=== PATIENT | female | born 2000 | race Caucasian/White ===

== ENCOUNTER 2020-01-18 14:24 | Emergency (ER) | payer OTHER, SELFPAY ==
[2020-01-18 14:51] VITALS: BP 132/89; PULSE 92; RESP 19; TEMP 36.6; O2SAT 99; BMI 19.5
--- NOTE | 2020-01-18 15:22 | HMH.EDUTC ---
[facility] [place]: Nausea vomiting and diarrhea Disposition: Home, Self-Care Condition on Discharge: Good Instructions: Diarrhea, Nausea and Vomiting-Adult Additional Instructions: ? Drink extra fluids with and between meals. If you have difficulty drinking, try very small amounts of water or suck on ice chips. ? Avoid fruit juices, as these do not replace minerals and can actually increase diarrhea. ? Children and adults can use sports drinks to replenish electrolytes. Younger children and infants should use products formulated for children, like oral rehydration solutions. ? Eat food in small amounts and let your stomach recover. ? Get lots of rest. You may feel tired or weak. ? No greasy or fried foods for the next 24-48 hours BRAT diet Bananas Rice Apples and [place] ? Make sure to drink plenty of liquids ? Return if needed ? Straight to ER if any life threatening symptoms ? Zofran as prescribed ? You was given an outpatient order for diarrhea panel, please collect specimen and bring back to outpatient lab then call back to the [facility] or follow up with family doctor for results ? Follow up with family doctor in the next 48-72 hours if no improvement or any worsening of symptoms Prescriptions: Ondansetron [Zofran 4mg ODT] 4 mg PO Q8HP PRN #9 tab.rapdis PRN Reason: Nausea Transmission Status: Pending to [id number] Referrals: Iona Frank APRN [Primary Care Provider] - As needed Forms: Work/School Release Time of Disposition: 15:38 Medical Decision Making - Wiley Inquiry Pt receiving controlled substance: No Wiley was queried for this patient: No Vital Signs: 01/18/20 14:51 Temperature 97.9 F Temperature Source Oral Pulse Rate [Radial] 92 H Respiratory Rate 19 Blood Pressure [Right Arm] 132/89 Blood Pressure Mean [Right Arm] 103 Blood Pressure Source [Right Arm] Automatic Cuff Blood Pressure Position [Right Arm] Sitting 02 Sat by Pulse Oximetry 99 Oxygen Delivery Method Room Air - Lab Data Lab results reviewed: Yes: I reviewed the patient's lab results. Orders (Tests/Meds): ED MEDICATIONS Discontinued Medications Generic Name Dose Route Start Last Admin Trade Name Freq PRN Reason Stop Dose Admin Ondansetron HCl 4 mg 01/18/20 15:36 01/18/20 15:37 Zofran 4mg Odt SL 01/18/20 15:37 4 mg ONCE ONE Administration [facility] [place] - General Stated complaint: Vomiting abd pain Time Seen by Provider: 01/18/20 15:23 Mode of Arrival: Ambulatory Source of Information: Patient Limitations: No Limitations Description of Symptoms (Recalled from Triage Doc. by RN): nausea, vomiting, diarrhea since 1 am. HEENT Symptoms (Recalled from RN notes): No Resp Symptoms (Recalled from RN notes): No Skin Symptoms (Recalled from RN notes): No MS Symptoms (Recalled from RN notes): No Functional Status (Recalled from RN notes): wnl - History of Present Illness Provider Complaint: Patient states that she woke up around 1am last night with nausea vomiting and diarrhea States that she has pretty much been up since States thats he was suppose to work today and had to call in due to vomiting and diarrhea so she came in to see if she could get something for nausea and get a doctors note - Related Data Previous Rx's Medication Instructions Recorded Ondansetron [Zofran 4mg ODT] 4 mg PO Q8HP PRN #9 tab.rapdis 01/18/20 Allergies Allergy/AdvReac Type Severity Reaction Status Date / Time No Known Allergies Allergy Unverified 05/16/17 15:03 - Worker's Comp Is this a Worker's Comp case?: No [facility] History - Hepatitis A Screen Drug use history?: No High risk sexual behaviors?: No History of sexually transmitted infection?: No Currently employed?: No Childcare worker?: No Do you have indoor plumbing?: Yes Do you have electricity?: Yes Attestation statement:: This patient has been screened for Hepatitis A risk factors. I have reviewed the patient's past m
[2020-01-18 15:41] VITALS: BP 132/89; PULSE 92; RESP 19; TEMP 36.6; O2SAT 99
[2020-01-18 19:05] LABS: UTC Pregnancy Test, Urine Negative (Negative)
== END 2020-01-18 15:47 | disposition home or self-care (01) ==
PROVIDERS: Emergency Provider Nurse Practitioner; PCP Nurse Practitioner Family
DX: R11.2 Nausea with vomiting, unspecified (principal); R19.7 Diarrhea, unspecified
CPT/HCPCS: 81025; 99201

== ENCOUNTER 2020-04-07 11:12 | Emergency (ER) | payer OTHER, SELFPAY ==
[2020-04-07 12:34] VITALS: BP 127/77; PULSE 74; RESP 19; TEMP 36.6; O2SAT 100; BMI 20.9
--- NOTE | 2020-04-07 12:39 | HMH.EDUTC ---
[facility] [place] Impression: Nausea vomiting and diarrhea Disposition: Home, Self-Care Condition on Discharge: Good Instructions: Nausea and Vomiting-Adult, DI for Nausea -- Adult, Dicyclomine, Ondansetron, Diarrhea Additional Instructions: Drink extra fluids with and between meals. If you have difficulty drinking, try very small amounts of water or suck on ice chips. ? Avoid fruit juices, as these do not replace minerals and can actually increase diarrhea. ? Children and adults can use sports drinks to replenish electrolytes. Younger children and infants should use products formulated for children, like oral rehydration solutions. ? Eat food in small amounts and let your stomach recover. ? Get lots of rest. You may feel tired or weak. ? No greasy or fried foods for the next 24-48 hours BRAT diet Bananas Rice Apples and [place] ? Make sure to drink plenty of liquids ? Return if needed ? Straight to ER if any life threatening symptoms ? Zofran as prescribed ? You was given an outpatient order for diarrhea panel, please collect specimen and bring back to outpatient lab then call back to the [facility] or follow up with family doctor for results ? Follow up with family doctor in the next 48-72 hours if no improvement or any worsening of symptoms Prescriptions: Dicyclomine HCl [Bentyl 10mg capsule] 10 mg PO TID PRN #15 cap PRN Reason: Cramping Transmission Status: [facility] to [facility] Ondansetron [Zofran 4mg ODT] 4 mg PO TIDP PRN #9 tab PRN Reason: Vomiting Transmission Status: Pending to [facility] Referrals: Iona Frank APRN [Primary Care Provider] - As needed Forms: Work/School Release Medical Decision Making - Wiley Inquiry Pt receiving controlled substance: No Wiley was queried for this patient: No Vital Signs: 04/07/20 12:34 Temperature 97.8 F Temperature Source Oral Pulse Rate [Left] 74 Respiratory Rate 19 Blood Pressure [Right Arm] 127/77 Blood Pressure Mean [Right Arm] 93 Blood Pressure Source [Right Arm] Automatic Cuff Blood Pressure Position [Right Arm] Sitting 02 Sat by Pulse Oximetry 100 Oxygen Delivery Method Room Air [facility] [place] - General Stated complaint: vomiting Time Seen by Provider: 04/07/20 12:39 Mode of Arrival: Ambulatory Source of Information: Patient Limitations: No Limitations Description of Symptoms (Recalled from Triage Doc. by RN): emesis since this morning HEENT Symptoms (Recalled from RN notes): No Resp Symptoms (Recalled from RN notes): No Skin Symptoms (Recalled from RN notes): No MS Symptoms (Recalled from RN notes): No Functional Status (Recalled from RN notes): stable - History of Present Illness Provider Complaint: Patient states that she was recently around a coworker who had a stomach virus States that she woke up this morning and was having some nausea and upset stomach States that she vomited a couple times and had a couple episodes of diarrhea States that she wasnt able to go to work so she come in to see if she could get something for the nausea. Denies chance of states that she is on her period now - Related Data Previous Rx's Medication Instructions Recorded Ondansetron [Zofran 4mg ODT] 4 mg PO Q8HP PRN #9 tab.rapdis 01/18/20 levonorgestrel-ethinyl estradiol 1 tab PO DAILY #28 tab 03/13/20 0.1 mg-20 mcg tablet Dicyclomine HCl [Bentyl 10mg 10 mg PO TID PRN #15 cap 04/07/20 capsule] Ondansetron [Zofran 4mg ODT] 4 mg PO TIDP PRN #9 tab 04/07/20 Allergies Allergy/AdvReac Type Severity Reaction Status Date / Time No Known Allergies Allergy Verified 04/07/20 12:33 - Worker's Comp Is this a Worker's Comp case?: No Is this an H Worker's Comp?: No Is this a Rebecca Worker's Comp?: No [facility] History - Hepatitis A Screen Drug use history?: No High risk sexual behaviors?: No History of sexually transmitted infection?: No Currently employed?: No Childcare worker?: No Do you have in
[2020-04-07 12:57] VITALS: BP 127/77; PULSE 74; RESP 19; TEMP 36.6; O2SAT 100
== END 2020-04-07 12:57 | disposition home or self-care (01) ==
PROVIDERS: Emergency Provider Nurse Practitioner; PCP Nurse Practitioner Family
DX: R11.2 Nausea with vomiting, unspecified (principal)
CPT/HCPCS: 99201

== ENCOUNTER → 2020-04-28 14:42 | Outpatient (CLI) | payer OTHER, SELFPAY | PROVIDERS: Visit Provider Nurse Practitioner Obstetrics & Gynecology | DX: N39.0 Urinary tract infection, site not specified (principal) | CPT/HCPCS: 87086; 87088; 87186 ==

== ENCOUNTER → 2020-04-28 18:54 | Outpatient (CLI) | payer OTHER, SELFPAY | PROVIDERS: Visit Provider Nurse Practitioner Obstetrics & Gynecology | DX: Z01.419 Encounter for gynecological examination (general) (routine) without abnormal findings (principal) ==

== ENCOUNTER 2020-06-29 11:53 | Emergency (ER) | payer OTHER, SELFPAY ==
[2020-06-29 12:10] VITALS: BP 114/70; PULSE 87; RESP 19; TEMP 36.9; O2SAT 99; BMI 19.5
--- NOTE | 2020-06-29 12:56 | HMH.EDUTC ---
[facility] [place] Clinical Impression: Encounter for screening laboratory testing for COVID-19 virus Nausea & vomiting Qualifiers: Vomiting type: unspecified Vomiting Intractability: unspecified Qualified Code(s): R11.2 - Nausea with vomiting, unspecified Disposition: Home, Self-Care Condition on Discharge: Good Instructions: DI for COVID-19 (Suspected or Confirmed ), Coronavirus Disease 2019, Preventing the Spread of Coronavirus Discharge Instructions, DI for Nausea -- Adult Additional Instructions: *Monitor Temp, Over the counter Motrin or Tylenol as directed/as needed Tylenol every 4 hours and Motrin every 6 hours (as long as your family doctor has told you that you can take it) for fever or pain. and straight to ER if unable to lower temp less than 101.0 after medication given ? Avoid fruit juices, as these do not replace minerals and can actually increase diarrhea. ? Children and adults can use sports drinks to replenish electrolytes. Younger children and infants should use products formulated for children, like oral rehydration solutions. ? Eat food in small amounts and let your stomach recover. ? Get lots of rest. You may feel tired or weak. ? No greasy or fried foods for the next 24-48 hours BRAT diet Bananas Rice Apples and [place] ? Make sure to drink plenty of liquids ? Return if needed ? Straight to ER if any life threatening symptoms ? Zofran as prescribed ? Follow up with family doctor in the next 48-72 hours if no improvement or any worsening of symptoms Follow up IMMEDIATELY for new or worsening symptoms or no Noticeable improvement over the next 48-72 hours. 911 for difficulty breathing or swallowing You were tested for today for COVID19 your test result should be back in the next 24-48 hours, you may call to the [facility] to see if your test results are back in the next 48 hours [phone] [facility] hours are 9am-9pm You was given a handout with instructions for Self Quarantine and Self isolation for while you wait on test results and what to do if they are positive If you are positive the Health Dept will be contacting you also Prescriptions: Ondansetron [Zofran 4mg ODT] 4 mg PO TIDP PRN #6 tab PRN Reason: Nausea Transmission Status: [facility] Referrals: Iona Frank APRN [Primary Care Provider] - As needed Time of Disposition: 12:59 Medical Decision Making - Wiley Inquiry Pt receiving controlled substance: No Wiley was queried for this patient: No Vital Signs: 06/29/20 12:10 Temperature 98.4 F Temperature Source Oral Pulse Rate [Right Brachial] 87 Respiratory Rate 19 Blood Pressure [Right Arm] 114/70 Blood Pressure Mean [Right Arm] 84 Blood Pressure Source [Right Arm] Automatic Cuff Blood Pressure Position [Right Arm] Sitting 02 Sat by Pulse Oximetry 99 Oxygen Delivery Method Room Air Orders (Tests/Meds): ORDERS Category Date Time Status Covid-19 Nasal PCR ([facility]) Routine Lab 06/29/20 12:20 Received Medical Decision Narrative: Denies abdominal pain, denies chance of [facility] [place] - General Stated complaint: Covid Test Time Seen by Provider: 06/29/20 12:56 Mode of Arrival: Ambulatory Source of Information: Patient Limitations: No Limitations Description of Symptoms (Recalled from Triage Doc. by RN): PATIENT C/O NAUSEA, VOMITING, AND ABDOMINAL CRAMPING SINCE APPROX 0300 THIS MORNING HEENT Symptoms (Recalled from RN notes): No Resp Symptoms (Recalled from RN notes): No Skin Symptoms (Recalled from RN notes): No MS Symptoms (Recalled from RN notes): No Functional Status (Recalled from RN notes): WNL - History of Present Illness Provider Complaint: Patient states that several people at her work has tested positive for COVID States that she has been having body aches, chills, N/V States that her stomach has been upset all day State that last vomited this morning and she wanted to get tested for COVID - Related Data Previous Rx's Medicatio
[2020-06-29 12:57] VITALS: BP 114/70; PULSE 87; RESP 19; TEMP 36.9; O2SAT 99
--- NOTE | 2020-06-30 12:44 | PC.NURSE ---
PT NOTIFIED POSITIVE COVID TEST RESULTS
== END 2020-06-29 13:05 | disposition home or self-care (01) ==
PROVIDERS: Emergency Provider Nurse Practitioner; PCP Nurse Practitioner Family
DX: U07.1 COVID-19 (principal)
CPT/HCPCS: 99202; G0463; U0003

== ENCOUNTER 2020-07-06 12:53 | Emergency (ER) | payer OTHER, SELFPAY ==
[2020-07-06 13:33] VITALS: BP 123/73; PULSE 82; RESP 16; TEMP 36.1; O2SAT 99; BMI 19.5
--- NOTE | 2020-07-06 13:59 | HMH.EDUTC ---
[facility] [place] Clinical Impression: Cellulitis and abscess of upper extremity, COVID-19 Disposition: Home, Self-Care Condition on Discharge: Good Instructions: Cellulitis, Preventing the Spread of Coronavirus Discharge Instructions Additional Instructions: Keep the affected area clean and dry. Follow up with your regular doctor. Take the antibiotics as directed and apply the topical antibiotics as directed. Apply warm wet compresses to the affected area three or four times per day. GO TO THE ER FOR ANY WORSENING SYMPTOMS Prescriptions: Sulfamethoxazole/Trimethoprim [Bactrim DS tablet] 1 each PO BID 10 Days #20 tab Transmission Status: Received by [facility] Mupirocin [Bactroban 2% Ointment 22gm tube] 1 applicatio TP TID 7 Days #1 tube Transmission Status: Received by [facility] cephALEXin [cephALEXin 500mg capsule] 500 mg PO Q6H 10 Days #40 cap Transmission Status: Received by [facility] Referrals: Iona Frank APRN [Primary Care Provider] - Time of Disposition: 14:09 Medical Decision Making - Medical Records Medical records reviewed: No: I reviewed the patient's medical records. - Wiley Inquiry Pt receiving controlled substance: No Vital Signs: 07/06/20 13:33 07/06/20 14:18 Temperature 96.9 F L 97.1 F L Temperature Source Tympanic Tympanic Pulse Rate 79 Pulse Rate [Left] 82 Respiratory Rate 16 16 Blood Pressure 119/69 Blood Pressure [Right Arm] 123/73 Blood Pressure Mean [Right Arm] 89 Blood Pressure Source [Right Arm] Automatic Cuff Blood Pressure Position [Right Arm] Sitting 02 Sat by Pulse Oximetry 99 Oxygen Delivery Method Room Air Orders (Tests/Meds): ORDERS Category Date Time Status Wound Culture and Gram Stain Routine Micro 07/06/20 14:10 Received [facility] [place] HPI - General Stated complaint: bump Rt arm, red, hot, swollen, COVID POSITIVE Time Seen by Provider: 07/06/20 14:05 Mode of Arrival: Ambulatory Source of Information: Patient Limitations: No Limitations Description of Symptoms (Recalled from Triage Doc. by RN): pt is covid positive as a week ago. pt wants to be seen for an abcess on her right lower arm. it is open with a yellow inside. pt has redness around in about the diameter of a baseball. however the lump its self is only about the size of a dime. HEENT Symptoms (Recalled from RN notes): No Resp Symptoms (Recalled from RN notes): No Skin Symptoms (Recalled from RN notes): Yes (abcess on right lower arm.) MS Symptoms (Recalled from RN notes): No Functional Status (Recalled from RN notes): na - History of Present Illness Provider Complaint: She states that for the past 3 days she has had a red area on her right forearm that has been swelling and painful to touch. There is a open area in the center of the redness that has some yellowish drainage. She is currently covid-19 positive, but she states that her covid symptoms are getting better. She works in a prison. - Related Data Previous Rx's Medication Instructions Recorded levonorgestrel-ethinyl estradiol 1 tab PO DAILY #28 tab 03/13/20 0.1 mg-20 mcg tablet nitrofurantoin 100 mg PO BID 5 Days #10 cap 04/28/20 monohydrate/macrocrystals 100 mg capsule Ondansetron [Zofran 4mg ODT] 4 mg PO TIDP PRN #6 tab 06/29/20 Mupirocin [Bactroban 2% Ointment 1 applicatio TP TID 7 Days #1 tube 07/06/20 22gm tube] Sulfamethoxazole/Trimethoprim 1 each PO BID 10 Days #20 tab 07/06/20 [Bactrim DS tablet] cephALEXin [cephALEXin 500mg 500 mg PO Q6H 10 Days #40 cap 07/06/20 capsule] Allergies Allergy/AdvReac Type Severity Reaction Status Date / Time No Known Allergies Allergy Verified 07/06/20 13:43 - Worker's Comp Is this a Worker's Comp case?: No [facility] History - Hepatitis A Screen Drug use history?: No High risk sexual behaviors?: No History of sexually transmitted infection?: No Currently employed?: No Childcare worker?: No
[2020-07-06 14:18] VITALS: BP 119/69; PULSE 79; RESP 16; TEMP 36.2
== END 2020-07-06 14:20 | disposition home or self-care (01) ==
PROVIDERS: Emergency Provider Nurse Practitioner Family; PCP Nurse Practitioner Family
DX: L03.113 Cellulitis of right upper limb (principal); U07.1 COVID-19
CPT/HCPCS: 87070; 87077; 87186; 87205; 99202; G0463

== ENCOUNTER → 2020-12-10 14:24 | Outpatient (CLI) | payer OTHER, SELFPAY ==
--- NOTE | 2020-12-10 14:24 | US_ITS ---
PROCEDURE: US OB <= 14 WEEKS FETUS CLINICAL INDICATION: for dates Ob ultrasound for dates COMPARISON: No exams were available for comparison FINDINGS: An intrauterine gestational sac is present with a pole with a crown-rump length of 1.66cm correlating to gestational age of 8weeks 1day. heart tones are present with an FHR of 165bpm. Yolk sac is noted. Unremarkable adnexa IMPRESSION: Live IUP at 8 weeks 1 day Estimated due date by Ultrasound is 07/21/2021 Dictated by: Amilcar Almaguer MD 12/10/2020 15:56 Amilcar Almaguer MD in [place] 12/10/2020 15:56
== END ==
PROVIDERS: PCP Nurse Practitioner Family; Visit Provider Nurse Practitioner Obstetrics & Gynecology
DX: Z34.91 Encounter for supervision of normal pregnancy, unspecified, first trimester (principal)
CPT/HCPCS: 76801

== ENCOUNTER → 2020-12-10 15:06 | Outpatient (CLI) | payer OTHER, SELFPAY ==
[2020-12-10 15:48] LABS: Basophils % 0.3 % (0.1-2.0); Eosinophils % 0.1 % (0.1-12.0); Hematocrit 42.5 % (37.0-47.0); Hemoglobin 14.4 g/dL (12.2-16.2); Lymphocytes # 1.4 K/mm3 (0.7-4.5); Lymphocytes % 11.3 % (10-50); Mean Corpuscular HGB Conc 33.8 g/dL (31.8-35.4); Mean Corpuscular Volume 88.7 fl (81-99); Mean Platelet Volume 7.1 fl (7.4-10.4); Monocytes # 0.5 K/mm3 (0.1-1.0); Monocytes % 3.9 % (1.7-9.3); Neutrophils # 10.5 K/mm3 (1.8-7.8); Neutrophils % 84.4 % (37.0-80.0); Platelet Count 288 K/mm3 (142-424); Red Blood Count 4.79 M/mm3 (4.20-5.40); White Blood Count 12.4 K/mm3 (4.8-10.8)
[2020-12-12 11:25] LABS: HIV Screen 4th Generation wRfx Non Reactive (Non Reactive); HSV 1 IgG, Type Spec <0.91 index (0.00-0.90); HSV 2 IgG, Type Spec <0.91 index (0.00-0.90); Hepatitis B Surface Antigen Negative (Negative); Hepatitis C Antibody <0.1 s/co ratio (0.0-0.9); Rubella Antibodies, IgG 1.21 index (Immune >0.99)
[2020-12-12 12:45] LABS: Rapid Plasma Reagin Ab Titer Non Reactive (NonRea<1:1)
== END ==
PROVIDERS: Visit Provider Nurse Practitioner Obstetrics & Gynecology
DX: Z34.91 Encounter for supervision of normal pregnancy, unspecified, first trimester (principal); Z3A.08 8 weeks gestation of pregnancy
CPT/HCPCS: 36415; 85025; 86592; 86695; 86703; 86762; 86790; 86850; 87340; 87380; G0432

== ENCOUNTER 2020-12-19 11:46 | Emergency (ER) | payer OTHER, SELFPAY ==
[2020-12-19 13:19] VITALS: BP 122/79; PULSE 97; RESP 18; TEMP 37.1; O2SAT 97; BMI 17.5
--- NOTE | 2020-12-19 13:24 | HMH.EDUTC ---
[facility] [place] Clinical Impression: Qualifiers: Weeks of gestation: 10 weeks Qualified Code(s): Z3A.10 - 10 weeks gestation of Nausea & vomiting Qualifiers: Vomiting type: unspecified Vomiting Intractability: intractable Qualified Code(s): R11.2 - Nausea with vomiting, unspecified Disposition: Home, Self-Care Condition on Discharge: Good Instructions: Diet, Nausea of (Alternative Therapy) Additional Instructions: call monday to get appointment with dr woodward take half phenergan increase fluids bland diet return if symptoms worsen or do not impove Referrals: Provider,Referral, MD [Primary Care Provider] - Forms: Work/School Release Time of Disposition: 13:35 Medical Decision Making - Wiley Inquiry Pt receiving controlled substance: No Vital Signs: 12/19/20 13:19 Temperature 98.8 F Temperature Source Oral Pulse Rate [Apical] 97 H Respiratory Rate 18 Blood Pressure [Right Arm] 122/79 Blood Pressure Mean [Right Arm] 93 Blood Pressure Source [Right Arm] Automatic Cuff Blood Pressure Position [Right Arm] Supine 02 Sat by Pulse Oximetry 97 Oxygen Delivery Method Room Air - Physician Consults Physician Consulted: gagan Time: 13:32 Reason -: Pt condition Comment/Response: discussed pt symptoms- take half of phenergan, increase fluids and stay off work until seen by dr woodward [facility] [place] HPI - General Chief complaint: Urgent [facility] Stated complaint: nausea, dizzy Time Seen by Provider: 12/19/20 13:24 Mode of Arrival: Ambulatory Source of Information: Patient Limitations: No Limitations Description of Symptoms (Recalled from Triage Doc. by RN): nausea, vomitting, dizziness HEENT Symptoms (Recalled from RN notes): No Resp Symptoms (Recalled from RN notes): No Skin Symptoms (Recalled from RN notes): No MS Symptoms (Recalled from RN notes): No Functional Status (Recalled from RN notes): na - History of Present Illness Provider Complaint: 20yr old female presents for nausea and dizziness for over 3 weeks. pt is 10 weeks . pt states symptoms worse when she bends over. pt states her obgyn gave her phenergan but it makes her to sleepy. pt states she is able to eat and drink just smells make her sick at her stomach - Related Data Previous Rx's Medication Instructions Recorded prenat.vits,ruth,iuu-ujir-osrjq 1 tab PO DAILY #30 tab 12/03/20 promethazine 25 mg tablet 25 mg PO Q6H PRN #30 tab 12/16/20 Allergies Allergy/AdvReac Type Severity Reaction Status Date / Time No Known Allergies Allergy Verified 12/03/20 10:10 - Worker's Comp Is this a Worker's Comp case?: No [facility] History - Hepatitis A Screen Drug use history?: No High risk sexual behaviors?: No History of sexually transmitted infection?: No Currently employed?: No Childcare worker?: No Do you have indoor plumbing?: Yes Do you have electricity?: Yes Attestation statement:: This patient has been screened for Hepatitis A risk factors. I have reviewed the patient's past medical history: Yes Medical History: Reports:: Anxiety, Depression Denies:: Cancer, Diabetes Mellitus Type 1, Diabetes Mellitus Type 2, Internal Pacemaker, MRSA Other Surgeries: Yes: Cholecystectomy. No: Pacemaker Amputation: No Fractures: No - Social History Smoking Status: Never smoker Alcohol Intake: never Alcohol Intake Frequency:: other Substance Use Type: marijuana Occupational Status: employed Housing: house - Psychiatric History Pschychiatric History:: Reports:: Anxiety, Depression Family Hx:: No significant family history ROS Obtained: Yes Systems reviewed as appropriate & no additional complaints - Constitutional Constitutional: Reports system reviewed and no additional complaints, except as docu, Denies fatigue - Eyes Eyes: Reports system reviewed and no additional complaints, except as docu, Denies blurry vision - ENT Ears, Nose, Mouth, and Throat: Reports system reviewed and n
[2020-12-19 13:40] VITALS: BP 122/79; PULSE 97; RESP 18; TEMP 37.1
== END 2020-12-19 13:41 | disposition home or self-care (01) ==
PROVIDERS: Emergency Provider Nurse Practitioner Family
DX: R42 Dizziness and giddiness (principal); Z3A.10 10 weeks gestation of pregnancy; F41.8 Other specified anxiety disorders
CPT/HCPCS: 99202; G0463

== ENCOUNTER → 2020-12-21 15:19 | Outpatient (CLI) | payer OTHER, SELFPAY | PROVIDERS: Visit Provider Nurse Practitioner Obstetrics & Gynecology | DX: Z34.90 Encounter for supervision of normal pregnancy, unspecified, unspecified trimester (principal) | CPT/HCPCS: 36415 ==

== ENCOUNTER → 2021-03-02 13:03 | Outpatient (CLI) | payer OTHER, SELFPAY ==
--- NOTE | 2021-03-02 13:03 | US_ITS ---
PROCEDURE: US OB /MATERNAL DETAIL CLINICAL INDICATION: US OB Complete-20wk + Anatomy Scan COMPARISON: US US OB <= 14 WEEKS FETUS from 12/10/2020 FINDINGS: Single viable intrauterine gestation. Breech position. Placenta: Anteriorplacenta grade 1. There is average amount fluid. The cervix appears satisfactory. Closed and measuring 4 cm in length. Complete survey performed and was unremarkable on the submitted images as in PACS. No discrete anomalies identified on survey imaging by technologist. Active fetus. Three-vessel cord with satisfactory umbilical cord insertion. 4- chamber heart noted. Survey of brain & ventricles Unremarkable. Face and neck survey unremarkable. Diaphragm and chest views unremarkable. Abdomen: Both kidneys noted and unremarkable. Stomach noted and satisfactory. Spine: Survey of the spine satisfactory with no anomalies identified nor imaged. Both arms and legs noted. Amniotic Fluid: Adequate. Maternal adnexa: No significant findings. Measurements: Average ultrasound age 19weeks 4days. Gestational Age 19weeks 4days Estimated due date by ultrasound age 0207/23/2021. Estimated weight 291g BPD = 19weeks 6days OFD = 19weeks 6days HC = 19weeks 1day AC = 19weeks 4days FL = 19weeks 3days Growth Percentile= 22% Heart Rate = 149bpm Cerebellum = 19weeks 6days Humerus = 19weeks 5days HC/AC is 1.15 CI is 0.79 FL/BPD is 0.66 FL/AC is 0.21 IMPRESSION: Live IUP in breech presentation with an average ultrasound age 19 weeks 4 days. No obvious anomalies. Please see above for detail Dictated by: Amilcar Almaguer MD 03/02/2021 18:25 Amilcar Almaguer MD in [place] 03/02/2021 18:25
== END ==
PROVIDERS: Visit Provider Nurse Practitioner Obstetrics & Gynecology
DX: Z36.0 Encounter for antenatal screening for chromosomal anomalies (principal)
CPT/HCPCS: 76811

== ENCOUNTER → 2021-04-23 08:01 | Outpatient (CLI) | payer OTHER, SELFPAY ==
[2021-04-23 08:33] LABS: Glucose,Fasting 93 mg/dl (74-100)
[2021-04-23 09:52] LABS: Glucose 1 Hour 104 mg/dL (74-100)
== END ==
PROVIDERS: Visit Provider Nurse Practitioner Obstetrics & Gynecology
DX: Z34.90 Encounter for supervision of normal pregnancy, unspecified, unspecified trimester (principal); Z3A.25 25 weeks gestation of pregnancy
CPT/HCPCS: 36415; 82951

== ENCOUNTER → 2021-06-15 16:28 | Outpatient (CLI) | payer OTHER, SELFPAY | PROVIDERS: Visit Provider Nurse Practitioner Obstetrics & Gynecology | DX: Z34.90 Encounter for supervision of normal pregnancy, unspecified, unspecified trimester (principal) | CPT/HCPCS: 86403 ==

== ENCOUNTER → 2021-06-21 10:25 | Outpatient (CLI) | payer OTHER, SELFPAY ==
--- NOTE | 2021-06-21 10:25 | US_ITS ---
FINAL REPORT CLINICAL HISTORY: sga-- BPP AND GROWTH FINDINGS: There is a single live intrauterine gestation. Presentation is cephalic. The cervix is closed and measures 3.46 cm. Placenta is anterior. Cardiac activity is confirmed at 153 bpm. Fetus is active. Three-vessel cord with satisfactory umbilical cord insertion. Four-chamber heart is noted. brain and ventricles are unremarkable. Chest and diaphragm are unremarkable. ABDOMEN: Both kidneys are unremarkable. Stomach is unremarkable. SPINE: No anomalies identified. Both arms and legs noted. MAYELA: 7.78 MEASUREMENTS: ULTRASOUND AGE: 35 weeks 2 days. GESTATION AGE: 36 weeks 2 days. ESTIMATED WEIGHT: 5 lbs. 6 oz. GROWTH PERCENTILE: BPD: 36 weeks 3 days. OFD: 36 weeks 0 days. HC: 35 weeks 5 days. AC: 34 weeks 0 days. FL: 34 weeks 4 days. CEREBELLUM: 36 weeks 3 days. HC/AC: 1.06 CI: 81% FL/BPD: 75% FL/AC: 22% BREATHIN/2 MOVEMENT: 2/2 TONE: 2/2 FLUID VOLUME: 2/2 BPP SCORE: 8/8 IMPRESSION: Single living IUP with an ultrasound age of 35 weeks 2 days. BPP SCORE: 8/8 Reviewed, Interpreted and Dictated by Norman Sparks MD Transcribed by Tamiko Gutierrez Authenticated by Norman Sparks MD on 06/21/2021 03:38:46 PM [facility]
== END ==
PROVIDERS: Visit Provider Nurse Practitioner Obstetrics & Gynecology
DX: O36.5990 Maternal care for other known or suspected poor fetal growth, unspecified trimester, not applicable or unspecified (principal)
CPT/HCPCS: 76805; 76819

== ENCOUNTER 2021-07-11 17:07 | Inpatient (IN) | payer OTHER, SELFPAY ==
[2021-07-11 17:14] VITALS: BMI 23.6
[2021-07-11 17:45] LABS: Coronavirus 19, PCR Not Detected (NotDetected); Influenza A, PCR Not Detected (NotDetected); Influenza B, PCR Not Detected (NotDetected)
[2021-07-11 17:58] VITALS: BP 140/81; PULSE 100; RESP 16; TEMP 36.8; O2SAT 98; BMI 23.6
[2021-07-11 18:08] LABS: Basophils # 0.4 K/mm3 (0-0.2); Basophils % 3.2 % (0.1-2.0); Eosinophils % 0.2 % (0.1-12.0); Hematocrit 39.6 % (37.0-47.0); Hemoglobin 13.2 g/dL (12.2-16.2); Lymphocytes # 1.2 K/mm3 (0.7-4.5); Lymphocytes % 11.3 % (10-50); Mean Corpuscular HGB Conc 33.4 g/dL (31.8-35.4); Mean Corpuscular Hemoglobin 31.8 pg (27.0-31.2); Mean Corpuscular Volume 95.3 fl (81-99); Mean Platelet Volume 7.3 fl (7.4-10.4); Monocytes # 0.9 K/mm3 (0.1-1.0); Neutrophils # 8.5 K/mm3 (1.8-7.8); Neutrophils % 77.3 % (37.0-80.0); Platelet Count 303 K/mm3 (142-424); Red Blood Count 4.16 M/mm3 (4.20-5.40); Red Cell Distribution Width 13.5 % (11.5-17.5); White Blood Count 10.9 K/mm3 (4.8-10.8)
[2021-07-11 20:25] VITALS: BP 120/70; PULSE 92; RESP 16; TEMP 36.4; O2SAT 100
[2021-07-11 21:58] LABS: Microscopic, Urine URINE MICROSCOPIC (MICROSCOPIC)
[2021-07-11 22:00] LABS: Appearance,Urine CLEAR (Clear); Bilirubin,Urine Negative (Negative); Blood, Urine 1+ (Negative); Color,Urine YELLOW (Yellow); Glucose,Urine (UA) Negative (Negative); Ketones,Urine Negative (Negative); Leukocyte Esterase,Urine TRACE (Negative); Nitrate,Urine Negative (Negative); Protein,Urine Negative (Negative); Specific Gravity, Urine <= 1.005 (1.005-1.030); Urobilinogen,Urine 0.2 EU/dl (0.2)
[2021-07-11 22:05] LABS: Bacteria,Urine Trace /lpf; Squamous Epithelial Cell,Urine Occasional #/hpf (0-5); WBC,Urine Occasional #/hpf (0-3)
[2021-07-11 22:11] LABS: Barbiturates Screen,Urine Negative ng/ml (<200)
[2021-07-11 22:12] LABS: Amphetamine/Metha Screen,Urine Negative ng/ml (<1000); Benzodiazepines Screen,Urine Negative ng/ml (<200)
[2021-07-11 22:13] LABS: Cannabinoid Screen,Urine Negative ng/ml (<50); Cocaine Screen,Urine Negative ng/ml (<300)
[2021-07-11 22:14] LABS: Methadone Screen,Urine Negative ng/ml (<300)
[2021-07-11 22:15] LABS: Opiate Screen,Urine Negative ng/ml (<300); Phencyclidine Screen,Urine Negative ng/ml (<25)
--- NOTE | 2021-07-12 09:41 | HMH.OBAPHP ---
OB - H&P: HPI Antepartum - History of Present Illness Chief complaint: Term , oligohydramnios History of present illness: She is a 21-year-old 1 para 0 at 39+ weeks gestational age. She has been followed over the last couple of weeks with low amniotic fluid. Most recently it was right around 8. As result of this she is admitted for delivery at term. - History of Present Criteria for establishing EDC:: LMP confirmed by 1st trimester US care: good care Ultrasounds: normal 1st trimester US, normal mid trimester US Obstetrical complications: other Medical complications: none - Labs Blood type: AB (+) positive Rubella: immune RPR/VDRL: nonreactive GBS status: negative HBsAG: negative HMH History I have reviewed the patient's past medical history: Yes Medical History: Reports:: Anxiety, Depression Denies:: Cancer, Diabetes Mellitus Type 1, Diabetes Mellitus Type 2, Internal Pacemaker, MRSA *Have you ever received a pneumonia vaccine?: No *Have you received a flu vaccine this season?: No Other Surgeries: Yes: Cholecystectomy. No: , Pacemaker Amputation: No Fractures: No - *Social History Smoking Status: Never smoker Alcohol Intake: never Alcohol Intake Frequency:: other Substance Use Type: marijuana *Occupational Status:: employed Housing: house *Travel in the last 8 weeks: None - Psychiatric History Pschychiatric History:: Reports:: Anxiety, Depression Family Hx:: No significant family history Para: 0 Review of Systems - Review of Systems Review of systems:: pertinent systems reviewed and negative unless documented below Meds Home Medications Medication Instructions Recorded Confirmed Type Vit No.130/Iron/Folic 1 tab PO DAILY 07/11/21 07/11/21 History [ Vitamin] Ferrous Sulfate [Ferosul] 325 mg PO DAILY 07/12/21 07/12/21 History Allergies Allergy/AdvReac Type Severity Reaction Status Date / Time No Known Allergies Allergy Verified 07/08/21 10:56 OB - H&P: Exam - Physical Exam Vital signs: Temp Pulse Resp BP Pulse Ox 97.6 F 92 H 16 120/70 100 07/11/21 20:25 07/11/21 20:25 07/11/21 20:25 07/11/21 20:25 07/11/21 20:25 - Constitutional no acute distress - Routine HEENT Exam Head: Present: normocephalic Eye: Present: EOMI, PERRL ENT: Present: mucous membranes moist - Routine Neck Exam Present: supple, full ROM - Routine Respiratory Exam Absent: accessory muscle use (good air entry bilaterally), respiratory distress, wheezes, crackles - Routine Cardiovascular Exam Present: RRR. Absent: murmur - Routine Abdominal Exam Present: soft, normoactive bowel sounds. Absent: tenderness, distended, guarding - Routine Rectal Exam Patient deferred: visual exam, digital exam - Routine Exam Patient deferred: external exam, groin exam, perineal exam - Routine Extremities Exam Present: full ROM. Absent: cyanosis, edema - Routine Skin Exam Present: intact. Absent: cyanosis - Routine Neurological Exam Present: alert, oriented X3 - Routine Psychiatric Exam Present: normal affect OB - Results - Labs Labs: Short CBC 07/11/21 Range/Units 17:36 WBC 10.9 H (4.8-10.8) K/mm3 Hgb 13.2 (12.2-16.2) g/dL Hct 39.6 (37.0-47.0) % Plt Count 303 (142-424) K/mm3 Urine 07/11/21 Range/Units 21:51 Urine Color Yellow (Yellow) Urine Appearance Clear (Clear) Urine pH 7.0 (5.0-8.5) Ur Specific [place] <= 1.005 (1.005-1.030) Urine Protein Negative (Negative) Urine Glucose (UA) Negative (Negative) OB - A/P Antepartum (1) COVID-19 Status: Acute (2) Oligohydramnios in clark in third trimester Status: Acute - Additional Plan Planning to breastfeed?: Yes Plan: induction Additional Information:: She had oligohydramnios and received Cervidil last night. She is receiving oxytocin now. Her cervix is 2 cm 75%. I r
--- NOTE | 2021-07-12 09:43 | HMH.LABNOT ---
Labor Note - Subjective: Date: 07/12/21 Time: 09:43 regular contraction - Objective: NST:: Reactive Cervical Dilation:: 2 Effacement:: 75% Station: -2 Membranes: artificially ruptured - Fetus: Monitoring?: Yes monitoring type:: External - Assessment: Labor progressing?: Yes Cephalopelvic disproportion?: No Patient Problems: All Active Problems Nausea & vomiting (Acute) Oligohydramnios in clark in third trimester (Acute) (Acute) COVID-19 (Acute) - Plan: Anesthesia for epidural?: Yes Continue to labor down?: Yes Plan for ?: No Continue to monitor?: Yes Start pushing?: No Comment:: I ruptured membranes and there was clear fluid.
--- NOTE | 2021-07-12 11:33 | HMH.LABNOT ---
Labor Note - Subjective: Date: 07/12/21 Time: 11:33 regular contraction - Objective: NST:: Reactive Contractions:: every 2-3 minutes Cervical Dilation:: 2 Effacement:: 75% Station: -2 Membranes: artificially ruptured - Fetus: Monitoring?: Yes monitoring type:: External - Assessment: Labor progressing?: No Cephalopelvic disproportion?: No Patient Problems: All Active Problems Nausea & vomiting (Acute) Oligohydramnios in clark in third trimester (Acute) (Acute) COVID-19 (Acute) - Plan: Anesthesia for epidural?: No Continue to labor down?: Yes Plan for ?: No Continue to monitor?: Yes Start pushing?: No Additional information:: She really has not progressed as of yet. She is having regular contractions. The baby's head is down low. We will see how she does over the next few hours.
--- NOTE | 2021-07-12 13:58 | HMH.LABNOT ---
Labor Note - Subjective: Date: 07/12/21 Time: 13:58 regular contraction - Objective: NST:: Reactive Contractions:: every 2-3 minutes Cervical Dilation:: 3 Effacement:: 80% Station: -1 Membranes: artificially ruptured - Fetus: Monitoring?: Yes monitoring type:: External - Assessment: Labor progressing?: Yes Cephalopelvic disproportion?: No Patient Problems: All Active Problems Nausea & vomiting (Acute) Oligohydramnios in clark in third trimester (Acute) (Acute) COVID-19 (Acute) - Plan: Anesthesia for epidural?: No Continue to labor down?: Yes Plan for ?: No Continue to monitor?: Yes Start pushing?: No Comment:: She is doing well. She has progressed from 2 to 3 cm. The baby's head is well down. We will continue for now. She is having good regular contractions.
--- NOTE | 2021-07-12 15:38 | HMH.LABNOT ---
Labor Note - Subjective: Date: 07/12/21 Time: 15:38 regular contraction - Objective: NST:: Reactive Contractions:: every 2-3 minutes Cervical Dilation:: 4 Effacement:: 90% Station: -1 Membranes: artificially ruptured - Fetus: Monitoring?: Yes monitoring type:: Internal and External Comment:: I inserted an IUPC - Assessment: Labor progressing?: Yes Cephalopelvic disproportion?: No Patient Problems: All Active Problems Nausea & vomiting (Acute) Oligohydramnios in clark in third trimester (Acute) (Acute) COVID-19 (Acute) - Plan: Anesthesia for epidural?: Yes Continue to labor down?: Yes Plan for ?: No Continue to monitor?: Yes Start pushing?: No Comment:: She is doing well. I inserted IPC. She is having regular contractions. She has requested an epidural. We will expect a vaginal delivery.
--- NOTE | 2021-07-12 16:53 | HMH.LABNOT ---
Labor Note - Subjective: Date: 07/12/21 Time: 16:53 regular contraction - Objective: NST:: Reactive Contractions:: every 2-3 minutes Cervical Dilation:: 4-5 Effacement:: 90% Station: 0 Membranes: artificially ruptured - Fetus: Monitoring?: Yes monitoring type:: Internal and External - Assessment: Labor progressing?: Yes Cephalopelvic disproportion?: No Patient Problems: All Active Problems Nausea & vomiting (Acute) Oligohydramnios in clark in third trimester (Acute) (Acute) COVID-19 (Acute) - Plan: Anesthesia for epidural?: Yes Continue to labor down?: Yes Plan for ?: No Continue to monitor?: Yes Start pushing?: No
[2021-07-12 20:21] VITALS: BP 133/61; PULSE 93; RESP 18; TEMP 37.1
--- NOTE | 2021-07-12 21:19 | HMH.DN ---
- Delivery Note Delivery Date:: 07/12/21 Delivery Time:: 21:06 Anesthesia Type: Epidural Was labor medically induced?: Yes Induction method: per misoprostol protocol Gestational age (weeks): 39 delivered prior to 39 weeks?: No Justification for early elective delivery:: Oligohydraminos Gender: Female at 1 minute: 8 at 5 minutes: 9 Delivery Procedure:: She is a 21-year-old 1 para 0 at 39 weeks gestational age. She has been followed with recently oligohydramnios. As result of that she was brought in for induction of labor at term. She had Cervidil placed last night and then was started on IV oxytocin this morning. She had her membranes ruptured and under labor epidural progressed to full dilation. She delivered spontaneously a liveborn female child at 9:06 PM in the evening of July 12, 2021. I had applied a vacuum because she was progressing very slowly with pushing and we had 3 pop off so we stopped. We then had her continue to push and she eventually delivered spontaneously a liveborn female child. On delivery of head the anterior shoulder then delivered easily followed by the rest of his body atraumatically. The oropharynx and nasopharynx were bulb suction. The baby was vigorous and crying so we allowed the cord to continue to pulsate for approximately 1 minute. The cord was then doubly clamped and cut and the infant was placed on the mother's abdomen for further care. The nurses assigned Apgars of 8 at 1 minute and 9 at 5 minutes. We then obtained cord blood. She received IV oxytocin and gentle traction on the cord and countertraction on the fundus I was able to easily deliver the placenta intact. It had a normal three-vessel cord. There were no perineal or vaginal lacerations. She has AB+ blood, she is rubella immune and was group B streptococcus negative. She plans to breast-feed. Her it desktop support specialist is Dr. Taylor. Estimated blood loss was approximately 150 cc. Placental Delivery Description: Spontaneous
[2021-07-13 04:25] VITALS: BP 108/56; PULSE 72; RESP 16; TEMP 36.7
[2021-07-13 06:49] LABS: Hematocrit 37.7 % (37.0-47.0); Hemoglobin 12.6 g/dL (12.2-16.2)
--- NOTE | 2021-07-13 09:59 | HMH.ACPN2 ---
Internal Medicine - PN: Subj *Date: 07/13/21 *Time: 09:59 Interval history: She is doing very well this morning. She is eating and drinking and ambulating. She is breast-feeding. Her lochia is normal. Exam Vital signs and Labs for Last 24 Hours: Temp Pulse Resp BP Pulse Ox 98.0 F 72 16 108/56 L 100 07/13/21 04:25 07/13/21 04:25 07/13/21 04:25 07/13/21 04:25 07/11/21 20:25 Laboratory Results - last 24 hr 07/13/21 06:33: Hgb 12.6, Hct 37.7 I & O for Last 24 hours: Intake & Output 07/10/21 07/11/21 07/12/21 07/13/21 11:59 11:59 11:59 11:59 Weight 138 lb - Constitutional no acute distress - *Routine HEENT Exam Head: Present: normocephalic Eye: Present: EOMI, PERRL ENT: Present: mucous membranes moist Assessment and Plan (1) COVID-19 Status: Acute Category: Medical Code(s): U07.1 - COVID-19 (2) Oligohydramnios in clark in third trimester Status: Acute Category: Medical Code(s): O41.03X0 - Oligohydramnios, third trimester, not applicable or unspecified (3) Normal delivery at term Status: Acute Category: Medical Code(s): O80 - Encounter for full-term uncomplicated delivery - Assessment and plan all Dx Assessment and Plan for all problems:: She is doing very well this morning. She is eating and drinking and ambulating. She is breast-feeding. We will plan to send her home tomorrow
--- NOTE | 2021-07-13 11:30 | SW/DCPLANNER ---
Addendum entered by Cris Kirkland 07/13/21 13:22: Per Central Intake: this case did NOT meet criteria: I have informed patients nurse. Original Note: I received a referral for this patient regarding: pt has been positive for marijuana several time during . Patient tested positive for THC on the following dates: 12/03/20, 12/21/20, 01/04/21, 02/02/21, 03/09/21, 04/09/21, 04/30/21 and 05/20/21. Patient urine drug screen was negative on 07/12/21. Patient stated that she was using marijuana due to appetite and stated that she stopped using . Infant was born on 07/12/21 (Nikkie Mg). Infants father (Maxwell Mg 02/12/97) was present at time of my visit. Patient stated that herself, and Maxwell will reside at [address] [place] [address]. Patients contact number is [phone]. Patient stated this is her first child and fathers first child. Patient is established with [facility] and is currently interested in HANDS program (I have reached out to Radha MATOS to follow up with referral). Patient confirmed that she has the following items at home: crib, carseat, clothing, diapers and will be . Patients nurse (Trish) stated that patient is appropriate with . The plan is for this patient to discharge home tomorrow 07/14/21 pending no setbacks. I have reported this case to Central Intake due to multiple positive THC drug screens: ID#[id number].
[2021-07-13 20:48] VITALS: BP 117/64; PULSE 89; RESP 18; TEMP 37.2; O2SAT 96
[2021-07-14 03:29] VITALS: BP 134/60; PULSE 76; RESP 18; TEMP 36.9; O2SAT 97
--- NOTE | 2021-07-14 09:22 | HMH.OBDCSM ---
General - General Admission date:: 07/11/21 Discharge date: 07/14/21 HPI - History of Present Illness History of present illness: She is a 21-year-old 1 para 0 at 39 weeks gestational age. She had mild oligohydramnios and was admitted for induction of labor at term. Hospital Course Hospital Course: She was started on IV oxytocin and had her membranes ruptured. She progressed to full dilation under labor epidural and delivered spontaneously a liveborn female child at 9:06 PM in the evening of July 12, 2021. The baby weighed 6 pounds 11 ounces and had Apgars of 9 at 1 minute and 9 at 5 minutes. She has done well and has remained afebrile throughout her hospitalization. She is eating and drinking and ambulating. She is breast-feeding. She has AB+ blood, she is rubella immune and was group B streptococcus negative. Her automobile tire builder is Dr. Taylor. She is discharged home to follow-up with me in approximately 2 weeks time. She will continue with her vitamins and iron. She was given the usual instructions with respect to limiting her activity, driving and sexual activity. Her condition on discharge is stable and improved. Rhogam Administration: Not Indicated Objective Vital signs: Temp Pulse Resp BP Pulse Ox 98.4 F 76 18 134/60 97 07/14/21 03:29 07/14/21 03:29 07/14/21 03:29 07/14/21 03:29 07/14/21 03:29 no acute distress - *Routine HEENT Exam Head: Present: normocephalic Eye: Present: EOMI, PERRL ENT: Present: mucous membranes moist DS: Diagnosis - Discharge Diagnosis (1) COVID-19 Status: Acute (2) Oligohydramnios in clark in third trimester Status: Acute (3) Normal delivery at term Status: Acute Discharge Plan - Patient Discharge Instructions ACTIVITY: No heavy lifting DIET: continue same diet - Follow up Plan Disposition: Home, Self-Care Condition at discharge:: Stable Home Medications: Home Medications Medication Instructions Recorded Confirmed Type Vit No.130/Iron/Folic 1 tab PO DAILY 07/11/21 07/11/21 History [ Vitamin] Ferrous Sulfate [Ferosul] 325 mg PO DAILY 07/12/21 07/12/21 History Prescriptions/Medication Reconciliation: Continued Vit No.130/Iron/Folic [ Vitamin] 1 tab PO DAILY Ferrous Sulfate [Ferosul] 325 mg PO DAILY - Problem Reconciliation Problems Reviewed?: Yes
== END 2021-07-14 11:45 | disposition home or self-care (01) | DRG 805 ==
PROVIDERS: Admitting Provider Nurse Practitioner Obstetrics & Gynecology; Visit Provider Nurse Practitioner Obstetrics & Gynecology
DX: O41.03X0 Oligohydramnios, third trimester, not applicable or unspecified (principal); U07.1 COVID-19; Z37.0 Single live birth; O98.513 Other viral diseases complicating pregnancy, third trimester; Z3A.39 39 weeks gestation of pregnancy
CPT/HCPCS: 59409; 59025; 80305; 81001; 85014; 85018; 85025; 86850; 94761; C1758; C9803; G0283; J2405; U0003; U0005

== ENCOUNTER → 2022-01-18 10:18 | Outpatient (CLI) | payer OTHER, SELFPAY ==
--- NOTE | 2022-01-18 10:18 | US_ITS ---
FINAL REPORT CLINICAL HISTORY: rule out ovarian cyst FINDINGS: Transvaginal sonographic images of the pelvis were obtained. The uterus is retroverted and measures 6.4 x 4.0 x 5.2 cm. The endometrium measures 1 cm, which is within normal limits. No uterine mass is identified. The right ovary measures 3.6 cm in length and left ovary measures 4.1 cm in length. Normal blood flow seen to the ovaries. Small cysts or follicles are present in both ovaries. Follicles measure up to 1.8 cm on the right. There is a small amount of free fluid. IMPRESSION: Retroverted uterus. Cysts or follicles in both ovaries measuring up to 1.8 cm on the right. Reviewed, Interpreted and Dictated by Norman Sparks MD Transcribed by Laina Gale Authenticated and [facility]
== END ==
PROVIDERS: PCP Nurse Practitioner Obstetrics & Gynecology; Visit Provider Nurse Practitioner Obstetrics & Gynecology
DX: N83.209 Unspecified ovarian cyst, unspecified side (principal)
CPT/HCPCS: 76830

== ENCOUNTER → 2023-01-23 15:03 | Outpatient (CLI) | payer OTHER, SELFPAY ==
--- NOTE | 2023-01-23 15:03 | US_ITS ---
PROCEDURE: US TRANSVAGINAL CLINICAL INDICATION: right lower quad pain COMPARISON: US US TRANSVAGINAL from 01/18/2022 FINDINGS: Transvaginal sonographic images of the pelvis were obtained. UTERUS: 7.4 cm x 4.8 cmx 3.5 cm with a combined endometrial thickness of 2.2mm. The uterus is anteverted. LEFT OVARY: 2.7 cmx1.8 cmx1.3cm with a volume of 3.3ml.There are several small follicles. RIGHT OVARY: 3.1 cmx 2.4 cmx 1.8 cm with a volume of 6.8ml. There are several small follicles. Both ovaries are seen and appear normal. Doppler flow to both ovaries are seen. There is no fluid in the cul-de-sac. IMPRESSION: 1. Anteverted uterus with a thin endometrium. 2. The previously described retroversion of the uterus has resolved. 3. Both ovaries are seen and appear normal. They each have several follicles. 4. No fluid in the cul-de-sac. Dictated by: Jg Gonzalez MD 01/23/2023 16:35 Jg Gonzalez MD in OV 01/23/2023 16:35
== END ==
PROVIDERS: PCP Nurse Practitioner Obstetrics & Gynecology; Visit Provider Nurse Practitioner Obstetrics & Gynecology
DX: R10.31 Right lower quadrant pain (principal)
CPT/HCPCS: 76830

== ENCOUNTER 2024-06-05 15:48 | Outpatient (CLI) | payer OTHER, SELFPAY ==
[2024-06-05 16:42] LABS: Basophils % 0.3 % (0.1-2.0); Eosinophils % 0.1 % (0.1-12.0); Hemoglobin 13.6 g/dL (12.2-16.2); Lymphocytes # 1.2 K/mm3 (0.7-4.5); Lymphocytes % 11.1 % (10-50); Mean Corpuscular Volume 88.3 fl (81-99); Mean Platelet Volume 8.7 fl (7.4-10.4); Monocytes # 0.7 K/mm3 (0.1-1.0); Monocytes % 6.1 % (1.7-9.3); Neutrophils # 8.8 K/mm3 (1.8-7.8); Platelet Count 299 K/mm3 (142-424); Red Blood Count 4.53 M/mm3 (4.20-5.40); White Blood Count 10.7 K/mm3 (4.8-10.8)
[2024-06-05 17:35] LABS: HIV Combo NEGATIVE (Negative)
[2024-06-05 18:14] LABS: Hepatitis C Ab Qual. W/ RFX NEGATIVE (Negative)
[2024-06-06 05:08] LABS: Hepatitis B Surface Antigen Negative (Negative)
[2024-06-06 06:14] LABS: Rubella Antibodies, IgG 1.36 index (Immune >0.99)
[2024-06-06 14:22] LABS: RPR W/RFX Titers Nonreactive (Nonreactive)
== END 2024-06-05 23:59 | disposition home or self-care (01) ==
LOC: LAB 15:49
PROVIDERS: Visit Provider Nurse Practitioner Obstetrics & Gynecology
DX: Z34.90 Encounter for supervision of normal pregnancy, unspecified, unspecified trimester (principal)
CPT/HCPCS: 36415; 85025; 86592; 86762; 86803; 86850; 87086; 87340; 87389

== ENCOUNTER 2024-06-10 14:22 | Outpatient (CLI) | payer OTHER, SELFPAY ==
--- NOTE | 2024-06-10 14:23 | US_ITS ---
PROCEDURE: US OB <= 14 WEEKS FETUS CLINICAL INDICATION: Dates and viability COMPARISON: No exams were available for comparison FINDINGS: Transvaginal sonographic images of the pelvis were obtained. Her last menstrual period is unknown. The uterus is retroverted. An intrauterine gestational sac is present with a pole with a crown-rump length of 2.05cm This correlates to a gestational age of 8weeks 5days. AUGUSTINE will be 01/15/2025 heart tones are present within the embryo with an FHR of 185bpm. Yolk sac is noted. The yolk sac measures 5.3mm. The right ovary is seen and appears normal. The left ovary is seen and appears normal. There is a follicle in the left ovary measuring 1.6 cm x 1.3 cm x 1.7 cm. Likely a corpus luteum. There is no fluid in the cul-de-sac. IMPRESSION: 1. Viable embryo within the uterine cavity. heart rate activity is seen. 2. The embryo measures 8 weeks 5 days and AUGUSTINE will be 01/15/2025. 3. Both ovaries are seen and appear normal. A corpus luteum is in the left ovary. 4. No fluid in the cul-de-sac. Dictated by: Jg Gonzalez MD 06/10/2024 16:49 Jg Gonzalez MD in OV 06/10/2024 16:49
== END 2024-06-10 23:59 | disposition home or self-care (01) ==
LOC: RAD 14:23
PROVIDERS: PCP Nurse Practitioner Obstetrics & Gynecology; Visit Provider Nurse Practitioner Obstetrics & Gynecology
DX: Z34.91 Encounter for supervision of normal pregnancy, unspecified, first trimester (principal)
CPT/HCPCS: 76801

== ENCOUNTER 2024-08-28 13:00 | Outpatient (CLI) | payer OTHER, SELFPAY ==
--- NOTE | 2024-08-28 13:03 | US_ITS ---
PROCEDURE: US OB /MATERNAL DETAIL CLINICAL INDICATION: 20 week Anatomy Scan-Complete COMPARISON: US US OB <= 14 WEEKS FETUS from 06/10/2024 FINDINGS: Transabdominal sonographic images of the pelvis were obtained. From her established due date she is 20 weeks 0 days. Single viable intrauterine gestation. Breech position. Placenta: Posteriorplacenta grade 1. There is an average amount of fluid. The cervix appears satisfactory. Closed and measuring 4.8 cm in length. Complete survey performed and was unremarkable on the submitted images as in PACS. No discrete anomalies identified on survey imaging by technologist. Active fetus. Three-vessel cord with satisfactory umbilical cord insertion. 4- chamber heart noted. Situs, aortic arch, the rest of the cardiac views were incomplete due to position. Survey of brain & ventricles Unremarkable. Cerebellum, thalamus, choroid plexus, cisterna magna appear normal. Face and neck survey unremarkable. Profile, nasion, lips and nose appeared normal. Diaphragm and chest views unremarkable. Abdomen: Both kidneys noted and unremarkable. Stomach and bladder noted and satisfactory. Spine: Survey of the spine satisfactory with no anomalies identified nor imaged. Cervical, thoracic, lower spine appear normal. Both arms and legs noted. Amniotic Fluid: Adequate. MVP 3.74 cm Measurements: Average ultrasound age 20weeks 1day. Estimated due date by ultrasound age 0801/14/2025. Estimated weight 332g BPD = 20weeks 1day HC = 20weeks 1day AC = 20weeks 5days FL = 19weeks 3days Growth Percentile= 51 Heart Rate = 147bpm Cerebellum = 19weeks 3days Humerus = 20weeks 1day HC/AC is 1.13 FL/BPD is 0.65 FL/AC is 0.2 IMPRESSION: 1. Viable fetus in the breech presentation with a posterior placenta grade 1. 2. The fluid is within normal limits with an MVP 3.74 cm. 3. Cardiac scan was incomplete due to position. Suggest repeat scan in 2 weeks. 4. The rest of the anatomical scan appears normal. 5. biometry is consistent with the dates. Dictated by: Jg Gonzalez MD 08/28/2024 18:03 Jg Gonzalez MD in OV 08/28/2024 18:03
== END 2024-08-28 23:59 | disposition home or self-care (01) ==
LOC: RAD 13:01
PROVIDERS: PCP Nurse Practitioner Obstetrics & Gynecology; Visit Provider Nurse Practitioner Obstetrics & Gynecology
DX: Z36.3 Encounter for antenatal screening for malformations (principal); O41.02X0 Oligohydramnios, second trimester, not applicable or unspecified; Z3A.20 20 weeks gestation of pregnancy
CPT/HCPCS: 76811

== ENCOUNTER 2024-09-11 14:07 | Outpatient (CLI) | payer OTHER, SELFPAY ==
--- NOTE | 2024-09-11 14:15 | US_ITS ---
PROCEDURE: US OB FOLLOW UP CLINICAL INDICATION: Limited views of Heart -f/u on baby's heart COMPARISON: US US OB <= 14 WEEKS FETUS from 06/10/2024 US US OB /MATERNAL DETAIL from 08/28/2024 FINDINGS: Transabdominal sonographic images of the pelvis were obtained. The following parameters are obtained: From her established due date she is 22weeks Viable fetus in the breech presentation with a posterior placenta grade 1. The cervix measures 3.42 cm heart rate: 150bpm bpm. Amniotic fluid: MVP 4.54 cm No obvious anomalies evident. profile seen, stomach, bladder, kidneys, three-vessel cord, four chamber heart appear normal. cardiac views: Four-chamber heart, aortic arch, LVOT, RVOT, three-vessel view appear normal. Scan is still difficult. IMPRESSION: 1. Viable fetus in the breech presentation with a posterior placenta grade 1. 2. The fluid is within normal limits with an MVP 4.54 cm. 3. Cardiac views are seen and appear normal but the views were still difficult to see well. Would suggest a repeat scan again in 2 weeks for completeness. 4. The rest of the limited anatomical scan appears normal. Dictated by: Jg Gonzalez MD 09/11/2024 15:08 Jg Gonzalez MD in OV 09/11/2024 15:08
== END 2024-09-11 23:59 | disposition home or self-care (01) ==
LOC: RAD 14:08
PROVIDERS: PCP Nurse Practitioner Obstetrics & Gynecology; Visit Provider Nurse Practitioner Obstetrics & Gynecology
DX: Z36.2 Encounter for other antenatal screening follow-up (principal); Z3A.22 22 weeks gestation of pregnancy
CPT/HCPCS: 76816

== ENCOUNTER 2024-09-25 12:46 | Outpatient (CLI) | payer OTHER, SELFPAY ==
--- NOTE | 2024-09-25 13:00 | US_ITS ---
PROCEDURE: US OB FOLLOW UP CLINICAL INDICATION: Repeat for cardiac views COMPARISON: US US OB <= 14 WEEKS FETUS from 06/10/2024 US US OB /MATERNAL DETAIL from 08/28/2024 US US OB FOLLOW UP from 09/11/2024 FINDINGS: Transabdominal sonographic images of the pelvis were obtained. The following parameters are obtained: From her established due date she is 24weeks 0 days Viable fetus in the cephalic presentation with a posterior placenta grade 1. The cervix measures 3.87 cm heart rate: 150bpm bpm. Amniotic fluid: MVP 3.3 cm No obvious anomalies evident. profile seen, stomach, bladder, kidneys, three-vessel cord, four chamber heart appear normal. Cardiac views continue to be incomplete and we did not get RVOT or three-vessel views well. The LVOT looks slightly enlarged. Suggest a maternal medicine consult. IMPRESSION: 1. Viable fetus in the cephalic presentation with a posterior placenta grade 1. 2. The fluid is within normal limits with an MVP 3.3 cm. 3. Four-chamber heart and LVOT appear normal although the LVOT looks slightly enlarged. Three-vessel views and RVOT were not well visualized. Pulmonary artery was not well visualized. 4. Suggest a maternal medicine consult. 5. The rest of the limited anatomical scan appears normal. Dictated by: Jg Gonzalez MD 09/25/2024 14:03 Jg Gonzalez MD in OV 09/25/2024 14:03
== END 2024-09-25 23:59 | disposition home or self-care (01) ==
LOC: RAD 12:47
PROVIDERS: PCP Nurse Practitioner Obstetrics & Gynecology; Visit Provider Nurse Practitioner Obstetrics & Gynecology
DX: O41.02X0 Oligohydramnios, second trimester, not applicable or unspecified (principal); Z3A.24 24 weeks gestation of pregnancy
CPT/HCPCS: 76816

== ENCOUNTER 2024-10-16 12:32 | Outpatient (CLI) | payer OTHER, SELFPAY ==
[2024-10-16 14:57] LABS: Basophils % 0.4 % (0.1-2.0); Eosinophils % 0.2 % (0.1-12.0); Hematocrit 36.9 % (37.0-47.0); Hemoglobin 12.4 g/dL (12.2-16.2); Immature Granulocytes # 0.05 10^3uL; Immature Granulocytes % 0.5 %; Lymphocytes # 1.4 K/mm3 (0.7-4.5); Lymphocytes % 14.4 % (10-50); Mean Corpuscular HGB Conc 33.6 g/dL (31.8-35.4); Mean Corpuscular Volume 92.3 fl (81-99); Mean Platelet Volume 8.6 fl (7.4-10.4); Monocytes # 0.9 K/mm3 (0.1-1.0); Monocytes % 9.8 % (1.7-9.3); Neutrophils # 7.1 K/mm3 (1.8-7.8); Neutrophils % 74.7 % (37.0-80.0); Nucleated Red Blood Cells # 0 10^3/uL; Nucleated Red Blood Cells % 0 %; Platelet Count 287 K/mm3 (142-424); Red Cell Distribution Width 12.9 % (11.5-17.5); Red Cell Distribution Width-SD 43.7 fL; White Blood Count 9.5 K/mm3 (4.8-10.8)
[2024-10-16 15:32] LABS: Glucose 1 Hour 72 mg/dL (74-100)
[2024-10-17 10:04] LABS: RPR W/RFX Titers Nonreactive (Nonreactive)
== END 2024-10-16 23:59 | disposition home or self-care (01) ==
LOC: LAB 12:32
PROVIDERS: Visit Provider Nurse Practitioner Obstetrics & Gynecology
DX: Z34.92 Encounter for supervision of normal pregnancy, unspecified, second trimester (principal); Z3A.25 25 weeks gestation of pregnancy
CPT/HCPCS: 36415; 82947; 85025; 86592

== ENCOUNTER 2024-12-11 14:06 | Outpatient (CLI) | payer OTHER, SELFPAY ==
--- OUTSIDE RECORDS SUMMARY | 2024-10-28 10:21 | XMS_ITS | Encounter Summary ---
Author Organization Healthcare Address [address] [place] [address] Care Team Providers Care Equipment Driver Name Role Phone Pcp, No Primary Care Provider Jg Richmond MD Unavailable [phone] Reason for Referral * Imaging (Routine) - Closed Specialty Diagnoses / Procedures Referred By Contac t Referred To Contact Cardiology Diagnoses Abnormal obstetric ultrasound scan Procedures Echo, Complete Lars Coffey MD [address] [place] [address] Phone: tel: fax: Referral ID Status Reason Start Date Expiration Date V isits Requested Visits Authorized [id number] Closed Perform Procedure 10/14/2024 04/15/2026 1 1 Reason for Visit * Imaging (Routine) - Closed Specialty Diagnoses / Procedures Referred By Niharika t Referred To Contact Cardiology Diagnoses Abnormal obstetric ultrasound scan Procedures [place] [address] [place] [address] Phone: tel: fax: Referral ID Status Reason Start Date Expiration Date V isits Requested Visits Authorized [id number] Closed Perform Procedure 10/14/2024 04/15/2026 1 1 Encounter Details Date Type Department Care Team (Latest Contact Info) Description 10/28/2024 10:21 AM EDT - 10/28/2024 11:59 PM EDT Hospital Encounter [facility] Pediatric Cardiac Diagnostic Testing [address] [facility] Second Floor, [place] [address] Abnormal obstetric ultrasound scan Discharge Disposition: Home or Self Care Social History Tobacco Use Types Packs/Day Years Used Date Smoking Tobacco: Never Passive Smoke Exposure: Past Smokeless Tobacco: Never Alcohol Use Standard Drinks/Week Comments Not Currently 0 (1 standard drink = 0.6 oz pur e alcohol) Comments Unknown Sex and Gender Information Value Date Recorded Sex Assigned at Not on file Legal Sex Female 7:17 PM EDT Gender Identity Not on file Sexual Orientation Not on file Travel History Travel Start Travel End [place] 11/09/2024 11/17/2024 documented as of this encounter Medications at Time of Discharge Vit-Fe Fumarate-FA (GNP ) 28-0.8 MG tablet Take 1 tablet by mouth daily. 06/05/2024 documented as of this encounter Plan of Treatment Upcoming Encounters Date Type Department Care Team ([facility] Contact Info) Description 12/23/2024 10:00 AM EDT Appointment Medical Office Building Obstetrics and Gynecology [address] [facility], [address] [place] [address] 12/23/2024 10:30 AM EDT Routine Medical Office Building Obstetrics and Gynecology [address] [facility], [address] [place] [address] Vikas Haile MD [address] [facility] [address] [place] [address] documented as of this encounter Procedures Procedure Name Priority Date/Time Associated Diagnosis Comments ECHO, COMPLETE Routine 10/28/2024 11:15 AM EDT Abnormal obstetric ultrasound scan documented in this encounter Results * Echo, Complete (10/28/2024 11:15 AM EDT) Anatomical Region Laterality Modality Echocardiography 10/28/2024 10:3 4 AM EDT us Lars Coffey MD CV ECHO PROCEDURES Final R esult documented in this encounter Visit Diagnoses Diagnosis Abnormal obstetric ultrasound scan documented in this encounter Additional Health Concerns Assessment Noted Time A Body Mass Index follow-up plan has been documented for the patient 10/29/2024 4:48 PM EDT documented as of this encounter Care Teams Equipment Driver Relationship Specialty Start Date End Date Pcp, [place] [address] PCP - General Family Medicine 10/28/24 Jg Gonzalez MD [address] [place] [address] Referring Physician Obstetrics and Gynecology 10/28/24 documented as of this encounter
--- OUTSIDE RECORDS SUMMARY | 2024-10-28 10:30 | XMS_ITS | Encounter Summary ---
Author Organization Healthcare Address [address] [place] [address] Care Team Providers Care Daily Sales Audit Clerk Name Role Phone Pcp, No Primary Care Provider Jg Richmond MD Unavailable [phone] Reason for Referral * Imaging (Routine) - Closed Specialty Diagnoses / Procedures Referred By Contac t Referred To Contact Cardiology Diagnoses Maternal care for other (suspected) abnormality and damage, not applicable or unspecified Procedures Echo Limited Paul Collazo MD [address] [address] Phone: tel: fax: Referral ID Status Reason Start Date Expiration Date V isits Requested Visits Authorized [id number] Closed Perform Procedure 11/06/2024 05/08/2026 1 1 Encounter Details Date Type Department Care Team (Late st Contact Info) Description 10/28/2024 10:30 AM EDT [facility] Pediatric Cardiology [address] [place] [address] Paul Collazo MD [address] [facility] [address] [place] [address] Maternal care for other (suspected) abnormality and damage, not applicable or unspecified (Primary Dx) Social History Tobacco Use Types Packs/Day Years Used Date Smoking Tobacco: Never Passive Smoke Exposure: Past Smokeless Tobacco: Never Tobacco Cessation:Counseling Given: Yes Alcohol Use Standard Drinks/Week Comments Not Currently 0 (1 standard drink = 0.6 oz pur e alcohol) Comments Unknown Sex and Gender Information Value Date Recorded Sex Assigned at Not on file Legal Sex Female 7:17 PM EDT Gender Identity Not on file Sexual Orientation Not on file Travel History Travel Start Travel End [place] 11/09/2024 11/17/2024 documented as of this encounter Miscellaneous Notes * Addendum Note - Merry Ortiz RN - 10/28/2024 10:30 AM EDTAddended by: MERRY ORTIZ on: 11/06/2024 03:25 PM Modules accepted: Orders * Progress Notes - Paul Collazo MD - 10/28/2024 10:30 AM EDT Images from the original note were not included. Referring Obstetrical Specialist: Lars Coffey MD Indication for Echocardiogram: known/suspected genetic syndrome and known/suspected CHD HPI Ms. Papa Wood is a 24 y.o. 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 Abnormal cardiac views on OB ultrasound with referral to [facility] where TOF suspected on their ultrasound. Per the patient and records reviewed: No other complications noted this No family history of congenital heart disease or cardiomyopathy. Genetic testing has been performed by NIPT, the results of which are: low risk. She reports no teratogen exposures. Her primary OB is Jg Koch. Delivery is planned at [facility]. No other concerns raised today. ROS 14 point review of systems was negative other than reported above in HPI plus trouble sleeping and anxiety. Patient Active Problem List Diagnosis Maternal care for other (suspected) abnormality and damage, not applicable or unspecified Active Ambulatory Problems Diagnosis Date Noted No Active Ambulatory Problems Resolved Ambulatory Problems Diagnosis Date Noted No Resolved Ambulatory Problems Past Medical History: Diagnosis Date Chalazion right eye, unspecified eyelid Past Surgical History: Procedure Laterality Date EYE SURGERY N/A Excision Of Chalazion from [employer] GALLBLADDER SURGERY N/A Gallbladder Surgery from [employer] Family History Problem Relation Name Age of Onset Diabetes Maternal Grandfather Diabetes Son Diabetes Other Other cancer Other Congenital heart disease Neg Hx Social History: Marital status: unknown Alcohol: No Tobacco: No Recreational drugs: No Meds: PNV, Fe No Known Allergies Physical Exam Patient was in no acute distress and alert and oriented X 3 Echocardiogram: Assessment 24 y.o. yr old female currently with fetus at approximately 29 WGA. 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 There is mild tricuspid regurgitation. Arch situs appears to be normal (left arch). No evidence of distress. Discussion A complete echocardiogram was performed today and results reviewed with the patient includingillustration of normal and abnormal heart anatomy and basic physiology with the aid of diagrams. The basic features of TOF were reviewed. 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 It is possible there could be worsening of the pulmonary outflowstenosis over time, but it is not expected to be severe. I do not expect significant clinical illness in utero or in the period. Postnatally, depending on any progression of pulmonary stenosi s, this baby may be more at risk of developing symptoms of pulmonary overcirculation, rather than cyanosis. Delivery is planned at ; this baby should be able to go to the NICU after for evaluation. I would expect surgical repair will be needed for this form of CHD, typically in the first 6-9 months of life. Typical limitations of echocardiography in detecting minor cardiac defects (small muscular VSDs, secundum ASDs, partial anomalous pulmonary venous return, mild semilunar valve abnormalities andmild coarctation of the aorta) were also discussed today. The patient's questions were answered and they expressed understanding and agreement with the plan. Plan 1. Follow-up echocardiogram recommended in ~5-6 weeks to re-evaluate TR and RVOT/PS. 2. There is no need to alter delivery plans based on today's study. 3. We recommend NICU admission with evaluation with echocardiogram, ECG and cardiology consultation 4. Please contact me if I can be of further assistance. Additional Services Offered Meeting with clinic professor of social work and Consultation with congenital CT surgery team The total time of encounter was 40 minutes, including record review, imaging review, prognosis, patient and/or family education, counseling/coordination of care and review of findings and management plan with Papa Wood. Paul Collazo MD documented in this encounter Plan of Treatment Upcoming Encounters Date Type Department Care Team (Late st Contact Info) Description 12/23/2024 10:00 AM EDT Appointment Medical Office Building Obstetrics and Gynecology [address], [address] [place] [address] 12/23/2024 10:30 AM EDT Routine Medical Office Building Obstetrics and Gynecology [address], [address] [place] [address] CochranVikas Valero MD [address] [place] [address] documented as of this encounter Results * Echo Limited (12/04/2024 3:07 PM EDT) Anatomical Region Laterality Modality Echocardiography 12/04/2024 2:30 PM EDT us Paul Collazo MD CV ECHO PROCEDURES Final Resul t documented in this encounter Visit Diagnoses Diagnosis Maternal care for other (suspected) abnormality and damage, not applicable or unspecified- Primary documented in this encounter Additional Health Concerns Assessment Noted Time A Body Mass Index follow-up plan has been documented for the patient 10/29/2024 4:48 PM EDT documented as of this encounter Care Teams Daily Sales Audit Clerk Relationship Specialty Start Date End Date Pcp, Sher[address] [place] [address] PCP - General Family Medicine 10/28/24 Jg Gonzalez MD [address] [facility] [address] [place] [address] Referring Physician Obstetrics and Gynecology 10/28/24 documented as of this encounter
--- OUTSIDE RECORDS SUMMARY | 2024-11-25 10:00 | XMS_ITS | Encounter Summary ---
Author Organization Healthcare Address [address] [place] [address] Care Team Providers Care Spent Grain Dryer Name Role Phone Pcp, No Primary Care Provider Jg Richmond MD Unavailable [phone] Reason for Visit * Imaging (Routine) - Closed Specialty Diagnoses / Procedures Referred By Contac t Referred To Contact Obstetrics and Gynecology Diagnoses Maternal care for other (suspected) abnormality and damage, not applicable or unspecified Procedures OB US Detail Anatomy OB US 14+ Weeks Anatomy Scan Mariah Sahu MD [address] [facility] [address] [place] [address] Phone: tel: fax: Referral ID Status Reason Start Date Expiration Date Visits Re quested Visits Authorized [id number] Closed 11/12/2024 05/14/2026 1 1 Encounter Details Date Type Department Care Team (Latest Contact Info) Description 11/25/2024 10:00 AM EDT - 11/25/2024 11:59 PM EDT Hospital Encounter Medical Office Building Obstetrics and Gynecology [facility] [address] [facility], [address] [place] [address] Maternal care for other (suspected) [...] week 11/25/2024 How often do you attend [facility] or restoration services? Never 11/25/2024 Do you belong to any clubs o r organizations such as spiritism groups, unions, fraternal or athletic groups, or [...] care, and heating? Not very hard 11/25/2024 [facility] - Occupational Stress Questionnaire Answer [...] any time in the past 12 m [facility], were you homeless or living in a senior care (including now)? No 11/25/2024 [place] Depression Scale Answer Date Recorded [place] Depression Scale Total 8 11/25/2024 The thought [...] file Travel History Travel Start Travel End [place] 11/09/2024 11/17/2024 documented as of this encounter [...] Upcoming Encounters Date Type Department Care Team ([facility] st Contact Info) Description 12/23/2024 10:00 AM EDT Appointment Medical Office Building Obstetrics and Gynecology [address] [facility], [address] [place] [address] 12/23/2024 10:30 AM EDT Routine Medical Office Building Obstetrics and Gynecology [address] [facility], [address] [place] [address] Vikas Haile MD [address] [facility] [address] [place] [address] documented as of this encounter [...] Please navigate to the Imaging tab in [employer] for review. This message has been generated by the interface. Narrative Procedure Note Jeni Botello, DO - 11/25/2024 IMPRESSION: The OB Ultrasound you requested has been resulted. Please navigate to theImaging tab in [employer] for review. This message has been generated [...] documented as of this encounter Care Teams Spent Grain Dryer Relationship Specialty Start Date End Date Pcp, [place] [address] PCP - General Family Medicine 10/28/24 Jg Gonzalez MD [address] [place], [place] [id number] Referring Physician Obstetrics and Gynecology 10/28/24 documented as of this encounter
--- OUTSIDE RECORDS SUMMARY | 2024-11-25 10:45 | XMS_ITS | Encounter Summary ---
Author Organization Healthcare Address [address] [place] [address] Care Team Providers Care Assignment Desk Assistant Name Role Phone Pcp, No Primary Care Provider Unavailabl e Jg Gonzalez MD Unavailable [phone] Encounter Details Date Type Department Care Team ([facility] Contact Info) Description 11/25/2024 10:45 AM EDT Initial Medical Office Building Obstetrics and Gynecology [address] [facility], [address] [place] [address] Vikas Haile MD [address] [facility] [address] [place] [address] GA: 32w5d Social History Tobacco [...] How often do you attend chur or synagogue services? Never 11/25/2024 Do you belong to [...] and heating? Not very hard 11/25/2024 [facility] - Occupational Stress Questionnaire Answer [...] any time in the past 12 m [facility], were you homeless or living in a intermediate (including now)? No 11/25/2024 [place] Depression Scale Answer Date Recorded [place] Depression Scale Total 8 11/25/2024 The thought [...] file Travel History Travel Start Travel End [place] 11/09/2024 11/17/2024 documented as of this encounter Last Filed [...] difficult at all 11/25/2024 11:39 AM Kristina Murillo documented as of this encounter Miscellaneous Notes * Progress Notes - Leora Bob, CAPTAIN ROOM SERVICE - 11/25/2024 10:45 AM EDT Initial Note Subjective 24y/o @ 32w5d here for initial care. Pt primarily seen by Dr Gonzalez in [place]. c/b tetrology of fallot. Reports + FM. Denies vaginal bleeding, leakage of fluids and contractions. OB History Para Term AB Living 2 1 1 1 SAB IAB Ectopic Multiple Live Births 1 # Outcome Date [place] Lbr Ran/2nd Weight Sex Type Anes PTL Lv 2 Current 1 Term 07/12/21 39w0d 3033 g F Vag-Spont EPI N NALLELY [place] Depression Scale Total: 8 Past Medical History [...] today Will have twice weekly NST's in [place] Repeat echo 12/04. Plan to tour [facility] Anxiety/Depression Stable, no meds Previously took Lexapro Discussed plan of care with Dr Haile [place] in 4 weeks documented in this encounter Plan of Treatment Upcoming Encounters Date Type Department Care Team (Late st Contact Info) Description 12/23/2024 10:00 AM EDT Appointment Medical Office Building Obstetrics and Gynecology [address] [facility], [address] [place] [address] 12/23/2024 10:30 AM EDT Routine Medical Office Building Obstetrics and Gynecology [address], [address] [place] [address] Vikas Haile MD [address] [place] [address] Scheduled Orders Name Type Priority [...] Ketones, Urine Negative Negative mg/dL POCT Specific [place], Urine 1.010 POCT Blood, Urine Negative Negative POCT pH, Urine 7.0 5.0 to 8.0 POCT Protein, Urine Negative Negative mg/dL POCT Urobilinogen, Urine 0.2 0.2, 1 E.U./dL POCT Nitrite, Urine Negative Negative POCT Leukocyte Esterase, Urine Small(A) Negative Test Strip Lot Number [id number] Test Strip Lot Expiration 07/2025 Urine Urine [...] documented as of this encounter Care Teams Assignment Desk Assistant Relationship Specialty Start Date End Date Pcp, No [address] [place] [address] PCP - General Family Medicine 10/28/24 Jg Gonzalez MD [address] [place], [place] [phone] Referring Physician Obstetrics and Gynecology 10/28/24 documented as of this encounter
--- OUTSIDE RECORDS SUMMARY | 2024-12-04 13:45 | XMS_ITS | Encounter Summary ---
Author Organization Healthcare Address [address] [place] [address] Care Team Providers Care Greenhouse Or Nursery Transplanter Name Role Phone Pcp, No Primary Care Provider Jg Richmond MD Unavailable [phone] Encounter Details Date Type Department Care Team (Late st Contact Info) Description 12/04/2024 1:45 PM EDT Office Visit [facility] Cardiology [address], [address] [place] [address] Dalila Acosta D, RESIDENTIAL THERAPIST [address] [place] [address] Social History Tobacco Use Types [...] How often do you attend chur or buddhism services? Never 11/25/2024 Do you belong to any clubs o r organizations such as worship groups, unions, fraternal or athletic groups, or [...] care, and heating? Not very hard 11/25/2024 [facility] of Occupat ional Health - Occupational [...] were you homeless or living in a [facility] (including now)? No 11/25/2024 [place] Depression Scale Answer Date Recorded [place] Depression Scale Total 8 11/25/2024 The thought [...] file Travel History Travel Start Travel End [place] 11/09/2024 11/17/2024 documented as of this encounter Miscellaneous Notes * Clinician Note - Dalila Acosta, RESIDENTIAL THERAPIST - 12/04/2024 1:45 PM EDT Cardiology Psychosocial Assessment Date of Encounter:12/04/24 Location: [facility] exam room Present with patient at visit: FOB History: Papa Oviedo Israel Estimated Date of Delivery: 01/15/25 Assessment: Expecting a: Boy Baby's Name: Jayce Cardiac Concern: TOF Visit with pt and FOB in [facility] exam room after pt's follow up with beverage distiller. Pt planning to deliver at and [facility] Had hospital tour today. Provided information about [facility] and supports offered through the organization. Assessed for new questions/concerns since time of last contact and reinforced availability of RESIDENTIAL THERAPIST to provide support/intervention by phone between appts based on pt and family needs. Plan: -Assist with care coordination and applicable resources -Continue to monitor pt and family adjustment to diagnosis and impact on psychosocial functioning and possible barriers posed by pre-existing psychosocial stressors. Follow up with pt during hospital stay after delivery to provide additional services. ALLYSON Dickey, RESIDENTIAL THERAPIST Licensed Clinical Asbestos Cloth Inspector Pediatric Cardiology documented in this encounter Plan of Treatment Upcoming Encounters Date Type Department Care Team (Late st Contact Info) Description 12/23/2024 10:00 AM EDT Appointment Medical Office Building Obstetrics and Gynecology [address] [facility], [address] [place] [address] 12/23/2024 10:30 AM EDT Routine Medical Office Building Obstetrics and Gynecology [address] [facility] [facility], [address] [place] [address] Vikas Haile MD [address] [place] [address] documented as of this encounter Visit Diagnoses Not on filedocumented in this encounter Additional Health Concerns Assessment Noted Time PHQ-9 Depression Total Score: 5 11/25/ 25 11:39 AM EDT A Body Mass Index follow-up plan has been documented for the patient 12/04/2024 3:27 PM EDT documented as of this encounter Care Teams Greenhouse Or Nursery Transplanter Relationship Specialty Start Date End Date Pcp, Sherron [address] [place] [address] PCP - General Family Medicine 10/28/24 Jg Gonzalez MD [address] [facility] [address] [place] [address] Referring Physician Obstetrics and Gynecology 10/28/24 documented as of this encounter
--- OUTSIDE RECORDS SUMMARY | 2024-12-04 14:26 | XMS_ITS | Encounter Summary ---
Author Organization Healthcare Address [address] [place] [address] Care Team Providers Care Metal Caster Name Role Phone Pcp, No Primary Care Provider Jg Richmond MD Unavailable [phone] Reason for Referral * Imaging (Routine) - Closed Specialty Diagnoses / Procedures Referred By Niharika t Referred To Contact Cardiology Diagnoses Maternal care for other (suspected) abnormality and damage, not applicable or unspecified Procedures [employer] Paul Collazo MD [address] [address] Phone: tel: fax: Referral ID Status Reason Start Date Expiration Date V isits Requested Visits Authorized [id number] Closed Perform Procedure 11/06/2024 05/08/2026 1 1 Reason for Visit * Imaging (Routine) - Closed Specialty Diagnoses / Procedures Referred By Contac t Referred To Contact Cardiology Diagnoses Maternal care for other (suspected) abnormality and damage, not applicable or unspecified Procedures [employer] Paul Collazo MD [address] [address] Phone: tel: fax: Referral ID Status Reason Start Date Expiration Date V isits Requested Visits Authorized [id number] Closed Perform Procedure 11/06/2024 05/08/2026 1 1 Encounter Details Date Type Department Care Team (Latest Contact Info) Description 12/04/2024 2:26 PM EDT - 12/04/2024 11:59 PM EDT Hospital Encounter PAV [facility] Pediatric Cardiac Diagnostic Testing [address] Floor, [place] [address] Maternal care for other (suspected) abnormality and [...] often do you attend chur ch or taoist services? Never 11/25/2024 Do you belong to any clubs o r organizations such as shinto groups, unions, fraternal or athletic groups, or [...] care, and heating? Not very hard 11/25/2024 [facility] - Occupational Stress [...] time in the past [address] [facility], were you homeless or living in a group home (including now)? No 11/25/2024 [place] Depression Scale Answer Date Recorded [place] Depression Scale Total 8 11/25/2024 The thought [...] file Travel History Travel Start Travel End [place] 11/09/2024 11/17/2024 documented as of this encounter [...] Office Building Obstetrics and Gynecology [address] [facility], [address] [place] [id number] 12/23/2024 10:30 AM EDT Routine Medical Office Building Obstetrics and Gynecology [address] [facility], [address] [place] [phone] Vikas Haile MD [address] [facility] [address] [place] [phone] documented as of this encounter Procedures Procedure [...] documented as of this encounter Care Teams Metal Caster Relationship Specialty Start Date End Date Pcp, No [address] [place] [address] PCP - General Family Medicine 10/28/24 Jg Gonzalez MD [address] [place], [place] [id number] Referring Physician Obstetrics and Gynecology 10/28/24 documented as of this encounter
--- OUTSIDE RECORDS SUMMARY | 2024-12-04 15:15 | XMS_ITS | Encounter Summary ---
Author Organization Healthcare Address [address] [place] [address] Care Team Providers Care Beer Still Runner Compounder Name Role Phone Pcp, No Primary Care Provider Jg Richmond MD Unavailable [phone] Encounter Details Date Type Department Care Team (Late st Contact Info) Description 12/04/2024 3:15 PM EDT Office Visit [facility]iology [address] [place] [address] Paul Collazo MD [address] [place] [address] Maternal care for other (suspected) [...] How often do you attend chur or orthodox services? Never 11/25/2024 Do you belong to any clubs o r organizations such as amish groups, unions, fraternal or athletic groups, or [...] care, and heating? Not very hard 11/25/2024 [facility] - Occupational Stress Questionnaire Answer [...] were you homeless or living in a snf (including now)? No 11/25/2024 [place] Depression Scale Answer Date Recorded [place] Depression Scale Total 8 11/25/2024 The thought [...] Echocardiogram: Follow-up for TOF HPI Ms. Papa Preet Israel is a 24 y.o. yr old female [...] Jg Koch. Delivery is planned at [facility]. No other concerns raised today. 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 [...] Meeting with clinic professor of social work The total time of encounter was 45 [...] Obstetrics and Gynecology [address] [facility], [address] [place] [address] 12/23/2024 10:30 AM EDT Routine Medical Office Building Obstetrics and Gynecology [address] [facility], [address] [place] [address] Vikas Haile MD [address] [facility] [address] [place] [address] documented as of this encounter [...] documented as of this encounter Care Teams Beer Still Runner Compounder Relationship Specialty Start Date End Date Pcp, Sherron [facility] [place] [address] PCP - General Family Medicine 10/28/24 Jg Goznalez MD [address] [facility] [address] [place] [address] Referring Physician Obstetrics and Gynecology 10/28/24 documented as of this encounter
--- OUTSIDE RECORDS SUMMARY | 2024-12-11 14:10 | XMS_ITS | Encounter Summary ---
Author Organization Healthcare Address [address] [place] [address] Care Team Providers Care Rand Butting Machine Operator Name Role Phone Pcp, No Primary Care Provider Jg Richmond MD Unavailable [phone] Encounter Details Date Type Department Care Team (Late st Contact Info) Description 11/26/[address] [facility] Pediatric Cardiac Diagnostic Testing [address] [place] [address] Hubert Villegas MD [address] [place] [address] Social History Tobacco Use Types Packs/Day Years [...] How often do you attend chur or latter day services? Never 11/25/2024 Do you belong to any clubs o r organizations such as samaritan groups, unions, fraternal or athletic groups, or [...] care, and heating? Not very hard 11/25/2024 [facility] - Occupational [...] were you homeless or living in a long-term (including now)? No 11/25/2024 [place] Depression Scale Answer Date Recorded [place] Depression Scale Total 8 11/25/2024 The thought [...] file Travel History Travel Start Travel End [place] 11/09/2024 11/17/2024 documented as of this encounter Miscellaneous Notes * Telephone Encounter - Grecia Mckeon - 11/26/2024 1:50 PM EDT Patient called back and confirmed appointment on 12/04 with an arrival time of 2:45 pm. documented in this encounter Plan of Treatment Upcoming Encounters Date Type Department Care Team (Late st Contact Info) Description 12/23/2024 10:00 AM EDT Appointment Medical Office Building Obstetrics and Gynecology [address] [facility], [address] [place] [address] 12/23/2024 10:30 AM EDT Routine Medical Office Building Obstetrics and Gynecology [address] [facility], [address] [place] [address] Vikas Haile MD [address] [facility] [address] [place] [address] documented as of this encounter Visit Diagnoses Not on filedocumented in this encounter Additional Health Concerns Assessment Noted Time PHQ-9 Depression Total Score: 5 11/26/19 11:39 AM EDT A Body Mass Index follow-up plan has been documented for the patient 10/29/2024 4:48 PM EDT documented as of this encounter Care Teams Rand Butting Machine Operator Relationship Specialty Start Date End Date Pcp, Sherron [address] [place] [address] PCP - General Family Medicine 10/28/24 Jg Gonzalez MD [address] [facility] [address] [place] [address] Referring Physician Obstetrics and Gynecology 10/28/24 documented as of this encounter
--- OUTSIDE RECORDS SUMMARY | 2024-12-11 14:10 | XMS_ITS | Encounter Summary ---
Author Organization Healthcare Address [address] [place] [address] Care Team Providers Care Carton Filling Machine Operator Name Role Phone Pcp, No Primary Care Provider Jg Richmond MD Unavailable [phone] Encounter Details Date Type Department Care Team (Late st Contact Info) Description 11/26/2024 Telephone PAV [facility] Pediatric Cardiac Diagnostic Testing [address], [place] [address] Hubert Villegas MD [address] [place] [address] Social History Tobacco Use Types Packs/Day Years [...] How often do you attend chur or church services? Never 11/25/2024 Do you belong to any clubs o r organizations such as mormon groups, unions, fraternal or athletic groups, or [...] very hard 11/25/2024 [facility] - Occupational [...] were you homeless or living in a jail (including now)? No 11/25/2024 [place] Depression Scale Answer Date Recorded [place] Depression Scale Total 8 11/25/2024 The thought [...] file Travel History Travel Start Travel End [place] 11/09/2024 11/17/2024 documented as of this encounter Miscellaneous Notes * Telephone Encounter - Grecia Mckeon - 11/26/2024 1:36 PM EDT Left voicemail for appointment on 12/04 with an arrival time of 2:45 pm. documented in this encounter Plan of Treatment Upcoming Encounters Date Type Department Care Team (Late st Contact Info) Description 12/23/2024 10:00 AM EDT Appointment Medical Office Building Obstetrics and Gynecology [address] [facility], [address] [place] [address] 12/23/2024 10:30 AM EDT Routine Medical Office Building Obstetrics and Gynecology [address] [facility], [address] [place] [address] Vikas Haile MD [address] [facility] [address] [place] [address] documented as of this encounter Visit Diagnoses Not on filedocumented in this encounter Additional Health Concerns Assessment Noted Time PHQ-9 Depression Total Score: 5 11/26/19 11:39 AM EDT A Body Mass Index follow-up plan has been documented for the patient 10/29/2024 4:48 PM EDT documented as of this encounter Care Teams Carton Filling Machine Operator Relationship Specialty Start Date End Date Pcp, Sherron [address] [place] [address] PCP - General Family Medicine 10/28/24 Jg Gonzalez MD [address] [facility] [address] [place] [address] Referring Physician Obstetrics and Gynecology 10/28/24 documented as of this encounter
--- OUTSIDE RECORDS SUMMARY | 2024-12-11 14:10 | XMS_ITS | Referral Summary ---
Author Organization [employer] ([place], [place], [place], [place]) Address [address] [place] [address] Care Team Providers Care Stereoptician Name Role Phone Unavailable Primary Care Provider Unavailabl e Social History Tobacco Use Types Packs/Day Years Used Date Smoking Tobacco: Never Assessed Comments Unknown Sex and Gender Information Value Date Recorded Sex Assigned at Female 11/23/2021 8:52 PM CDT Legal Sex Female 8:52 PM CDT Gender Identity Female 11/23/2021 8:52 PM CDT Sexual Orientation Not on file Plan of Treatment Not on file
--- OUTSIDE RECORDS SUMMARY | 2024-12-11 14:10 | XMS_ITS | Encounter Summary ---
Author Organization Healthcare Address [address] [place] [address] Care Team Providers Care Bridge Manager Name Role Phone Pcp, No Primary Care Provider Jg Richmond MD Unavailable [phone] Encounter Details Date Type Department Care Team (Latest Contact Info) Description 12/04/2024 Travel Social History Tobacco Use Types Packs/Day Years [...] often do you attend chur ch or rastafari services? Never 11/25/2024 Do you belong to any clubs o r organizations such as lutheran groups, unions, fraternal or athletic groups, or [...] care, and heating? Not very hard 11/25/2024 [facility] - Occupational [...] any time in the past 12 m [facility], were you homeless or living in a m[facility] (including now)? No 11/25/2024 Carman Depression Scale Answer Date Recorded Carman Depression Scale Total 8 11/25/2024 The thought [...] file Travel History Travel Start Travel End [place] 11/09/2024 11/17/2024 documented as of this encounter Plan of Treatment Upcoming Encounters Date Type Department Care Team ([facility] Contact Info) Description 12/23/2024 10:00 AM EDT Appointment Medical Office Building Obstetrics and Gynecology [address], [address] [place] [address] 12/23/2024 10:30 AM EDT Routine Medical Office Building Obstetrics and Gynecology [address], [address] [place] [address] Vikas Haile MD [address] [place] [address] documented as of this encounter Visit Diagnoses Not on filedocumented in this encounter Additional Health Concerns Assessment Noted Time PHQ-9 Depression Total Score: 5 11/26/19 25 11:39 AM EDT A Body Mass Index follow-up plan has been documented for the patient 12/04/2024 3:27 PM EDT documented as of this encounter Care Teams Bridge Manager Relationship Specialty Start Date End Date Pcp, Sherron [address] [place] [address] PCP - General Family Medicine 10/28/24 Jg Gonzalez MD [address] [place] [address] Referring Physician Obstetrics and Gynecology 10/28/24 documented as of this encounter
--- OUTSIDE RECORDS SUMMARY | 2024-12-11 14:10 | XMS_ITS | Encounter Summary ---
Author Organization [employer] ([place], [place], [place], [place]) Address [address] [place] [address] Care Team Providers Care Configuration Management Analyst Name Role Phone Unavailable Primary Care Provider Unavailabl e Encounter Details Date Type Department Care Team (Late st Contact Info) Description 10/19/2020 Transcribed Document [facility] [place] Family Medicine [address] [place] [address] ProviderLo MD [address] [place] [address] Social History Tobacco Use Types Packs/Day Years Used Date Smoking Tobacco: Never Assessed Comments Unknown Sex and Gender Information Value Date Recorded Sex Assigned at Female 11/23/2021 8:52 PM CDT Legal Sex Female 8:52 PM CDT Gender Identity Female 11/23/2021 8:52 PM CDT Sexual Orientation Not on file documented as of this encounter Miscellaneous Notes * Cerner Conversion Note - Historical ProviderMD - 10/19/2020 5:28 PM CDT ED Discharge Entered On: 10/19/2020 17:28 EDT Performed On: 10/19/2020 17:28 EDT by Jay Luu Concept Artist Process Patient Disposition : Discharge Personal Belongings With Patient : Yes Patient Education Completed : Yes Teaching Evaluation : Verbalizes understanding IV Discontinued : Yes Nursing Documentation Completed : Yes Jay Luu Rn - 10/19/2020 17:28 EDT ED Discharge Discharge To : Home with ambulatory/outpatient follow-up Mode Of Departure : Private vehicle Accompanied By : Mother Discharge Instructions Reviewed With, Opportunity For Questions Given : Patient Prescriptions Given to Patient : No Jay Luu Rn - 10/19/2020 17:28 EDT documented in this encounter Plan of Treatment Not on file documented as of this encounter Visit Diagnoses Not on filedocumented in this encounter
--- OUTSIDE RECORDS SUMMARY | 2024-12-11 14:10 | XMS_ITS | Clinical Summary ---
Author Organization [employer] ([place], [place], [place], [place]) Address [address] [place] [address] Care Team Providers Care Electrician'S Assistant Name Role Phone Unavailable Primary Care Provider [...]
--- OUTSIDE RECORDS SUMMARY | 2024-12-11 14:10 | XMS_ITS | Clinical Summary ---
Author Organization Healthcare Address [address] [place] [address] Care Team Providers Care It Security Administrator Name Role Phone Pcp, No Primary Care Provider Jg Richmond MD Unavailable [phone] Allergies No known active allergies Medications FeroSul 325 (65 Fe) MG tablet Take 1 tablet by mouth daily. Active Vit-Fe Fumarate-FA (GNP ) 28-0.8 MG tablet Take 1 tablet by mouth daily. 06/05/2024 Active Active Problems Problem Noted Date Diagnosed Date Maternal care for other (antonio pected) abnormality and damage, not applicable or unspecified 10/29/2024 Estimated Date of Delivery Comme nts Yes 01/15/2025 Date entered michelle or to episode creation Encounters Date Type Department Care Team Description 12/04/2024 3:15 PM EDT Office Visit [facility] [address] [place] [address] Paul Collazo MD Maternal care for other (suspected) abnormality and damage, not applicable or unspecified (Primary Dx) 12/04/2024 2:26 PM EDT - 12/04/2024 11:59 PM EDT Hospital Encounter [facility] Pediatric Cardiac Diagnostic [facility] [address] [facility] [place] [address] Maternal care for other (suspected) abnormality and damage, not applicable or unspecified Discharge Disposition: Home or Self Care 12/04/2024 1:45 PM EDT Office Visit [facility] [address] [place] [address] Dalila Acosta, HISTORY PROFESSOR 12/04/2024 Travel 11/26/2024 Telephone [facility] Pediatric Cardiac Diagnostic Testing [address] [facility] [address], [place] [address] Hubert Villegas MD 11/26/2024 Telephone [facility] Pediatric Cardiac Diagnostic Testing [address] [facility] [address], [place] [address] Hubert Villegas MD 11/25/2024 10:45 AM EDT Initial Medical Office Building Obstetrics and Gynecology [address] [facility], [address] [place] [address] Vikas Haile MD GA: [id number] 11/25/2024 10:00 AM EDT - 11/25/2024 11:59 PM EDT Hospital Encounter Medical Office Building Obstetrics and Gynecology [address], [address] [place] [address] Maternal care for other (suspected) abnormality and damage, not applicable or unspecified Discharge Disposition: Home or Self Care 11/25/2024 Telephone Medical Office Building Obstetrics and Gynecology [address], [address] [place] [address] Charlette Ugalde RN M Care coordination 11/25/2024 Orders Only Medical Office Building Obstetrics and Gynecology [address], [address] [place] [address] Vikas Haile MD Supervision of high risk , antepartum (Primary Dx); 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, single or unspecified fetus 11/25/2024 Travel 11/12/2024 Orders Only Medical Office Building Obstetrics and Gynecology [address], [address] [place] [address] Mariah Sahu MD Maternal care for other (suspected) abnormality and damage, not applicable or unspecified (Primary Dx) 11/07/2024 Telephone [facility] Pediatric Cardiac Diagnostic Testing [address] [facility], [place] [address] Paul Collazo MD 11/06/2024 Telephone [facility] [address] [phone] Dalila Acosta Cathy, HISTORY PROFESSOR 10/28/2024 10:30 AM EDT Office Visit [facility] [address] [facility]nd [place] [address] Paul Collazo MD Maternal care for other (suspected) abnormality and damage, not applicable or unspecified (Primary Dx) 10/28/2024 10:21 AM EDT - 10/28/2024 11:59 PM EDT Hospital Encounter [facility] Pediatric Cardiac Diagnostic Testing [address] [facility], [place] [address] Abnormal obstetric ultrasound scan Discharge Disposition: Home or Self Care 10/28/2024 Travel 10/22/2024 Telephone [facility] Pediatric Cardiac Diagnostic Testing [address] [facility], [place] [address] Hubert Villegas MD 10/14/2024 Telephone [facility] Pediatric Cardiac Diagnostic Testing [address] [facility], [place] [address] Hubert Villegas MD from Last 3 Months Family History Medical History Relation Name Comments Diabetes Maternal Grandfather Congenital heart disease Neg Hx Relation Name Status Comments Maternal Grandfather Social History Tobacco Use Types Packs/Day Years [...] How often do you attend chur or spiritism services? Never 11/25/2024 Do you belong to any clubs o r organizations such as scientologist groups, unions, fraternal or athletic groups, or [...] care, and heating? Not very hard 11/25/2024 [facility] - Occupational Stress [...] any time in the past [address] [facility], were you homeless or living in a fci (including now)? No 11/25/2024 Gotham Depression Scale Answer Date Recorded Gotham Depression Scale Total 8 11/25/2024 The thought of harming myself has occurred to me . Never 11/25/2024 Utilities Answer Date Recorded In the past 12 months has e electric, gas, oil, or water company [...] file Travel History Travel Start Travel End [place] 11/09/2024 11/17/2024 Last Filed Vital Signs Vital Sign Reading [...] Mass Index 24.6 11/25/2024 11:26 AM EDT Plan of Treatment Upcoming Encounters Date Type Department Care Team ([facility] st Contact Info) Description 12/23/2024 10:00 AM EDT Appointment Medical Office Building Obstetrics and Gynecology [address] [facility], [address] [place] [address] 12/23/2024 10:30 AM EDT Routine Medical Office Building Obstetrics and Gynecology [address] [facility], [address] [place] [address] Vikas Haile MD [address] [place] [address] Health Maintenance Due Date Last Done Comments [facility]-Hepatitis C Screening 1998 [facility]-Infant/Child/Adol SDOH Screenings 1998 [facility]-Hepatitis A Vaccines (2 of 2 - 2-dose series) 08/26/2015 02/25/2015 HPV Vaccines (3 - 3-dose series) 08/28/2015 06/05/2015, 02/25/2015 [facility]-Pap Smear 2019 [id number] Vaccine (3 - season) 2024 07/24/2020, 06/13/2020 [facility]-DTaP,Tdap,and Td Vaccines (8 - Td or Tdap) 12/24/2024 12/24/2014, 03/10/2010, 04/29/2002, Additional history exists [facility]-Influenza Vaccine (#1) 2025 [facility]- SDOH Screenings 05/27/2025 [facility]-Adult SDOH Screenings 05/27/2025 11/25/2024 [facility]-Depression Screening 11/25/2025 025, 11/25/2024, 11/25/2024 [facility]-Zoster Vaccines (1 of 2) 2048 12/24/2014, 04/26/1999 [facility]-Hepatitis B Vaccines Completed 999, 1998, 1998 [facility]-HIB Vaccines Completed 08/05/1999, , 1998, Additional history exists [facility]-IPV Vaccines Completed 05/06/2002, , 1998, Additional history exists [facility]-Varicella Vaccines Completed 12/24/2014, 1998 [facility]-HIV Screening Completed 10/19/2020 [facility]-Pneumococcal Vaccine: Pediatrics (0 to 5 Years) and At-Risk Patients (6 to 49 Years) Aged Out No longer eligible based on patient's age to complete this topic [facility]-RSV Vaccine: 60+ Years or (No Doses Required) Completed [facility]-Rotavirus Vaccines Aged Out No lo nger eligible based on patient's age to complete this topic Procedures Procedure Name Priority Date/Time Associated Diagnosis Comments ECHO, FOLLOW-UP Routine 12/04/2024 3:07 PM EDT Maternal care for other (suspected) abnormality and damage, not applicable or unspecified POCT URINALYSIS DIPSTICK Routine 11/25/2024 10:50 AM EDT Supervision of high risk , antepartum OB US DETAIL ANATOMY Routine 11/25/2024 10:38 AM EDT Maternal care for other (suspected) abnormality and damage, not applicable or unspecified ECHO, COMPLETE Routine 10/28/2024 11:15 AM EDT Abnormal obstetric ultrasound scan HIV 1/2 ANTIBODY/ANTIGEN SCREEN WITH REFLEX TO HIV I/II DIFFERENTIATION Routine 10/19/2020 10:01 AM EDT from Last 3 Months or Most Recently Relevant to Health Maintenance Results * Echo Limited (12/04/2024 3:07 PM EDT) Anatomical Region Laterality Modality Echocardiography 12/04/2024 2:30 PM EDT Paul Collazo MD CV ECHO PROCEDURES Final Resul t * (ABNORMAL) POCT Urinalysis Dipstick (11/25/2024 10:50 AM EDT) POCT Urine Color Light Yellow POCT Urine Clarity Clear POCT Glucose Urine Negative Negative mg/dL POCT Bilirubin, Urine Negative Negative POCT Ketones, Urine Negative Negative mg/dL POCT Specific [place], Urine 1.010 POCT Blood, Urine Negative Negative POCT pH, Urine 7.0 5.0 to 8.0 POCT Protein, Urine Negative Negative mg/dL POCT Urobilinogen, Urine 0.2 0.2, 1 E.U./dL POCT Nitrite, Urine Negative Negative POCT Leukocyte Esterase, Urine Small(A) Negative Test Strip Lot Number [id number] Test Strip Lot Expiration 07/2025 Urine Urine specimen obtained by clean catch procedure / Unknown 11/25/2024 10:50 AM EDT Result [facility] Vikas Haile MD POINT OF CARE TEST ENTER/EDIT ORDERABLES Final Result * OB US Detail Anatomy (11/25/2024 10:38 AM EDT) Anatomical Region Laterality Modality Body Ultrasound 11/25/2024 9:52 AM EDT Impressions 11/25/2024 12:31 PM EDT The OB Ultrasound you requested has been resulted. Please navigate to the Imaging tab in [employer] for review. This message has been generated by the interface. Narrative Procedure Note Jeni Botello, DO - 11/25/2024 IMPRESSION: The OB Ultrasound you requested has been resulted. Please navigate to theImaging tab in [employer] for review. This message has been generated by theinterface. Mariah Sahu MD IMG OB US PROCEDURES Fin al Result * Echo, Complete (10/28/2024 11:15 AM EDT) Anatomical Region Laterality Modality Echocardiography 10/28/2024 10:3 4 AM EDT Lars Coffey MD CV ECHO PROCEDURES Final R esult * HIV 1 & 2 Antibody/Antigen Screen (10/19/2020 10:01 AM EDT) HIV 1 Result NONREACTIVE Screening for HIV 1 and 2 antibodies is NONREACTIVE. No confirmatory testing is required. SUNQUEST 10/19/2020 10:0 1 AM EDT 10/19/2020 10:20 AM EDT Jayson Brandt LAB BLOOD ORDERABLES Final Resul t SUNQUEST from Last 3 Months or Most Recently Relevant to Health Maintenance Insurance [facility] MEDICAID Care Teams It Security Administrator Relationship Specialty Start Date End Date Pcp, [place] [address] PCP - General Family Medicine 10/28/24 Jg Gonzalez MD [address] [facility] [address] [place] [address] Referring Physician Obstetrics and Gynecology 10/28/24
--- OUTSIDE RECORDS SUMMARY | 2024-12-11 14:10 | XMS_ITS | Encounter Summary ---
Author Organization [employer] ([place], [place], [place], [place]) Address [address] [place] [address] Care Team Providers Care Spike Driver Name Role Phone Unavailable Primary Care Provider Unavailabl e Encounter Details Date Type Department Care Team (Late st Contact Info) Description 10/19/2020 Transcribed Document [facility] Family Medicine [address] [place] [address] ProviderLo MD [address] [place] [address] Social History Tobacco Use Types [...] Conversion Note - Historical ProviderMD - 10/19/2020 5:24 PM CDT [address] [address] Visit Date/Time: 10/19/2020 17:24:01 [place] The above patient was seen in the hospital today and needs to be excused from work/school until Return to Work/School Date: 10/20/2020 documented in this encounter Plan of Treatment Not on file documented as of this encounter Visit Diagnoses Not on filedocumented in this encounter
--- OUTSIDE RECORDS SUMMARY | 2024-12-11 14:10 | XMS_ITS | Encounter Summary ---
Author Organization Healthcare Address [address] [place] [address] Care Team Providers Care Community Product Specialist Name Role Phone Pcp, No Primary Care Provider Unavailara e Jg Gonzalez MD Unavailable [phone] Reason for Visit * Reason Onset Date Comments [facility] Care coordination 11/25/2024 Encounter Details Date Type Department Care Team ([facility] st Contact Info) Description 11/25/2024 Telephone Medical Office Building Obstetrics and Gynecology [address] [facility], [address] [place] [address] Charlette Ugalde, RN AMB-GS [facility] ULTRAS[facility] CLINIC 1st FLR [facility] Care coordination Social History Tobacco Use Types Packs/Day Years [...] any clubs o r organizations such as mu-ism groups, unions, fraternal or athletic groups, or [...] care, and heating? Not very hard 11/25/2024 [facility] - [facility]ational Stress Questionnaire Answer Date Recorded [...] were you homeless or living in a long term (including now)? No 11/25/2024 [place] Depression Scale Answer Date Recorded [place] Depression Scale Total 8 11/25/2024 The thought [...] Travel History Travel Start Travel End [place] 11/09/2024 11/17/2024 documented as of this encounter [...] encounter Miscellaneous Notes * Telephone Encounter - Charlette Ugalde RN - 11/25/2024 1:15 PM EDT I contacted Radha, nurse at Dr. Gonzalez's office to discuss care coordination for Papa. We reviewed that Papa was seen today to establish care with Dr. Haile. Dr. Haile recommended weekly visits and twice weekly NSTs, Papa would like to do these appointments with her local OB if possible. Radha is agreeable with this plan, she will relay this message to Dr. Gonzalez. We reviewed that Papa has a echo appointment on 12/03/24 and growth ultrasound/ visit in our officeon 12/23/24. Discussed that delivery will be discussed and scheduled at Papa' appointment on 12/23/24, planning for IOL at 39 weeks at this time. Radha verbalized understanding and is agreeable with t his plan. documented in this encounter Plan of Treatment Upcoming Encounters Date Type Department Care Team (Late st Contact Info) Description 12/23/2024 10:00 AM EDT Appointment Medical Office Building Obstetrics and Gynecology [address] [facility], [address] [place] [address] 12/23/2024 10:30 AM EDT Routine Medical Office Building Obstetrics and Gynecology [address] [facility], [address] [place] [address] Vikas Haile MD [address] [place] [address] documented as of this encounter Visit Diagnoses Not on filedocumented in this encounter Additional Health Concerns Assessment Noted Time PHQ-9 Depression Total Score: 5 11/26/19 11:39 AM EDT A Body Mass Index follow-up plan has been documented for the patient 10/29/2024 4:48 PM EDT documented as of this encounter Care Teams Community Product Specialist Relationship Specialty Start Date End Date Pcp, Sherron [address] [place] [address] PCP - General Family Medicine 10/28/24 Jg Gonzalez MD [address] [place], [place] [id number] Referring Physician Obstetrics and Gynecology 10/28/24 documented as of this encounter
--- OUTSIDE RECORDS SUMMARY | 2024-12-11 14:10 | XMS_ITS | Encounter Summary ---
Author Organization [employer] ([place], [place], [place], [place]) Address [address] [place] [address] Care Team Providers Care Nail Machine Operator Name Role Phone Unavailable Primary Care Provider Unavailabl e Encounter Details Date Type Department Care Team (Late st Contact Info) Description 10/19/2020 Transcribed Document [facility] Family Medicine [address] [place] [address] ProviderLo MD [address] [place] [address] Social History Tobacco Use Types Packs/Day Years Used Date Smoking Tobacco: Never Assessed Comments Unknown Sex and Gender Information Value Date Recorded Sex Assigned at Female 11/23/2021 8:52 PM CDT Legal Sex Female 8:52 PM CDT Gender Identity Female 11/23/2021 8:52 PM CDT Sexual Orientation Not on file documented as of this encounter Miscellaneous Notes * Patrizia Conversion Note - Historical ProviderMD - 10/19/2020 3:54 PM CDT Pain Assessment Entered On: 10/19/2020 16:35 EDT Performed On: 10/19/2020 16:35 EDT by Jeni Charles RN Intervention Information: HYDROmorphone Performed by Jay Luu Rn on 10/19/2020 15:57:00 EDT HYDROmorphone,0.5mg IV Push,Peripheral Line 1 Pain Assessment Pain Assessment : Follow-up assessment Pain Scale Used : 0-10 Scale Location : Flank, left Jeni Charles RN - 10/19/2020 16:35 EDT Pain Scale Intensity : 1 Jeni Charles RN - 10/19/2020 16:35 EDT Image 4 - Images currently included in the form version of this document have not been included in the text rendition version of the form. documented in this encounter Plan of Treatment Not on file documented as of this encounter Visit Diagnoses Not on filedocumented in this encounter
--- OUTSIDE RECORDS SUMMARY | 2024-12-11 14:10 | XMS_ITS | Encounter Summary ---
Author Organization [email or web address] ([place], [place], [place], [place]) Address [address] [place] [address] [address] Team Prov[address] Care Road Contractor Name Role Phone Unavailable Primary Care Provider Unavailabl e Encounter Details Date Type Department Care Team (Late st Contact Info) Description 10/19/2020 Transcribed Document [facility] [place] Replaced by [facility] [place] [address] ProviderLo MD [address] [place] [address] Social History Tobacco Use Types [...] Conversion Note - Historical ProviderMD - 10/19/2020 12:22 PM CDT ED Triage Entered On: 10/19/2020 12:38 EDT Performed On: 10/19/2020 12:35 EDT by ALEJANDRA ALONSO RN ED Triage Across the Room Chief Complaint : Pt c/o left sided abd pain that started 4 days ago, +nausea, denies v/d, seen at today. Triage Date/Time : 10/19/2020 12:35 EDT ALEJANDRA ALONSO RN - 10/19/2020 12:35 EDT DCP GENERIC CODE Tracking Acuity : 3 - Urgent Tracking Group : [facility] ED East ALEJANDRA ALONSO RN - 10/19/2020 12:35 EDT Mode of Arrival : Ambulatory Transported to ED by : Private vehicle To Room Via : Ambulate Accompanied By : Mother ED Vital Signs : Document Height & Weight : Document ED Allergies : Document ED Reason for Visit : Document ALEJANDRA ALONSO RN - 10/19/2020 12:35 EDT Infectious Disease History Has the patient ever been tested for COVID-19? : Yes, Patient stated results Negative Date of COVID-19 test known? : No Does patient have symptoms of COVID-19? : No COVID19 Screening : No Experiencing Infectious Disease Symptoms : No symptoms Physical contact outside [place] in the last 30 days : No Infectious Disease History : None Tuberculosis Symptoms : None ALEJANDRA ALONSO RN - 10/19/2020 12:35 EDT Vital Signs ED Temperature Source : Temporal artery scanning Temperature Mode : Fahrenheit Temperature, Fahrenheit : 98.5 Deg F Clinical Temperature, C : 36.9 Deg C Oxygen Therapy Mode : Room air Peripheral Pulse Rate : 85 bpm Respiratory Rate : 18 Breaths/Min Systolic Blood Pressure : 118 mmHg Diastolic Blood Pressure : 68 mmHg Oxygen Saturation : 99 % ALEJANDRA ALONSO RN - 10/19/2020 12:35 EDT Allergy (As Of: 10/19/2020 12:38:21 EDT) Allergies (Active) No Known Medication Allergies Estimated Onset Date: Unspecified ; Created By: ALEJANDRA ALONSO RN; Reaction Status: Active ; Category: Drug ; Substance: No Known Medication Allergies ; Type: Allergy ; Updated By: ALEJANDRA ALONSO RN; Reviewed Date: 10/19/2020 12:36 EDT Diagnosis Control ED (As Of: 10/19/2020 12:38:21 EDT) Problems(Active) No Chronic Problems (Cerner :NKP ) Name of Problem: No Chronic Problems ; Recorder: ALEJANDRA ALONSO RN; Code: NKP ; Last Updated: 10/19/2020 12:37 EDT ; Life Cycle Date: 10/19/2020 ; Life Cycle Status: Active ; Vocabulary: Patrizia Diagnoses(Active) Abdominal pain Date: 10/19/2020 ; Diagnosis Type: Reason For Visit ; Confirmation: Complaint of ; Clinical Dx: Abdominal pain ; Classification: Medical ; Clinical Service: Emergency medicine ; Code: PNED ; Probability: 0 ; Diagnosis Code: [id number] ED Height and Weight Height Source : Stated Height Entry Format : [place] Height, Feet : 5 ft(Converted to: 152 cm, 60 Inch) Height, Inches : 3 Inch(Converted to: 0 ft 3 Inch, 7.62 cm) Clinical Height : 160.02 cm Weight Source, ED : Critical estimated dosing weight Weight Entry Format : [place] Weight, Pounds : 110 lb Clinical Dosing Weight : 50 kg Body Surface Area (BSA) : 1.5 m2 Body Mass Index : 19.5 kg/m2 [place] Body Weight (IBW) : 52.02 kg ALEJANDRA ALONSO RN - 10/19/2020 12:35 EDT Electronically signed by [facility] Conversion Die Storage Clerk Cerner at 09/16/2022 7:59 PM CDT documented in this encounter Plan of Treatment Not on file documented as of this encounter Visit Diagnoses Not on filedocumented in this encounter
--- OUTSIDE RECORDS SUMMARY | 2024-12-11 14:10 | XMS_ITS | Encounter Summary ---
Author Organization [employer] ([place], [place], [place], [place]) Address [address] [place] [address] Care Team Providers Care Sales Account Coordinator Name Role Phone Unavailable Primary Care Provider Unavailabl e Encounter Details Date Type Department Care Team (Late st Contact Info) Description 10/19/[address] [facility] Radiology [address] [place] [address] Boby Mccracken MD [address] [place] [address] Dept. [place] [address] Social History Tobacco Use Types Packs/Day Years Used Date Smoking Tobacco: Never Assessed Comments Unknown Sex and Gender Information Value Date Recorded Sex Assigned at Female 11/23/2021 8:52 PM CDT Legal Sex Female 8:52 PM CDT Gender Identity Female 11/23/2021 8:52 PM CDT Sexual Orientation Not on file documented as of this encounter Miscellaneous Notes * Cerner Conversion Note - Boby Mccracken MD - 10/19/2020 3:42 PM EDT Patient: PAPA RICO Age: 20 years Sex: Female : 2000 Associated Diagnoses: Left upper quadrant pain Author: BOBY MCCRACKEN MD-EMR Basic Information Additional information: Chief Complaint from Nursing Triage Note : Chief Complaint 10/19/2020 12:35 EDT Chief Complaint Pt c/o left sided abd pain that started 4 days ago, +nausea, denies v/d, seen at today. . History of Present Illness The patient presents with abdominal pain and Abdominal pain, noted as severe, 3 days, left-sided. Was seen at [facility] and had labs but no formal imaging, diagnosed with a nodule, and given the self-limited treatment advice, she complains of lack of appetite increased pain and concerns of other issues with acute abdominal pain here, pain started left upper quadrant, not pelvis not left lower quadrant. Review of Systems Additional review of systems information: All other systems reviewed and otherwise negative. Health Status Allergies: Allergic Reactions (Selected) No Known Medication Allergies. Past Medical/ Family/ Social History Surgical history: No active procedure history items have been selected or recorded.. Family history: No family history items have been selected or recorded.. Social history: Social & Psychosocial Habits No Data Available . Problem list: Active Problems (1) No Chronic Problems . Physical Examination Vital Signs Vital Signs/Vital Measures 10/19/2020 12:35 EDT Systolic Blood Pressure 118 mmHg Diastolic Blood Pressure 68 mmHg Temperature Source Temporal artery scanning Temperature Mode Fahrenheit Temperature, Fahrenheit 98.5 Deg F Clinical Temperature, C 36.9 Deg C Peripheral Pulse Rate 85 bpm Respiratory Rate 18 Breaths/Min Oxygen Saturation 99 % Oxygen Therapy Mode Room air . Oxygen Saturation 10/19/2020 12:35 EDT Oxygen Saturation 99 % . General: Alert. Skin: Dry. Head: Atraumatic. Neck: Trachea midline. Eye: Normal conjunctiva. Ears, nose, mouth and throat: Oral mucosa moist. Cardiovascular: Normal peripheral perfusion. Gastrointestinal: Soft, Nontender, Non distended. Genitourinary: No tenderness. Back: Nontender. Musculoskeletal: Normal ROM. Neurological: No focal neurological deficit observed. Lymphatics: No lymphadenopathy. Psychiatric: Cooperative. Medical Decision Making Documents reviewed: Emergency department nurses' notes, emergency department records. test: UCG-negative. Impression and Plan Diagnosis Left upper quadrant pain - Discharge, Emergency medicine, Medical documented in this encounter Plan of Treatment Not on file documented as of this encounter Visit Diagnoses Not on filedocumented in this encounter
--- OUTSIDE RECORDS SUMMARY | 2024-12-11 14:10 | XMS_ITS | Encounter Summary ---
Author Organization Healthcare Address [address] [place] [address] Care Team Providers Care Cmm Programmer Name Role Phone Christopher Garcia MD Primary Care Provider [phone] Encounter Details Date Type Department Care Team (Late Contact Info) Description 10/14/2024 Telephone [facility] Pediatric Cardiac Diagnostic Testing [address] [place] [address] Huebrt Villegas MD [address] [place] [address] Social History Tobacco Use Types Packs/Day Years Used Date Smoking Tobacco: Never Alcohol Use Standard Drinks/Week Comments Yes 0 (1 standard drink = 0.6 oz pur e alcohol) Comments Unknown Sex and Gender Information Value Date Recorded Sex Assigned at Not on file Legal Sex Female 7:17 PM EDT Gender Identity Not on file Sexual Orientation Not on file Travel History Travel Start Travel End [place] 11/09/2024 11/17/2024 documented as of this encounter Miscellaneous Notes * Telephone Encounter - Grecia Mckeon - 10/14/2024 1:06 PM EDT Patient answered and agreed to schedule appointment on 10/28 with an arrival time of 10:00 am. Advised will mail letter and make reminder call the week prior. documented in this encounter Plan of Treatment Upcoming Encounters Date Type Department Care Team (Late Contact Info) Description 12/23/2024 10:00 AM EDT Appointment Medical Office Building Obstetrics and Gynecology [address], [address] [place] [address] 12/23/2024 10:30 AM EDT Routine Medical Office Building Obstetrics and Gynecology [address], [address] [place] [address] Vikas Haile MD [address] [place] [address] documented as of this encounter Visit Diagnoses Not on filedocumented in this encounter Care Teams Cmm Programmer Relationship Specialty Start Date End Date Christopher Garcia MD [address] [place] [address] PCP - General 10/09/20 10/27/24 documented as of this encounter
--- OUTSIDE RECORDS SUMMARY | 2024-12-11 14:10 | XMS_ITS | Encounter Summary ---
Author Organization [employer] ([place], [place], [place], [place]) Address [address] [place] [address] Care Team Providers Care Channel Rougher Name Role Phone Unavailable Primary Care Provider Unavailabl e Encounter Details Date Type Department Care Team (Late st Contact Info) Description 10/19/2020 Transcribed Document [facility] [place] Family Medicine [address] [place] [address] ProviderLo MD [address] [place] [address] Social History Tobacco Use Types Packs/Day Years Used Date Smoking Tobacco: Never Assessed Comments Unknown Sex and Gender Information Value Date Recorded Sex Assigned at Female 11/23/2021 8:52 PM CDT Legal Sex Female 8:52 PM CDT Gender Identity Female 11/23/2021 8:52 PM CDT Sexual Orientation Not on file documented as of this encounter Miscellaneous Notes * Cerner Conversion Note - Lo ProviderMD - 10/19/2020 5:12 PM CDT [place] [id number] PAPA RICO HEIDI :2000 Visit Time:10/19/2020 Your Visit Summary Your Care Team Primary Provider: LOWELL MCDANIEL Secondary Provider: Your Diagnosis Abdominal pain Abdominal pain in female Left upper quadrant pain Medical Information You may obtain a copy of your Emergency Department visit from Medical Records by calling the hospital phone number listed above and asking to be directed to the Medical Records Department. If you had special tests, such as EKG???s or X-rays, the interpretation of your tests given to you by the Emergency Department Physician is a preliminary report. Some fractures and illnesses fail to show up on preliminary tests. These will be reviewed again and we will call you if there are any new suggestions. If your symptoms continue notify your physician. After you leave, you should follow the instructions provided. What to do next Follow-Up Appointments Follow Up with Follow-up with your GENERATOR WORKER as discussed When Within 2 to 3 days Follow Up with Follow up with primary care provider When Within 2 to 3 days Comments Call for follow up appointment. Please follow-up with your primary care provider in 2 to 3 days. Return to ED if you experience new or worsening symptoms. If you do not have a primary care provider the patient resource appointment scheduler can assist you with establishing care and scheduling follow-up. The Patient Resource Acting Manager can be contacted at . Follow Up with NO PRIM DR SHERMAN When Within 2 to 3 days Allergies No Known Medication Allergies Immunizations This Visit No Immunizations Found Medications The home medications listed are only as accurate as the information you provided. Please continue taking all of your medications prescribed by your Primary Care Provider unless specifically told to change or discontinue the medication. Please direct any questions regarding your home medications to your Primary Care Provider. Take your medications faithfully. Do NOT skip medication. Do NOT stop taking medications without the direction of a physician. Carry a list of your medications with you at all times, and take this medication list with you to your first follow up visit. Report any side effects. Avoid herbal remedies unless discussed with your physician. As part of your treatment plan, your physician may have prescribed a limited course of a controlled substance. This medication may be given to help people with moderate or severe pain or for other medical conditions, but there are risks involved with treatment. Common side effects may include nausea, constipation, drowsiness, sweating, itching, dry mouth, and rash. More serious side effects may include cognitive and motor impairment, like problems with thinking, concentrating, alertness, and movement (e.g. slowed reflexes), and driving and operating heavy machinery can be dangerous. It is important for you to talk to your physician if you have these side effects or questions. These controlled substances can produce physical dependence and be habit-forming if taken for an extended period of time, which means that the body has gotten used to them and may experience withdrawal symptoms if they are abruptly stopped. Withdrawal symptoms can include runny nose, sweating, goose bumps, diarrhea, abdominal cramping, rapid heartbeat, difficulty sleeping, and nervousness. Please dispose of unused and medications per pharmacy guidance. Test Results Laboratory or Other Results This Visit (last charted value for your 10/19/2020 visit) Hematology 10/19/2020 12:40 PM WBC: 8.8 K/uL -- Normal range between ( 3.9 and 10.0 ) RBC: 4.64 Million/uL -- Normal range between ( 3.93 and 5.22 ) Hct: 42.5 % -- Normal range between ( 34.1 and 44.9 ) Hgb: 13.6 Gram/dL -- Normal range between ( 11.2 and 15.7 ) Platelet Count: 270 K/uL -- Normal range between ( 163 and 369 ) MCH: 29.3 pg -- Normal range between ( 25.6 and 32.2 ) MCHC: 32.0 Gram/dL -- Normal range between ( 32.3 and 36.5 ) MCV: 91.6 fL -- Normal range between ( 79.0 and 94.8 ) Slide Review: No Eos %: 0.0 % -- Normal range between ( 1.0 and 7.0 ) [place] #: 0.42 K/uL -- Normal range between ( 0.24 and 0.82 ) Eos #: 0.00 K/uL -- Normal range between ( 0.04 and 0.54 ) [place] %: 4.8 % -- Normal range between ( 4.7 and 12.5 ) Baso %: 0.5 % -- Normal range between ( 0.0 and 1.0 ) Baso #: 0.04 K/uL -- Normal range between ( 0.01 and 0.08 ) RDW: 12.3 % -- Normal range between ( 11.6 and 14.4 ) Neut %: 83.5 % -- Normal range between ( 34.0 and 71.0 ) Neut #: 7.35 K/uL -- Normal range between ( 1.56 and 6.13 ) Lymph %: 11.0 % -- Normal range between ( 19.3 and 53.0 ) Lymph #: 0.97 K/uL -- Normal range between ( 1.18 and 3.74 ) MPV: 8.6 fL -- Normal range between ( 9.4 and 12.4 ) IG#: 0 x10(3)/uL IG%: 0 % -- Normal range between ( 0 and 1 ) Urinalysis 10/19/2020 12:40 PM Ur RBC: None Seen Urine Nitrite: Negative Urine Leukocyte Esterase: Negative Urine Appearance: Cloudy Urine Glucose Dipstick: Negative Urine Blood Dipstick: Negative Urine Urobilinogen Dipstick: 0.2 EU/dL -- Normal range between ( 0.2 and 1.0 ) Urine Protein Dipstick: Negative Ur Bacteria: 1+ Ur Squamous Epithelial Cells: 2-5 /HPF Urine Color: Yellow Ur WBC: 0-2 /HPF Urine Ketones Dipstick: 15 Ur Mucous: 1+ Urine pH Dipstick: 6.5 -- Normal range between ( 6.0 and 8.0 ) Urine Bilirubin Dipstick: Negative Urine Specific [place]: 1.011 -- Normal range between ( 1.005 and 1.030 ) Urine Type.: U CleanCatch Urine Culture if Indicated: Not Indicated General Chemistry 10/19/2020 12:40 PM Creatinine Level: 0.76 mg/dL -- Normal range between ( 0.55 and 1.02 ) Sodium Level: 138 mmol/L -- Normal range between ( 136 and 146 ) Potassium Level: 4.0 mmol/L -- Normal range between ( 3.5 and 5.1 ) Chloride Level: 106 mmol/L -- Normal range between ( 102 and 112 ) Carbon Dioxide Level: 27 mmol/L -- Normal range between ( 21 and 32 ) Anion Gap: 9 -- Normal range between ( 9 and 20 ) Bilirubin Total: 0.5 mg/dL -- Normal range between ( 0.2 and 1.3 ) A/G Ratio: 1.1 -- Normal range between ( 1.1 and 2.5 ) ALT: 19 Units/Liter -- Normal range between ( 12 and 78 ) AST: 16 Units/Liter -- Normal range between ( 5 and 37 ) Globulin: 3.9 Gram/dL -- Normal range between ( 1.5 and 4.5 ) Alk Phos: 80 Units/Liter -- Normal range between ( 27 and 136 ) Bun/Creatinine: 11.8 -- Normal range between ( 8.0 and 20.0 ) Calcium Level: 9.2 mg/dL -- Normal range between ( 8.5 and 10.1 ) eGFR : >60 mL/min/1.73m2 eGFR NonAfrican: >60 mL/min/1.73m2 Glucose Level: 99 mg/dL -- Normal range between ( 74 and 106 ) Blood Urea Nitrogen: 9 mg/dL -- Normal range between ( 7 and 22 ) Protein Total: 8.1 Gram/dL -- Normal range between ( 6.4 and 8.2 ) Albumin Level: 4.2 Gram/dL -- Normal range between ( 3.4 and 5.0 ) Lipase Level: 144 Units/Liter -- Normal range between ( 73 and 393 ) Endocrinology 10/19/2020 12:40 PM HCG Urine Qualitative: Negative Computed Tomography 10/19/2020 4:[address] Abdomen Pelvis W: CT Abdomen Pelvis W Education Materials Abdominal Pain, Adult Pain in the abdomen (abdominal pain) can be caused by many things. Often, abdominal pain is not serious and it gets better with no treatment or by being treated at home. However, sometimes abdominal pain is serious. Your health care provider will ask questions about your medical history and do a physical exam to try to determine the cause of your abdominal pain. Follow these instructions at home: Medicines ??? Take aadr-nmh-pxxoqfx and prescription medicines only as told by your health care provider. ??? Do not take a laxative unless told by your health care provider. General instructions ??? Watch your condition for any changes. ??? Drink enough fluid to keep your urine pale yellow. ??? Keep all follow-up visits as told by your health care provider. This is important. Contact a health care provider if: ??? Your abdominal pain changes or gets worse. ??? You are not hungry or you lose weight without trying. ??? You are constipated or have diarrhea for more than 2???3 days. ??? You have pain when you urinate or have a bowel movement. ??? Your abdominal pain wakes you up at night. ??? Your pain gets worse with meals, after eating, or with certain foods. ??? You are vomiting and cannot keep anything down. ??? You have a fever. ??? You have blood in your urine. Get help right away if: ??? Your pain does not go away as soon as your health care provider told you to expect. ??? You cannot stop vomiting. ??? Your pain is only in areas of the abdomen, such as the right side or the left lower portion of the abdomen. Pain on the right side could be caused by appendicitis. ??? You have bloody or black stools, or stools that look like tar. ??? You have severe pain, cramping, or bloating in your abdomen. ??? You have signs of dehydration, such as: ? Dark urine, very little urine, or no urine. ? Cracked lips. ? Dry mouth. ? Sunken eyes. ? Sleepiness. ? Weakness. ??? You have trouble breathing or chest pain. Summary ??? Often, abdominal pain is not serious and it gets better with no treatment or by being treated at home. However, sometimes abdominal pain is serious. ??? Watch your condition for any changes. ??? Take rwpj-izh-sffirwp and prescription medicines only as told by your health care provider. ??? Contact a health care provider if your abdominal pain changes or gets worse. ??? Get help right away if you have severe pain, cramping, or bloating in your abdomen. This information is not intended to replace advice given to you by your health care provider. Make sure you discuss any questions you have with your health care provider. Document Revised: 09/23/2019 Document Reviewed: 09/23/2019 [employer] Patient Education ?? 2020 [employer] Emergency Awareness and Preventative Care STROKE is an EMERGENCY Every Minute Counts Act FAST and Check for these signs: FACE Does the face look uneven? ARM Does one arm drift down? SPEECH Does their speech sound strange? TIME Call at any sign of stroke Stroke Risk Factors Atrial Fibrillation (irregular heartbeat) Diabetes Family history of stroke Heart Disease Heavy alcohol use High Blood Pressure High Cholesterol Physical inactivity and obesity Smoking Cigarette Smoking The facts are clear, cigarette smoking will shorten your life. Smoking can cause many illnesses along the way. As a healthcare provider, we recommend that you stop smoking. Assistance with quitting is available by contacting 8-515-LEQW-NOW. This is a free resource providing counseling, support, and referral. Or you may contact your personal physician. National Suicide Prevention Lifeline: The National Suicide Prevention Lifeline is a national network of local crisis centers that provides free and confidential emotional support to people in suicidal crisis or emotional distress 24 hours a day, 7 days a week. Don't Wait! Stop a Heart Attack Before it Starts What is a heart attack? A heart attack is damage or to a part of the heart from severely decreased or lack of blood flow to the heart. Over time, arteries can become narrow from the buildup of fat and cholesterol, which is called plaque. The plaque can rupture causing a blood clot to form. When the blood clot forms, the artery can become severely narrowed or completely blocked, causing a heart attack. Heart attack is the leading cause of in the [place]. 85% of muscle damage occurs within the first 2 hours. Delay in the recognition of heart attack symptoms increases the chances of . Know the early symptoms of a heart attack: Nausea Feeling of fullness in chest Jaw Pain Pain that travels down one or both arms Fatigue/being tired Anxiety Back Pain Chest pressure, squeezing, or discomfort Shortness of breath Sweating, or a cold sweat Feeling of impending doom There are unusual signs of a heart attack, too! Women, the elderly, and diabetics may present with atypical symptoms: Fainting/dizziness Weakness Confusion Risk Factors for a Heart Attack Some heart disease risk factors, such as age and family history, cannot be changed. Others, like smoking and lack of exercise, can be changed. Smoking High Cholesterol High Blood Pressure Family History Obesity Age Gender (Males are at higher risk) Lack of Exercise Diabetes Diet Stress Excessive Alcohol Intake If you or someone you know is experiencing the signs and symptoms of a heart attack, DON???T DELAY. Call immediately and seek help. If someone collapses, perform CPR! Do not attempt to drive if you are having symptoms of heart attack. Hands-Only CPR Why Hands-Only CPR? Hands-Only CPR has been shown to be as effective as conventional CPR for cardiac arrests that occur outside of a hospital. Survival depends on immediately receiving CPR from someone nearby. How do you perform Hands-Only CPR? There are two easy steps: Call if you see a teen or adult collapse Push hard and fast in the center of the chest at a beat of 100 beats per minute. Save a life! 4 WAYS TO GET AHEAD OF SEPSIS SEPSIS is a MEDICAL EMERGENCY. Time matters! Infections put you and your family at risk for a life-threatening condition called sepsis. Sepsis is the body's extreme response to an infection. It is life-threatening, and without timely treatment, sepsis can rapidly lead to tissue damage, organ failure, and . Sepsis happens when an infection you already have-in your skin, lungs, urinary tract or somewhere else-triggers a chain reaction throughout your body. 1 PREVENT INFECTIONS Take good care of chronic conditions. Talk to your doctor about getting the recommended vaccines. 2 PRACTICE GOOD HYGIENE Wash your hands frequently. Keep cuts or open sores clean and covered until they are healed. 3 KNOW THE SYMPTOMS Confusion or disorientation Shortness of breath High heart rate Fever, shivering, or feeling very cold Extreme pain or discomfort Clammy or sweaty skin 4 ACT FAST Get medical care IMMEDIATELY if you suspect sepsis or if you have an infection that is not getting better or is getting worse. To learn more about sepsis and how to prevent infections, visit www.cdc.gov/sepsis. The examination and treatment you have received in the Emergency Department has been done to provide an appropriate evaluation and stabilizing treatment on an emergency basis only. Given the limited resources, it is not meant to be a substitute for complete medical care. The follow-up doctor you named will receive a copy of your records and all test reports. IT IS IMPORTANT THAT YOU SCHEDULE A FOLLOW-UP APPOINTMENT AND ARE RE-EVALUATED. You should report any new complaints, symptoms, or remaining problems at that time. IT IS IMPOSSIBLE FOR THE EMERGENCY DEPARTMENT TO RECOGNIZE AND TREAT ALL ELEMENTS OF INJURY OR ILLNESS IN A SINGLE VISIT. If you have been referred to a specialist physician, it means that we believe you may have a condition that requires the expertise of a specialist. These physicians work in partnership with the hospital and have agreed to see referred patients in their office for further evaluation. KEEP IN MIND THAT THE SPECIALIST HAS HIS/HER OWN OFFICE POLICIES WHICH MAY REQUIRE PROPER INSURANCE OR PAYMENT UP FRONT BEFORE THE SPECIALIST WILL SEE YOU. It is your responsibility to call the specialist physician to make an appointment. We do not have the ability to refer patients to specialists/physicians that work with specific insurance companies. Please be advised that all financial charges or billing practices are determined by that practice, not the hospital. If your insurance company requires that you see a specialist from their approved list, it is your responsibility to contact your insurance company to make those arrangements. It is also your responsibility to follow any other requirements of your insurance company necessary to obtain coverage for claims submitted. We will bill your insurance; however, you are responsible today for any co-pay amounts. You will receive a separate bill for any services you may have received including: emergency, radiology, or pathology physicians. Patient Name:PAPA RICO I have received this information and was given the opportunity to ask questions. Patient/Unemployment Inspector Name: Patient/Unemployment Inspector Signature: Relationship to Patient: Clinician/Hospital Unemployment Inspector Signature: Please Provide a Telephone Number Where You Can Be Reached: Is it Permissible To Leave a Message? Date: documented in this encounter Plan of Treatment Not on file documented as of this encounter Visit Diagnoses Not on filedocumented in this encounter
--- OUTSIDE RECORDS SUMMARY | 2024-12-11 14:10 | XMS_ITS | Encounter Summary ---
Author Organization Healthcare Address [address] [place] [address] Care Team Providers Care Process Safety Management Engineer Name Role Phone Christopher Garcia MD Primary Care Provider [phone] Encounter Details Date Type Department Care Team (Late st Contact Info) Description 10/22/2024 Telephone [facility] Pediatric Cardiac Diagnostic Testing [address], [place] [address] Hubert Villegas MD [address] [place] [address] Social History Tobacco Use Types Packs/Day Years [...] * Telephone Encounter - Grecia Mckeon - 10/22/2024 11:11 AM EDT Patient answered and confirmed appointment on 10/28 with an arrival time of 10:00 am. documented in this encounter Plan of Treatment Upcoming Encounters Date Type Department Care Team (Late st Contact Info) Description 12/23/2024 10:00 AM EDT Appointment Medical Office Building Obstetrics and Gynecology [address] [facility], [address] [place] [address] 12/23/2024 10:30 AM EDT Routine Medical Office Building Obstetrics and Gynecology [address], [address] [place] [address] Vikas Haile MD [address] [place] [address] documented as of this encounter Visit Diagnoses Not on filedocumented in this encounter Care Teams Process Safety Management Engineer Relationship Specialty Start Date End Date Christopher Garcia MD [address] [facility] [address] [place] [address] PCP - General 10/09/20 10/27/24 documented as of this encounter
--- OUTSIDE RECORDS SUMMARY | 2024-12-11 14:10 | XMS_ITS | Encounter Summary ---
Author Organization [employer] ([place], [place], [place], [place]) Address [address] [place] [address] Care Team Providers Care Hvac Services Professional Name Role Phone Unavailable Primary Care Provider Unavailabl e Encounter Details Date Type Department Care Team (Late st Contact Info) Description 10/19/2020 Transcribed Document [facility] Family Medicine [address] [place] [address] ProviderLo MD [address] [place] [address] Social History Tobacco Use Types [...] Historical ProviderMD - 10/19/2020 12:22 PM CDT [place] Suicide Severity Rating Scale (C-SSRS) Entered On: 10/19/2020 17:22 EDT Performed On: 10/19/2020 14:06 EDT by Jay Luu Rn [place] Suicide Severity Rating Scale (C-SSRS) CSSRS Past Month Wish to be : No CSSRS Past Month Suicidal Thoughts : No CSSRS Lifetime Suicide Behavior : No Suicide Severity Rating Score : 0 Suicide Severity Rating : No Additional Care Required at this time Jay Luu Rn - 10/19/2020 17:22 EDT documented in this encounter Plan of Treatment Not on file documented as of this encounter Visit Diagnoses Not on filedocumented in this encounter
--- OUTSIDE RECORDS SUMMARY | 2024-12-11 14:11 | XMS_ITS | Encounter Summary ---
Author Organization Healthcare Address [address] [place] [address] Care Team Providers Care Rib Builder Name Role Phone Pcp, No Primary Care Provider Jg Richmond MD Unavailable [phone] Encounter Details Date Type Department Care Team (Latest Contact Info) Description 11/25/2024 Travel Social History Tobacco Use Types Packs/Day [...] often do you attend chur ch or roman catholic services? Never 11/25/2024 Do you belong to any clubs o r organizations such as christianity groups, unions, fraternal or athletic groups, or [...] care, and heating? Not very hard 11/25/2024 [facility] - Occupational [...] any time in the past 12 m [facility], were you homeless or living in a [facility] (including now)? No 11/25/2024 Crucible Depression Scale Answer Date Recorded Crucible Depression Scale Total 8 11/25/2024 The thought [...] file Travel History Travel Start Travel End [place] 11/09/2024 11/17/2024 documented as of this encounter [...] Kristina Murillo documented as of this encounter Plan of Treatment Upcoming Encounters Date Type Department Care Team (Late st Contact Info) Description 12/23/2024 10:00 AM EDT Appointment Medical Office Building Obstetrics and Gynecology [address] [facility] [address] [facility], [address] [place] [address] 12/23/2024 10:30 AM EDT Routine Medical Office Building Obstetrics and Gynecology [address] [facility] [address] [facility], [address] [place] [address] Vikas Haile MD [address] [facility] [address] [place] [address] documented as of this encounter Visit Diagnoses Not on filedocumented in this encounter Additional Health Concerns Assessment Noted Time PHQ-9 Depression Total Score: 5 11/26/19 25 11:39 AM EDT A Body Mass Index follow-up plan has been documented for the patient 10/29/2024 4:48 PM EDT documented as of this encounter Care Teams Rib Builder Relationship Specialty Start Date End Date Pcp, Sherron [address] [place] [address] PCP - General Family Medicine 10/28/24 Jg Gonzalez MD [address] [facility] [address] [place] [address] Referring Physician Obstetrics and Gynecology 10/28/24 documented as of this encounter
--- OUTSIDE RECORDS SUMMARY | 2024-12-11 14:11 | XMS_ITS | Encounter Summary ---
Author Organization Healthcare Address [address] [place] [address] Care Team Providers Care Produce Department Manager Name Role Phone Pcp, No Primary Care Provider Jg Richmond MD Unavailable [phone] Encounter Details Date Type Department Care Team (Latest Contact Info) Description 10/28/2024 Travel Social History Tobacco Use Types Packs/Day [...] file Travel History Travel Start Travel End [place] 11/09/2024 11/17/2024 documented as of this encounter Plan of Treatment Upcoming Encounters Date Type Department Care Team (Late st Contact Info) Description 12/23/2024 10:00 AM EDT Appointment Medical Office Building Obstetrics and Gynecology [address], [address] [place] [address] 12/23/2024 10:30 AM EDT Routine Medical Office Building Obstetrics and Gynecology [address], [address] [place] [address] Vikas Haile MD [address] [place] [address] documented as of this encounter Visit Diagnoses Not on filedocumented in this encounter Additional Health Concerns Assessment Noted Time A Body Mass Index follow-up plan has been documented for the patient 10/29/2024 4:48 PM EDT documented as of this encounter Care Teams Produce Department Manager Relationship Specialty Start Date End Date Pcp, No [address] [place] [address] PCP - General Family Medicine 10/28/24 Jg Gonzalez MD [address] [place] [address] Referring Physician Obstetrics and Gynecology 10/28/24 documented as of this encounter
--- OUTSIDE RECORDS SUMMARY | 2024-12-11 14:11 | XMS_ITS | Encounter Summary ---
Author Organization [employer] ([place], [place], [place], [place]) Address [address] [place] [address] Care Team Providers Care First Officer Name Role Phone Unavailable Primary Care Provider Unavailabl e Encounter Details Date Type Department Care Team (Late st Contact Info) Description 10/19/2020 Transcribed Document [facility] Family Medicine [address] [place] [address] ProviderLo MD [address] [place] [address] Social History Tobacco Use Types [...] Historical ProviderMD - 10/19/2020 12:22 PM CDT Broset Violence Assessment Entered On: 10/19/2020 17:22 EDT Performed On: 10/19/2020 14:06 EDT by Jay Luu Rn Broset Violence Assessment Broset Violence Checklist of Symptoms : None Broset Violence Symptoms Subtotal : 0 Broset Violence Symptoms Indicator : Low risk (0) Jay Luu Rn - 10/19/2020 17:22 EDT documented in this encounter Plan of Treatment Not on file documented as of this encounter Visit Diagnoses Not on filedocumented in this encounter
--- OUTSIDE RECORDS SUMMARY | 2024-12-11 14:11 | XMS_ITS | Encounter Summary ---
Author Organization [employer] ([place], [place], [place], [place]) Address [address] [place] [address] Care Team Providers Care Chemical Process Project Engineer Name Role Phone Unavailable Primary Care Provider Unavailabl e Encounter Details Date Type Department Care Team (Late st Contact Info) Description 10/19/2020 Transcribed Document [facility] Family Medicine [address] [place] [address] ProviderLo MD [address] [place] [address] Social History Tobacco Use Types [...] ProviderMD - 10/19/2020 12:22 PM CDT ED Assessment Entered On: 10/19/2020 17:22 EDT Performed On: 10/19/2020 14:06 EDT by Jay Luu Rn ED Quick Look Assessment Level of Consciousness : Alert, Awake Affect/Behavior : Appropriate, Calm, Cooperative Orientation : Oriented x 4 Skin Temperature : Warm Skin Description : Normal for ethnicity Jay Luu Rn - 10/19/2020 17:22 EDT ED General-Functional Assess Information Obtained From : Patient Communication Barrier : None Primary Language : Grenadian Any Spiritual/Cultural Needs or Requests : No Currently in Unsafe Situation : No Jay Luu Rn - 10/19/2020 17:22 EDT Social Habits Smoking Status : Never (less than 100 in lifetime; none in last 30 days) Smokeless Tobacco Status : Never Desires Tobacco Cessation Calc : 0 Jay Luu Rn - 10/19/2020 17:22 EDT Social History (As Of: 10/19/2020 17:22:38 EDT) Respiratory Respiratory Assessment WDL : Jay Riley Rn - 10/19/2020 17:22 EDT Gastrointestinal ED Gastrointestinal Assessment WDL : ROHIT with exceptions Gastrointestinal Symptoms : Abdominal pain, Nausea Abdomen Palpation : Tender Abdominal Tenderness Location : LLQ Jay Luu Rn - 10/19/2020 17:22 EDT Neurologic ASMT, ED Neurologic Assessment WDL : WDJay Urrutia Rn - 10/19/2020 17:22 EDT documented in this encounter Plan of Treatment Not on file documented as of this encounter Visit Diagnoses Not on filedocumented in this encounter
--- OUTSIDE RECORDS SUMMARY | 2024-12-11 14:11 | XMS_ITS | Encounter Summary ---
Author Organization [employer] ([place], [place], [place], [place]) Address [address] [place] [address] Care Team Providers Care Urban Anthropologist Name Role Phone Unavailable Primary Care Provider Unavailabl e Encounter Details Date Type Department Care Team (Late st Contact Info) Description 10/19/2020 Transcribed Document [facility] [place] [facility] [place] [address] ProviderLo MD [address] [place] [address] Social History Tobacco Use Types [...] Conversion Note - Historical ProviderMD - 10/19/2020 5:05 PM CDT Patient: PAPA RICO Age: 20 years Sex: Female : 2000 Associated Diagnoses: Abdominal pain in female Author: LOWELL MCDANIEL MD-EMR Basic Information Additional information: Chief Complaint from Nursing Triage Note : Chief Complaint 10/19/2020 12:35 EDT Chief Complaint Pt c/o left sided abd pain that started 4 days ago, +nausea, denies v/d, seen at today. . History of Present Illness The patient presents with abdominal pain and Abdominal pain, noted as severe, 3 days, left-sided. Was seen at [facility] and had labs but no [...] % Oxygen Therapy Mode Room air . Measurements 10/19/2020 12:35 EDT Height Source Stated Height Entry Format [place] Height/Length, THAI (ft) 5 ft Height/Length THAI 3 Inch CLINICALHEIGHT 160.02 cm [place] Body Weight 52.02 kg Weight Source, ED Critical estimated dosing weight Weight Entry Format [place] Weight Micronesian lb 110 lb CLINICALWEIGHT 50 kg Body Surface Area (BSA) 1.5 m2 Body Mass Index 19.5 kg/m2 . Oxygen Saturation 10/19/2020 12:35 EDT Oxygen Saturation 99 % . General: Alert. Skin: Dry. Head: Atraumatic. Neck: Trachea midline. Eye: Normal conjunctiva. Ears, nose, mouth and throat: Oral mucosa moist. Cardiovascular: Normal peripheral perfusion. Gastrointestinal: Soft, Nontender, Non distended. Genitourinary: No tenderness. Back: Nontender. Musculoskeletal: Normal ROM. Neurological: No focal neurological deficit observed. Lymphatics: No lymphadenopathy. Psychiatric: Cooperative. Medical Decision Making Differential Diagnosis: Abdominal pain, renal stone, ureteral stone, urinary tract infection, pyelonephritis, ectopic , incarcerated hernia. Documents reviewed: Emergency department nurses' notes, emergency department records. Orders test: UCG-negative. Results review: Lab results : Lab Results 10/19/2020 12:40 EDT Sodium Level 138 mmol/L Potassium Level 4.0 mmol/L Chloride Level 106 mmol/L Carbon Dioxide Level 27 mmol/L Anion Gap 9 Glucose Level 99 mg/dL Blood Urea Nitrogen 9 mg/dL Creatinine Level 0.76 mg/dL eGFR >60 mL/min/1.73m2 eGFR NonAfrican >60 mL/min/1.73m2 Bun/Creatinine 11.8 Calcium Level 9.2 mg/dL Protein Total 8.1 Gram/dL Albumin Level 4.2 Gram/dL Globulin 3.9 Gram/dL A/G Ratio 1.1 Bilirubin Total 0.5 mg/dL Alk Phos 80 Units/Liter AST 16 Units/Liter ALT 19 Units/Liter Lipase Level 144 Units/Liter WBC 8.8 K/uL RBC 4.64 Million/uL Hgb 13.6 Gram/dL Hct 42.5 % MCV 91.6 fL MCH 29.3 pg MCHC 32.0 Gram/dL LOW Platelet Count 270 K/uL MPV 8.6 fL LOW RDW 12.3 % Neut % 83.5 % HI Neut # 7.35 K/uL HI Lymph % 11.0 % LOW Lymph # 0.97 K/uL LOW Rogers % 4.8 % Rogers # 0.42 K/uL Eos % 0.0 % LOW Eos # 0.00 K/uL LOW Baso % 0.5 % Baso # 0.04 K/uL Slide Review No IG# 0 x10(3)/uL IG% 0 % Urine Type. U CleanCatch Urine Color Yellow Urine Appearance Cloudy Urine Specific [place] [address] 1.011 Urine pH Dipstick 6.5 Urine Leukocyte Esterase Negative Urine Nitrite Negative Urine Protein Dipstick Negative Urine Glucose Dipstick Negative Urine Ketones Dipstick 15 Urine Urobilinogen Dipstick 0.2 EU/dL Urine Bilirubin Dipstick Negative Urine Blood Dipstick Negative Ur RBC None Seen Ur WBC 0-2 /HPF Ur Bacteria 1+ Ur Mucous 1+ Ur Squamous Epithelial Cells 2-5 /HPF Urine Culture if Indicated Not Indicated HCG Urine Qualitative Negative . Radiology results: Radiology Results (Last 48 hours) [id number] -- 10/19/2020 12:22 CT Abdomen Pelvis W (10/19/2020 16:06) Result: CT SCAN OF THE ABDOMEN AND PELVIS WITH CONTRAST 10/19/2020 1:41 PM HISTORY: Palpable knot on the left upper anterior abdomen.COMPARISON: None.PROCEDURE: The patient was injected with IV contrast. Axial imageswere obtained from the lung bases to the pubic symphysis by computedtomography. This study was performed with techniques to keep radiationdoses as low as reasonably achievable, (ALARA). Individualized dosereduction techniques using automated exposure control or adjustment ofmA and/or kV according to the patient size were employed.FINDINGS: ABDOMEN: There is no marker placed in the area of interest. The lungbases are clear. The heart is normal in size. The liver is homogenouswith no focal abnormality. There is mild intrahepatic and extrahepaticductal dilatation which is probably related to prior cholecystectomy.The spleen is unremarkable. No adrenal mass is present. The pancreas isunremarkable. The kidneys are unremarkable, without evidence of mass orhydronephrosis. The aorta is normal in caliber. There is no free fluidor adenopathy. There is no hernia or mass.PELVIS: The GI tract demonstrates no obstruction. The appendix is notidentified. The urinary bladder is unremarkable. There is no free fluid,adenopathy, or inflammatory process. The uterus is present and lieseccentric to the right.IMPRESSION: No acute intra-abdominal process. No mass or hernia identified.Images reviewed, interpreted, and dictated by Dr. Norman Sparks.Transcribed by Katie See (R).I have personally viewed, interpreted and dictated the examination. Ihave read and agree with the above final transcribed report. . Impression and Plan Diagnosis Abdominal pain in female - Discharge, Medical Plan Condition: Stable. Disposition: Discharged Admit/Transfer/Discharge: Discharge (Order): Start: 10/19/2020 17:06 EDT, Discharge to: Home. Patient was given the following educational materials: Abdominal Pain, Adult, Abdominal Pain, Adult, Abdominal Pain, Adult. Follow up with: LAKIA SHERMAN Within 2 to 3 days; Follow up with primary care provider Within 2 to 3 days Call for follow up appointment. Please follow-up with your primary care provider in 2 to 3 days. Return to ED if you experience new or worsening symptoms. If you do not have a primary care provider the patient resource journeyman level acoustic analyst can assist you with establishing care and scheduling follow-up. The Patient Resource Manager Investment can be contacted at ., Follow up with primary care provider Within 2 to 3 days Call for follow up appointment. Please follow-up with your primary care provider in 2 to 3 days. Return to ED if you experience new or worsening symptoms. If you do not have a primary care provider the patient resource journeyman level acoustic analyst can assist you with establishing care and scheduling follow-up. The Patient Resource Manager Investment can be contacted at .; NO PRIM DR SHERMAN Within 2 to 3 days; Follow-up with your MEDICAL RECORDS COORDINATOR as discussed Within 2 to 3 days. Counseled: Patient, Family, Regarding diagnosis, Regarding diagnostic results, Regarding treatment plan, Regarding prescription, Patient indicated understanding of instructions. documented in this encounter Plan of Treatment Not on file documented as of this encounter Visit Diagnoses Not on filedocumented in this encounter
--- OUTSIDE RECORDS SUMMARY | 2024-12-11 14:11 | XMS_ITS | Encounter Summary ---
Author Organization Healthcare Address [address] 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, single or unspecified fetus Procedures OB US Follow Up Transabdominal Approach Vikas Haile MD [address] [facility] [address] [place] [address] Phone: tel: fax: Referral ID Status Reason Start Date Expiration Date V isits Requested Visits Authorized [id number] Authorized 11/25/2024 05/27/2026 1 1 Encounter Details Date Type Department Care Team (Late st Contact Info) Description 11/25/2024 Orders Only Medical Office Building Obstetrics and Gynecology [address] , [address] [place] [address] Vikas Haile MD [address] [place] [address] Supervision of high risk , antepartum (Primary Dx); 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 Never 11/25/2024 Do you belong to any clubs o r organizations such as presybeterian groups, unions, fraternal or athletic groups, or [...] care, and heating? Not very hard 11/25/2024 [facility] Occupational Stress Questionnaire Answer Date Recorded [...] any time in the past 12 m [facility], were you homeless or living in a longterm (including now)? No 11/25/2024 [place] Depression Scale Answer Date Recorded [place] Depression Scale Total 8 11/25/2024 The thought [...] file Travel History Travel Start Travel End [place] 11/09/2024 11/17/2024 documented as of this encounter [...] hopeless Several days 11/25/2024 11:39 AM Kristina lBake Patient Health Questionnaire -2 Score 2 11/25/2024 [...] watching television Several days 11/25/2024 11:39 AM EDT Kristina Sagastume Moving or speaking so slowly that other [...] Kristina Guillen documented as of this encounter Plan of Treatment Upcoming Encounters Date Type Department Care Team (Late st Contact Info) Description 12/23/2024 10:00 AM EDT Appointment Medical Office Building Obstetrics and Gynecology [address] [facility], [address] [place] [id number] 12/23/2024 10:30 AM EDT Routine Medical Office Building Obstetrics and Gynecology [address] [facility], [address] [place] [address] Vikas Haile MD [address] [facility] [address] [place] [address] Scheduled Orders Name Type Priority Associated Diagnoses Orde r Schedule OB US Follow Up Transabdominal Approach Imaging Routine Supervision of high risk , antepartum 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, single or unspecified fetus Expected: 11/25/2024, Expires: 05/29/2026 documented as of this encounter Visit Diagnoses Diagnosis Supervision of high risk , antepartum- Primary 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
--- OUTSIDE RECORDS SUMMARY | 2024-12-11 14:11 | XMS_ITS | Encounter Summary ---
Author Organization [employer] ([place], [place], [place], [place]) Address [address] [place] [address] Care Team Providers Care Supervisor Polishing Name Role Phone Unavailable Primary Care Provider Unavailabl e Encounter Details Date Type Department Care Team (Late st Contact Info) Description 10/19/2020 Transcribed Document [facility] Family Medicine [address] [place] [address] ProviderLo MD [address] [place] [address] Social History Tobacco Use Types [...] Conversion Note - Historical ProviderMD - 10/19/2020 5:08 PM CDT Electronically signed by [facility], [facility] Conversion Continuous Wave Operator Cerner at 09/16/2022 7:44 PM CDT documented in this encounter Plan of Treatment Not on file documented as of this encounter Visit Diagnoses Not on filedocumented in this encounter
--- OUTSIDE RECORDS SUMMARY | 2024-12-11 14:11 | XMS_ITS | Encounter Summary ---
Author Organization Healthcare Address [address] [place] [address] Care Team Providers Care Manager Metal Name Role Phone Pcp, No Primary Care Provider Unavailabl e Jg Gonzalez MD Unavailable [phone] Encounter Details Date Type Department Care Team ([facility] Contact Info) Description 11/12/2024 Orders Only Medical Office Building Obstetrics and Gynecology [address], [address] [place] [address] Mariah Sahu MD [address] [facility] [address] [place] [id number] Maternal care for other (suspected) abnormality and [...] file Travel History Travel Start Travel End [place] 11/09/2024 11/17/2024 documented as of this encounter Plan of Treatment Upcoming Encounters Date Type Department Care Team (Late Contact Info) Description 12/23/2024 10:00 AM EDT Appointment Medical Office Building Obstetrics and Gynecology [address], [address] [place] [address] 12/23/2024 10:30 AM EDT Routine Medical Office Building Obstetrics and Gynecology [address], [address] [place] [address] Vikas Haile MD [address] [facility] [address] [place] [address] documented as of this encounter Visit Diagnoses Diagnosis Maternal care for other (suspected) abnormality and damage, not applicable or unspecified- Primary documented in this encounter Additional Health Concerns Assessment Noted Time A Body Mass Index follow-up plan has been documented for the patient 10/29/2024 4:48 PM EDT documented as of this encounter Care Teams Manager Metal Relationship Specialty Start Date End Date Pcp, No [address] [place] [address] PCP - General Family Medicine 10/28/24 Jg Gonzalez MD [address] [facility] [address] [place] [address] Referring Physician Obstetrics and Gynecology 10/28/24 documented as of this encounter
--- OUTSIDE RECORDS SUMMARY | 2024-12-11 14:11 | XMS_ITS | Encounter Summary ---
Author Organization Healthcare Address [address] [place] [address] Care Team Providers Care Telehealth Case Manager Name Role Phone Pcp, No Primary Care Provider Jg Richmond MD Unavailable [phone] Encounter Details Date Type Department Care Team (Late st Contact Info) Description 11/06/2024 [facility]phone [facility]iology [address] [place] [address] Dalila Acosta, GLOVE BOARDER [address] [place] [address] Social History Tobacco Use Types [...] encounter Miscellaneous Notes * Telephone Encounter - Dalila Acosta LCSW - 11/06/2024 2:00 PM EDT Cardiology Psychosocial Assessment Date of Encounter: 11/06/24 Location: Phone call with pt History: Papa Wood Estimated Date of Delivery: 01/15/25 Assessment: Expecting a: Boy Baby's Name: name not chosen yet Cardiac Concern: TOF Non Cardiac Concern: none noted History:Previous pregnancies: 1. Live births: 1. Miscarriages: 0 . Elective abortions: 0. Household Composition: Pt, FOB and their 3 year old daughter, Nikkie Support System: Family, friends FOB: [employer]; pt and FOB are not Communication with FOB/significant other: No concerns noted at this time Financial:Wages: FOB works at [employer] in [place] Transportation Needs: Pt has a vehicle and indicates that it is reliable Understanding of Diagnosis: seeking information appropriately. Changes to delivery plan based on diagnosis?: Pt now planning to deliver at . Has appt at [facility] tomorrow and anticipates that [facility] will send information [facility] after that appt. H/O traumatic or PMAD:denies emotional concerns Substance Use: none Intervention: -Provided information about role of GLOVE BOARDER and services offered; contact information provided -Engaged in rapport building -Discussed common concerns/stressors associated with receiving diagnosis. Validated and normalized pt concerns. Pt denies having new questions since time of last appointment. -Discussed plan to review helpful resources and CHD support network information with pt at time of follow up visit. Plan: -Assist with care coordination and applicable resources -Continue to monitor pt and family adjustment to diagnosis and impact on psychosocial functioning and possible barriers posed by pre-existing psychosocial stressors. Will remain available by phone to follow up with pt PRN prior to next follow up appointment. ALLYSON Dickey, GLOVE BOARDER Licensed Clinical Clearance Coordinator Pediatric Cardiology documented in this encounter Plan of Treatment Upcoming Encounters Date Type Department Care Team (Late st Contact Info) Description 12/23/2024 10:00 AM EDT Appointment Medical Office Building Obstetrics and Gynecology [address] [facility], [address] [place] [address] 12/23/2024 10:30 AM EDT Routine Medical Office Building Obstetrics and Gynecology [address] [facility], [address] [place] [address] Vikas Haile MD [address] [facility] [address] [place] [address] documented as of this encounter Visit Diagnoses Not on filedocumented in this encounter Additional Health Concerns Assessment Noted Time A Body Mass Index follow-up plan has been documented for the patient 10/29/2024 4:48 PM EDT documented as of this encounter Care Teams Telehealth Case Manager Relationship Specialty Start Date End Date Pcp, No [address] [place] [address] PCP - General Family Medicine 10/28/24 Jg Gonzalez MD [address] [place] [address] Referring Physician Obstetrics and Gynecology 10/28/24 documented as of this encounter
--- OUTSIDE RECORDS SUMMARY | 2024-12-11 14:11 | XMS_ITS | Encounter Summary ---
Author Organization Healthcare Address [address] [place] [address] Care Team Providers Care Claims Analyst Name Role Phone Pcp, No Primary Care Provider Jg Richmond MD Unavailable [phone] Encounter Details Date Type Department Care Team (Late st Contact Info) Description 11/07/2024 Telephone [facility] Pediatric Cardiac Diagnostic Testing [address] [facility] [address] Floor, [place] [address] Paul Collazo MD [address] [facility] [address] [place] [address] Social History Tobacco Use Types Packs/Day Years [...] Travel History Travel Start Travel End [place] 11/09/2024 11/17/2024 documented as of this encounter Miscellaneous Notes * Telephone Encounter - Grecia Mckeon - 11/07/2024 12:13 PM EDT Patient answered and agreed to schedule follow up on 12/04 with an arrival time of 2:45 pm. [place] only had early mornings. documented in this encounter Plan of Treatment Upcoming Encounters Date Type Department Care Team (Late st Contact Info) Description 12/23/2024 10:00 AM EDT Appointment Medical Office Building Obstetrics and Gynecology [address] [facility], [address] [place] [address] 12/23/2024 10:30 AM EDT Routine Medical Office Building Obstetrics and Gynecology [address] [facility], [address] [place] [address] Vikas Haile MD [address] [facility] [address] [place] [address] documented as of this encounter Visit Diagnoses Not on filedocumented in this encounter Additional Health Concerns Assessment Noted Time A Body Mass Index follow-up plan has been documented for the patient 10/29/2024 4:48 PM EDT documented as of this encounter Care Teams Claims Analyst Relationship Specialty Start Date End Date Pcp, No [address] [place] [address] PCP - General Family Medicine 10/28/24 Jg Gonzalez MD [address] [facility] [address] [place], [place] [address] Referring Physician Obstetrics and Gynecology 10/28/24 documented as of this encounter
--- NOTE | 2024-12-11 14:30 | US_ITS ---
PROCEDURE: US OB BIOPHYSICAL PROFILE CLINICAL INDICATION: SGA Tetralogy of Fallot COMPARISON: US US OB <= 14 WEEKS FETUS from 06/10/2024 US US OB /MATERNAL DETAIL from 08/28/2024 US OB FOLLOW UP from 09/11/2024 US OB FOLLOW UP from 09/25/2024 FINDINGS: Transabdominal sonographic images of the uterus were obtained. From her established due date she is 35weeks 0 days. The following parameters are obtained: Viable Fetus in the cephalic presentation with a posterior laterally wrapped placenta grade 2. Average ultrasound age is 35weeks 5days Estimated weight 2,578g, 5 lb 11 oz The cervix measures 4.05 cm. Measurements: heart Rate = 135bpm BPD = 37weeks 3days, 97 percentile HC = 36weeks 0 days, 38 percent AC = 34weeks 6days, 49 percentile FL = 34weeks 3days, 27 percent HC/AC is 1.04 FL/BPD is 0.73 FL/AC is 0.22 48 percentile Amniotic fluid index: 13.64cm, MVP 4.36 cm Qualitative AFV:2 Breathing movements: 2 Gross Body Movements: 2 Tone: 2 Biophysical profile score: 8 Doppler evaluation of the umbilical artery: SD ratio: 2.8-3.0 Resistive index: 0.64 No obvious anomalies evident.Kidneys, profile, bladder, stomach, three-vessel cord appear normal. The left ventricular outflow tract appears enlarged consistent with her tetralogy of Fallot. IMPRESSION: 1. Viable fetus in the cephalic presentation with a posterior laterally wrapped placenta grade 2. 2. The fluid is within normal limits with an amniotic fluid index 13.64 cm, MVP 4.36 cm. 3. Biophysical profile is 8/8 with good breathing movement and movement seen. 4. SD ratio is normal 2.8-3.0. 5. There has been good interval growth with the fetus currently 48th percentile. 6. There continues to be enlargement of an over riding LVOT. She is known to have tetralogy of Fallot. 7. The rest of the anatomical scan appears normal. Dictated by: Jg Gonzalez MD 12/11/2024 16:35 Jg Gonzalez MD in [place] 12/11/2024 16:35
== END 2024-12-11 23:59 | disposition home or self-care (01) ==
LOC: RAD 14:07
PROVIDERS: PCP Nurse Practitioner Obstetrics & Gynecology; Visit Provider Nurse Practitioner Obstetrics & Gynecology
DX: O36.5930 Maternal care for other known or suspected poor fetal growth, third trimester, not applicable or unspecified (principal); O41.03X0 Oligohydramnios, third trimester, not applicable or unspecified; O35.BXX0 Maternal care for other (suspected) fetal abnormality and damage, fetal cardiac anomalies, not applicable or unspecified; Z3A.35 35 weeks gestation of pregnancy
CPT/HCPCS: 76816; 76819; 76820

== ENCOUNTER 2024-12-16 11:20 | Outpatient (CLI) | payer OTHER, SELFPAY ==
--- OUTSIDE RECORDS SUMMARY | 2024-10-28 10:21 | XMS_ITS | Encounter Summary ---
Author Organization Healthcare Address [address] [place] [address] Care Team Providers Care Back Winder Name Role Phone Pcp, No Primary Care Provider Jg Richmond MD Unavailable [phone] Reason for Referral * Imaging (Routine) - Closed Specialty Diagnoses / Procedures Referred By Contac t Referred To Contact Cardiology Diagnoses Abnormal obstetric ultrasound scan Procedures Echo, Complete Lars Coffey MD [address] [place] [address] Phone: tel: fax: Referral ID Status Reason Start Date Expiration Date V isits Requested Visits Authorized [id number] Closed Perform Procedure 10/14/2024 04/15/2026 1 1 Reason for Visit * Imaging (Routine) - Closed Specialty Diagnoses / Procedures Referred By Niharika t Referred To Contact Cardiology Diagnoses Abnormal obstetric ultrasound scan Procedures Echo[place] [address] [place] [address] Phone: tel: fax: Referral ID Status Reason Start Date Expiration Date V isits Requested Visits Authorized [id number] Closed Perform Procedure 10/14/2024 04/15/2026 1 1 Encounter Details Date Type Department Care Team (Latest Contact Info) Description 10/28/2024 10:21 AM EDT - 10/28/2024 11:59 PM EDT Hospital Encounter [facility] Pediatric Cardiac Diagnostic Testing [address] [facility] [address] Floor, [place] [address] Abnormal obstetric ultrasound scan Discharge Disposition: Home [...] file Travel History Travel Start Travel End [place] 11/09/2024 11/17/2024 documented as of this encounter Medications at Time of Discharge Vit-Fe Fumarate-FA (GNP ) 28-0.8 MG tablet Take 1 tablet by mouth daily. 06/05/2024 documented as of this encounter Plan of Treatment Upcoming Encounters Date Type Department Care Team ([facility] Contact Info) Description 12/23/2024 10:00 AM EDT Appointment Medical Office Building Obstetrics and Gynecology [address] [facility], [address] [place] [address] 12/23/2024 10:30 AM EDT Routine Medical Office Building Obstetrics and Gynecology [address] [facility], [address] [place] [address] Vikas Haile MD [address] [facility] [address] [place] [address] documented as of this encounter Procedures Procedure [...] documented as of this encounter Care Teams Back Winder Relationship Specialty Start Date End Date Pcp, [place] [address] PCP - General Family Medicine 10/28/24 Jg Gonzalez MD [address] [place] [address] Referring Physician Obstetrics and Gynecology 10/28/24 documented as of this encounter
--- OUTSIDE RECORDS SUMMARY | 2024-10-28 10:30 | XMS_ITS | Encounter Summary ---
Author Organization Healthcare Address [address] [place] [address] Care Team Providers Care Heel Splitter Name Role Phone Pcp, No Primary Care Provider Jg Richmond MD Unavailable [phone] Reason for Referral * Imaging (Routine) - Closed Specialty Diagnoses / Procedures Referred By Contac t Referred To Contact Cardiology Diagnoses Maternal care for other (suspected) abnormality and damage, not applicable or unspecified Procedures Echo Limited Paul Collazo MD [address] [address] Phone: tel: fax: Referral ID Status Reason Start Date Expiration Date V isits Requested Visits Authorized [id number] Closed Perform Procedure 11/06/2024 05/08/2026 1 1 Encounter Details Date Type Department Care Team (Late st Contact Info) Description 10/28/2024 10:30 AM EDT Office Visit [facility] Pediatric Cardiology [address] [place] [address] Paul Collazo MD [address] [facility] [address] [place] [address] Maternal care for other (suspected) [...] is Jg Koch. Delivery is planned at [facility]. No other concerns raised today. 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 Additional Services Offered Meeting with clinic social media community manager and Consultation with congenital CT surgery team [...] Gynecology [address], [address] [place] [address] 12/23/2024 10:30 AM EDT Routine Medical Office Building Obstetrics and Gynecology [address], [address] [place] [address] WilkinVikas Valero MD [address] [place] [address] documented as of this encounter [...] documented as of this encounter Care Teams Heel Splitter Relationship Specialty Start Date End Date Pcp, Sherron [address] [place] [address] PCP - General Family Medicine 10/28/24 Jg Gonzalez MD [address] [facility] [address] [place] [address] Referring Physician Obstetrics and Gynecology 10/28/24 documented as of this encounter
--- OUTSIDE RECORDS SUMMARY | 2024-11-07 13:15 | XMS_ITS | Encounter Summary ---
Author Organization [facility] yste Address [address] [place] [address] Care Team Providers Care Executive Director Sheltered Workshop Name Role Phone Provider, No Known Primary Care Provider Unavail able Reason for Visit * Reason Comments Tetralogy of Fallot Encounter Details Date Type Department Care Team (Late st Contact Info) Description 11/07/2024 1:15 PM EDT Office Visit [facility] MATERNAL MEDICINE [address] [facility] [address] [place], [place] [phone] Mariah Sahu MD [address] [facility] [address] [place], [place] [phone] Congenital heart disease of fetus affecting antepartum [...] delivery at per Cardiology Will transfer to [facility] * Bernie Jiménez RN - 11/07/2024 1:15 [...] delivery at per Cardiology Will transfer to [facility] Follow Up No follow-ups on file. LEVAR to [facility] I spent 10 minutes caring for the [...] [facility]. Mariah Sahu MD FACOG Maternal Medicine, [facility] 11/07/2024 documented in this encounter Plan of Treatment Not on file documented as of this encounter Visit Diagnoses Diagnosis 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, single or unspecified fetus- Primary documented in this encounter Care Teams Executive Director Sheltered Workshop Relationship Specialty Start Date End Date Provider, [place] [address] PCP - General 09/26/24 documented as of this encounter
--- OUTSIDE RECORDS SUMMARY | 2024-11-07 13:15 | XMS_ITS | Encounter Summary ---
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, single or unspecified fetus , unspecified gestational age Procedures [facility] [place] Lars Coffey MD [address] [place] [id number] Phone: tel: fax: Referral ID Status Reason Start Date Expiration Date Visits Re quested Visits Authorized [id number] Closed 10/10/2024 01/09/2026 1 1 Reason for Visit * Diagnostic Imaging (Routine) - Closed Specialty Diagnoses / Procedures Referred By Contac t Referred To Contact Radiology Diagnoses 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, single or unspecified fetus , unspecified gestational age Procedures [facility] [place] Lars Coffey MD [address] [address] Phone: tel: fax: Referral ID Status Reason Start Date Expiration Date Visits Re quested Visits Authorized [id number] Closed 10/10/2024 01/09/2026 1 1 Encounter Details Date Type Department Care Team (Late st Contact Info) Description 11/07/2024 1:15 PM EDT - 11/07/2024 11:59 PM EDT Hospital Encounter [facility] [address] [place] [address] Lars Coffey MD [address] [place] [address] Congenital heart disease of fetus affecting antepartum [...] Procedure Name Priority Date/Time Associated Diagnosis Comments [facility] Routine 11/07/2024 2:12 PM EDT 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 septi pel. tr 5.1 mm Administrator 8.0 mm CM 7.3 mm 58% Nicolaides [...] The MAYELA is normal. Recommendation Transfer to [facility] Coding ======= Description: 68517-70 Follow Up Ultrasound Description: 94761-68 BPP without NST Florist: Becca Perez RDMS Physician: Mariah Sahu MD, FACOG Electronically signed by: Mariah Sahu MD, FACOG at: 19:26 Procedure Note Mariah Sahu MD - 11/12/2024 PAT NAME: P[place]A [place] MED REC#: [id number] DA: 2000 PAT GEND: F PAT TYPE: O EXAM LYNN: [id number] REF PHYS [facility] Comparison Studies The findings of this study are compared to the prior ultrasound studydated 10/10/24. 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 Number of fetuses: 1 Dating ====== GA by prior [id number] w + 1 d AUGUSTINE by prior [...] GA30 w + 1 d Assigned AUGUSTINE:01/15/2025 [id number] d Biometry Standard BPD80.5 mm 32w 2d 93% Hadlock MNP728.2 mm 35w 0d >99% Jamie HC298.8 mm 33w 1d 91% Hadlock Cerebellum tr37.5 mm 30w 5d 54% Hill AC262.0 mm 30w 2d 51% Hadlock Femur56.4 mm 29w 4d 22% Hadlock Pxcxjuq90.2 mm 29w 3d 33% Jamie HC / AC1.14 EFW1,590 g 30w 1d 51% Hadlock EFW (lb)3 lb EFW (oz)8 oz EFW by:Hadlock (SEC-[id number]-FL) Extended Cav. septi pel. tr5.1 mm Vp8.0 mm CM7.3 mm 58% Nicolaides Head / Face / Neck Cephalic index0.76 16% Nicolaides Extremities / Bony Struc FL / BPD0.70 FL / HC0.19 FL / AC0.22 Other Structures [id number] bpm General Evaluation Cardiac activity present. FHR [...] The MAYELA is normal. 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
--- OUTSIDE RECORDS SUMMARY | 2024-11-25 10:00 | XMS_ITS | Encounter Summary ---
Author Organization Healthcare Address [address] [place] [address] Care Team Providers Care Bench Chemist Name Role Phone Pcp, No Primary Care Provider Jg Richmond MD Unavailable [phone] Reason for Visit * Imaging (Routine) - Closed Specialty Diagnoses / Procedures Referred By Contac t Referred To Contact Obstetrics and Gynecology Diagnoses Maternal care for other (suspected) abnormality and damage, not applicable or unspecified Procedures OB US Detail Anatomy OB US 14+ Weeks Anatomy Scan Mariah Sahu MD [address] [facility] [address] [place] [address] Phone: tel: fax: Referral ID Status Reason Start Date Expiration Date Visits Re quested Visits Authorized [id number] Closed 11/12/2024 05/14/2026 1 1 Encounter Details Date Type Department Care Team (Latest Contact Info) Description 11/25/2024 10:00 AM EDT - 11/25/2024 11:59 PM EDT Hospital Encounter Medical Office Building Obstetrics and Gynecology [facility] [address] [facility], [address] [place] [address] Maternal care for other (suspected) abnormality and damage, not applicable or unspecified Discharge Disposition: Home or Self Care Social History Tobacco Use Types Packs/Day Years Used Date Smoking Tobacco: Never Passive Smoke Exposure: Past Smokeless Tobacco: Never Alcohol Use Standard Drinks/Week Comments Not Currently 0 (1 standard drink = 0.6 oz pur e alcohol) PHQ-2 Answer Date Recorded Patient Health Questionnaire-2 Score 2 11/25/2024 PHQ-9 Answer Date Recorded Patient Health Questionnaire-9 Score 5 11/25/2024 Humiliation, Afraid, Rape, and Kick questionnair e Answer Date Recorded Within the last year, have y ou been afraid of your partner or ex-partner? No 11/25/2024 Within the last year, have y ou been humiliated or emotionally abused in other ways by your partner or ex-partner? No Within the last year, have y ou been kicked, hit, slapped, or otherwise physically hurt by your partner or ex-partner? No 11/25/2024 Within the last year, have y ou been raped or forced to have any kind of sexual activity by your partner or ex-partner? No 11/25/2024 Social Connection and Isolation Panel Answer Date Recorded In a typical week, how many times do you talk on the phone with family, friends, or neighbors? More than three times a week 11/25/2024 How often do you get togethe r with friends or relatives? Three times a week 11/25/2024 How often do you attend [facility] or holiness services? Never 11/25/2024 Do you belong to any clubs o r organizations such as faith groups, unions, fraternal or athletic groups, or school groups? No 11/25/2024 How often do you attend meet ings of the clubs or organizations you belong to? Never 11/25/2024 Are you , , di vorced, , never , or living with a partner? Living with partner 11/25/2024 AUDIT-C Answer Date Recorded Q1: How often do you have a drink containing alcohol? Never 11/25/2024 Q2: How many drinks containi ng alcohol do you have on a typical day when you are drinking? Patient does not drink Q3: How often do you have si x or more drinks on one occasion? Never 11/25/2024 Overall Financial Resource Strain (CARDIA) Answe r Date Recorded How hard is it for you to pa y for the very basics like food, housing, medical care, and heating? Not very hard 11/25/2024 [facility] - Occupational Stress Questionnaire Answer Date Recorded Do you feel stress - tense, restless, nervous, or anxious, or unable to sleep at night because your mind is troubled all the time - these days? Only a little 11/25/2024 Exercise Vital Sign Answer Date Recorde d On average, how many days pe r week do you engage in moderate to strenuous exercise (like a brisk walk)? 2 days 11/25/2024 On average, how many minutes do you engage in exercise at this level? 30 min 11/25/2024 Hunger Vital Sign Answer Date Recorded Within the past 12 months, y ou worried that your food would run out before you got the money to buy more. Never true 11/26/19 25 Within the past 12 months, t he food you bought just didn't last and you didn't have money to get more. Never true 11/25/2024 PRAPARE - Transportation Answer Date Re corded In the past 12 months, has l ack of transportation kept you from medical appointments or from getting medications? No 10/29 In the past 12 months, has l ack of transportation kept you from meetings, work, or from getting things needed for daily living? No 11/25/2024 Housing Stability Vital Sign Answer Jason e Recorded In the last 12 months, was t here a time when you were not able to pay the mortgage or rent on time? No 11/25/2024 In the past 12 months, how m any times have you moved where you were living? 0 11/25/2024 At any time in the past 12 m [facility], were you homeless or living in a skilled nursing (including now)? No 11/25/2024 [place] Depression Scale Answer Date Recorded [place] Depression Scale Total 8 11/25/2024 The thought of harming myself has occurred to me . Never 11/25/2024 Utilities Answer Date Recorded In the past 12 months has th e electric, gas, oil, or water company threatened to shut off services in your home? No 11/25/2024 Education Answer Date Recorded What is the highest level of school you have completed or the highest degree you have received? High school graduate 11/25/2024 Estimated Date of Delivery Comme nts Yes 01/15/2025 Date entered michelle or to episode creation Sex and Gender Information Value Date Recorded Sex Assigned at Not on file Legal Sex Female 7:17 PM EDT Gender Identity Not on file Sexual Orientation Not on file Travel History Travel Start Travel End [place] 11/09/2024 11/17/2024 documented as of this encounter Functional Status * AUDIT-C Score Answer Date of Assessment Author 0 11/25/2024 11:34 AM Kristina Blake * Question Answer Date of Assessment Author Q1: How often do you have a drink containing alcohol? Never 11/25/2024 11:34 AM Kristina Blake Q2: How many drinks containing alcohol do you have on a typical day when you are drinking? Patient does not drink 11/25/2024 11:34 AM Kristina Blake Q3: How often do you have six or more drinks on one occasion? Never 11/25/2024 11:34 AM Kristina Blake * Over the past 2 weeks, how often have you been bothered by any of the following problems? Question Answer Date of Assessment Author Little interest or pleasure in doing things Several days 11/25/2024 11:39 AM Kristina Blake Feeling down, depressed, or hopeless Several days 11/25/2024 11:39 AM Kristina Blake Patient Health Questionnaire -2 Score 2 11/25/2024 11:39 AM Kristina Blake * Question Answer Date of Assessment Author Trouble falling or staying asleep, or sleeping too much Several days 11/25/2024 11:39 AM Kristina Blake Feeling tired or having dick le energy Several days 11/25/2024 11:39 AM Kristina Blake Poor appetite or overeating Not at all 11/25/2024 11 :39 AM Kristina Blake Feeling bad about yourself - or that you are a failure or have let yourself or your family down Not at all 11/25/2024 11:39 AM Kristina Blake Trouble concentrating on things, such as reading the newspaper or watching television Several days 11/25/2024 11:39 AM Kristina Blake Moving or speaking so slowly that other people could have noticed? Or the opposite - being so fidgety or restless that you have been moving around a lot more than usual. Not at all 11/25/2024 11:39 AM EDT Kristina Sagastume Thoughts that you would be better off or hurting yourself in some way Not at all 11/25/2024 11:39 AM EDT Kristina Sagastume Patient Health Questionnaire -9 Score 5 11/25/2024 11:39 AM EDT Kristina Sagastume * If you checked off any problems on this questionnaire so far, Question Answer Date of Assessment Author How difficult have these problems made it for you to do your work, take care of things at home, or get along with other people? Not difficult at all 11/25/2024 11:39 AM EDT Kristina Sagastume * How difficult have these problems made it for you to do your work, take care of things at home, or get along with other people? Answer Date of Assessment Author Not difficult at all 11/25/2024 11:39 AM EDT Kristina Guillen documented as of this encounter Medications at Time of Discharge FeroSul 325 (65 Fe) MG tablet Take 1 tablet by mouth daily. Vit-Fe Fumarate-FA (GNP ) 28-0.8 MG tablet Take 1 tablet by mouth daily. 06/05/2024 documented as of this encounter Plan of Treatment Upcoming Encounters Date Type Department Care Team ([facility] st Contact Info) Description 12/23/2024 10:00 AM EDT Appointment Medical Office Building Obstetrics and Gynecology [address] [facility], [address] [place] [address] 12/23/2024 10:30 AM EDT Routine Medical Office Building Obstetrics and Gynecology [address] [facility], [address] [place] [address] Vikas Haile MD [address] [facility] [address] [place] [address] documented as of this encounter Procedures Procedure Name Priority Date/Time Associated Diagnosis Comments OB US DETAIL ANATOMY Routine 11/25/2024 10:38 AM EDT Maternal care for other (suspected) abnormality and damage, not applicable or unspecified documented in this encounter Results * OB US Detail Anatomy (11/25/2024 10:38 AM EDT) Anatomical Region Laterality Modality Body Ultrasound 11/25/2024 9:52 AM EDT Impressions 11/25/2024 12:31 PM EDT The OB Ultrasound you requested has been resulted. Please navigate to the Imaging tab in [email or web address] for review. This message has been generated by the interface. Narrative Procedure Note Jeni Botello, DO - 11/25/2024 IMPRESSION: The OB Ultrasound you requested has been resulted. Please navigate to theImaging tab in [email or web address] for review. This message has been generated by theinterface. us Mariah Sahu MD IMG OB US PROCEDURES Fin al Result documented in this encounter Visit Diagnoses Diagnosis Maternal care for other (suspected) abnormality and damage, not applicable or unspecified documented in this encounter Additional Health Concerns Assessment Noted Time PHQ-9 Depression Total Score: 5 11/26/19 11:39 AM EDT A Body Mass Index follow-up plan has been documented for the patient 10/29/2024 4:48 PM EDT documented as of this encounter Care Teams Bench Chemist Relationship Specialty Start Date End Date Pcp, [place] [address] PCP - General Family Medicine 10/28/24 Jg Gonzalez MD [address] [place], [place] [id number] Referring Physician Obstetrics and Gynecology 10/28/24 documented as of this encounter
--- OUTSIDE RECORDS SUMMARY | 2024-11-25 10:45 | XMS_ITS | Encounter Summary ---
Author Organization Healthcare Address [address] [place] [address] Care Team Providers Care Statement Clerks Supervisor Name Role Phone Pcp, No Primary Care Provider Unavailabl e Jg Gonzalez MD Unavailable [phone] Encounter Details Date Type Department Care Team ([facility] Contact Info) Description 11/25/2024 10:45 AM EDT Initial Medical Office Building Obstetrics and Gynecology [address] [facility], [address] [place] [address] Vikas Haile MD [address] [facility] [address] [place] [address] GA: 32w5d Social History Tobacco [...] How often do you attend chur or pentecostal services? Never 11/25/2024 Do you belong to any clubs o r organizations such as jewish groups, unions, fraternal or athletic groups, or [...] and heating? Not very hard 11/25/2024 [facility] Health - Occupational Stress Questionnaire [...] any time in the past 12 m [facility], were you homeless or living in a skilled nursing (including now)? No 11/25/2024 [place] Depression Scale Answer Date Recorded [place] Depression Scale Total 8 11/25/2024 The thought [...] file Travel History Travel Start Travel End [place] 11/09/2024 11/17/2024 documented as of this encounter [...] Notes * Progress Notes - Leora Bob, RESEARCH PHLEBOTOMIST - 11/25/2024 10:45 AM EDT Initial Note Subjective 24y/o @ 32w5d here for initial care. Pt primarily seen by Dr Gonzalez in [place]. c/b tetrology of fallot. Reports + FM. Denies vaginal bleeding, leakage of fluids and contractions. OB History Para Term AB Living 2 1 1 1 SAB IAB Ectopic Multiple Live Births 1 # Outcome Date [place] Lbr Ran/2nd Weight Sex Type Anes PTL Lv 2 Current 1 Term 07/12/21 39w0d 3033 g F Vag-Spont EPI N NALLELY [place] Depression Scale Total: 8 Past Medical History [...] today Will have twice weekly NST's in [place] Repeat echo 12/04. Plan to tour [facility] Anxiety/Depression Stable, no meds Previously took Lexapro Discussed plan of care with Dr Haile [place] in 4 weeks documented in this encounter Plan of Treatment Upcoming Encounters Date Type Department Care Team (Late st Contact Info) Description 12/23/2024 10:00 AM EDT Appointment Medical Office Building Obstetrics and Gynecology [address] [facility], [address] [place] [address] 12/23/2024 10:30 AM EDT Routine Medical Office Building Obstetrics and Gynecology [address], [address] [place] [address] Vikas Haile MD [address] [place] [address] Scheduled Orders Name Type Priority [...] Ketones, Urine Negative Negative mg/dL POCT Specific [place], Urine 1.010 POCT Blood, Urine Negative Negative POCT pH, Urine 7.0 5.0 to 8.0 POCT Protein, Urine Negative Negative mg/dL POCT Urobilinogen, Urine 0.2 0.2, 1 E.U./dL POCT Nitrite, Urine Negative Negative POCT Leukocyte Esterase, Urine Small(A) Negative Test Strip Lot Number [id number] Test Strip Lot Expiration 07/2025 Urine Urine [...] documented as of this encounter Care Teams Statement Clerks Supervisor Relationship Specialty Start Date End Date Pcp, No [address] [place] [address] PCP - General Family Medicine 10/28/24 Jg Gonzalez MD [address] [place], [place] [phone] Referring Physician Obstetrics and Gynecology 10/28/24 documented as of this encounter
--- OUTSIDE RECORDS SUMMARY | 2024-12-04 13:45 | XMS_ITS | Encounter Summary ---
Author Organization Healthcare Address [address] [place] [address] Care Team Providers Care Saloonkeeper Name Role Phone Pcp, No Primary Care Provider Jg Richmond MD Unavailable [phone] Encounter Details Date Type Department Care Team (Late st Contact Info) Description 12/04/2024 1:45 PM EDT Office Visit [facility] Cardiology [address], [address] [place] [address] Dalila Acosta D, BARREL AND RECEIVER ALIGNER [address] [place] [address] Social History Tobacco Use Types [...] How often do you attend chur or gnosticism services? Never 11/25/2024 Do you belong to any clubs o r organizations such as judaism groups, unions, fraternal or athletic groups, or [...] care, and heating? Not very hard 11/25/2024 [facility] of Occupat ional Health - Occupational Stress [...] a skilled nursing (including now)? No 11/25/2024 [place] Depression Scale Answer Date Recorded [place] Depression Scale Total 8 11/25/2024 The thought [...] Notes * Clinician Note - Dalila Acosta, BARREL AND RECEIVER ALIGNER - 12/04/2024 1:45 PM EDT Cardiology Psychosocial Assessment Date of Encounter:12/04/24 Location: [facility] exam room Present with patient at visit: FOB History: Papa Oviedo Israel Estimated Date of Delivery: 01/15/25 Assessment: Expecting a: Boy Baby's Name: Jayce Cardiac Concern: TOF Visit with pt and FOB in [facility] exam room after pt's follow up with machine straw hat presser. Pt planning to deliver at and [facility] Had hospital tour today. Provided information about [facility] and supports offered through the organization. Assessed for new questions/concerns since time of last contact and reinforced availability of BARREL AND RECEIVER ALIGNER to provide support/intervention by phone between appts based on pt and family needs. Plan: -Assist with care coordination and applicable resources -Continue to monitor pt and family adjustment to diagnosis and impact on psychosocial functioning and possible barriers posed by pre-existing psychosocial stressors. Follow up with pt during hospital stay after delivery to provide additional services. ALLYSON Dickey, BARREL AND RECEIVER ALIGNER Licensed Clinical Log Marker Pediatric Cardiology documented in this encounter Plan of Treatment Upcoming Encounters Date Type Department Care Team (Late st Contact Info) Description 12/23/2024 10:00 AM EDT Appointment Medical Office Building Obstetrics and Gynecology [address] [facility], [address] [place] [address] 12/23/2024 10:30 AM EDT Routine Medical Office Building Obstetrics and Gynecology [address] [facility], [address] [place] [address] Vikas Haile MD [address] [place] [address] documented as of this encounter Visit Diagnoses Not on filedocumented in this encounter Additional Health Concerns Assessment Noted Time PHQ-9 Depression Total Score: 5 11/25/ 25 11:39 AM EDT A Body Mass Index follow-up plan has been documented for the patient 12/04/2024 3:27 PM EDT documented as of this encounter Care Teams Saloonkeeper Relationship Specialty Start Date End Date Pcp, Sherron [address] [place] [address] PCP - General Family Medicine 10/28/24 Jg Gonzalez MD 12[address] [facility] [address] [place] [address] Referring Physician Obstetrics and Gynecology 10/28/24 documented as of this encounter
--- OUTSIDE RECORDS SUMMARY | 2024-12-04 14:26 | XMS_ITS | Encounter Summary ---
Author Organization Healthcare Address [address] [place] [address] Care Team Providers Care Radio Interference Expert Name Role Phone Pcp, No Primary Care Provider Jg Richmond MD Unavailable [phone] Reason for Referral * Imaging (Routine) - Closed Specialty Diagnoses / Procedures Referred By Niharika t Referred To Contact Cardiology Diagnoses Maternal care for other (suspected) abnormality and damage, not applicable or unspecified Procedures [facility] [employer] Paul Collazo MD [address] [address] Phone: tel: fax: Referral ID Status Reason Start Date Expiration Date V isits Requested Visits Authorized [id number] Closed Perform Procedure 11/06/2024 05/08/2026 1 1 Reason for Visit * Imaging (Routine) - Closed Specialty Diagnoses / Procedures Referred By Contac t Referred To Contact Cardiology Diagnoses Maternal care for other (suspected) abnormality and damage, not applicable or unspecified Procedures [facility] [employer] Paul Collazo MD [address] [address] Phone: tel: fax: Referral ID Status Reason Start Date Expiration Date V isits Requested Visits Authorized [id number] Closed Perform Procedure 11/06/2024 05/08/2026 1 1 Encounter Details Date Type Department Care Team (Latest Contact Info) Description 12/04/2024 2:26 PM EDT - 12/04/2024 11:59 PM EDT Hospital Encounter [facility] Pediatric Cardiac Diagnostic Testing [address], [place] [address] Maternal care for other (suspected) abnormality and [...] often do you attend chur ch or pentecostal services? Never 11/25/2024 Do you belong to any clubs o r organizations such as buddhist groups, unions, fraternal or athletic groups, or [...] care, and heating? Not very hard 11/25/2024 [facility] of Occupat ional Health - Occupational Stress [...] any time in the past 12 m [facility], were you homeless or living in a penitentiary (including now)? No 11/25/2024 [place] Depression Scale Answer Date Recorded [place] Depression Scale Total 8 11/25/2024 The thought [...] Office Building Obstetrics and Gynecology [address] [facility], [address] [place] [phone] 12/23/2024 10:30 AM EDT Routine Medical Office Building Obstetrics and Gynecology [address] [facility], [address] [place] [id number] Vikas Haile MD [address] [facility] [address] [place] [phone] documented as of this encounter Procedures Procedure [...] documented as of this encounter Care Teams Radio Interference Expert Relationship Specialty Start Date End Date Pcp, No [address] [place] [address] PCP - General Family Medicine 10/28/24 Jg Gonzalez MD [address] [place], [place] [id number] Referring Physician Obstetrics and Gynecology 10/28/24 documented as of this encounter
--- OUTSIDE RECORDS SUMMARY | 2024-12-04 15:15 | XMS_ITS | Encounter Summary ---
Author Organization Healthcare Address [address] [place] [address] Care Team Providers Care Window Maker Name Role Phone Pcp, No Primary Care Provider Jg Richmond MD Unavailable [phone] Encounter Details Date Type Department Care Team (Late st Contact Info) Description 12/04/2024 3:15 PM EDT Office Visit [facility]iology [address], [address] [place] [address] Paul Collazo MD [address] [place] [address] Maternal care for other (suspected) [...] How often do you attend chur or mosque services? Never 11/25/2024 Do you belong to any clubs o r organizations such as anabaptist groups, unions, fraternal or athletic groups, or [...] heating? Not very hard 11/25/2024 [facility] - Occupational Stress Questionnaire Answer Date [...] a senior care (including now)? No 11/25/2024 [place] Depression Scale Answer Date Recorded [place] Depression Scale Total 8 11/25/2024 The thought [...] file Travel History Travel Start Travel End [place] 11/09/2024 11/17/2024 documented as of this encounter [...] is Jg Koch. Delivery is planned at [facility]. No other concerns raised today. 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 [...] Offered Meeting with clinic oncology social worker The total time of encounter was 45 [...] Office Building Obstetrics and Gynecology [address] [facility], [address] [place] [address] 12/23/2024 10:30 AM EDT Routine Medical Office Building Obstetrics and Gynecology [address] [facility], [address] [place] [address] Vikas Haile MD [address] [facility] [address] [place] [address] documented as of this encounter [...] documented as of this encounter Care Teams Window Maker Relationship Specialty Start Date End Date Pcp, Sherron [facility] [place] [address] PCP - General Family Medicine 10/28/24 Jg Gonzalez MD 12[address] [facility] [address] [place] [address] Referring Physician Obstetrics and Gynecology 10/28/24 documented as of this encounter
--- OUTSIDE RECORDS SUMMARY | 2024-12-17 11:59 | XMS_ITS | Clinical Summary ---
Author Organization [employer] ([place], [place], [place], [place]) Address [address] [place] [address] Care Team Providers Care Neuropsychology Service Director Name Role Phone Unavailable Primary Care Provider [...]
--- OUTSIDE RECORDS SUMMARY | 2024-12-17 11:59 | XMS_ITS | Referral Summary ---
Author Organization [employer] ([place], [place], [place], [place]) Address [address] [place] [address] Care Team Providers Care Rock Singer Name Role Phone Unavailable Primary Care Provider [...]
--- OUTSIDE RECORDS SUMMARY | 2024-12-17 11:59 | XMS_ITS | Encounter Summary ---
Author Organization Healthcare Address [address] [place] [address] Care Team Providers Care Team Foreman Name Role Phone Pcp, No Primary Care Provider gJ Richmond MD Unavailable [phone] Encounter Details Date Type Department Care Team (Late st Contact Info) Description 11/26/2024 Telephone PAV [facility] Pediatric Cardiac Diagnostic Testing [address] Floor, [place] [address] Hubert Villegas MD [address] [place] [address] Social History Tobacco Use Types Packs/Day Years [...] How often do you attend chur or sabianist services? Never 11/25/2024 Do you belong to any clubs o r organizations such as temple groups, unions, fraternal or athletic groups, or [...] heating? Not very hard 11/25/2024 [facility] of Occupat ional Health - Occupational Stress [...] in a residential (including now)? No 11/25/2024 [place] Depression Scale Answer Date Recorded [place] Depression Scale Total 8 11/25/2024 The thought [...] file Travel History Travel Start Travel End [place] 11/09/2024 11/17/2024 documented as of this [...] Office Building Obstetrics and Gynecology [address] [facility], [address] [place] [address] 12/23/2024 10:30 AM EDT Routine Medical Office Building Obstetrics and Gynecology [address] [facility], [address] [place] [address] Vikas Haile MD [address] [facility] [address] [place] [address] documented as of this encounter Visit Diagnoses Not on filedocumented in this encounter Additional Health Concerns Assessment Noted Time PHQ-9 Depression Total Score: 5 11/26/19 11:39 AM EDT A Body Mass Index follow-up plan has been documented for the patient 10/29/2024 4:48 PM EDT documented as of this encounter Care Teams Team Foreman Relationship Specialty Start Date End Date Pcp, Sherron [address] [place] [address] PCP - General Family Medicine 10/28/24 Jg Gonzalez MD [address] [facility] [address] [place] [address] Referring Physician Obstetrics and Gynecology 10/28/24 documented as of this encounter
--- OUTSIDE RECORDS SUMMARY | 2024-12-17 11:59 | XMS_ITS | Encounter Summary ---
Author Organization Healthcare Address [address] [place] [address] Care Team Providers Care Fox Raiser Name Role Phone Pcp, No Primary Care Provider Unavailara e Jg Gonzalez MD Unavailable [phone] Reason for Visit * Reason Onset Date Comments [facility] Care coordination 11/25/2024 Encounter Details Date Type Department Care Team ([facility] st Contact Info) Description 11/25/2024 Telephone Medical Office Building Obstetrics and Gynecology [address] [facility], [address] [place] [address] Charlette Ugalde, RN AMB-GS [facility] 1st FLR [facility] Care coordination Social History Tobacco Use Types [...] How often do you attend chur or yazidi services? Never 11/25/2024 Do you belong to any clubs o r organizations such as jain groups, unions, fraternal or athletic groups, or [...] care, and heating? Not very hard 11/25/2024 [facility] - Occupational Stress Questionnaire Answer [...] in a penitentiary (including now)? No 11/25/2024 [place] Depression Scale Answer Date Recorded [place] Depression Scale Total 8 11/25/2024 The thought [...] file Travel History Travel Start Travel End [place] 11/09/2024 11/17/2024 documented as of this encounter [...] Office Building Obstetrics and Gynecology [address] [facility], [address] [place] [address] 12/23/2024 10:30 AM EDT Routine Medical Office Building Obstetrics and Gynecology [address] [facility], [address] [place] [address] Vikas Haile MD [address] [place] [address] documented as of this encounter Visit Diagnoses Not on filedocumented in this encounter Additional Health Concerns Assessment Noted Time PHQ-9 Depression Total Score: 5 11/26/19 11:39 AM EDT A Body Mass Index follow-up plan has been documented for the patient 10/29/2024 4:48 PM EDT documented as of this encounter Care Teams Fox Raiser Relationship Specialty Start Date End Date Pcp, Sherron [address] [place] [address] PCP - General Family Medicine 10/28/24 Jg Gonzalez MD [address] [place], [place] [id number] Referring Physician Obstetrics and Gynecology 10/28/24 documented as of this encounter
--- OUTSIDE RECORDS SUMMARY | 2024-12-17 11:59 | XMS_ITS | Encounter Summary ---
Author Organization [employer] ([place], [place], [place], [place]) Address [address] [place] [address] Care Team Providers Care Juvenile Probation Officer Name Role Phone Unavailable Primary Care Provider Unavailabl e Encounter Details Date Type Department Care Team (Late st Contact Info) Description 10/19/2020 Transcribed Document [facility] [place] [facility] [address] [place] [address] ProviderLo MD [address] [place] [address] Social History Tobacco Use Types [...] Historical ProviderMD - 10/19/2020 12:22 PM CDT [place] Suicide Severity Rating Scale (C-SSRS) Entered On: 10/19/2020 17:22 EDT Performed On: 10/19/2020 14:06 EDT by Jay Luu Rn [place] Suicide Severity Rating Scale (C-SSRS) CSSRS Past [...]
--- OUTSIDE RECORDS SUMMARY | 2024-12-17 11:59 | XMS_ITS | Encounter Summary ---
Author Organization [employer] ([place], [place], [place], [place]) Address [address] [place] [address] Care Team Providers Care Machine Design Teacher Name Role Phone Unavailable Primary Care Provider Unavailabl e Encounter Details Date Type Department Care Team (Late st Contact Info) Description 10/19/2020 Transcribed Document [facility] [place] [address] [place] [address] ProviderLo MD [address] [place] [address] Social History Tobacco Use Types [...] On: 10/19/2020 17:28 EDT by Jay Luu Rubber And Pounder Process Patient Disposition : Discharge Personal Belongings [...] Jay Luu Rn - 10/19/2020 17:28 EDT Electronically signed by Mino Morrell Conversion Agriculture Sales Account Manager Patrizia at 09/16/2022 7:48 PM CDT documented in this encounter Plan of Treatment Not on file documented as of this encounter Visit Diagnoses Not on filedocumented in this encounter
--- OUTSIDE RECORDS SUMMARY | 2024-12-17 11:59 | XMS_ITS | Encounter Summary ---
Author Organization [employer] ([place], [place], [place], [place]) Address [address] [place] [address] Care Team Providers Care Aircraft Engine Assembler Name Role Phone Unavailable Primary Care Provider Unavailabl e Encounter Details Date Type Department Care Team (Late st Contact Info) Description 10/19/2020 Transcribed Document [facility] Family Medicine [address] [place] [address] ProviderLo MD [address] [place] [address] Social History Tobacco Use Types [...] Historical ProviderMD - 10/19/2020 5:24 PM CDT [address] [address] Visit Date/Time: 10/19/2020 17:24:01 [place] The above patient was seen in the hospital today and needs to be excused from work/school until Return to Work/School Date: 10/20/2020 Electronically signed by oPrsche [facility] Conversion Final Inspector Shuttle Patrizia at 09/16/2022 7:48 PM CDT documented in this encounter Plan of Treatment Not on file documented as of this encounter Visit Diagnoses Not on filedocumented in this encounter
--- OUTSIDE RECORDS SUMMARY | 2024-12-17 11:59 | XMS_ITS | Encounter Summary ---
Author Organization Healthcare Address [address] [place] [address] Care Team Providers Care Funeral Home Location Manager Name Role Phone Pcp, No Primary Care Provider Jg iRchmond MD Unavailable [phone] Encounter Details Date Type Department Care Team (Late st Contact Info) Description 11/26/2024 Telephone PAV [facility] Pediatric Cardiac Diagnostic Testing [address], [place] [address] Hubert Villegas MD [address] [place] [address] Social History Tobacco Use Types Packs/Day Years [...] How often do you attend chur or methodist services? Never 11/25/2024 Do you belong to any clubs o r organizations such as confucianist groups, unions, fraternal or athletic groups, or [...] care, and heating? Not very hard 11/25/2024 [facility] of Occupat ional Health [...] in a longterm (including now)? No 11/25/2024 [place] Depression Scale Answer Date Recorded [place] Depression Scale Total 8 11/25/2024 The thought [...] Building Obstetrics and Gynecology [address] [facility], [address] [place] [address] 12/23/2024 10:30 AM EDT Routine Medical Office Building Obstetrics and Gynecology [address] [facility], [address] [place] [address] Vikas Haile MD [address] [facility] [address] [place] [address] documented as of this encounter Visit Diagnoses Not on filedocumented in this encounter Additional Health Concerns Assessment Noted Time PHQ-9 Depression Total Score: 5 11/26/19 11:39 AM EDT A Body Mass Index follow-up plan has been documented for the patient 10/29/2024 4:48 PM EDT documented as of this encounter Care Teams Funeral Home Location Manager Relationship Specialty Start Date End Date Pcp, Sherron [address] [place] [address] PCP - General Family Medicine 10/28/24 Jg Gonzalez MD [address] [facility] [address] [place] [address] Referring Physician Obstetrics and Gynecology 10/28/24 documented as of this encounter
--- OUTSIDE RECORDS SUMMARY | 2024-12-17 11:59 | XMS_ITS | Encounter Summary ---
Author Organization [employer] ([place], [place], [place], [place]) Address [address] [place] [address] Care Team Providers Care Director Workforce Management Name Role Phone Unavailable Primary Care Provider Unavailabl e Encounter Details Date Type Department Care Team (Late st Contact Info) Description 10/19/2020 Transcribed Document [facility] Family Medicine [facility] [place] [address] ProviderLo MD [address] [place] [address] Social History Tobacco Use Types [...] : 3 - Urgent Tracking Group : [facility] ED East ALEJANDRA ALONSO RN - 10/19/2020 [...] PNED ; Probability: 0 ; Diagnosis Code: [id number] ED Height and Weight Height Source : Stated Height Entry Format : [place] Height, Feet : 5 ft(Converted to: 152 cm, 60 Inch) Height, Inches : 3 Inch(Converted to: 0 ft 3 Inch, 7.62 cm) Clinical Height : 160.02 cm Weight Source, ED : Critical estimated dosing weight Weight Entry Format : [place] Weight, Pounds : 110 lb Clinical Dosing Weight : 50 kg Body Surface Area (BSA) : 1.5 m2 Body Mass Index : 19.5 kg/m2 [place] Body Weight (IBW) : 52.02 kg ALEJANDRA ALONSO RN - 10/19/2020 12:35 EDT Electronically signed by Porsche [facility] Conversion Learning And Development Analyst Cerner at 09/16/2022 7:59 PM CDT documented in this encounter Plan of Treatment Not on file documented as of this encounter Visit Diagnoses Not on filedocumented in this encounter
--- OUTSIDE RECORDS SUMMARY | 2024-12-17 12:00 | XMS_ITS | Encounter Summary ---
Author Organization Healthcare Address [address] [place] [address] Care Team Providers Care Fruit Sorter Name Role Phone Pcp, No Primary Care Provider Jg Richmond MD Unavailable [phone] Encounter Details Date Type Department Care [...] often do you attend chur ch or denominational services? Never 11/25/2024 Do you belong to any clubs o r organizations such as pentecostal groups, unions, fraternal or athletic groups, or [...] and heating? Not very hard 11/25/2024 [facility] of Occupat ional Health - Occupational Stress [...] any time in the past 12 m [facility], were you homeless or living in a custodial (including now)? No 11/25/[address] [place] Depression Scale Answer Date Recorded [place] Depression Scale Total 8 11/25/2024 The thought [...] Upcoming Encounters Date Type Department Care Team ([facility] Contact Info) Description 12/23/2024 10:00 AM EDT Appointment Medical Office Building Obstetrics and Gynecology [address] [facility], [address] [place] [address] 12/23/2024 10:30 AM EDT Routine Medical Office Building Obstetrics and Gynecology [address] [facility], [address] [place] [address] Vikas Haile MD [address] [facility] [address] [place] [address] documented as of this encounter Visit Diagnoses Not on filedocumented in this encounter Additional Health Concerns Assessment Noted Time PHQ-9 Depression Total Score: 5 11/26/19 25 11:39 AM EDT A Body Mass Index follow-up plan has been documented for the patient 12/04/2024 3:27 PM EDT documented as of this encounter Care Teams Fruit Sorter Relationship Specialty Start Date End Date Pcp, Sherron [address] [place] [address] PCP - General Family Medicine 10/28/24 Jg Gonzalez MD [address] [place] [address] Referring Physician Obstetrics and Gynecology 10/28/24 documented as of this encounter
--- OUTSIDE RECORDS SUMMARY | 2024-12-17 12:00 | XMS_ITS | Encounter Summary ---
Author Organization [employer] ([place], [place], [place], [place]) Address [address] [place] [address] Care Team Providers Care Applications Engineer Manufacturing Name Role Phone Unavailable Primary Care Provider Unavailabl e Encounter Details Date Type Department Care Team (Late st Contact Info) Description 10/19/2020 Transcribed Document [facility] Family Medicine [facility] [place] [address] ProviderLo MD [address] [place] [address] Social History Tobacco Use Types [...] severe, 3 days, left-sided. Was seen at [facility] and had labs but no formal imaging, [...] EDT Height Source Stated Height Entry Format [place] Height/Length, TU[place] (ft) 5 ft Height/Length TU[place] 3 Inch CLINICALHEIGHT 160.02 cm [place] Body Weight 52.02 kg Weight Source, ED Critical estimated dosing weight Weight Entry Format [place] Weight [place] lb 110 lb CLINICALWEIGHT 50 kg Body [...] % LOW Lymph # 0.97 K/uL LOW [place] % 4.8 % [place] # 0.42 K/uL Eos % 0.0 % LOW Eos # 0.00 K/uL LOW Baso % 0.5 % Baso # 0.04 K/uL Slide Review No IG# 0 x10(3)/uL IG% 0 % Urine Type. U CleanCatch Urine Color Yellow Urine Appearance Cloudy Urine Specific [place] 1.011 Urine pH Dipstick 6.5 Urine Leukocyte [...] Radiology results: Radiology Results (Last 48 hours) [id number] -- 10/19/2020 12:22 CT Abdomen Pelvis W [...] a primary care provider the patient resource flight crew scheduler can assist you with establishing care and scheduling follow-up. The Patient Resource Senior Ui Software Engineer can be contacted at ., Follow up with primary care provider Within 2 to 3 days Call for follow up appointment. Please follow-up with your primary care provider in 2 to 3 days. Return to ED if you experience new or worsening symptoms. If you do not have a primary care provider the patient resource flight crew scheduler can assist you with establishing care and scheduling follow-up. The Patient Resource Senior Ui Software Engineer can be contacted at .; NO PRIM DR SHERMAN Within 2 to 3 days; Follow-up with your EQUIPMENT SERVICE TECHNICIAN as discussed Within 2 to 3 days. Counseled: Patient, Family, Regarding diagnosis, Regarding diagnostic results, Regarding treatment plan, Regarding prescription, Patient indicated understanding of instructions. Electronically signed by Wanda Morrell Conversion Aerospace Products Sales Engineer Cerner at 09/16/2022 7:46 PM CDT documented in this encounter Plan of Treatment Not on file documented as of this encounter Visit Diagnoses Not on filedocumented in this encounter
--- OUTSIDE RECORDS SUMMARY | 2024-12-17 12:00 | XMS_ITS | Encounter Summary ---
Author Organization Healthcare Address [address] [place] [address] Care Team Providers Care Erp Technical Lead Name Role Phone Pcp, No Primary Care Provider Jg Richmond MD Unavailable [phone] Encounter Details Date Type Department Care Team (Late st Contact Info) Description 11/06/[address] Pediatric Cardiology [address] [place] [address] Dalila Acosta, HUMAN FACTORS ENGINEER [address] [place] [address] Social History Tobacco Use Types [...] at this time Financial:Wages: FOB works at [employer] in [place] Transportation Needs: Pt has a vehicle and indicates that it is reliable Understanding of Diagnosis: seeking information appropriately. Changes to delivery plan based on diagnosis?: Pt now planning to deliver at . Has appt at [facility] tomorrow and anticipates that [facility] will send information to [facility] after that appt. H/O traumatic or PMAD:denies emotional concerns Substance Use: none Intervention: -Provided information about role of HUMAN FACTORS ENGINEER and services offered; contact information provided -Engaged [...] to next follow up appointment. ALLYSON Dickey, HUMAN FACTORS ENGINEER Licensed Clinical Unix Manager Pediatric Cardiology documented in this encounter Plan of Treatment Upcoming Encounters Date Type Department Care Team (Late st Contact Info) Description 12/23/2024 10:00 AM EDT Appointment Medical Office Building Obstetrics and Gynecology [address] [facility], [address] [place] [address] 12/23/2024 10:30 AM EDT Routine Medical Office Building Obstetrics and Gynecology [address] [facility], [address] [place] [address] Vikas Haile MD [address] [facility] [address] [place] [address] documented as of this encounter Visit Diagnoses Not on filedocumented in this encounter Additional Health Concerns Assessment Noted Time A Body Mass Index follow-up plan has been documented for the patient 10/29/2024 4:48 PM EDT documented as of this encounter Care Teams Erp Technical Lead Relationship Specialty Start Date End Date Pcp, No [address] [place] [address] PCP - General Family Medicine 10/28/24 Jg Gonzalez MD [address] [place] [address] Referring Physician Obstetrics and Gynecology 10/28/24 documented as of this encounter
--- OUTSIDE RECORDS SUMMARY | 2024-12-17 12:00 | XMS_ITS | Encounter Summary ---
Author Organization Healthcare Address [address] [place] [address] Care Team Providers Care Pump Servicer Name Role Phone Christopher Garcia MD Primary Care Provider [phone] Encounter Details Date Type Department Care Team (Late st Contact Info) Description 10/22/2024 Telephone PAV [facility] Pediatric Cardiac Diagnostic Testing [address] [place] [address] Hubert Villegas MD [address] [place] [address] Social History Tobacco Use Types Packs/Day Years [...] Building Obstetrics and Gynecology [address] [facility], [address] [place] [address] 12/23/2024 10:30 AM EDT Routine Medical Office Building Obstetrics and Gynecology [address] [facility], [address] [place] [address] Vikas Haile MD [address] [facility] [address] [place] [address] documented as of this encounter Visit Diagnoses Not on filedocumented in this encounter Care Teams Pump Servicer Relationship Specialty Start Date End Date Christopher Garcia MD [address] [facility] [address] [place] [address] PCP - General 10/09/20 10/27/24 documented as of this encounter
--- OUTSIDE RECORDS SUMMARY | 2024-12-17 12:00 | XMS_ITS | Encounter Summary ---
Author Organization Healthcare Address [address] [place] [address] Care Team Providers Care Environmental Education Specialist Name Role Phone Pcp, No Primary Care Provider Jg Richmond MD Unavailable [phone] Encounter Details Date Type Department Care Team (Late st Contact Info) Description 11/07/2024 Telephone PAV [facility] Pediatric Cardiac Diagnostic Testing [address] [facility] [address] Floor[address] [place] [address] Paul Collazo MD [address] [facility] [address] [place] [address] Social History Tobacco Use Types Packs/Day Years [...] Office Building Obstetrics and Gynecology [address] [facility], [address] [place] [address] 12/23/2024 10:30 AM EDT Routine Medical Office Building Obstetrics and Gynecology [address] [facility], [address] [place] [address] Vikas Haile MD [address] [facility] [address] [place] [address] documented as of this encounter Visit Diagnoses Not on filedocumented in this encounter Additional Health Concerns Assessment Noted Time A Body Mass Index follow-up plan has been documented for the patient 10/29/2024 4:48 PM EDT documented as of this encounter Care Teams Environmental Education Specialist Relationship Specialty Start Date End Date Pcp, No [address] [place] [address] PCP - General Family Medicine 10/28/24 Jg Gonzalez MD [address] [facility] [address] [place] [place], [place] [address] Referring Physician Obstetrics and Gynecology 10/28/24 documented as of this encounter
--- OUTSIDE RECORDS SUMMARY | 2024-12-17 12:00 | XMS_ITS | Clinical Summary ---
Author Organization Healthcare Address [address] [place] [address] Care Team Providers Care Fish Skinning Machine Feeder Name Role Phone Pcp, No Primary Care Provider Jg Richmond MD Unavailable [phone] Allergies No known active allergies Medications [...] Delivery Comme nts Yes 01/15/2025 Date entered michelel or to episode creation Encounters Date Type Department Care Team Description 12/04/2024 3:15 PM EDT Office Visit [facility] Pediatric Cardiology [address] [place] [address] Paul Collazo MD Maternal care for other (suspected) abnormality and damage, not applicable or unspecified (Primary Dx) 12/04/2024 2:26 PM EDT - 12/04/2024 11:59 PM EDT Hospital Encounter [facility] Pediatric Cardiac Diagnostic Testing [address] [place] [address] Maternal care for other (suspected) abnormality and damage, not applicable or unspecified Discharge Disposition: Home or Self Care 12/04/2024 1:45 PM EDT Office Visit [facility] Pediatric Cardiology [address] [place] [address] Dalila Acosta, REFLOW OPERATOR 12/04/2024 Travel 11/26/2024 Telephone [facility] Pediatric Cardiac Diagnostic Testing [address], [place] [address] Hubert Villegas MD 11/26/2024 Telephone [facility] Pediatric Cardiac Diagnostic Testing [address], [place] [address] Hubert Villegas MD 11/25/2024 10:45 AM EDT Initial Medical Office Building Obstetrics and Gynecology [address], [address] [place] [address] Vikas Haile MD GA: [id number] 11/25/2024 10:00 AM EDT - 11/25/2024 11:59 PM EDT Hospital Encounter Medical Office Building Obstetrics and Gynecology [address], [address] [place] [address] Maternal care for other (suspected) abnormality and damage, not applicable or unspecified Discharge Disposition: Home or Self Care 11/25/2024 Telephone Medical Office Building Obstetrics and Gynecology [address], [address] [place] [address] Charlette Ugalde RN M Care coordination 11/25/2024 Orders Only Medical Office Building Obstetrics and Gynecology [address], [address] [place] [address] Vikas Haile MD Supervision of high risk , antepartum (Primary Dx); 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, single or unspecified fetus 11/25/2024 Travel 11/12/2024 Orders Only Medical Office Building Obstetrics and Gynecology [address], [address] [place] [address] Mariah Sahu MD Maternal care for other (suspected) abnormality and damage, not applicable or unspecified (Primary Dx) 11/07/2024 Telephone [facility] Pediatric Cardiac Diagnostic Testing [address] [facility], [place] [address] Paul Collazo MD 11/06/2024 Telephone [facility] Pediatric Cardiology [address] [phone] Dalila Acosta Cathy, REFLOW OPERATOR 10/28/2024 10:30 AM EDT Office Visit [facility] Pediatric Cardiology [address] [facility]nd [place] [address] Paul Collazo MD Maternal care for other (suspected) abnormality and damage, not applicable or unspecified (Primary Dx) 10/28/2024 10:21 AM EDT - 10/28/2024 11:59 PM EDT Hospital Encounter [facility] Pediatric Cardiac Diagnostic Testing [address] [facility], [place] [address] Abnormal obstetric ultrasound scan Discharge Disposition: Home or Self Care 10/28/2024 Travel 10/22/2024 Telephone [facility] Pediatric Cardiac Diagnostic Testing [address] [facility], [place] [address] Hubert Villegas MD 10/14/2024 Telephone [facility] Pediatric Cardiac Diagnostic Testing [address] [facility], [place] [address] Hubert Villegas MD from Last 3 Months [...] How often do you attend chur or holiness services? Never 11/25/2024 Do you belong to any clubs o r organizations such as latter day groups, unions, fraternal or athletic groups, or [...] care, and heating? Not very hard 11/25/2024 [facility] - Occupational Stress [...] in a fci (including now)? No 11/25/2024 [place] Depression Scale Answer Date Recorded [place] Depression Scale Total 8 11/25/2024 The thought [...] file Travel History Travel Start Travel End [place] 11/09/2024 11/17/2024 Last Filed Vital Signs Vital [...] Upcoming Encounters Date Type Department Care Team ([facility] st Contact Info) Description 12/23/2024 10:00 AM EDT Appointment Medical Office Building Obstetrics and Gynecology [address], [address] [place] [address] 12/23/2024 10:30 AM EDT Routine Medical Office Building Obstetrics and Gynecology [address] [facility] [address], [address] [place] [address] Vikas Haile MD [address] [place] [address] Health Maintenance Due Date Last Done Comments [facility]-Hepatitis C Screening 1998 [facility]-Infant/Child/Adol SDOH Screenings 1998 [facility]-Hepatitis A Vaccines (2 of 2 - 2-dose series) 08/26/2015 02/25/2015 HPV Vaccines (3 - 3-dose series) 08/28/2015 06/05/2015, 02/25/2015 [facility]-Pap Smear 2019 [id number] Vaccine (3 - season) 2024 07/24/2020, 06/13/2020 [...] Ketones, Urine Negative Negative mg/dL POCT Specific [place], Urine 1.010 POCT Blood, Urine Negative Negative POCT pH, Urine 7.0 5.0 to 8.0 POCT Protein, Urine Negative Negative mg/dL POCT Urobilinogen, Urine 0.2 0.2, 1 E.U./dL POCT Nitrite, Urine Negative Negative POCT Leukocyte Esterase, Urine Small(A) Negative Test Strip Lot Number [id number] Test Strip Lot Expiration 07/2025 Urine Urine specimen obtained by clean catch procedure / Unknown 11/25/2024 10:50 AM EDT Result [facility] Vikas Haile MD POINT OF CARE TEST ENTER/EDIT ORDERABLES Final Result * OB US Detail Anatomy (11/25/2024 10:38 AM EDT) Anatomical Region Laterality Modality Body Ultrasound 11/25/2024 9:52 AM EDT Impressions 11/25/2024 12:31 PM EDT The OB Ultrasound you requested has been resulted. Please navigate to the Imaging tab in [employer] for review. This message has been generated by the interface. Narrative Procedure Note Jeni Botello, DO - 11/25/2024 IMPRESSION: The OB Ultrasound you requested has been resulted. Please navigate to theImaging tab in [employer] for review. This message has been generated [...] Most Recently Relevant to Health Maintenance Insurance [facility] MEDICAID Care Teams Fish Skinning Machine Feeder Relationship Specialty Start Date End Date Pcp, [place] [address] PCP - General Family Medicine 10/28/24 Jg Gonzalez MD [address] [facility] [address] [place] [address] Referring Physician Obstetrics and Gynecology 10/28/24
--- OUTSIDE RECORDS SUMMARY | 2024-12-17 12:00 | XMS_ITS | Encounter Summary ---
Author Organization Healthcare Address [address] [place] [address] Care Team Providers Care Tufter Hand Name Role Phone Pcp, No Primary Care Provider Jg Richmond MD Unavailable [phone] Encounter Details Date Type Department Care [...] often do you attend chur ch or muslim services? Never 11/25/2024 Do you belong to any clubs o r organizations such as jainism groups, unions, fraternal or athletic groups, or [...] care, and heating? Not very hard 11/25/2024 [facility] Occupat ional Health - Occupational Stress [...] any time in the past 12 m [facility], were you homeless or living in a long term (including now)? No 11/25/2024 [place] Depression Scale Answer Date Recorded [place] Depression Scale Total 8 11/25/2024 The thought [...] [address], [address] [place] [address] 12/23/2024 10:30 AM EDT Routine Medical Office Building Obstetrics and Gynecology [address] [facility] [address] [facility], [address] [place] [address] Vikas Haile MD [address] [facility] [address] [place] [address] documented as of this encounter Visit Diagnoses Not on filedocumented in this encounter Additional Health Concerns Assessment Noted Time PHQ-9 Depression Total Score: 5 11/26/19 25 11:39 AM EDT A Body Mass Index follow-up plan has been documented for the patient 10/29/2024 4:48 PM EDT documented as of this encounter Care Teams Tufter Hand Relationship Specialty Start Date End Date Pcp, Sherron [address] [place] [address] PCP - General Family Medicine 10/28/24 Jg Gonzalez MD [address] [facility] [address] [place] [address] Referring Physician Obstetrics and Gynecology 10/28/24 documented as of this encounter
--- OUTSIDE RECORDS SUMMARY | 2024-12-17 12:00 | XMS_ITS | Clinical Summary ---
[facility] Address [address] [place] [address] Care Team Providers Care Tire Service Supervisor Name Role Phone Provider, No Known Primary Care Provider Unavail able Allergies No known active allergies Medications FeroSul 325 (65 Fe) MG tablet Take 1 tablet by mouth Daily. 08/28/2024 Active Vit-Fe Fumarate-FA ( vitamin 27-0.8) 27-0.8 MG tablet tablet Take 1 tablet by mouth Daily. 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 Males and females are equally affected. It is the most common complex congenital heart defect, accounting for about 10% of cases. The main anatomic defect in tetralogy of Fallot is the anterior deviation of the pulmonary outflow septum. This defect results in narrowing of the right ventricular outflow tract, override of the aorta and a ventricular septal defect. The degree to which the aorta is attached to the right ventricle is referred to as its degree of o verride. The aortic root can be displaced anteriorly or directly above the septal defect, but it is always abnormally located to the right of the root of the pulmonary artery. The degree of override is extremely variable with 5-95% of the valve being connected to the right ventricle. Due to the misarrangement of the external ventricular septum, the right ventricular wall increases in size to deal with the increased obstruction to the right outflow tract. This feature is now generally agreed to be a secondary anomaly, as the level of hypertrophy tends to increase with age. It is not, however, a finding. The cause of tetralogy of Fallot is thought to be due to the environmental or genetic factors or a combination thereof. It is associated with chromosome 22 deletions and DiGeorge syndrome as well as Down syndrome. Risk factors can also include diabetes, maternal age over 40 years and alcohol use. In addition, tetralogy of Fallot may present with other anatomical anomalies, including stenosis of the left pulmonary artery, a bicuspid pulmonary valve, right-sided aortic arch and coronary artery anomalies. Timing of surgery in asymptomatic patients is usually between the ages of two months to one year; however, in symptomatic patients showing worsening blood oxygen levels, cyanotic spells or dependence on prostaglandins from the early period to keep the ductus arteriosus open, surgery may be needed in the early period. Ultrasound today demonstrates a normally grown fetus. 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 There is a subvalvular VSD seen pulmonary artery appears somewhat small which makes the left ventricular outflow appear big. The right ventricular hypertrophy is not seen in the period. I suspect that this will be a pink tent but the determination will ultimately be decided later in by the md pediatric allergist. We have scheduled an appointment for the patient with pediatric cardiology for evaluation. The patient most likely will not be able to deliver in [place]. We will defer to the md pediatric allergist as to the best delivery site for this patient. We will rescan the patient again in 4 weeks time to assess growth and wellbeing and we will scan the patient monthly thereafter. 10/10/2024 Estimated Date of Delivery Comme nts Yes 01/15/2025 Date entered michelle or to episode creation Encounters Date Type Department Care Team Description 11/07/2024 1:15 PM EDT - 11/07/2024 11:59 PM EDT Hospital Encounter [facility] [address] [place] [address] Lars Cfofey MD 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, single or unspecified fetus; , unspecified gestational age Discharge Disposition: Home or Self Care 11/07/2024 1:15 PM EDT Office Visit [facility] [address] [facility] [address] [place] [address] Mariah Sahu MD 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, single or unspecified fetus (Primary Dx) 11/07/2024 Travel 10/10/2024 11:30 AM EDT Office Visit [facility] [address] [facility] [address] [place] [address] Lars Coffey MD 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, single or unspecified fetus (Primary Dx); , unspecified gestational age 0510/10/2024 11:28 AM EDT - 10/10/2024 11:59 PM EDT Hospital Encounter [facility] [address] [place] [address] Gregg West MD Abnormal ultrasound; Anomaly of heart of fetus affecting , antepartum, single or unspecified fetus; , unspecified gestational age Discharge Disposition: Home or Self Care 10/10/2024 Travel from Last 3 Months Social History Tobacco Use Types Packs/Day Years Used Date Smoking Tobacco: Never Smokeless Tobacco: Never Tobacco Cessation:Counseling Given: Not [...] on file Sexual Orientation Not on file Last Filed Vital Signs Vital Sign Reading Time Taken Comments Blood Pressure 105/64 11/07/2024 1:29 PM EDT Pulse - - Temperature - - Respiratory Rate - - Oxygen Saturation - - Inhaled Oxygen Concentration - - Weight 61 kg (134 lb 6.4 oz) 11/07/2024 1:29 PM EDT Height 162.6 cm (5' 4 ) 10/10/2024 11:43 AM EDT Body Mass Index 23.07 10/10/2024 11:43 AM EDT Plan of Treatment Health Maintenance Due Date Last Done Comments Annual Gynecologic Pelvic an d Breast Exam 1998 HPV VACCINES (3 - 3-dose series) 08/28/2015 06/05/2015, 02/25/2015 PAP SMEAR 2019 COVID-19 Vaccine (3 - 2023-2 5 season) 2024 07/24/2020, 06/13/2020 ANNUAL PHYSICAL 09/26/2024 HEPATITIS C SCREENING 09/26/2024 TDAP/TD VACCINES (2 - Td or Tdap) 12/24/2024 12/24/2014 INFLUENZA VACCINE 02/26/2025 Pneumococcal Vaccine 0-49 Aged Out No longer eligible based on patient's age to complete this topic RSV Vaccine - Adults (No Doses Required) Completed Procedures Procedure Name Priority Date/Time Associated Diagnosis Comments [facility] Routine 11/07/2024 2:12 PM EDT 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, single or unspecified fetus , unspecified gestational age [facility] Routine 10/10/2024 12:27 PM EDT Abnormal ultrasound Anomaly of heart of fetus affecting , antepartum, single or unspecified fetus , unspecified gestational age from Last 3 Months Results * [facility] (11/07/2024 2:12 PM EDT) Only the most recent of2 resultswithin the time period is included. Anatomical Region Laterality Modality Ultrasound 11/07/2024 1:34 PM EDT Narrative 11/12/2024 7:26 PM EDT PAT NAME: [place] MED REC#: [id number] DA: [id number] PAT GEND: F PAT TYPE: O EXAM LYNN: [id number] REF PHYS WEST, GREGG Comparison Studies The findings of this study [...] EFW (oz) 8 oz EFW by: Hadlock ([id number]) Extended Cav. septi pel. tr 5.1 mm Software Team Leader 8.0 mm CM 7.3 mm 58% Nicolaides [...] movements 2: tone 2: Amniotic fluid volume 8 Biophysical profile score Consultation / Office Visit Office note to follow Impression Today's exam reveals a SIUP in breech presentation with biometry consistent with dates. Limited anatomic reveals a stable appearing complex congential heart defect. The remainder of the limited anatomic survey appears normal. Posterior placenta. BPP 88. The MAYELA is normal. Recommendation Transfer to [facility] Coding ======= Description: 00460-93 Follow Up Ultrasound Description: 14199-56 BPP without NST Timing Adjuster: Becca Perez RDMS Physician: Mariah Sahu MD, FACOG Electronically signed by: Mariah Sahu MD, FACOG at: 19:26 Procedure Note Mariah Sahu MD - 11/12/2024 PAT NAME: [place] MED REC#: [id number] DA: 2000 PAT GEND: F PAT TYPE: O EXAM LYNN: [id number] REF PHYS GREGG WEST Comparison Studies The findings of this study are compared to the prior ultrasound studydated 10/10/24. Patient Status Outpatient Indication ======== tetralogy of Fallot Maternal Assessment Hgvpdm923 cm Height (ft)5 ft Height (in)4 in Mzxqeg82 kg Weight (lb)134 lb BMI23.16 kg/m Method ======= Transabdominal ultrasound examination ========= Acosta . Number of fetuses: 1 Dating ====== GA by prior [id number] w + 1 d AUGUSTINE by prior [...] Standard BPD80.5 mm 32w 2d 93% Hadlock SCP088.2 mm 35w 0d >99% Jamie HC298.8 mm 33w 1d 91% Hadlock Cerebellum tr37.5 mm 30w 5d 54% Hill AC262.0 mm 30w 2d 51% Hadlock Femur56.4 mm 29w 4d 22% Hadlock Xkqkbwz71.2 mm 29w 3d 33% Jamie HC / AC1.14 EFW1,590 g 30w 1d 51% Hadlock EFW (lb)3 lb EFW (oz)8 oz EFW by:Hadlock ([id number]) Extended Cav. septi pel. tr5.1 mm Vp8.0 mm CM7.3 mm 58% Nicolaides Head / Face / Neck Cephalic index0.76 16% Nicolaides Extremities / Bony Struc FL / BPD0.70 FL / HC0.19 FL / AC0.22 Other Structures JLE047 bpm General Evaluation Cardiac activity present. FHR [...] The MAYELA is normal. Recommendation Transfer to [facility] Coding ======= Description: Follow Up Ultrasound Description: BPP without NST Timing Adjuster: Becca Perez RDNE Physician: Mariah Sahu MD, FACOG Electronically signed by: Mariah Sahu MD, FACOG at: 9:26 us Lars Coffey MD IMG US ORDERABLES Final Re sult from Last 3 Months Insurance [facility] Care Teams Tire Service Supervisor Relationship Specialty Start Date End Date Provider, No Known [place] [address] PCP - General 09/26/24
--- OUTSIDE RECORDS SUMMARY | 2024-12-17 12:00 | XMS_ITS | Encounter Summary ---
Author Organization Healthcare Address [address] [place] [address] Care Team Providers Care Elevator Installer Name Role Phone Pcp, No Primary Care Provider Jg Richmond MD Unavailable [phone] Encounter Details Date Type Department Care [...] Gynecology [address], [address] [place] [address] 12/23/2024 10:30 AM EDT Routine Medical Office Building Obstetrics and Gynecology [address], [address] [place] [address] Vikas Haile MD [address] [place] [address] documented as of this encounter Visit Diagnoses Not on filedocumented in this encounter Additional Health Concerns Assessment Noted Time A Body Mass Index follow-up plan has been documented for the patient 10/29/2024 4:48 PM EDT documented as of this encounter Care Teams Elevator Installer Relationship Specialty Start Date End Date Pcp, No [address] [place] [address] PCP - General Family Medicine 10/28/24 Jg Gonzalez MD [address] [place] [address] Referring Physician Obstetrics and Gynecology 10/28/24 documented as of this encounter
--- OUTSIDE RECORDS SUMMARY | 2024-12-17 12:00 | XMS_ITS | Encounter Summary ---
Author Organization [facility] ([place], [place], [place], [place]) Address [address] [place] [address] Care Team Providers Care Aerospace Technician Name Role Phone Unavailable Primary Care Provider Unavailabl e Encounter Details Date Type Department Care Team (Late st Contact Info) Description 10/19/2020 Transcribed Document [facility] Family Medicine [address] [place] [address] ProviderLo MD [address] [place] [address] Social History Tobacco Use Types [...] 10/19/2020 5:08 PM CDT Electronically signed by [facility] Conversion Inspector Repairer [employer] at 09/16/2022 7:44 PM CDT documented in this encounter Plan of Treatment Not on file documented as of this encounter Visit Diagnoses Not on filedocumented in this encounter
--- OUTSIDE RECORDS SUMMARY | 2024-12-17 12:00 | XMS_ITS | Encounter Summary ---
Author Organization Healthcare Address [address] [place] [address] Care Team Providers Care Housing Assistant Name Role Phone Pcp, No Primary Care Provider Unavailabl Jg Perez MD Unavailable Reason for Referral * Imaging (Routine) - Authorized Specialty Diagnoses / Procedures Referred By Contac t Referred To Contact Obstetrics and Gynecology Diagnoses Supervision of high risk , antepartum 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, single or unspecified fetus Procedures OB US Follow Up Transabdominal Approach Vikas Haile MD [address] [facility] [address] [place] [address] Phone: tel: fax: Referral ID Status Reason Start Date Expiration Date V isits Requested Visits Authorized [id number] Authorized 11/25/2024 05/27/2026 1 1 Encounter Details Date Type Department Care Team (Late st Contact Info) Description 11/25/2024 Orders Only Medical Office Building Obstetrics and Gynecology [address] [place] [address] Vikas Haile MD [address] [place] [address] Supervision of high risk , [...] week 11/25/2024 How often do you attend [facility] or restoration services? Never 11/25/2024 Do you belong to any clubs o r organizations such as scientology groups, unions, fraternal or athletic groups, or [...] care, and heating? Not very hard 11/25/2024 [facility] - Occupational Stress Questionnaire Answer [...] time in the past [address] [facility], were you homeless or living in a fdc (including now)? No 11/25/2024 [place] Depression Scale Answer Date Recorded [place] Depression Scale Total 8 11/25/2024 The thought [...] Building Obstetrics and Gynecology [address] [facility], [address] [place] [address] 12/23/2024 10:30 AM EDT Routine Medical Office Building Obstetrics and Gynecology [address] [facility], [address] [place] [address] Vikas Haile MD [address] [facility] [address] [place] [address] Scheduled Orders Name Type Priority Associated Diagnoses [...] documented as of this encounter Care Teams Housing Assistant Relationship Specialty Start Date End Date Pcp, Sherron [address] [place] [address] PCP - General Family Medicine 10/28/24 Jg Gonzalez MD [address] [place], [place] [id number] Referring Physician Obstetrics and Gynecology 10/28/24 documented as of this encounter
--- OUTSIDE RECORDS SUMMARY | 2024-12-17 12:00 | XMS_ITS | Encounter Summary ---
Author Organization [employer] ([place], [place], [place], [place]) Address [address] [place] [address] Care Team Providers Care Atg Architect Name Role Phone Unavailable Primary Care Provider Unavailabl e Encounter Details Date Type Department Care Team (Late st Contact Info) Description 10/19/2020 Transcribed Document [facility] Radiology [address] [place] [address] Boby Mccracken MD [address] [place] [address] Dept. [place] [address] Social History Tobacco Use Types [...] severe, 3 days, left-sided. Was seen at [facility] and had labs but no formal imaging, [...]
--- OUTSIDE RECORDS SUMMARY | 2024-12-17 12:00 | XMS_ITS | Encounter Summary ---
Author Organization [employer] ([place], [place], [place], [place]) Address [address] [place] [address] Care Team Providers Care Manager Athletics Name Role Phone Unavailable Primary Care Provider Unavailabl e Encounter Details Date Type Department Care Team (Late st Contact Info) Description 10/19/2020 Transcribed Document [facility] [place] [address] [place] [address] ProviderLo MD [address] [place] [address] Social History Tobacco Use Types [...]
--- OUTSIDE RECORDS SUMMARY | 2024-12-17 12:00 | XMS_ITS | Encounter Summary ---
[facility] Address [address] [place] [address] Care Team Providers Care Supervisor Transcribing Operators Name Role Phone Provider, No Known Primary Care Provider Unavail able Encounter Details Date Type Department Care Team (Latest Contact Info) Description 11/07/2024 Travel Social History Tobacco Use Types Packs/Day [...] on file documented as of this encounter Plan of Treatment Not on file documented as of this encounter Visit Diagnoses Not on filedocumented in this encounter Care Teams Supervisor Transcribing Operators Relationship Specialty Start Date End Date Provider, No Known [facility] [place] [address] PCP - General 09/26/24 documented as of this encounter
--- OUTSIDE RECORDS SUMMARY | 2024-12-17 12:00 | XMS_ITS | Encounter Summary ---
Author Organization [employer] ([place], [place], [place], [place]) Address [address] [place] [address] Care Team Providers Care Airplane Electrical Repairer Name Role Phone Unavailable Primary Care Provider Unavailabl e Encounter Details Date Type Department Care Team (Late st Contact Info) Description 10/19/2020 Transcribed Document [facility] [place] [address] [place] [address] ProviderLo MD [address] [place] [address] Social History Tobacco Use Types [...] Communication Barrier : None Primary Language : Colombian Any Spiritual/Cultural Needs or Requests : No [...]
--- OUTSIDE RECORDS SUMMARY | 2024-12-17 12:00 | XMS_ITS | Encounter Summary ---
Author Organization [employer] ([place], [place], [place], [place]) Address [address] [place] [address] Care Team Providers Care Grades 9 12 Tutor Name Role Phone Unavailable Primary Care Provider Unavailabl e Encounter Details Date Type Department Care Team (Late st Contact Info) Description 10/19/2020 Transcribed Document [facility] [place] [address] [place] [address] ProviderLo MD [address] [place] [address] Social History Tobacco Use Types [...]
--- OUTSIDE RECORDS SUMMARY | 2024-12-17 12:00 | XMS_ITS | Encounter Summary ---
Author Organization Healthcare Address [address] [place] [address] Care Team Providers Care Station Inspector Name Role Phone Pcp, No Primary Care Provider Unavailabl e Jg Gonzalez MD Unavailable Encounter Details Date Type Department Care Team ([facility] Contact Info) Description 11/12/2024 Orders Only Medical Office Building Obstetrics and Gynecology [address], [address] [place] [address] Mariah Sahu MD [address] [facility] [address] [place] [id number] Maternal care for other (suspected) abnormality and [...] file Travel History Travel Start Travel End [place] 11/09/2024 11/17/2024 documented as of this encounter Plan of Treatment Upcoming Encounters Date Type Department Care Team (Late Contact Info) Description 12/23/2024 10:00 AM EDT Appointment Medical Office Building Obstetrics and Gynecology [address], [address] [place] [address] 12/23/2024 10:30 AM EDT Routine Medical Office Building Obstetrics and Gynecology [address], [address] [place] [address] Vikas Haile MD [address] [facility] [address] [place] [address] documented as of this encounter Visit Diagnoses Diagnosis Maternal care for other (suspected) abnormality and damage, not applicable or unspecified- Primary documented in this encounter Additional Health Concerns Assessment Noted Time A Body Mass Index follow-up plan has been documented for the patient 10/29/2024 4:48 PM EDT documented as of this encounter Care Teams Station Inspector Relationship Specialty Start Date End Date Pcp, No [address] [place] [address] PCP - General Family Medicine 10/28/24 Jg Gonzalez MD [address] [facility] [address] [place] [address] Referring Physician Obstetrics and Gynecology 10/28/24 documented as of this encounter
--- OUTSIDE RECORDS SUMMARY | 2024-12-17 12:00 | XMS_ITS | Encounter Summary ---
Author Organization [employer] ([place], [place], [place], [place]) Address [address] [place] [address] Care Team Providers Care Change Of Address Clerk Name Role Phone Unavailable Primary Care Provider Unavailabl e Encounter Details Date Type Department Care Team (Late st Contact Info) Description 10/19/2020 Transcribed Document [facility] [place] [address] [place] [address] ProviderLo MD [address] [place] [address] Social History Tobacco Use Types [...] Lo ProviderMD - 10/19/2020 5:12 PM CDT [place] [id number] [place] HEIDI :2000 Visit Time:10/19/2020 Your [...] Appointments Follow Up with Follow-up with your MANAGER E LEARNING as discussed When Within 2 to 3 days Follow Up with Follow up with primary care provider When Within 2 to 3 days Comments Call for follow up appointment. Please follow-up with your primary care provider in 2 to 3 days. Return to ED if you experience new or worsening symptoms. If you do not have a primary care provider the patient resource crew scheduler can assist you with establishing care and scheduling follow-up. The Patient Resource Historic Sites Supervisor can be contacted at . Follow Up [...] range between ( 1.0 and 7.0 ) Assumption #: 0.42 K/uL -- Normal range between ( 0.24 and 0.82 ) Eos #: 0.00 K/uL -- Normal range between ( 0.04 and 0.54 ) Assumption %: 4.8 % -- Normal range between [...] ) Urine Bilirubin Dipstick: Negative Urine Specific [place]: 1.011 -- Normal range between ( 1.005 [...] these instructions at home: Medicines ??? Take teyb-wnv-eocdkuu and prescription medicines only as told by [...] your condition for any changes. ??? Take weta-cvb-ukltakg and prescription medicines only as told by [...] provider. Document Revised: 09/23/2019 Document Reviewed: 09/23/2019 [employer] Patient Education ?? 2020 [employer]. Emergency Awareness and Preventative Care STROKE is [...] Assistance with quitting is available by contacting 4-860-RRBN-NOW. This is a free resource providing counseling, [...] was given the opportunity to ask questions. Patient/Graphic Designer Name: Patient/Graphic Designer Signature: Relationship to Patient: Clinician/Hospital Graphic Designer Signature: Please Provide a Telephone Number Where You Can Be Reached: Is it Permissible To Leave a Message? Date: documented in this encounter Plan of Treatment Not on file documented as of this encounter Visit Diagnoses Not on filedocumented in this encounter
== END 2024-12-16 23:59 | disposition home or self-care (01) ==
LOC: LAB.DROPOF 12-17 11:58
PROVIDERS: PCP Nurse Practitioner Obstetrics & Gynecology; Visit Provider Nurse Practitioner Obstetrics & Gynecology
DX: O35.BXX0 Maternal care for other (suspected) fetal abnormality and damage, fetal cardiac anomalies, not applicable or unspecified (principal); O41.03X0 Oligohydramnios, third trimester, not applicable or unspecified; Z3A.35 35 weeks gestation of pregnancy
CPT/HCPCS: 86403

== ENCOUNTER 2024-12-26 20:02 | Outpatient (CLI) | payer OTHER, SELFPAY ==
--- OUTSIDE RECORDS SUMMARY | 2024-10-28 10:21 | XMS_ITS | Encounter Summary ---
Author Organization Healthcare Address [address] [place] [address] Care Team Providers Care Pull Tab Dealer Name Role Phone Pcp, No Primary Care Provider Jg Richmond MD Unavailable [phone] Reason for Referral * Imaging (Routine) - Closed Specialty Diagnoses / Procedures Referred By Dexterac t Referred To Contact Cardiology Diagnoses Abnormal obstetric ultrasound scan Procedures Echo, Complete Lars Coffey MD [address] [place] [address] Phone: tel: fax: Referral ID Status Reason Start Date Expiration Date V isits Requested Visits Authorized [id number] Closed Perform Procedure 10/14/2024 04/15/2026 1 1 Reason for Visit * Imaging (Routine) - Closed Specialty Diagnoses / Procedures Referred By Niharika frances Referred To Contact Cardiology Diagnoses Abnormal obstetric ultrasound scan Procedures Echo[place] [address] [place] [address] Phone: tel: fax: Referral ID Status Reason Start Date Expiration Date V isits Requested Visits Authorized [id number] Closed Perform Procedure 10/14/2024 04/15/2026 1 1 Encounter Details Date Type Department Care Team (Latest Contact Info) Description 10/28/2024 10:21 AM EDT - 10/28/2024 11:59 PM EDT Hospital Encounter [facility] Pediatric Cardiac Diagnostic Testing [address] Floor, [place] [address] Abnormal obstetric ultrasound scan Discharge Disposition: Home [...] on file Sexual Orientation Not on file documented as of this encounter Medications at Time of Discharge Vit-Fe Fumarate-FA (GNP ) 28-0.8 MG tablet Take 1 tablet by mouth daily. 06/05/2024 documented as of this encounter Plan of Treatment Upcoming Encounters Date Type Department Care Team ([facility] Contact Info) Description 01/08/2025 8:00 AM EDT Hospital Encounter 02/26/2025 1:00 PM EDT Visit Medical Office Building Obstetrics and Gynecology [address] [facility], [address] [place] [address] Leora Bob, JOINT CLEANING MACHINE OPERATOR [address] [facility] [address] [place] [address] documented as of this encounter Procedures Procedure [...] documented as of this encounter Care Teams Pull Tab Dealer Relationship Specialty Start Date End Date Pcp, No [address] [place] [address] PCP - General Family Medicine 10/28/24 Jg Gonzalez MD [address] [id number] Referring Physician Obstetrics and Gynecology 10/28/24 documented as of this encounter
--- OUTSIDE RECORDS SUMMARY | 2024-10-28 10:30 | XMS_ITS | Encounter Summary ---
Author Organization Healthcare Address [address] [place] [address] Care Team Providers Care Documentation Designer Name Role Phone Pcp, No Primary Care Provider Jg Richmond MD Unavailable [phone] Reason for Referral * Imaging (Routine) - Closed Specialty Diagnoses / Procedures Referred By Contac t Referred To Contact Cardiology Diagnoses Maternal care for other (suspected) abnormality and damage, not applicable or unspecified Procedures Echo Limited Paul Collazo MD [address] [address] Phone: tel: fax: Referral ID Status Reason Start Date Expiration Date V isits Requested Visits Authorized [id number] Closed Perform Procedure 11/06/2024 05/08/2026 1 1 Encounter Details Date Type Department Care Team (Late st Contact Info) Description 10/28/2024 10:30 AM EDT [facility] Visit [facility] [address] [place] [address] Paul Collazo MD [address] [facility] [address] [place] [address] Maternal care for other (suspected) [...] on file documented as of this encounter Miscellaneous Notes [...] 24 y.o. yr old female presenting at 28-5/7WME (Estimated Date ofDelivery: 01/15/25) for cardiac consultation due to her [...] is Jg Koch. [facility]. No other concerns raised today. 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 Additional Services Offered Meeting with clinic oncology social worker and Consultation with congenital CT surgery team The total time of encounter was 40 minutes, including record review, imaging review, prognosis, patient and/or family education, counseling/coordination of care and review of findings and management plan with Papa Wood. Paul Collazo MD documented in this encounter Plan of Treatment Upcoming Encounters Date Type Department Care Team (Late st Contact Info) Description 01/08/2025 8:00 AM EDT Hospital Encounter 02/26/2025 1:00 PM EDT Visit Medical Office Building Obstetrics and Gynecology [address] [facility] [place] [address] Leora Bob, FACILITIES PAINTER [address] [place] [address] documented as of this encounter Results * Echo Limited (12/04/2024 3:07 PM EDT) Anatomical Region Laterality Modality Echocardiography 12/04/2024 2:30 PM EDT Paul Collazo MD CV ECHO PROCEDURES Final Resul t documented in this encounter Visit Diagnoses Diagnosis Maternal care for other (suspected) abnormality and damage, not applicable or unspecified- Primary documented in this encounter Additional Health Concerns Assessment Noted Time A Body Mass Index follow-up plan has been documented for the patient 10/29/2024 4:48 PM EDT documented as of this encounter Care Teams Documentation Designer Relationship Specialty Start Date End Date Pcp, No [address] [place] [address] PCP - General Family Medicine 10/28/24 Jg Gonzalez MD [address] [facility] [address] [place] [address] Referring Physician Obstetrics and Gynecology 10/28/24 documented as of this encounter
--- OUTSIDE RECORDS SUMMARY | 2024-11-07 13:15 | XMS_ITS | Encounter Summary ---
Author Organization [facility] yste Address [address] [place] [address] Care Team Providers Care Sanitizer Name Role Phone Provider, No Known Primary Care Provider Unavail able Reason for Visit * Reason Comments Tetralogy of Fallot Encounter Details Date Type Department Care Team (Late st Contact Info) Description 11/07/2024 1:15 PM EDT Office Visit [facility] MATERNAL MEDICINE [address] [facility] [address] [place], [place] [phone] Mariah Sahu MD [address] [facility] [address] [place], [place] [id number] 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, single or unspecified fetus (Primary Dx) Social History Tobacco Use Types Packs/Day Years Used Date Smoking Tobacco: Never Smokeless Tobacco: Never Alcohol Use Standard Drinks/Week Comments Not Currently 0 (1 standard drink = 0.6 oz pur e alcohol) Estimated Date of Delivery Comme nts Yes 01/15/2025 Date entered michelle or to episode creation Sex and Gender Information Value Date Recorded Sex Assigned at Not on file Legal Sex Female 2:33 PM EDT Gender Identity Not on file Sexual Orientation Not on file documented as of this encounter Last Filed Vital Signs Vital Sign Reading Time Taken Comments Blood Pressure 105/64 11/07/2024 1:29 PM EDT Pulse - - Temperature - - Respiratory Rate - - Oxygen Saturation - - Inhaled Oxygen Concentration - - Weight 61 kg (134 lb 6.4 oz) 11/07/2024 1:29 PM EDT Height - - Body Mass Index 23.07 10/10/2024 11:43 AM EDT documented in this encounter Progress Notes * Mariah Sahu MD - 11/12/2024 8:14 PM EDTAssociated Problem(s): 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 Stable ultrasound today Complex congenital heart defect - TOF [facility] Recommendation is for delivery at per Cardiology Will transfer to [facility] * Bernie Jiménez RN - 11/07/2024 1:15 PM EDT Patient denies any leaking of fluid, vaginal bleeding, or contractions. NIPT negative. Patient reports next follow-up appointment with Dr. Gonzalez's office is 11/20. * Mariah Sahu MD - 11/07/2024 1:15 PM EDT Maternal/ Medicine Follow Up Note Name: Papa Wood : 2000 Referring Provider: Jg Gonzalez MD Chief Complaint Tetralogy of Fallot Subjective History of Present Illness: Papa Wood is a 24 y.o. 30w6d who presents today for follow up AUGUSTINE: Estimated Date of Delivery: 01/15/25 ROS: As noted in HPI. Objective Vital Signs BP 105/64 Wt 61 kg (134 lb 6.4 oz) Estimated body mass index is 23.07 kg/m?? as calculated from the following: Height as of 10/10/24: 162.6 cm (64 ). Weight as of this encounter: 61 kg (134 lb 6.4 oz). Ultrasound Impression: See viewpoint Assessment and Plan Papa Wood is a 24 y.o. 30w6d Diagnoses and all orders for this visit: 1. 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, single or unspecified fetus (Primary) Assessment & Plan: Stable ultrasound today Complex congenital heart defect - TOF [facility] Cardiology Recommendation is for delivery at per Cardiology Will transfer to [facility] Follow Up No follow-ups on file. LEVAR to [facility] I spent 10 minutes caring for the patient on the day of service. This included: obtaining or reviewing a separately obtained medical history, reviewing patient records, performing a medically appropriate exam and/or evaluation, counseling or educating the patient/family/caregiver, ordering medications, labs, and/or procedures and documenting such in the medical record. This does not include time spent on review and interpretation of other tests such as ultrasound or the performance of other procedures such as amniocentesis or CVS. Mariah Sahu MD FACOG Maternal Medicine, [facility] 11/07/2024 documented in this encounter Plan of Treatment Not on file documented as of this encounter Visit Diagnoses Diagnosis 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, single or unspecified fetus- Primary documented in this encounter Care Teams Sanitizer Relationship Specialty Start Date End Date Provider, [place] [address] PCP - General 09/26/24 documented as of this encounter
--- OUTSIDE RECORDS SUMMARY | 2024-11-07 13:15 | XMS_ITS | Encounter Summary ---
[facility] [address] [place] [address] Care Team Providers Care Noise Abatement Engineer Name Role Phone Provider, No Known Primary Care Provider Unavail able Reason for Referral * Diagnostic Imaging (Routine) - Closed Specialty Diagnoses / Procedures Referred By Niharika t Referred To Contact Radiology Diagnoses 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, single or unspecified fetus , unspecified gestational age Procedures [facility] [place] Lars Coffey MD [address] [facility] [phone] Phone: tel: fax: Referral ID Status Reason Start Date Expiration Date Visits Re quested Visits Authorized [id number] Closed 10/10/2024 01/09/2026 1 1 Reason for Visit * Diagnostic Imaging (Routine) - Closed Specialty Diagnoses / Procedures Referred By Contac t Referred To Contact Radiology Diagnoses 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, single or unspecified fetus , unspecified gestational age Procedures [facility] [place] Lars Coffey MD [address] [address] Phone: tel: fax: Referral ID Status Reason Start Date Expiration Date Visits Re quested Visits Authorized [id number] Closed 10/10/2024 01/09/2026 1 1 Encounter Details Date Type Department Care Team (Late st Contact Info) Description 11/07/2024 1:15 PM EDT - 11/07/2024 11:59 PM EDT Hospital Encounter [facility] PER [facility] [address] [place] [address] Lars Coffey MD [address] [facility] [place] [address] Congenital heart disease of fetus affecting antepartum [...] age documented in this encounter Results * [facility] (11/07/2024 2:12 PM EDT) Anatomical Region Laterality Modality Ultrasound 11/07/2024 1:34 PM EDT Narrative 11/12/2024 7:26 PM EDT PAT NAME: PAPA R[place] MED REC#: [id number] DA: [id number] PAT GEND: F PAT TYPE: O EXAM LYNN: [id number] REF PHYS [facility] Comparison Studies The [...] EFW (oz) 8 oz EFW by: Hadlock ([id number]-FL) Extended Cav. septi pel. tr 5.1 mm Tractor Expert 8.0 mm CM 7.3 mm 58% Nicolaides [...] Doppler Arterial Umbilical A PI 0.86 28% Mirain Umbilical A RI 0.57 17% Mirian Umbilical [...] The MAYELA is normal. Recommendation Transfer to [facility] Coding ======= Description: 07337-67 Follow Up Ultrasound Description: 24941-35 BPP without NST Spanish Language Lecturer: Becca Perez RDMS Physician: Mariah Sahu MD, FACOG Electronically signed by: Mariah Sahu MD, FACOG at: 19:26 Procedure Note Mariah Sahu MD - 11/12/2024 PAT NAME: PAPA R[place] MED REC#: [id number] DA: 2000 PAT GEND: F PAT TYPE: O EXAM LYNN: [id number] REF PHYS [facility] Comparison Studies The findings of this study are compared to the prior ultrasound studydated 10/10/24. Patient Status Outpatient Indication ======== tetralogy of Fallot Maternal Assessment Xzzuzc515 cm Height (ft)5 ft Height (in)4 in Kzftam75 kg Weight (lb)134 lb BMI23.16 kg/m Method ======= Transabdominal ultrasound examination ========= Acosta . Number of fetuses: 1 Dating ====== GA by prior almaaxssus39 w + 1 d AUGUSTINE by prior [...] GA30 w + 1 d Assigned AUGUSTINE:01/15/2025 vzmunu194 d Biometry Standard BPD80.5 mm 32w 2d 93% Hadlock EFG921.2 mm 35w 0d >99% Jamie HC298.8 mm 33w 1d 91% Hadlock Cerebellum tr37.5 mm 30w 5d 54% Hill AC262.0 mm 30w 2d 51% Hadlock Femur56.4 mm 29w 4d 22% Hadlock Zdruogu72.2 mm 29w 3d 33% Jamie HC / AC1.14 EFW1,590 g 30w 1d 51% Hadlock EFW (lb)3 lb EFW (oz)8 oz EFW by:Hadlock (STK-OT-OB-FL) Extended Cav. septi pel. tr5.1 mm Vp8.0 mm CM7.3 mm 58% Nicolaides Head / Face / Neck Cephalic index0.76 16% Nicolaides Extremities / Bony Struc FL / BPD0.70 FL / HC0.19 FL / AC0.22 Other Structures XCQ296 bpm General Evaluation Cardiac activity present. FHR [...] The MAYELA is normal. Recommendation Transfer to [facility] Coding ======= Description:79668-00 Follow Up Ultrasound Description:97021-85 BPP without NST Spanish Language Lecturer: Becca Perez RDMS Physician: Mariah Sahu MD, FACOG Electronically signed by: Mariah Sahu MD, FACOG at: 1719:26 us Lars Coffey MD IMG US ORDERABLES Final Re sult documented in this encounter Visit Diagnoses Diagnosis 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, single or unspecified fetus , unspecified gestational age documented in this encounter Care Teams Noise Abatement Engineer Relationship Specialty Start Date End Date Provider, [place] [address] PCP - General 09/26/24 documented as of this encounter
--- OUTSIDE RECORDS SUMMARY | 2024-11-25 10:00 | XMS_ITS | Encounter Summary ---
Author Organization Healthcare Address [address] [place] [address] Care Team Providers Care Newscast Director Name Role Phone Pcp, No Primary Care Provider Jg Richmond MD Unavailable [phone] Reason for Visit * Imaging (Routine) - Closed Specialty Diagnoses / Procedures Referred By Contac t Referred To Contact Obstetrics and Gynecology Diagnoses Maternal care for other (suspected) abnormality and damage, not applicable or unspecified Procedures OB US Detail Anatomy OB US 14+ Weeks Anatomy Scan Mariah Sahu MD [address] [facility] [address] [place] [address] Phone: tel: fax: Referral ID Status Reason Start Date Expiration Date Visits Re quested Visits Authorized [id number] Closed 11/12/2024 05/14/2026 1 1 Encounter Details Date Type Department Care Team (Latest Contact Info) Description 11/25/2024 10:00 AM EDT - 11/25/2024 11:59 PM EDT Hospital Encounter Medical Office Building Obstetrics and Gynecology [facility] [address] [facility], [address] [place] [address] Maternal care for other (suspected) [...] week 11/25/2024 How often do you attend [facility] or rastafarian services? Never 11/25/2024 Do you belong to any clubs o r organizations such as hindu groups, unions, fraternal or athletic groups, or [...] care, and heating? Not very hard 11/25/2024 [facility] - Occupational Stress Questionnaire Answer Date [...] time in the past 12 m [facility], were you homeless or living in a residential (including now)? No 11/25/2024 [place] Depression Scale Answer Date Recorded [place] Depression Scale Total 8 11/25/2024 The thought [...] Office Building Obstetrics and Gynecology [address] [facility], [address] [place] [address] Leora Bob, HUNTING SALES ASSOCIATE [address] [facility] [address] [place] [address] documented as of this encounter [...] Please navigate to the Imaging tab in [facility] for review. This message has been generated by the interface. Narrative Procedure Note Jeni Botello, DO - 11/25/2024 IMPRESSION: The OB Ultrasound you requested has been resulted. Please navigate to theImaging tab in [facility] for review. This message has been generated by [employer]. us Mariah Sahu MD IMG OB US [...] documented as of this encounter Care Teams Newscast Director Relationship Specialty Start Date End Date Pcp, [place] [address] PCP - General Family Medicine 10/28/24 Jg Gonzalez MD [address] [address] [address] [place] [address] Referring Physician Obstetrics and Gynecology 10/28/24 documented as of this encounter
--- OUTSIDE RECORDS SUMMARY | 2024-11-25 10:45 | XMS_ITS | Encounter Summary ---
Author Organization Healthcare Address [address] [place] [address] Care Team Providers Care Vfx Artist Name Role Phone Pcp, No Primary Care Provider Unavailabl e Jg Gonzalez MD Unavailable [phone] Encounter Details Date Type Department Care Team ([facility] Contact Info) Description 11/25/2024 10:45 AM EDT Initial Medical Office Building Obstetrics and Gynecology [address] [facility], [address] [place] [address] Vikas Haile MD [address] [facility] [address] [place] [address] GA: 32w5d Social History Tobacco [...] How often do you attend chur or zoroastrian services? Never 11/25/2024 Do you belong to any clubs o r organizations such as uatsdin groups, unions, fraternal or athletic groups, or [...] care, and heating? Not very hard 11/25/2024 [facility] ional Health - Occupational Stress Questionnaire [...] any time in the past 12 m [facility], were you homeless or living in a detention (including now)? No 11/25/2024 [place] Depression Scale Answer Date Recorded [place] Depression Scale Total 8 11/25/2024 The thought [...] Notes * Progress Notes - Leora Bob, STRETCH BOX TENDER - 11/25/2024 10:45 AM EDT Initial Note Subjective 24y/o @ 32w5d here for initial care. Pt primarily seen by Dr Gonzalez in [place]. c/b tetrology of fallot. Reports + FM. Denies vaginal bleeding, leakage of fluids and contractions. OB History Para Term AB Living 2 1 1 1 SAB IAB Ectopic Multiple Live Births 1 # Outcome Date GA Lbr Ran/2nd Weight Sex Type Anes PTL Lv 2 Current 1 Term 07/12/21 39w0d 3033 g F Vag-Spont EPI N NALLELY [place] Depression Scale Total: 8 Past Medical History [...] today Will have twice weekly NST's in [place] Repeat echo 12/04. Plan to tour [facility] Anxiety/Depression Stable, no meds Previously took Lexapro Discussed plan of care with Dr Haile RTC in 4 weeks documented in this encounter Plan of Treatment Upcoming Encounters Date Type Department Care Team (Late st Contact Info) Description 01/08/2025 8:00 AM EDT Hospital Encounter 02/26/2025 1:00 PM EDT Visit Medical Office Building Obstetrics and Gynecology [address] [facility], [address] [place] [address] Leora Bob APRN [address] [facility] [address] [place] [address] Scheduled Orders Name Type Priority [...] Ketones, Urine Negative Negative mg/dL POCT Specific [place], Urine 1.010 POCT Blood, Urine Negative Negative POCT pH, Urine 7.0 5.0 to 8.0 POCT Protein, Urine Negative Negative mg/dL POCT Urobilinogen, Urine 0.2 0.2, 1 E.U./dL POCT Nitrite, Urine Negative Negative POCT Leukocyte Esterase, Urine Small(A) Negative Test Strip Lot Number [id number] Test Strip Lot Expiration 07/2025 Urine Urine [...] documented as of this encounter Care Teams Vfx Artist Relationship Specialty Start Date End Date Pcp, No [address] [place] [address] PCP - General Family Medicine 10/28/24 Jg Gonzalez MD [address] [place] [address] [id number] Referring Physician Obstetrics and Gynecology 10/28/24 documented as of this encounter
--- OUTSIDE RECORDS SUMMARY | 2024-12-04 13:45 | XMS_ITS | Encounter Summary ---
Author Organization Healthcare Address [address] [place] [address] Care Team Providers Care Photographic Spotter Name Role Phone Pcp, No Primary Care Provider Jg Richmond MD Unavailable [phone] Encounter Details Date Type Department Care Team (Late st Contact Info) Description 12/04/2024 1:45 PM EDT Office Visit [facility] [address], [address] [place] [address] Dalila Acosta D, SHIFT MECHANIC [address] [place] [address] Social History Tobacco Use Types Packs/Day Years [...] How often do you attend chur or mandaen services? Never 11/25/2024 Do you belong to any clubs o r organizations such as sikh groups, unions, fraternal or athletic groups, or [...] care, and heating? Not very hard 11/25/2024 [facility] Occupat ional Health - Occupational Stress Questionnaire Answer [...] any time in the past 12 m onths, were you homeless or living in a group home (including now)? No 11/25/2024 [place] Depression Scale Answer Date Recorded [place] Depression Scale Total 8 11/25/2024 The thought [...] as of this encounter Miscellaneous Notes * Clinician Note - Dalila Acosta, SHIFT MECHANIC - 12/04/2024 1:45 PM EDT Cardiology Psychosocial Assessment Date of Encounter:12/04/24 Location: [facility] exam room Present with patient at visit: FOB History: Papa Oviedo Israel Estimated Date of Delivery: 01/15/25 Assessment: Expecting a: Boy Baby's Name: Jayce Cardiac Concern: TOF Visit with pt and FOB in [facility] exam room after pt's follow up with heat treat worker. Pt planning to deliver at and has established care with [facility]. Had hospital tour today. Provided information about [facility] and supports offered through the organization. Assessed for new questions/concerns since time of last contact and reinforced availability of SHIFT MECHANIC to provide support/intervention by phone between appts based on pt and family needs. Plan: -Assist with care coordination and applicable resources -Continue to monitor pt and family adjustment to diagnosis and impact on psychosocial functioning and possible barriers posed by pre-existing psychosocial stressors. Follow up with pt during hospital stay after delivery to provide additional services. ALLYSON Dickey, SHIFT MECHANIC Licensed Clinical Farm Owner Operator Pediatric Cardiology documented in this encounter Plan of Treatment Upcoming Encounters Date Type Department Care Team (Late st Contact Info) Description 01/08/2025 8:00 AM EDT Hospital Encounter 02/26/2025 1:00 PM EDT Visit Medical Office Building Obstetrics and Gynecology [address] [facility], [address] [place] [address] Leora Bob, BROADCAST OPERATIONS DIRECTOR [address] [facility] [address] [place] [address] documented as of this encounter Visit Diagnoses Not on filedocumented in this encounter Additional Health Concerns Assessment Noted Time PHQ-9 Depression Total Score: 5 11/26/19 25 11:39 AM EDT A Body Mass Index follow-up plan has been documented for the patient 12/04/2024 3:27 PM EDT documented as of this encounter Care Teams Photographic Spotter Relationship Specialty Start Date End Date Pcp, No [address] [place] [address] PCP - General Family Medicine 10/28/24 Jg Gonzalez MD [address] [facility] [address] [place] [address] Referring Physician Obstetrics and Gynecology 10/28/24 documented as of this encounter
--- OUTSIDE RECORDS SUMMARY | 2024-12-04 14:26 | XMS_ITS | Encounter Summary ---
Author Organization Healthcare Address [address] [place] [address] Care Team Providers Care Exchange Teller Name Role Phone Pcp, No Primary Care Provider Jg Richmond MD Unavailable [phone] Reason for Referral * Imaging (Routine) - Closed Specialty Diagnoses / Procedures Referred By Niharika t Referred To Contact Cardiology Diagnoses Maternal care for other (suspected) abnormality and damage, not applicable or unspecified Procedures [facility] [employer] Paul Collazo MD [address] [address] Phone: tel: fax: Referral ID Status Reason Start Date Expiration Date V isits Requested Visits Authorized [id number] Closed Perform Procedure 11/06/2024 05/08/2026 1 1 Reason for Visit * Imaging (Routine) - Closed Specialty Diagnoses / Procedures Referred By Contac t Referred To Contact Cardiology Diagnoses Maternal care for other (suspected) abnormality and damage, not applicable or unspecified Procedures [facility] [employer] Paul Collazo MD [address] [address] Phone: tel: fax: Referral ID Status Reason Start Date Expiration Date V isits Requested Visits Authorized [id number] Closed Perform Procedure 11/06/2024 05/08/2026 1 1 Encounter Details Date Type Department Care Team (Latest Contact Info) Description 12/04/2024 2:26 PM EDT - 12/04/2024 11:59 PM EDT Hospital Encounter [facility] Pediatric Cardiac Diagnostic Testing [address], [place] [address] Maternal care for other (suspected) abnormality and [...] often do you attend chur ch or worship services? Never 11/25/2024 Do you belong to any clubs o r organizations such as islam groups, unions, fraternal or athletic groups, or [...] care, and heating? Not very hard 11/25/2024 [facility] of Occupat ional Health - Occupational Stress [...] time in the past 12 m [facility], were you homeless or living in a care home (including now)? No 11/25/2024 [place] Depression Scale Answer Date Recorded [place] Depression Scale Total 8 11/25/2024 The thought [...] Office Building Obstetrics and Gynecology [address] [facility], [address] [place] [address] Leora Bob, MARK [address] [facility] [address] [place] [address] documented as of this encounter [...] documented as of this encounter Care Teams Exchange Teller Relationship Specialty Start Date End Date Pcp, No [address] [place] [address] PCP - General Family Medicine 10/28/24 Jg Gonzalez MD [address] [place], [place] [address] Referring Physician Obstetrics and Gynecology 10/28/24 documented as of this encounter
--- OUTSIDE RECORDS SUMMARY | 2024-12-04 15:15 | XMS_ITS | Encounter Summary ---
Author Organization Healthcare Address [address] [place] [address] Care Team Providers Care Railroad Track Mechanic Name Role Phone Pcp, No Primary Care Provider Jg Richmond MD Unavailable [phone] Encounter Details Date Type Department Care Team (Late st Contact Info) Description 12/04/2024 3:15 PM EDT Office Visit [facility] [address] [place] [address] Paul Collazo MD [address] [place] [address] Maternal care for other (suspected) [...] How often do you attend chur or hoahaoism services? Never 11/25/2024 Do you belong to any clubs o r organizations such as quaker groups, unions, fraternal or athletic groups, or [...] Not very hard 11/25/2024 [facility] - Occupational Stress Questionnaire Answer [...] were you homeless or living in a fdc (including now)? No 11/25/2024 [place] Depression Scale Answer Date Recorded [place] Depression Scale Total 8 11/25/2024 The thought [...] is Jg Koch. Delivery is planned at [facility]. No other concerns raised today. 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 Additional Services Offered Meeting with clinic manager social responsibility The total time of encounter was 45 [...] Office Building Obstetrics and Gynecology [address] [facility], [address] [place] [address] Leora Bob, PSYCHOLOGIST CHIEF [address] [facility] [address] [place] [address] documented as of this encounter [...] documented as of this encounter Care Teams Railroad Track Mechanic Relationship Specialty Start Date End Date Pcp, Sherron [address] [place] [address] PCP - General Family Medicine 10/28/24 Jg Gonzalez MD [address] [facility] [address] [place] [address] Referring Physician Obstetrics and Gynecology 10/28/24 documented as of this encounter
--- OUTSIDE RECORDS SUMMARY | 2024-12-23 10:00 | XMS_ITS | Encounter Summary ---
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, single or unspecified fetus Procedures OB US Follow Up Transabdominal Approach Vikas Haile MD [address] [address] Phone: tel: fax: Referral ID Status Reason Start Date Expiration Date Visits Re quested Visits Authorized [id number] Closed 11/25/2024 05/27/2026 1 1 Reason for Visit * Imaging (Routine) - Closed Specialty Diagnoses / Procedures Referred By Contac t Referred To Contact Obstetrics and Gynecology Diagnoses Supervision of high risk , antepartum 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, single or unspecified fetus Procedures OB US Follow Up Transabdominal Approach Vikas Haile MD [address] [address] Phone: tel: fax: Referral ID Status Reason Start Date Expiration Date Visits Re quested Visits Authorized [id number] Closed 11/25/2024 05/27/2026 1 1 Encounter Details Date Type Department Care Team (Latest Contact Info) Description 12/23/2024 10:00 AM EDT - 12/23/2024 11:59 PM EDT Hospital Encounter Medical Office Building Obstetrics and Gynecology [address] [facility], [address] [place] [address] Supervision of high risk , [...] often do you attend chur ch or hindu services? Never 11/25/2024 Do you belong to any clubs o r organizations such as latter-day groups, unions, fraternal or athletic groups, or [...] and heating? Not very hard 11/25/2024 [facility] - Occupational Stress Questionnaire Answer [...] in a fpc (including now)? No 11/25/2024 [place] Depression Scale Answer Date Recorded [place] Depression Scale Total 8 11/25/2024 The thought [...] Upcoming Encounters Date Type Department Care Team ([facility] st Contact Info) Description 01/08/2025 8:00 AM EDT Hospital Encounter 02/26/2025 1:00 PM EDT Visit Medical Office Building Obstetrics and Gynecology [address] [facility], [address] [place] [address] Leora Bob, WARP DYEING TENDER [address] [facility] [address] [place] [address] documented as of this encounter [...] Please navigate to the Imaging tab in [employer] for review. This message has been generated by the interface. Narrative Procedure Note Meeta Mercedes MD - 12/23/2024 IMPRESSION: The OB Ultrasound you requested has been resulted. Please navigate to theImaging tab in [employer] for review. This message has been generated [...] as of this encounter Care Teams School Psychometrist Relationship Specialty Start Date End Date Pcp, [place] [address] PCP - General Family Medicine 10/28/24 Jg Gonzalez MD [address] [place], [place] [id number] Referring Physician Obstetrics and Gynecology 10/28/24 documented as of this encounter
--- OUTSIDE RECORDS SUMMARY | 2024-12-23 10:30 | XMS_ITS | Encounter Summary ---
Author Organization Healthcare Address [address] [place] [address] Care Team Providers Care Hand Tufter Name Role Phone Pcp, No Primary Care Provider Unavailabl e Jg Gonzalez MD Unavailable [phone] Encounter Details Date Type Department Care Team (Latest Contact Info) Description 12/23/2024 10:30 AM EDT Routine Medical Office Building Obstetrics and Gynecology [address] [facility], [address] [place] [address] Vikas Haile MD [address] [place] [address] Supervision of high risk , antepartum (Primary Dx) Social History Tobacco Use Types [...] any clubs o r organizations such as mormonism groups, unions, fraternal or athletic groups, or [...] any time in the past 12 m ont, were you homeless or living in a snf (including now)? No 11/25/2024 [place] Depression Scale Answer Date Recorded [place] Depression Scale Total 8 11/25/2024 The thought [...] Sign Reading Time Taken Comments Blood Pressure 103/67 12/23/2024 11:15 AM EDT Pulse 69 12/23/2024 11:15 AM EDT Temperature 36.6 C (97.9 F) 12/23/2024 11:15 AM EDT Respiratory Rate 18 12/23/2024 11:15 AM EDT Oxygen Saturation 98% 12/23/2024 11:15 AM EDT Inhaled Oxygen Concentration - - Weight 66.8 kg (147 lb 4.3 oz) 12/23/2024 11:15 AM EDT Height 160 cm (5' 3 ) 12/23/2024 11:15 AM EDT Body Mass Index 26.09 12/23/2024 11:15 AM EDT documented in this encounter Miscellaneous Notes * Progress Notes - Leora BobMARK - 12/23/2024 10:30 AM EDT 24 y.o. @ 36w5d here today for return OB visit. Reports + FM. Denies vaginal bleeding, leakage of fluids and contractions. Visit Vitals BP 103/67 Pulse 69 Temp 36.6 ??C (97.9 ??F) (Tympanic) Ht 1.6 m (5' 3 ) Wt 66.8 kg (147 lb 4.3 oz) SpO2 98% BMI 26.09 kg/m?? Physical Exam Constitutional: Appearance: Normal appearance. HENT: Head: Normocephalic. Cardiovascular: Rate and Rhythm: Normal rate. Pulmonary: Effort: Pulmonary effort is normal. Neurological: Mental Status: She is alert and oriented to person, place, and time. Skin: General: Skin is warm and dry. Psychiatric: Mood and Affect: Mood normal. Behavior: Behavior normal. Vitals reviewed. care AB+/HepB- Remaining labs requested on 11/25 Reports negative pap 2023. Denies h/o abnormal Continues PNV and Iron NIPT low risk, male Glucola 72 Growth US 11/25-EFW 2161gm 55%, AC 59%, ceph, posterior placenta, 3VC, MAYELA 15.6cm, BPP 8/8 Reports negative GBS done in [place] Growth US today 12/23-EFW 3299gm 72%, AC 90%, cephalic, posterior placenta, MAYELA 16.3cm, BPP 8/8 tetrology of fallot 10/28: Plan 1. Follow-up echocardiogram recommended in ~5-6 weeks to re-evaluate TR and RVOT/PS. 2. There is no need to alter delivery plans based on today's study. 3. We recommend NICU admission with evaluation with echocardiogram, ECG and cardiology consultation 4. Please contact me if I can be of further assistance. Repeat echo 12/04: Plan 1. Follow-up echocardiogram not needed. 2. Delivery plans: . Baby likely can be admitted to NICU, PCICU if clinically indicated. Not feltto be ductal dependent. evaluation with echocardiogram, ECG, cardiology consultation and additional testing as above. 3. Please contact me if I can be of further assistance. Had PCICU tour Continues twice weekly NST's in [place] Plan for IOL on 01/08 @ 39w0d. Message sent to Erna Ugalde RN Anxiety/Depression Stable, no meds Previously took Lexapro Return for IOL documented in this encounter Plan of Treatment Upcoming Encounters Date Type Department Care Team ([facility] Contact Info) Description 01/08/2025 8:00 AM EDT Hospital Encounter 02/26/2025 1:00 PM EDT Visit Medical Office Building Obstetrics and Gynecology [address] [facility], [address] [place] [address] Leora Bob APRN [address] [place] [address] documented as of this encounter Procedures Procedure Name Priority Date/Time Associated Diagnosis Comments POCT URINALYSIS DIPSTICK Routine 12/23/2024 11:19 AM EDT Supervision of high risk , antepartum documented in this encounter Results * (ABNORMAL) POCT Urinalysis Dipstick (12/23/2024 11:19 AM EDT) POCT Urine Color Yellow POCT Urine Clarity Clear POCT Glucose Urine Negative Negative mg/dL POCT Bilirubin, Urine Negative Negative POCT Ketones, Urine Negative Negative mg/dL POCT Specific [place], Urine 1.020 POCT Blood, Urine Negative Negative POCT pH, Urine 7.0 5.0 to 8.0 POCT Protein, Urine Negative Negative mg/dL POCT Urobilinogen, Urine 0.2 0.2, 1 E.U./dL POCT Nitrite, Urine Negative Negative POCT Leukocyte Esterase, Urine Small(A) Negative Test Strip Lot Number [id number] Test Strip Lot Expiration 10/2025 Urine Urine specimen obtained by clean catch procedure / Unknown 12/23/2024 11:19 AM EDT Vikas Haile MD POINT OF [...] documented as of this encounter Care Teams Hand Tufter Relationship Specialty Start Date End Date Pcp, Sherron [address] [place] [address] PCP - General Family Medicine 10/28/24 Jg Gonzalez MD [address] [place] [address] [place] [address] Referring Physician Obstetrics and Gynecology 10/28/24 documented as of this encounter
--- OUTSIDE RECORDS SUMMARY | 2024-12-26 20:05 | XMS_ITS | Referral Summary ---
Author Organization [employer] ([place], [place], [place], [place]) Address [address] [place] [address] Care Team Providers Care Eviscerator Name Role Phone Unavailable Primary Care Provider [...]
--- OUTSIDE RECORDS SUMMARY | 2024-12-26 20:06 | XMS_ITS | Encounter Summary ---
Author Organization Healthcare Address [address] [place] [address] Care Team Providers Care Manpower Development Specialist Name Role Phone Pcp, No Primary Care Provider Unavailabl e Jg Gonzalez MD Unavailable Encounter Details Date Type Department Care Team (Late Contact Info) Description 11/12/2024 Orders Only Medical Office Building Obstetrics and Gynecology [address], [address] [place] [address] Mariah Sahu MD [address] [facility] [address] [place], [place] [id number] Maternal care for other (suspected) abnormality and [...] Department Care Team (Late Contact Info) Description 01/08/2025 8:00 AM EDT Hospital Encounter 02/26/2025 1:00 PM EDT Visit Medical Office Building Obstetrics and Gynecology [address], [address] [place] [address] Leora Bob, MARK [address] [place] [address] documented as of this encounter Visit Diagnoses Diagnosis Maternal care for other (suspected) abnormality and damage, not applicable or unspecified- Primary documented in this encounter Additional Health Concerns Assessment Noted Time A Body Mass Index follow-up plan has been documented for the patient 10/29/2024 4:48 PM EDT documented as of this encounter Care Teams Manpower Development Specialist Relationship Specialty Start Date End Date Pcp, Sherron [address] [place] [address] PCP - General Family Medicine 10/28/24 Jg Gonzalez MD [address] [place] [address] Referring Physician Obstetrics and Gynecology 10/28/24 documented as of this encounter
--- OUTSIDE RECORDS SUMMARY | 2024-12-26 20:06 | XMS_ITS | Encounter Summary ---
Author Organization Healthcare Address [address] [place] [address] Care Team Providers Care Third Mate Name Role Phone Pcp, No Primary Care Provider Unavailara e Jg Gonzalez MD Unavailable [phone] Reason for Visit * Reason Onset Date Comments [facility] Care coordination 11/25/2024 Encounter Details Date Type Department Care Team ([facility] st Contact Info) Description 11/25/2024 Telephone Medical Office Building Obstetrics and Gynecology [address] [facility], [address] [place] [address] Charlette Ugalde, RN AMB-GS [facility] OB ULTRASOUND CLINIC 1st FLR [facility] Care coordination Social History Tobacco Use Types [...] How often do you attend chur or anglican services? Never 11/25/2024 Do you belong to [...] [facility] - Occupational Stress Questionnaire Answer Date [...] any time in the past 12 m [facility], were you homeless or living in a long term (including now)? No 11/25/2024 [place] Depression Scale Answer Date Recorded [place] Depression Scale Total 8 11/25/2024 The thought [...] difficult at all 11/25/2024 11:39 AM EDT Pet Kristina hernandez documented as of this encounter Miscellaneous Notes * Telephone Encounter - Charlette Ugalde, RN - 11/25/2024 1:15 PM EDT I [...] Upcoming Encounters Date Type Department Care Team ([facility] st Contact Info) Description 01/08/2025 8:00 AM EDT Hospital Encounter 02/26/2025 1:00 PM EDT Visit Medical Office Building Obstetrics and Gynecology [address] [facility], [address] [place] [address] Leora Bob, FIBER ARTIST [address] [facility] [address] [place] [address] documented as of this encounter Visit Diagnoses Not on filedocumented in this encounter Additional Health Concerns Assessment Noted Time PHQ-9 Depression Total Score: 5 11/26/19 11:39 AM EDT A Body Mass Index follow-up plan has been documented for the patient 10/29/2024 4:48 PM EDT documented as of this encounter Care Teams Third Mate Relationship Specialty Start Date End Date Pcp, No [address] [place] [address] PCP - General Family Medicine 10/28/24 Jg Gonzalez MD [address] [address] Referring Physician Obstetrics and Gynecology 10/28/24 documented as of this encounter
--- OUTSIDE RECORDS SUMMARY | 2024-12-26 20:06 | XMS_ITS | Encounter Summary ---
Author Organization Healthcare Address [address] [place] [address] Care Team Providers Care Facilities Director Name Role Phone Pcp, No Primary Care Provider Jg Richmond MD Unavailable [phone] Encounter Details Date Type Department Care Team (Late Contact Info) Description 11/07/2024 Telephone [facility] Pediatric Cardiac Diagnostic Testing [address] Floor, [place] [address] Paul Collazo MD [address] [facility] [address] [place] [address] Social History Tobacco Use Types Packs/Day Years [...] Office Building Obstetrics and Gynecology [address] [facility] [address], [address] [place] [address] Leora Bob, CONSULTING PROJECT DIRECTOR [address] [facility] [address] [place] [address] documented as of this encounter Visit Diagnoses Not on filedocumented in this encounter Additional Health Concerns Assessment Noted Time A Body Mass Index follow-up plan has been documented for the patient 10/29/2024 4:48 PM EDT documented as of this encounter Care Teams Facilities Director Relationship Specialty Start Date End Date Pcp, Sherron [address] [place] [address] PCP - General Family Medicine 10/28/24 Jg Gonzalez MD [address] [facility] [address] [place] [id number] Referring Physician Obstetrics and Gynecology 10/28/24 documented as of this encounter
--- OUTSIDE RECORDS SUMMARY | 2024-12-26 20:06 | XMS_ITS | Clinical Summary ---
Author Organization [employer] ([place], [place], [place], [place]) Address [address] [place] [address] Care Team Providers Care Quilter Fixer Name Role Phone Unavailable Primary Care Provider [...]
--- OUTSIDE RECORDS SUMMARY | 2024-12-26 20:06 | XMS_ITS | Encounter Summary ---
Author Organization Healthcare Address [address] [place] [address] Care Team Providers Care Legal Billing Coordinator Name Role Phone Pcp, No Primary Care Provider Jg Richmond MD Unavailable [phone] Encounter Details Date Type Department Care [...] often do you attend chur ch or voodoo services? Never 11/25/2024 Do you belong to any clubs o r organizations such as baptism groups, unions, fraternal or athletic groups, or [...] care, and heating? Not very hard 11/25/2024 [facility] - [...] any time in the past 12 m [facility], were you homeless or living in a fdc (including now)? No 11/25/2024 [place] Depression Scale Answer Date Recorded [place] Depression Scale Total 8 11/25/2024 The thought [...] Questionnaire -2 Score 2 11/25/2024 11:39 AM KAMALAT Kristina Sagastume * Question Answer Date of Assessment Author [...] Building Obstetrics and Gynecology [address] [facility], [address] [place] [address] Leora Bob, ORAL SURGERY PHYSICIAN [address] [facility] [address] [place] [address] documented as of this encounter Visit Diagnoses Not on filedocumented in this encounter Additional Health Concerns Assessment Noted Time PHQ-9 Depression Total Score: 5 11/26/19 25 11:39 AM EDT A Body Mass Index follow-up plan has been documented for the patient 10/29/2024 4:48 PM EDT documented as of this encounter Care Teams Legal Billing Coordinator Relationship Specialty Start Date End Date Pcp, [place] [address] PCP - General Family Medicine 10/28/24 Jg Gonzalez MD 12[address] [facility] [address] [place] [address] Referring Physician Obstetrics and Gynecology 10/28/24 documented as of this encounter
--- OUTSIDE RECORDS SUMMARY | 2024-12-26 20:06 | XMS_ITS | Encounter Summary ---
Author Organization [employer] ([place], [place], [place], [place]) Address [address] [place] [address] Care Team Providers Care Rougher For Cement Name Role Phone Unavailable Primary Care Provider Unavailabl e Encounter Details Date Type Department Care Team (Late st Contact Info) Description 10/19/2020 Transcribed Document [facility] Family Medicine [facility] [place] [address] ProviderLo MD [address] [place] [address] Social History Tobacco Use Types [...] : 3 - Urgent Tracking Group : [facility] ED [place] ALJEANDRA ALONSO RN - 10/19/2020 12:35 EDT Mode [...] PNED ; Probability: 0 ; Diagnosis Code: [id number] ED Height and Weight Height Source : Stated Height Entry Format : [place] Height, Feet : 5 ft(Converted to: 152 cm, 60 Inch) Height, Inches : 3 Inch(Converted to: 0 ft 3 Inch, 7.62 cm) Clinical Height : 160.02 cm Weight Source, ED : Critical estimated dosing weight Weight Entry Format : [place] Weight, Pounds : 110 lb Clinical Dosing Weight : 50 kg Body Surface Area (BSA) : 1.5 m2 Body Mass Index : 19.5 kg/m2 [place] Body Weight (IBW) : 52.02 kg ALEJANDRA ALONSO RN - 10/19/2020 12:35 EDT Electronically signed by Porsche [facility] Conversion Insurance Collector Cerner at 09/16/2022 7:59 PM CDT documented in this encounter Plan of Treatment Not on file documented as of this encounter Visit Diagnoses Not on filedocumented in this encounter
--- OUTSIDE RECORDS SUMMARY | 2024-12-26 20:06 | XMS_ITS | Encounter Summary ---
Author Organization [facility] Address [address] [place] [address] Care Team Providers Care Net Web Developer Name Role Phone Provider, No Known Primary [...] on filedocumented in this encounter Care Teams Net Web Developer Relationship Specialty Start Date End Date Provider, No Known [facility] [place] [address] PCP - General 09/26/24 documented as of this encounter
--- OUTSIDE RECORDS SUMMARY | 2024-12-26 20:06 | XMS_ITS | Encounter Summary ---
Author Organization Healthcare Address [address] [place] [address] Care Team Providers Care Housing And Residence Life Director Name Role Phone Pcp, No Primary Care Provider Jg Richmond MD Unavailable [phone] Encounter Details Date Type Department Care Team (Latest Contact Info) Description 12/23/2024 Travel Social History Tobacco Use Types Packs/Day [...] often do you attend chur ch or advent services? Never 11/25/2024 Do you belong to any clubs o r organizations such as roman catholic groups, unions, fraternal or athletic groups, or [...] Not very hard 11/25/2024 [facility] - Occupational [...] any time in the past 12 m [facility], were you homeless or living in a [place] health care facility (including now)? No 11/25/2024 [place] Depression Scale Answer Date Recorded [place] Depression Scale Total 8 11/25/2024 The thought [...] Obstetrics and Gynecology [address] [facility], [address] [place] [address] Leora Bob, TELETYPE OR VARITYPE KEYBOARD OPERATOR [address] [facility] [address] [place] [address] documented as of this encounter Visit Diagnoses Not on filedocumented in this encounter Additional Health Concerns Assessment Noted Time PHQ-9 Depression Total Score: 5 11/26/19 25 11:39 AM EDT A Body Mass Index follow-up plan has been documented for the patient 12/04/2024 3:27 PM EDT documented as of this encounter Care Teams Housing And Residence Life Director Relationship Specialty Start Date End Date Pcp, No [address] [place] [address] PCP - General Family Medicine 10/28/24 Jg Gonzalez MD [address] [address] Referring Physician Obstetrics and Gynecology 10/28/24 documented as of this encounter
--- OUTSIDE RECORDS SUMMARY | 2024-12-26 20:06 | XMS_ITS | Encounter Summary ---
Author Organization Healthcare Address [address] [place] [address] Care Team Providers Care Digital Sales Manager Name Role Phone Pcp, No Primary Care Provider Jg Richmond MD Unavailable [phone] Encounter Details Date Type Department Care [...] often do you attend chur ch or oriental orthodox services? Never 11/25/2024 Do you belong [...] any time in the past 12 m [facility], were you homeless or living in a jail (including now)? No 11/25/2024 [place] Depression Scale Answer Date Recorded [place] Depression Scale Total 8 11/25/2024 The thought [...] Office Building Obstetrics and Gynecology [address] [facility], [address] [place] [address] Leora Bob, FACETOR [address] [facility] [address] [place] [address] documented as of this encounter Visit Diagnoses Not on filedocumented in this encounter Additional Health Concerns Assessment Noted Time PHQ-9 Depression Total Score: 5 11/26/19 25 11:39 AM EDT A Body Mass Index follow-up plan has been documented for the patient 12/04/2024 3:27 PM EDT documented as of this encounter Care Teams Digital Sales Manager Relationship Specialty Start Date End Date Pcp, No [address] [place] [address] PCP - General Family Medicine 10/28/24 Jg Gonzalez MD [address] [address] Referring Physician Obstetrics and Gynecology 10/28/24 documented as of this encounter
--- OUTSIDE RECORDS SUMMARY | 2024-12-26 20:06 | XMS_ITS | Encounter Summary ---
Author Organization Healthcare Address [address] [place] [address] Care Team Providers Care Brand Leader Name Role Phone Pcp, No Primary Care Provider Jg Richmond MD Unavailable [phone] Encounter Details Date Type Department Care Team (Late st Contact Info) Description 11/26/2024 Telephone [facility] Pediatric Cardiac Diagnostic Testing [address] Floor, [place] [address] Hubert Villegas MD [address] [place] [address] Social History Tobacco Use Types Packs/Day Years [...] How often do you attend chur or samaritan services? Never 11/25/2024 Do you belong to [...] care, and heating? Not very hard 11/25/2024 [facility] - Occupational [...] you homeless or living in a senior living (including now)? No 11/25/2024 [place] Depression Scale Answer Date Recorded [place] Depression Scale Total 8 11/25/2024 The thought [...] Building Obstetrics and Gynecology [address] [facility], [address] [place] [address] Leora Bob, MARK [address] [facility] [address] [place] [address] documented as of this encounter Visit Diagnoses Not on filedocumented in this encounter Additional Health Concerns Assessment Noted Time PHQ-9 Depression Total Score: 5 11/26/19 25 11:39 AM EDT A Body Mass Index follow-up plan has been documented for the patient 10/29/2024 4:48 PM EDT documented as of this encounter Care Teams Brand Leader Relationship Specialty Start Date End Date Pcp, [place] [address] PCP - General Family Medicine 10/28/24 Jg Gonzalez MD 12[address] [facility] [address] [place] [address] Referring Physician Obstetrics and Gynecology 10/28/24 documented as of this encounter
--- OUTSIDE RECORDS SUMMARY | 2024-12-26 20:06 | XMS_ITS | Encounter Summary ---
Author Organization [employer] ([place], [place], [place], [place]) Address [address] [place] [address] Care Team Providers Care Curtain Stretcher Assembler Name Role Phone Unavailable Primary Care Provider Unavailabl e Encounter Details Date Type Department Care Team (Late st Contact Info) Description 10/19/2020 Transcribed Document [facility] Family Medicine [address] [place] [address] ProviderLo MD [address] [place] [address] Social History Tobacco Use Types [...] Historical ProviderMD - 10/19/2020 12:22 PM CDT [place] Suicide Severity Rating Scale (C-SSRS) Entered On: 10/19/2020 17:22 EDT Performed On: 10/19/2020 14:06 EDT by Jay Luu Rn [place] Suicide Severity Rating Scale (C-SSRS) CSSRS Past [...]
--- OUTSIDE RECORDS SUMMARY | 2024-12-26 20:06 | XMS_ITS | Encounter Summary ---
Author Organization Healthcare Address [address] [place] [address] Care Team Providers Care Sweet Pickle Maker Name Role Phone Pcp, Sherron Primary Care Provider Jg Richmond MD Unavailable [...] Upcoming Encounters Date Type Department Care Team ([facility] st Contact Info) Description 01/08/2025 8:00 AM EDT Hospital Encounter 02/26/2025 1:00 PM EDT Visit Medical Office Building Obstetrics and Gynecology [address] [facility], [address] [place] [address] Leora Bob APRN [address] [facility] [address] [place] [address] documented as of this encounter Visit Diagnoses Not on filedocumented in this encounter Additional Health Concerns Assessment Noted Time A Body Mass Index follow-up plan has been documented for the patient 10/29/2024 4:48 PM EDT documented as of this encounter Care Teams Sweet Pickle Maker Relationship Specialty Start Date End Date Pcp, No [address] [place] [address] PCP - General Family Medicine 10/28/24 Jg Gonzalez MD 1210 [facility] [address] [place] [address] Referring Physician Obstetrics and Gynecology 10/28/24 documented as of this encounter
--- OUTSIDE RECORDS SUMMARY | 2024-12-26 20:06 | XMS_ITS | Clinical Summary ---
Author Organization [facility] Address [address] [place] [address] Care Team Providers Care Assistant Hvac Mechanic Name Role Phone Provider, No Known Primary [...] Complex congenital heart defect - TOF [facility] Cardiology Recommendation is for delivery at [facility] Cardiology Will transfer to [facility] Assessment & Plan (10/10/2024 12:22 PM EDT): [...] ultimately be decided later in by the asp net software developer. We have scheduled an appointment for the patient with pediatric cardiology for evaluation. The patient most likely will not be able to deliver in [place]. 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, single or unspecified fetus (Primary Dx) 11/07/2024 Travel 10/10/2024 11:30 AM EDT Office Visit [facility] MATERNAL MEDICINE [address] [facility] [address] [place] [address] Lars Coffey MD 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, single or unspecified fetus (Primary Dx); , unspecified gestational age 0510/10/2024 11:28 AM EDT - 10/10/2024 11:59 PM EDT Hospital Encounter [facility] PER DIAG [facility] [address] [place] [address] Gregg West MD Abnormal ultrasound; Anomaly of [...] Procedure Name Priority Date/Time Associated Diagnosis Comments [facility] Routine 11/07/2024 2:12 PM EDT 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 Anatomical Region Laterality Modality Ultrasound 11/07/2024 1:34 PM EDT Narrative 11/12/2024 7:26 PM EDT PAT NAME: [place] MED REC#: [id number] DA: [id number] PAT GEND: F PAT TYPE: O EXAM LYNN: [id number] REF PHYS WEST, GREGG Comparison Studies The [...] EFW (oz) 8 oz EFW by: Hadlock ([id number]) Extended Cav. septi pel. tr 5.1 mm Supervisor Covering And Lining 8.0 mm CM 7.3 mm 58% Nicolaides [...] The MAYELA is normal. Recommendation Transfer to [facility] Coding ======= Description: [id number] Follow Up Ultrasound Description: 98466-84 BPP without NST Account Consultant: Becca Perez RDMS Physician: Mariah Sahu MD, FACOG Electronically signed by: Mariah Sahu MD, FACOG at: 19:26 Procedure Note Mariah Sahu MD - 11/12/2024 PAT NAME: [place] MED REC#: [id number] DA: 2000 PAT GEND: F PAT TYPE: O EXAM LYNN: [id number] REF PHYS GREGG WEST Comparison Studies The findings of this study are compared to the prior ultrasound studydated 10/10/24. 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 Number of fetuses: 1 Dating ====== GA by prior [id number] w + 1 d AUGUSTINE by prior [...] GA30 w + 1 d Assigned AUGUSTINE:01/15/2025 [id number] d Biometry Standard BPD80.5 mm 32w 2d 93% Hadlock DOD050.2 mm 35w 0d >99% Jamie HC298.8 mm 33w 1d 91% Hadlock Cerebellum tr37.5 mm 30w 5d 54% Hill AC262.0 mm 30w 2d 51% Hadlock Femur56.4 mm 29w 4d 22% Hadlock Nqxkzwa58.2 mm 29w 3d 33% Jamie HC / AC1.14 EFW1,590 g 30w 1d 51% Hadlock EFW (lb)3 lb EFW (oz)8 oz EFW by:Hadlock ([id number]) Extended Cav. septi pel. tr5.1 mm Vp8.0 mm CM7.3 mm 58% Nicolaides Head / Face / Neck Cephalic index0.76 16% Nicolaides Extremities / Bony Struc FL / BPD0.70 FL / HC0.19 FL / AC0.22 Other Structures AUM200 bpm General Evaluation Cardiac activity present. FHR [...] The MAYELA is normal. Recommendation Transfer to [facility] Coding ======= Description: Follow Up Ultrasound Description: BPP without NST Account Consultant: Becca Perez RDOK Physician: Mariah Sahu MD, FACOG Electronically signed by: Mariah Sahu MD, FACOG at: 9:26 us Lars Coffey MD IMG US ORDERABLES Final Re sult from Last 3 Months Insurance [facility] Care Teams Assistant Hvac Mechanic Relationship Specialty Start Date End Date Provider, No Known [facility] [place] [address] PCP - General 09/26/24
--- OUTSIDE RECORDS SUMMARY | 2024-12-26 20:06 | XMS_ITS | Encounter Summary ---
Author Organization [employer] ([place], [place], [place], [place]) Address [address] [place] [address] Care Team Providers Care Canary Raiser Name Role Phone Unavailable Primary Care Provider Unavailabl e Encounter Details Date Type Department Care Team (Late st Contact Info) Description 10/19/2020 Transcribed Document [facility] Family Medicine [address] [place] [address] ProviderLo MD [address] [place] [address] Social History Tobacco Use Types [...] On: 10/19/2020 17:28 EDT by Jay Luu Heel Nail Rasper Process Patient Disposition : Discharge Personal Belongings [...] - 10/19/2020 17:28 EDT Electronically signed by Porsche [facility] Conversion Endocrinologist Patrizia at 09/16/2022 7:48 PM CDT documented in this encounter Plan of Treatment Not on file documented as of this encounter Visit Diagnoses Not on filedocumented in this encounter
--- OUTSIDE RECORDS SUMMARY | 2024-12-26 20:06 | XMS_ITS | Encounter Summary ---
Author Organization [employer] ([place], [place], [place], [place]) Address [address] [place] [address] Care Team Providers Care Osteologist Name Role Phone Unavailable Primary Care Provider Unavailabl e Encounter Details Date Type Department Care Team (Late st Contact Info) Description 10/19/2020 Transcribed Document [facility] [address] [place] [address] ProviderLo MD [address] [place] [address] Social History Tobacco Use Types [...] Historical ProviderMD - 10/19/2020 5:24 PM CDT [address] [address] Visit Date/Time: 10/19/2020 17:24:01 [place] The above patient was seen in the hospital today and needs to be excused from work/school until Return to Work/School Date: 10/20/2020 Electronically signed by [facility] Conversion Bed Laborer Patrizia at 09/16/2022 7:48 PM CDT documented in this encounter Plan of Treatment Not on file documented as of this encounter Visit Diagnoses Not on filedocumented in this encounter
--- OUTSIDE RECORDS SUMMARY | 2024-12-26 20:06 | XMS_ITS | Encounter Summary ---
Author Organization Healthcare Address [address] [place] [address] Care Team Providers Care Welder Fabricator Name Role Phone Pcp, No Primary Care Provider Jg Richmond MD Unavailable [phone] Encounter Details Date Type Department Care Team (Late st Contact Info) Description 11/06/2024 Telephone [facility] [address] [place] [address] Dalila Acosta, AUTOMATION TECH [address] [place] [address] Social History Tobacco Use Types [...] Miscellaneous Notes * Telephone Encounter - Dalila Acosta, AUTOMATION TECH - 11/06/2024 2:00 PM EDT Cardiology Psychosocial [...] at this time Financial:Wages: FOB works at [employer] in [place] Transportation Needs: Pt has a vehicle and indicates that it is reliable Understanding of Diagnosis: seeking information appropriately. Changes to delivery plan based on diagnosis?: Pt now planning to deliver at . Has appt at [facility] tomorrow and anticipates that [facility] will send information to [facility] after that appt. H/O traumatic or PMAD:denies emotional concerns Substance Use: none Intervention: -Provided information about role of AUTOMATION TECH and services offered; contact information provided -Engaged [...] to next follow up appointment. ALLYSON Dickey, AUTOMATION TECH Licensed Clinical Psychologist Educational Pediatric Cardiology documented in this encounter Plan of Treatment Upcoming Encounters Date Type Department Care Team ([facility] Contact Info) Description 01/08/2025 8:00 AM EDT Hospital Encounter 02/26/2025 1:00 PM EDT Visit Medical Office Building Obstetrics and Gynecology [address] [facility], [address] [place] [address] Leora Bob APRN [address] [facility] [address] [place] [address] documented as of this encounter Visit Diagnoses Not on filedocumented in this encounter Additional Health Concerns Assessment Noted Time A Body Mass Index follow-up plan has been documented for the patient 10/29/2024 4:48 PM EDT documented as of this encounter Care Teams Welder Fabricator Relationship Specialty Start Date End Date Pcp, No [address] [place] [address] PCP - General Family Medicine 10/28/24 Jg Gonzalez MD [facility] [address] [address] Referring Physician Obstetrics and Gynecology 10/28/24 documented as of this encounter
--- OUTSIDE RECORDS SUMMARY | 2024-12-26 20:06 | XMS_ITS | Encounter Summary ---
Author Organization Healthcare Address [address] 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, single or unspecified fetus Procedures OB US Follow Up Transabdominal Approach Vikas Haile MD [address] [facility] [address] [place] [address] Phone: tel: fax: Referral ID Status Reason Start Date Expiration Date Visits Re quested Visits Authorized [id number] Closed 11/25/2024 05/27/2026 1 1 Encounter Details Date Type Department Care Team (Late st Contact Info) Description 11/25/2024 Orders Only Medical Office Building Obstetrics and Gynecology [address] , [address] [place] [address] iVkas aHile MD [address] [place] [address] Supervision of high risk , [...] week 11/25/2024 How often do you attend formerly [facility] or moravian services? Never 11/25/2024 Do you belong to [...] very hard 11/25/2024 [facility] - Occupational Stress Questionnaire Answer Date [...] any time in the past 12 m [facility], were you homeless or living in a fdc (including now)? No 11/25/2024 [place] Depression Scale Answer Date Recorded [place] Depression Scale Total 8 11/25/2024 The thought [...] at all 11/25/2024 11 :39 AM Kristina lBake Feeling bad about yourself - or that [...] Building Obstetrics and Gynecology [address] [facility], [address] [place] [address] Leora Bob, POWER BALLAST MACHINE OPERATOR [address] [facility] [address] [place] [address] documented as of this encounter Results * OB US Follow Up Transabdominal Approach (12/23/2024 10:48 AM EDT) Anatomical Region Laterality Modality Body Ultrasound 12/23/2024 10:3 2 AM EDT Impressions 12/23/2024 11:02 AM EDT The OB Ultrasound you requested has been resulted. Please navigate to the Imaging tab in [employer] for review. This message has been generated by the interface. Narrative Procedure Note Meeta Mercedes MD - 12/23/2024 IMPRESSION: The OB Ultrasound you requested has been resulted. Please navigate to theImaging tab in [employer] for review. This message has been generated by 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, single or unspecified fetus documented in this encounter Additional Health Concerns Assessment Noted Time PHQ-9 Depression Total Score: 5 11/26/19 25 11:39 AM EDT A Body Mass Index follow-up plan has been documented for the patient 10/29/2024 4:48 PM EDT documented as of this encounter Care Teams Geotechnical Field Technician Relationship Specialty Start Date End Date Pcp, [place] [address] PCP - General Family Medicine 10/28/24 Jg Gonzalez MD [facility] [place] [id number] Referring Physician Obstetrics and Gynecology 10/28/24 documented as of this encounter
--- OUTSIDE RECORDS SUMMARY | 2024-12-26 20:06 | XMS_ITS | Encounter Summary ---
Author Organization Healthcare Address [address] [place] [address] Care Team Providers Care Retail Service Lead Merchandiser Name Role Phone Pcp, No Primary Care Provider Unavailabl e Jg Gonzalez MD Unavailable [phone] Encounter Details Date Type Department Care Team ([facility] Contact Info) Description 12/23/2024 Orders Only Medical Office Building Obstetrics and Gynecology [address] [facility], [address] [place] [address] Leora Bob, ROLL CHANGER [address] [facility] [address] [place] [address] Encounter for induction of labor (Primary Dx); Supervision of high risk , antepartum; complicated by congenital heart disease, single or unspecified fetus Social History Tobacco [...] care, and heating? Not very hard 11/25/2024 [facility] [place] [facility] Occupat ional [facility] - Occupational Stress [...] were you homeless or living in a usp (including now)? No 11/25/2024 [place] Depression Scale Answer Date Recorded [place] Depression Scale Total 8 11/25/2024 The thought [...] and Gynecology [address] [facility], [address] [place] [address] Leora Bob, ROLL CHANGER [address] [facility] [address] [place] [address] Scheduled Orders Name Type Priority Associated Diagnoses Orde r Schedule Labor Induction Procedures Routine Supervision of high risk , antepartum complicated by congenital heart disease, single or unspecified fetus Encounter for induction of labor Expected: 01/08/2025, Expires: 01/23/2025 documented as of this encounter Visit Diagnoses Diagnosis Encounter for induction of labor- Primary Supervision of high risk , antepartum complicated by congenital heart disease, single or unspecified fetus documented in this encounter Additional Health Concerns Assessment Noted Time PHQ-9 Depression Total Score: 5 11/26/19 25 11:39 AM EDT A Body Mass Index follow-up plan has been documented for the patient 12/04/2024 3:27 PM EDT documented as of this encounter Care Teams Retail Service Lead Merchandiser Relationship Specialty Start Date End Date Pcp, Sherron [address] [place] [address] PCP - General Family Medicine 10/28/24 Jg Gonzalez MD [address] [place] [address] [place] [address] Referring Physician Obstetrics and Gynecology 10/28/24 documented as of this encounter
--- OUTSIDE RECORDS SUMMARY | 2024-12-26 20:06 | XMS_ITS | Encounter Summary ---
Author Organization Healthcare Address [address] [place] [address] Care Team Providers Care Dry Wall Plasterer Name Role Phone Pcp, No Primary Care Provider Jg Richmond MD Unavailable [phone] Encounter Details Date Type Department Care Team (Late st Contact Info) Description 11/26/2024 Telephone [facility] Pediatric Cardiac Diagnostic Testing [address] [place] [address] Hubert Vlilegas MD [address] [place] [address] Social History Tobacco Use Types Packs/Day Years [...] How often do you attend chur or nondenominational services? Never 11/25/2024 Do you belong to [...] in a half-way (including now)? No 11/25/2024 [place] Depression Scale Answer Date Recorded [place] Depression Scale Total 8 11/25/2024 The thought [...] Office Building Obstetrics and Gynecology [address] [facility], [address] [place] [address] Leora Bob, MARK [address] [facility] [address] [place] [address] documented as of this encounter Visit Diagnoses Not on filedocumented in this encounter Additional Health Concerns Assessment Noted Time PHQ-9 Depression Total Score: 5 11/26/19 25 11:39 AM EDT A Body Mass Index follow-up plan has been documented for the patient 10/29/2024 4:48 PM EDT documented as of this encounter Care Teams Dry Wall Plasterer Relationship Specialty Start Date End Date Pcp, [place] [address] PCP - General Family Medicine 10/28/24 Jg Gonzalez MD [address] [facility] [address] [place] [address] Referring Physician Obstetrics and Gynecology 10/28/24 documented as of this encounter
--- OUTSIDE RECORDS SUMMARY | 2024-12-26 20:07 | XMS_ITS | Encounter Summary ---
Author Organization Healthcare Address [address] [place] [address] Care Team Providers Care Gym Teacher Name Role Phone Pcp, No Primary Care Provider Medardo e Jg Gonzalez MD Unavailable [phone] Reason for Visit * Reason Onset Date Comments MFM: Delivery Planning 12/23/2024 IOL Sched uled - See Note Encounter Details Date Type Department Care Team ([facility] Contact Info) Description 12/23/2024 Telephone Medical Office Building Obstetrics and Gynecology [address] [facility], [address] [place] [address] Gissell Monroe, RN [facility] MFM: Delivery Planning (IOL Scheduled - See Note) Social History Tobacco Use Types Packs/Day Years [...] How often do you attend chur or baptism services? Never 11/25/2024 Do you belong to any clubs o r organizations such as caodaism groups, unions, fraternal or athletic groups, or [...] care, and heating? Not very hard 11/25/2024 [facility] ional [facility] - [...] in a fpc (including now)? No 11/25/2024 [place] Depression Scale Answer Date Recorded [place] Depression Scale Total 8 11/25/2024 The thought [...] encounter Miscellaneous Notes * Telephone Encounter - Gissell Monroe RN - 12/23/2024 2:48 PM EDT Message received from Lukasz oBb APRN, to coordinate care for the patient's upcoming delivery. Planof care includes IOL after 39 weeks secondary to a complicated by CHD; Tetrology ofFallot . AUGUSTINE: 01/15/25; requested date 01/08/2025. Attempt to call the patient to confirm was unsuccessful. No Answer. Voicemail left requesting the patient call back @ her convenience. Will follow-up with a [employer] message as an alternative form of communication. documented in this encounter Plan of Treatment Upcoming Encounters Date Type Department Care Team ([facility] st Contact Info) Description 01/08/2025 8:00 AM EDT Hospital Encounter 02/26/2025 1:00 PM EDT Visit Medical Office Building Obstetrics and Gynecology [address] [facility], [address] [place] [address] Leora Bob, RECREATION SUPERINTENDENT [address] [facility] [address] [place] [address] documented as of this encounter Visit Diagnoses Not on filedocumented in this encounter Additional Health Concerns Assessment Noted Time PHQ-9 Depression Total Score: 5 11/26/19 25 11:39 AM EDT A Body Mass Index follow-up plan has been documented for the patient 12/04/2024 3:27 PM EDT documented as of this encounter Care Teams Gym Teacher Relationship Specialty Start Date End Date Pcp, Sherron [address] [place] [address] PCP - General Family Medicine 10/28/24 Jg Gonzalez MD [address] [facility] [address] [place] [address] Referring Physician Obstetrics and Gynecology 10/28/24 documented as of this encounter
--- OUTSIDE RECORDS SUMMARY | 2024-12-26 20:07 | XMS_ITS | Clinical Summary ---
Author Organization Healthcare Address [address] [place] [address] Care Team Providers Care Zone Supervisor Firearms Name Role Phone Pcp, No Primary Care Provider Unavailabl gJ Perez MD Unavailable [phone] Allergies No known active allergies Medications [...] Encounters Date Type Department Care Team Description 12/23/2024 10:30 AM EDT Routine Medical Office Building Obstetrics and Gynecology [address] [facility], [address] [place] [address] Vikas Haile MD Supervision of high risk , antepartum (Primary Dx) 12/23/2024 10:00 AM EDT - 12/23/2024 11:59 PM EDT Hospital Encounter Medical Office Building Obstetrics and Gynecology [address] , [address] [place] [address] Supervision of high risk , antepartum; 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, single or unspecified fetus Discharge Disposition: Home or Self Care 12/23/2024 Telephone Medical Office Building Obstetrics and Gynecology [address] , [address] [place] [address] Gissell Monroe, RN MFM: Delivery Planning (IOL Scheduled - See Note) 12/23/2024 Orders Only Medical Office Building Obstetrics and Gynecology [address] [facility] [facility], [address] [place] [address] Lisbeth Leora L, MARK Encounter for induction of labor (Primary Dx); Supervision of high risk , antepartum; complicated by congenital heart disease, single or unspecified fetus 12/23/2024 Travel 12/04/2024 3:15 PM EDT Office Visit [facility] [address], [address] [place] [address] Paul Collazo MD Maternal care for other (suspected) abnormality and damage, not applicable or unspecified (Primary Dx) 12/04/2024 2:26 PM EDT - 12/04/2024 11:59 PM EDT Hospital Encounter [facility] Pediatric Cardiac Diagnostic Testing [address] [address], [place] [address] Maternal care for other (suspected) abnormality and damage, not applicable or unspecified Discharge Disposition: Home or Self Care 12/04/2024 1:45 PM EDT Office Visit [facility] [address] [place] [address] Dalila Acosta, LABORER EGG [employer]ODUCING [employer]ARM 12/04/2024 Travel 11/26/2024 Telephone [facility] Pediatric Cardiac Diagnostic Testing [address] [facility] [address], [place] [address] Hubert Villegas MD 11/26/2024 Telephone [facility] Pediatric Cardiac Diagnostic Testing [address] [facility] [facility] [address], [place] [address] Hubert Villegas MD 11/25/2024 10:45 AM EDT Initial Medical Office Building Obstetrics and Gynecology [address] [facility], [address] [place] [address] Vikas Haile MD GA: [id number] 11/25/2024 10:00 AM EDT - 11/25/2024 11:59 PM EDT Hospital Encounter Medical Office Building Obstetrics and Gynecology [address] [facility], [address] [place] [address] Maternal care for other (suspected) abnormality and damage, not applicable or unspecified Discharge Disposition: Home or Self Care 11/25/2024 Telephone Medical Office Building Obstetrics and Gynecology [address] [facility], [address] [place] [address] Charlette Ugalde RN [facility] Care coordination 11/25/2024 Orders Only Medical Office Building Obstetrics and Gynecology [address] [facility], [address] [place] [address] Vikas Haile MD Supervision of high risk , antepartum (Primary Dx); 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, [place] [address] Paul Collazo MD 11/06/2024 Telephone [facility] [address] [place] [address] Dalila Acosta LABORER [employer] 10/28/2024 10:30 AM EDT Office Visit [facility] [address], [address] [place] [address] Paul Collazo MD Maternal care for other (suspected) abnormality and damage, not applicable or unspecified (Primary Dx) 10/28/2024 10:21 AM EDT - 10/28/2024 11:59 PM EDT Hospital Encounter [facility] Pediatric Cardiac Diagnostic Testing [address], [place] [address] Abnormal obstetric ultrasound scan Discharge Disposition: Home or Self Care 10/28/2024 Travel 10/22/2024 Telephone [facility] Pediatric Cardiac Diagnostic Testing [address] [facility] [facility], [place] [address] Hubert Villegas MD 10/14/2024 Telephone [facility] Pediatric Cardiac Diagnostic Testing [address] [facility] [facility], [place] [address] Hubert Villegas MD from Last 3 Months [...] week 11/25/2024 How often do you attend [facility] or [facility] services? Never 11/25/2024 Do you belong to any clubs o r organizations such as protestant groups, unions, fraternal or athletic groups, or [...] hard 11/25/2024 [facility] - Occupational Stress Questionnaire Answer Date Recorded [...] any time in the past 12 m [facility], were you homeless or living in a halfway (including now)? No 11/25/2024 [place] Depression Scale Answer Date Recorded [place] Depression Scale Total 8 11/25/2024 The thought [...] Mass Index 26.09 12/23/2024 11:15 AM EDT Plan of Treatment Upcoming Encounters Date Type Department Care Team ([facility] st Contact Info) Description 01/08/2025 8:00 AM EDT Hospital Encounter 02/26/2025 1:00 PM EDT Visit Medical Office Building Obstetrics and Gynecology [address] [facility], [address] [place] [address] Leora Bob, FACULTY NEUROPSYCHOLOGIST [address] [address] Health Maintenance Due Date Last Done Comments [facility]-Hepatitis C Screening 2000 [facility]-/Child/Adol SDOH Screenings 2000 [facility]-Hepatitis A Vaccines (2 of 2 - 2-dose series) 08/26/2015 02/25/2015 HPV Vaccines (3 - 3-dose series) 08/28/2015 06/05/2015, 02/25/2015 [facility]-Pap Smear 2019 MEW-RPBBO-04 Vaccine ( season) 2024 07/24/2020, 06/13/2020 [facility]-DTaP,Tdap,and Td Vaccines [...] Completed 12/24/2014, 1998 [facility]-HIV Screening Completed 10/19/2020 [facility]-Obesity Intervention Completed 025, 12/04/2024, 10/28/2024 [facility]-Pneumococcal Vaccine: Pediatrics (0 to 5 Years) [...] of high risk , antepartum OB US FOLLOW UP TRANSABDOMINAL APPROACH Routine 12/23/2024 10:48 AM EDT Supervision of high risk , antepartum 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 POCT Urine Color Yellow POCT Urine Clarity Clear POCT Glucose Urine Negative Negative mg/dL POCT Bilirubin, Urine Negative Negative POCT Ketones, Urine Negative Negative mg/dL POCT Specific [place], Urine 1.020 POCT Blood, Urine Negative Negative POCT pH, Urine 7.0 5.0 to 8.0 POCT Protein, Urine Negative Negative mg/dL POCT Urobilinogen, Urine 0.2 0.2, 1 E.U./dL POCT Nitrite, Urine Negative Negative POCT Leukocyte Esterase, Urine Small(A) Negative Test Strip Lot Number [id number] Test Strip Lot Expiration 10/2025 Urine Urine specimen obtained by clean catch procedure / Unknown 12/23/2024 11:19 AM EDT Result Valente Haile MD POINT OF CARE TEST ENTER/EDIT ORDERABLES Final Result * OB US Follow Up Transabdominal Approach (12/23/2024 10:48 AM EDT) Anatomical Region Laterality Modality Body Ultrasound 12/23/2024 10:3 2 AM EDT Impressions 12/23/2024 11:02 AM EDT The OB Ultrasound you requested has been resulted. Please navigate to the Imaging tab in F[employer] for review. This message has been generated by the interface. Narrative Procedure Note Meeta Mercedes MD - 12/23/2024 IMPRESSION: The OB Ultrasound you requested has been resulted. Please navigate to theImaging tab in Fliptop for review. This message has been generated by theinterface. Result Valente Haile MD IMG OB US PROCEDURES Final Res ult * Echo Limited (12/04/2024 3:07 PM EDT) Anatomical Region Laterality Modality Echocardiography 12/04/2024 2:30 PM EDT us Paul Collazo MD CV ECHO PROCEDURES Final Resul t * OB US Detail Anatomy (11/25/2024 10:38 AM EDT) Anatomical Region Laterality Modality Body Ultrasound 11/25/2024 9:52 AM EDT Impressions 11/25/2024 12:31 PM EDT The OB Ultrasound you requested has been resulted. Please navigate to the Imaging tab in Fliptop for review. This message has been generated by the interface. Narrative Procedure Note Rosmery, Jeni ADO - 11/25/2024 IMPRESSION: The OB Ultrasound you requested has been resulted. Please navigate to theImaging tab in Fliptop for review. This message has been generated by [employer]. us Mariah Sahu MD IMG OB US [...] 1 AM EDT 10/19/2020 10:20 AM EDT us Jayson Brandt LAB BLOOD ORDERABLES Final Resul t SUNQUEST from Last 3 Months or Most Recently Relevant to Health Maintenance Insurance [facility] MEDICAID Care Teams Zone Supervisor Firearms Relationship Specialty Start Date End Date Pcp, No [address] [place] [address] PCP - General Family Medicine 10/28/24 Jg Gonzalez MD [address] [address] [place] [address] Referring Physician Obstetrics and Gynecology 10/28/24
--- OUTSIDE RECORDS SUMMARY | 2024-12-26 20:07 | XMS_ITS | Encounter Summary ---
Author Organization [employer] ([place], [place], [place], [place]) Address [address] [place] [address] Care Team Providers Care Power Sewing Machine Operator Name Role Phone Unavailable Primary Care Provider Unavailabl e Encounter Details Date Type Department Care Team (Late st Contact Info) Description 10/19/2020 Transcribed Document [facility] [place] [facility] [place] [address] ProviderLo MD [address] [place] [address] Social History Tobacco Use Types [...] severe, 3 days, left-sided. Was seen at [facility] and had labs but no [...] EDT Height Source Stated Height Entry Format Kemp Height/Length, EQUATORIAL GUINEAN (ft) 5 ft Height/Length EQUATORIAL GUINEAN 3 Inch CLINICALHEIGHT 160.02 cm [place]lejo Body Weight 52.02 kg Weight Source, ED Critical estimated dosing weight Weight Entry Format Kemp Weight Ugandan lb 110 lb CLINICALWEIGHT 50 kg Body [...] % LOW Lymph # 0.97 K/uL LOW Hooker % 4.8 % Hooker # 0.42 K/uL Eos % 0.0 % LOW Eos # 0.00 K/uL LOW Baso % 0.5 % Baso # 0.04 K/uL Slide Review No IG# 0 x10(3)/uL IG% 0 % Urine Type. U CleanCatch Urine Color Yellow Urine Appearance Cloudy Urine Specific [place] 1.011 Urine pH Dipstick 6.5 Urine Leukocyte [...] Radiology results: Radiology Results (Last 48 hours) [id number] -- 10/19/2020 12:22 CT Abdomen Pelvis W [...] a primary care provider the patient resource home health scheduler can assist you with establishing care and scheduling follow-up. The Patient Resource Game Manager can be contacted at ., Follow up with primary care provider Within 2 to 3 days Call for follow up appointment. Please follow-up with your primary care provider in 2 to 3 days. Return to ED if you experience new or worsening symptoms. If you do not have a primary care provider the patient resource home health scheduler can assist you with establishing care and scheduling follow-up. The Patient Resource Game Manager can be contacted at .; NO PRIM DR SHERMAN Within 2 to 3 days; Follow-up with your NEON SIGN SERVICER as discussed Within 2 to 3 days. Counseled: Patient, Family, Regarding diagnosis, Regarding diagnostic results, Regarding treatment plan, Regarding prescription, Patient indicated understanding of instructions. documented in this encounter Plan of Treatment Not on file documented as of this encounter Visit Diagnoses Not on filedocumented in this encounter
--- OUTSIDE RECORDS SUMMARY | 2024-12-26 20:07 | XMS_ITS | Encounter Summary ---
Author Organization [employer] ([place], [place], [place], [place]) Address [address] [place] [address] Care Team Providers Care Combined Rail Operator Name Role Phone Unavailable Primary Care Provider Unavailabl e Encounter Details Date Type Department Care Team (Late st Contact Info) Description 10/19/2020 Transcribed Document [facility] [place] [address] [place] [address] ProviderLo MD [address] [place] [address] Social History Tobacco Use Types [...] Communication Barrier : None Primary Language : Ghanaian Any Spiritual/Cultural Needs or Requests : No [...] WDJay Urrutia Rn - 10/19/2020 17:22 EDT Electronically signed by Wanda Morrell Conversion Licensed Pesticide Applicator Cerner at 09/16/2022 7:40 PM CDT documented in this encounter Plan of Treatment Not on file documented as of this encounter Visit Diagnoses Not on filedocumented in this encounter
--- OUTSIDE RECORDS SUMMARY | 2024-12-26 20:07 | XMS_ITS | Encounter Summary ---
Author Organization [employer] ([place], [place], [place], [place]) Address [address] [place] [address] Care Team Providers Care Bellmaker Name Role Phone Unavailable Primary Care Provider Unavailabl e Encounter Details Date Type Department Care Team (Late st Contact Info) Description 10/19/2020 Transcribed Document [facility] [place] Medicine [address] [place] [address] ProviderLo MD [address] [place] [address] Social History Tobacco Use Types [...] Lo ProviderMD - 10/19/2020 5:12 PM CDT [id number] [place] HE[place]I :2000 Visit Time:10/19/2020 Your [...] Appointments Follow Up with Follow-up with your FRAUD EXAMINER as discussed When Within 2 to 3 days Follow Up with Follow up with primary care provider When Within 2 to 3 days Comments Call for follow up appointment. Please follow-up with your primary care provider in 2 to 3 days. Return to ED if you experience new or worsening symptoms. If you do not have a primary care provider the patient resource tipple operator can assist you with establishing care and scheduling follow-up. The Patient Resource Information Clerk Cashier can be contacted at . Follow Up [...] range between ( 1.0 and 7.0 ) Garfield #: 0.42 K/uL -- Normal range between ( 0.24 and 0.82 ) Eos #: 0.00 K/uL -- Normal range between ( 0.04 and 0.54 ) [place]field %: 4.8 % -- Normal range between [...] ) Urine Bilirubin Dipstick: Negative Urine Specific [place]: 1.011 -- Normal range between ( 1.005 [...] these instructions at home: Medicines ??? Take doth-vcg-onplkmm and prescription medicines only as told by [...] your condition for any changes. ??? Take sauk-uge-jqgkxpl and prescription medicines only as told by [...] provider. Document Revised: 09/23/2019 Document Reviewed: 09/23/2019 [employer] Patient Education ?? 2020 itBit. Emergency Awareness and Preventative Care STROKE is [...] Assistance with quitting is available by contacting 3-765-HNIK-NOW. This is a free resource providing counseling, [...] was given the opportunity to ask questions. Patient/Welt Stitcher Name: Patient/Welt Stitcher Signature: Relationship to Patient: Clinician/Hospital Welt Stitcher Signature: Please Provide a Telephone Number Where You Can Be Reached: Is it Permissible To Leave a Message? Date: documented in this encounter Plan of Treatment Not on file documented as of this encounter Visit Diagnoses Not on filedocumented in this encounter
--- OUTSIDE RECORDS SUMMARY | 2024-12-26 20:07 | XMS_ITS | Encounter Summary ---
Author Organization [employer] ([place], [place], [place], [place]) Address [address] [place] [address] Care Team Providers Care Chemistry Technical Officer Name Role Phone Unavailable Primary Care Provider Unavailabl e Encounter Details Date Type Department Care Team (Late st Contact Info) Description 10/19/2020 Transcribed Document [facility] Radiology [address] [place] [address] Boby Mccracken MD [address] [place] [address] Dept. [place] [address] Social History Tobacco Use Types [...] severe, 3 days, left-sided. Was seen at [facility] and had labs but no formal imaging, [...]
--- OUTSIDE RECORDS SUMMARY | 2024-12-26 20:07 | XMS_ITS | Encounter Summary ---
Author Organization [employer] ([place], [place], [place], [place]) Address [address] [place] [address] Care Team Providers Care Personnel Counselor Name Role Phone Unavailable Primary Care Provider Unavailabl e Encounter Details Date Type Department Care Team (Late st Contact Info) Description 10/19/2020 Transcribed Document [facility] [place] [address] [place] [address] ProviderLo MD [address] [place] [address] Social History Tobacco Use Types [...] 10/19/2020 5:08 PM CDT Electronically signed by [facility], [facility] Conversion Dish Network Installer Cerner at 09/16/2022 7:44 PM CDT documented in this encounter Plan of Treatment Not on file documented as of this encounter Visit Diagnoses Not on filedocumented in this encounter
--- OUTSIDE RECORDS SUMMARY | 2024-12-26 20:07 | XMS_ITS | Encounter Summary ---
Author Organization [employer] ([place], [place], [place], [place]) Address [address] [place] [address] Care Team Providers Care Manager Ct Name Role Phone Unavailable Primary Care Provider Unavailabl e Encounter Details Date Type Department Care Team (Late st Contact Info) Description 10/19/2020 Transcribed Document [facility] [place] [address] [place] [address] ProviderLo MD [address] [place] [address] Social History Tobacco Use Types [...]
--- OUTSIDE RECORDS SUMMARY | 2024-12-26 20:07 | XMS_ITS | Encounter Summary ---
Author Organization [employer] ([place], [place], [place], [place]) Address [address] [place] [address] Care Team Providers Care Sales Advisory Manager Name Role Phone Unavailable Primary Care Provider Unavailabl e Encounter Details Date Type Department Care Team (Late st Contact Info) Description 10/19/[address] [facility] [place] Family Medicine [address] [place] [address] ProviderLo MD [address] [place] [address] Social History Tobacco Use Types [...]
[2024-12-26 20:15] VITALS: BP 110/78; PULSE 95; RESP 16; TEMP 36.8; O2SAT 98; BMI 26.2
== END 2024-12-26 23:00 | disposition home or self-care (01) ==
LOC: OBOUT 20:04 → OB 20:05
PROVIDERS: Visit Provider Obstetrics & Gynecology
DX: Z34.83 Encounter for supervision of other normal pregnancy, third trimester (principal); Z3A.37 37 weeks gestation of pregnancy; W19.XXXA Unspecified fall, initial encounter
CPT/HCPCS: 59025; 99212; G0463

== ENCOUNTER 2025-01-03 13:45 | Outpatient (CLI) | payer OTHER, SELFPAY ==
--- OUTSIDE RECORDS SUMMARY | 2024-11-07 13:15 | XMS_ITS | Encounter Summary ---
[facility] Address [address] [place] [address] Care Team Providers Care Chimney Construction Supervisor Name Role Phone Provider, No Known Primary Care Provider Unavail able Reason for Referral * Diagnostic Imaging (Routine) - Closed Specialty Diagnoses / Procedures Referred By Niharika t Referred To Contact Radiology Diagnoses 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, single or unspecified fetus , unspecified gestational age Procedures [facility] [place] Lars Coffey MD [address] [facility] [id number] Phone: tel: fax: Referral ID Status Reason Start Date Expiration Date Visits Re quested Visits Authorized [id number] Closed 10/10/2024 01/09/2026 1 1 Reason for Visit * Diagnostic Imaging (Routine) - Closed Specialty Diagnoses / Procedures Referred By Contac t Referred To Contact Radiology Diagnoses 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, single or unspecified fetus , unspecified gestational age Procedures [facility] [place] Lars Coffey MD [address] [address] Phone: tel: fax: Referral ID Status Reason Start Date Expiration Date Visits Re quested Visits Authorized [id number] Closed 10/10/2024 01/09/2026 1 1 Encounter Details Date Type Department Care Team (Late st Contact Info) Description 11/07/2024 1:15 PM EDT - 11/07/2024 11:59 PM EDT Hospital Encounter PSYCHIATRIC US PER DI[facility] [address] [place] [address] Lars Coffey MD [address] [place] [address] 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, single or unspecified fetus; , unspecified gestational age Discharge Disposition: Home or Self Care Social [...] this encounter Medications at Time of Discharge FeroSul 325 (65 Fe) MG tablet Take 1 tablet by mouth Daily. 08/28/2024 Vit-Fe Fumarate-FA ( vitamin 27-0.8) 27-0.8 MG tablet tablet Take 1 tablet by mouth Daily. documented as of this encounter Plan of Treatment Not on file documented as of this encounter Procedures Procedure Name Priority Date/Time Associated Diagnosis Comments [facility] Routine 11/07/2024 2:12 PM EDT 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, single or unspecified fetus , unspecified gestational age documented in this encounter Results * [facility] (11/07/2024 2:12 PM EDT) Anatomical Region Laterality Modality Ultrasound 11/07/2024 1:34 PM EDT Narrative 11/12/2024 7:26 PM EDT PAT NAME: PAPA RICO MED REC#: [id number] DA: [id number] PAT GEND: F PAT TYPE: O EXAM LYNN: [id number] REF PHYS [facility] Comparison Studies The findings of this study are compared to the prior ultrasound study dated 10/10/24. Patient Status Outpatient Indication ======== tetralogy of Fallot Maternal Assessment Height 162 cm Height (ft) 5 ft Height (in) 4 in Weight 61 kg Weight (lb) 134 lb BMI 23.16 kg/m Method ======= Transabdominal ultrasound examination ========= Acosta . Number of fetuses: 1 Dating ====== GA by prior assessment 30 w + 1 d AUGUSTINE by prior assessment: 01/15/2025 Ultrasound examination on: 11/07/2024 GA by U/S based upon: AC, BPD, Femur, HC GA by U/S 31 w + 2 d AUGUSTINE by U/S: 01/07/2025 Method of dating: Restore dating from previous exam Previous dating: based on stated AUGUSTINE, selected on 10/10/2024 Agreed AUGUSTINE of previous datin01/15/2025 Assigned: based on stated AUGUSTINE, selected on 10/10/2024 Assigned GA 30 w + 1 d Assigned AUGUSTINE: 01/15/2025 length 280 d Biometry Standard BPD 80.5 mm 32w 2d 93% Hadlock OFD 106.2 mm 35w 0d >99% Jamie HC 298.8 mm 33w 1d 91% Hadlock Cerebellum tr 37.5 mm 30w 5d 54% Hill AC 262.0 mm 30w 2d 51% Hadlock Femur 56.4 mm 29w 4d 22% Hadlock Humerus 50.2 mm 29w 3d 33% Jamie HC / AC 1.14 EFW 1,590 g 30w 1d 51% Hadlock EFW (lb) 3 lb EFW (oz) 8 oz EFW by: Hadlock (FYC-DN-[id number]-FL) Extended Cav. septi pel. tr 5.1 mm Quebracho Tanner 8.0 mm CM 7.3 mm 58% Nicolaides Head / Face / Neck Cephalic index 0.76 16% Nicolaides Extremities / Bony Struc FL / BPD 0.70 FL / HC 0.19 FL / AC 0.22 Other Structures FHR 144 bpm General Evaluation Cardiac activity present. FHR 144 bpm. movements present. Presentation breech. Placenta Placental site: posterior. Amniotic fluid Amount of AF: normal. MVP 4.2 cm. MAYELA 13.3 cm. Q1 1.5 cm, Q2 3.9 cm, Q3 3.8 cm, Q4 4.2 cm. Anatomy Cranium: Normal Cavum septi pellucidi: Normal Cerebellum: Normal Cisterna magna: Normal Head / Neck Rt lateral ventricle: Normal Lt lateral ventricle: Normal 4-chamber view: ABNORMAL RVOT view: ABNORMAL LVOT view: ABNORMAL Stomach: Appears normal Kidneys: Appears normal Bladder: Appears normal Gender: male Wants to know gender: yes Doppler Arterial Umbilical A PI 0.86 28% Mirian Umbilical A RI 0.57 17% Mirian Umbilical A PS 47.49 cm/s 60% Ebbing Umbilical A ED 20.33 cm/s Umbilical A TAmax 31.60 cm/s 61% Ebbing Umbilical A MD 20.02 cm/s Umbilical A S / D 2.34 18% Mirian Umbilical A HR 149 bpm Biophysical Profile 2: breathing movements 2: Gross body movements 2: tone 2: Amniotic fluid volume 8/8 Biophysical profile score Consultation / Office Visit Office note to follow Impression Today's exam reveals a SIUP in breech presentation with biometry consistent with dates. Limited anatomic reveals a stable appearing complex congential heart defect. The remainder of the limited anatomic survey appears normal. Posterior placenta. BPP 8/8. The MAYELA is normal. Recommendation Transfer to [facility] Coding ======= Description: 50028-88 Follow Up Ultrasound Description: 61035-62 BPP without NST Bottom Stainer: Becca Perez RDMS Physician: Mariah Sahu MD, FACOG Electronically signed by: Mariah Sahu MD, FACOG at: 19:26 Procedure Note Mariah Sahu MD - 11/12/2024 PAT NAME: PAPA RICO MED REC#: [id number] DA: 2000 PAT GEND: F PAT TYPE: O EXAM LYNN: [id number] REF PHYS [facility] Comparison Studies The findings of this study are compared to the prior ultrasound studydated 10/10/24. Patient Status Outpatient Indication ======== tetralogy of Fallot Maternal Assessment Wwkycb505 cm Height (ft)5 ft Height (in)4 in Xjcuxb82 kg Weight (lb)134 lb BMI23.16 kg/m Method ======= Transabdominal ultrasound examination ========= Acosta . Number of fetuses: 1 Dating ====== GA by prior [id number] w + 1 d AUGUSTINE by prior assessment:01/15/2025 Ultrasound examination on:11/07/2024 GA by U/S based upon:AC, BPD, Femur, HC GA by U/S31 w + 2 d AUGUSTINE by U/S:01/07/2025 Method of dating:Restore dating from previous exam Previous dating:based on stated AUGUSTINE, selected on 10/10/2024 Agreed AUGUSTINE of previous datin01/15/2025 Assigned:based on stated AUGUSTINE, selected on 10/10/2024 Assigned GA30 w + 1 d Assigned AUGUSTINE:01/15/2025 d Biometry Standard BPD80.5 mm 32w 2d 93% Hadlock SQC959.2 mm 35w 0d >99% Ajmie HC298.8 mm 33w 1d 91% Hadlock Cerebellum tr37.5 mm 30w 5d 54% Hill AC262.0 mm 30w 2d 51% Hadlock Femur56.4 mm 29w 4d 22% Hadlock Kegnmfe82.2 mm 29w 3d 33% Jamie HC / AC1.14 EFW1,590 g 30w 1d 51% Hadlock EFW (lb)3 lb EFW (oz)8 oz EFW by:Hadlock (CZS-KA-LD-FL) Extended Cav. septi pel. tr5.1 mm Vp8.0 mm CM7.3 mm 58% Nicolaides Head / Face / Neck Cephalic index0.76 16% Nicolaides Extremities / Bony Struc FL / BPD0.70 FL / HC0.19 FL / AC0.22 Other Structures KCB860 bpm General Evaluation Cardiac activity present. FHR 144 bpm. movements present. Presentation breech. Placenta Placental site: posterior. Amniotic fluid Amount of AF: normal. MVP 4.2 cm. MAYELA 13.3 cm. Q1 1.5 cm,Q2 3.9 cm, Q3 3.8 cm, Q4 4.2 cm. Anatomy Cranium:Normal Cavum septi pellucidi:Normal Cerebellum:Normal Cisterna magna:Normal Head / Neck Rt lateral ventricle:Normal Lt lateral ventricle:Normal 4-chamber view:ABNORMAL RVOT view:ABNORMAL LVOT view:ABNORMAL Stomach:Appears normal Kidneys:Appears normal Bladder:Appears normal Gender:male Wants to know gender:yes Doppler Arterial Umbilical A PI0.86 28% Mirian Umbilical A RI0.57 17% Mirian Umbilical A PS47.49 cm/s 60% Ebbing Umbilical A ED20.33 cm/s Umbilical A TAmax31.60 cm/s 61% Ebbing Umbilical A MD20.02 cm/s Umbilical A S / D2.34 18% Mirian Umbilical A HR149 bpm Biophysical Profile 2: breathing movements 2: Gross body movements 2: tone 2: Amniotic fluid volume 01/03 Biophysical profile score Consultation / Office Visit Office note to follow Impression Today's exam reveals a SIUP in breech presentation with biometryconsistent with dates. Limited anatomic reveals a stable appearingcomplex congential heart defect. The remainder of the limited anatomic survey appears normal.Posterior placenta. BPP 01/03. The MAYELA is normal. Recommendation Transfer to [facility] Coding ======= Description:49028-02 Follow Up Ultrasound Description:76095-12 BPP without NST Bottom Stainer: Becca Perez RDMS Physician: Mariah Sahu MD, FACOG Electronically signed by: Mariah Sahu MD, FACOG at: 1719:26 us Lars Coffey MD IMG US ORDERABLES Final Re sult documented in this encounter Visit Diagnoses Diagnosis 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, single or unspecified fetus , unspecified gestational age documented in this encounter Care Teams Chimney Construction Supervisor Relationship Specialty Start Date End Date Provider, [place] [address] PCP - General 09/26/24 documented as of this encounter
--- OUTSIDE RECORDS SUMMARY | 2024-11-07 13:15 | XMS_ITS | Encounter Summary ---
[facility] Address [address] [place] [address] Care Team Providers Care Telephone Recorder Name Role Phone Provider, No Known Primary Care Provider Unavail able Reason for Visit * Reason Comments Tetralogy of Fallot Encounter Details Date Type Department Care Team (Late st Contact Info) Description 11/07/2024 1:15 PM EDT Office Visit [facility] MATERNAL MEDICINE [address] [facility] [address] [place], [place] [phone] Mariah Sahu MD [address] [facility] [address] [place], [place] [phone] Congenital heart disease of fetus affecting antepartum [...] delivery at per Cardiology Will transfer to [facility] * Bernie Jiménez RN - 11/07/2024 [...] 30w6d who presents today for follow up AGUUSTINE: Estimated Date of Delivery: 01/15/25 ROS: As [...] delivery at per Cardiology Will transfer to [facility] Follow Up No follow-ups on file. LEVAR to [facility] I spent 10 minutes caring for [...] [facility]. Mariah Sahu MD FACOG Maternal Medicine, [facility] 11/07/2024 documented in this encounter Plan of Treatment Not on file documented as of this encounter Visit Diagnoses Diagnosis 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, single or unspecified fetus- Primary documented in this encounter Care Teams Telephone Recorder Relationship Specialty Start Date End Date Provider, [place] [address] PCP - General 09/26/24 documented as of this encounter
--- OUTSIDE RECORDS SUMMARY | 2024-11-25 10:00 | XMS_ITS | Encounter Summary ---
Author Organization Healthcare Address [address] [place] [address] Care Team Providers Care Copra Sampler Name Role Phone Pcp, No Primary Care Provider Jg Richmond MD Unavailable [phone] Reason for Visit * Imaging (Routine) - Closed Specialty Diagnoses / Procedures Referred By Contac t Referred To Contact Obstetrics and Gynecology Diagnoses Maternal care for other (suspected) abnormality and damage, not applicable or unspecified Procedures OB US Detail Anatomy OB US 14+ Weeks Anatomy Scan Mariah Sahu MD [address] [facility] [address] [place] [address] Phone: tel: fax: Referral ID Status Reason Start Date Expiration Date Visits Re quested Visits Authorized [id number] Closed 11/12/2024 05/14/2026 1 1 Encounter Details Date Type Department Care Team (Latest Contact Info) Description 11/25/2024 10:00 AM EDT - 11/25/2024 11:59 PM EDT Hospital Encounter Medical Office Building Obstetrics and Gynecology [facility] [address] [facility], [address] [place] [address] Maternal care for other (suspected) [...] week 11/25/2024 How often do you attend [facility] or adventism services? Never 11/25/2024 Do you belong to any clubs o r organizations such as baptist groups, unions, fraternal or athletic groups, or [...] and heating? Not very hard 11/25/2024 [facility] - Occupational Stress Questionnaire Answer Date [...] any time in the past 12 m [facility], were you homeless or living in a half-way (including now)? No 11/25/2024 [place] Depression Scale Answer Date Recorded [place] Depression Scale Total 8 11/25/2024 The thought [...] on file documented as of this encounter Functional Status [...] usual. Not at all 11/25/2024 11:39 AM Kristina Blake Thoughts that you would be better off [...] Office Building Obstetrics and Gynecology [address] [facility], [address] [place] [address] Leora Bob, MANAGER LAN [address] [facility] [address] [place] [address] documented as of this encounter [...] Please navigate to the Imaging tab in [employer] for review. This message has been generated by the interface. Narrative Procedure Note Jeni Botello, DO - 11/25/2024 IMPRESSION: The OB Ultrasound you requested has been resulted. Please navigate to theImaging tab in [employer] for review. This message has been generated by the[employer]ric[employer]. us Mariah Sahu MD IMG OB US [...] documented as of this encounter Care Teams Copra Sampler Relationship Specialty Start Date End Date Pcp, [place] [address] PCP - General Family Medicine 10/28/24 Jg Gonzalez MD [address] [address] [address] [place] [address] Referring Physician Obstetrics and Gynecology 10/28/24 documented as of this encounter
--- OUTSIDE RECORDS SUMMARY | 2024-11-25 10:45 | XMS_ITS | Encounter Summary ---
Author Organization Healthcare Address [address] [place] [address] Care Team Providers Care Electronic Engraver Name Role Phone Pcp, No Primary Care Provider Unavailabl e Jg Gonzalez MD Unavailable [phone] Encounter Details Date Type Department Care Team ([facility] Contact Info) Description 11/25/2024 10:45 AM EDT Initial Medical Office Building Obstetrics and Gynecology [address] [facility], [address] [place] [address] Vikas Haile MD [address] [facility] [address] [place] [address] GA: 32w5d Social History Tobacco Use Types Packs/Day Years Used Date Smoking Tobacco: Never Passive Smoke Exposure: Past Smokeless Tobacco: Never Tobacco Cessation:Counseling Given: Not Answered Alcohol Use Standard Drinks/Week Comments Not Currently [...] week 11/25/2024 How often do you attend chur or baptist services? Never 11/25/2024 Do you belong to [...] care, and heating? Not very hard 11/25/2024 [facility] - Occupational Stress Questionnaire Answer Date [...] money to buy more. Never true 11/26/19 Within the past 12 months, t he [...] any time in the past 12 m [facility], were you homeless or living in a intermediate (including now)? No 11/25/2024 [place] Depression Scale Answer Date Recorded [place] Depression Scale Total 8 11/25/2024 The thought [...] Sign Reading Time Taken Comments Blood Pressure 102/69 11/25/2024 11:26 AM EDT Pulse 108 11/25/2024 11:26 AM EDT Temperature 36.3 C (97.4 F) 11/25/2024 11:26 AM EDT Respiratory Rate 18 11/25/2024 11:26 AM EDT Oxygen Saturation 98% 11/25/2024 11:26 AM EDT Inhaled Oxygen Concentration - - Weight 63 kg (138 lb 14.2 oz) 11/25/2024 11:26 A M EDT Height 160 cm (5' 3 ) 11/25/2024 11:26 AM EDT Body Mass Index 24.6 11/25/2024 11:26 AM EDT documented in this encounter Functional Status * AUDIT-C Score [...] way Not at all 11/25/2024 11:39 AM Kristina Blake Patient Health Questionnaire -9 Score 5 11/25/2024 11:39 AM Kristina Blake * If you checked off any problems on this questionnaire so far, Question Answer Date of Assessment Author How difficult have these problems made it for you to do your work, take care of things at home, or get along with other people? Not difficult at all 11/25/2024 11:39 AM Kristina Blake * How difficult have these problems made it for you to do your work, take care of things at home, or get along with other people? Answer Date of Assessment Author Not difficult at all 11/25/2024 11:39 AM EDT Kristina Guillen documented as of this encounter Miscellaneous Notes * Progress Notes - Leora Bob, QUALITY CONTROL MANAGER - 11/25/2024 10:45 AM EDT Initial Note Subjective 24y/o @ 32w5d here for initial care. Pt primarily seen by Dr Gonzalez in [place]. c/b tetrology of fallot. Reports + FM. Denies vaginal bleeding, leakage of fluids and contractions. OB History Para Term AB Living 2 1 1 1 SAB IAB Ectopic Multiple Live Births 1 # Outcome Date GA Lbr Ran/2nd Weight Sex Type Anes PTL Lv 2 Current 1 Term 07/12/21 39w0d 3033 g F Vag-Spont EPI N ANLLELY [place] Depression Scale Total: 8 Past Medical History She has a past medical history of Anxiety, Chalazion right eye, unspecified eyelid, and Depression. Past Surgical History She has a past surgical history that includes Eye surgery (N/A) and Gallbladder surgery (N/A). Social History She reports that she has never smoked. She has been exposed to tobacco smoke. She has never used smokeless tobacco. She reports that she does not currently use alcohol. She reports that she does not use drugs. Family History Her family history includes Diabetes in her maternal grandfather. Allergies She has no known allergies. Current Medications She has a current medication list which includes the following prescription(s): ferosul and gnp . Review of Systems Objective Physical Exam Visit Vitals BP 102/69 Pulse 108 Temp 36.3 ??C (97.4 ??F) (Tympanic) Resp 18 Pregravid weight: Pregravid weight not on file Pregravid BMI: Could not be calculated Body mass index is 24.6 kg/m??. See encounter summary and flowsheet for exam details. Assessment/Plan Physical Exam Constitutional: Appearance: Normal appearance. HENT: Head: Normocephalic. Cardiovascular: Rate and Rhythm: Normal rate. Pulmonary: Effort: Pulmonary effort is normal. Neurological: Mental Status: She is alert and oriented to person, place, and time. Skin: General: Skin is warm and dry. Psychiatric: Mood and Affect: Mood normal. Behavior: Behavior normal. Vitals reviewed. Assessment & Plan Supervision of high risk , antepartum Orders: POCT Urinalysis Dipstick Comprehensive Urine Drug Screening, Qualitative Assay, >= 27 Drug Classes; Future care AB+/HepB- Remaining labs requested Reports negative pap 2023. Denies h/o abnormal Continues PNV and Iron NIPT low risk, male Glucola 72 Growth US today 11/25-EFW 2161gm 55%, AC 59%, ceph, posterior placenta, 3VC, MAYELA 15.6cm, BPP 8/8, male Repeat growth in 4 weeks tetrology of fallot 10/28: Plan 1. Follow-up echocardiogram recommended in ~5-6 weeks to re-evaluate TR and RVOT/PS. 2. There is no need to alter delivery plans based on today's study. 3. We recommend NICU admission with evaluation with echocardiogram, ECG and cardiology consultation 4. Please contact me if I can be of further assistance. Met Charlette Ugalde, care nurse navigator today Will have twice weekly NST's in [place] Repeat echo 12/04. Plan to tour [facility] Anxiety/Depression Stable, no meds Previously took Lexapro Discussed plan of care with Dr Haile RTC in 4 weeks documented in this encounter Plan of Treatment Upcoming Encounters Date Type Department Care Team (Late st Contact Info) Description 01/08/2025 8:00 AM EDT Hospital Encounter 02/26/2025 1:00 PM EDT Visit Medical Office Building Obstetrics and Gynecology [address] [facility], [address] [place] [address] Leora Bob APRN [address] [facility] [address] [place] [address] Scheduled Orders Name Type Priority Associated Diagnoses Orde r Schedule Comprehensive Urine Drug Screening, Qualitative Assay, >= 27 Drug Classes Lab Routine Supervision of high risk , antepartum Expected: 11/25/2024 (Approximate), Expires: 05/27/2026 documented as of this encounter Procedures Procedure Name Priority Date/Time Associated Diagnosis Comments POCT URINALYSIS DIPSTICK Routine 11/25/2024 10:50 AM EDT Supervision of high risk , antepartum documented in this encounter Results * (ABNORMAL) POCT Urinalysis Dipstick (11/25/2024 10:50 AM EDT) POCT Urine Color Light Yellow POCT Urine Clarity Clear POCT Glucose Urine Negative Negative mg/dL POCT Bilirubin, Urine Negative Negative POCT Ketones, Urine Negative Negative mg/dL POCT Specific [place], Urine 1.010 POCT Blood, Urine Negative Negative POCT pH, Urine 7.0 5.0 to 8.0 POCT Protein, Urine Negative Negative mg/dL POCT Urobilinogen, Urine 0.2 0.2, 1 E.U./dL POCT Nitrite, Urine Negative Negative POCT Leukocyte Esterase, Urine Small(A) Negative Test Strip Lot Number [id number] Test Strip Lot Expiration 07/2025 Urine Urine specimen obtained by clean catch procedure / Unknown 11/25/2024 10:50 AM EDT Vikas Haile MD POINT OF CARE TEST ENTER/EDIT ORDERABLES Final Result documented in this encounter Visit Diagnoses Diagnosis Supervision of high risk , antepartum- Primary documented in this encounter Additional Health Concerns Assessment Noted Time PHQ-9 Depression Total Score: 5 11/26/19 11:39 AM EDT A Body Mass Index follow-up plan has been documented for the patient 10/29/2024 4:48 PM EDT documented as of this encounter Care Teams Electronic Engraver Relationship Specialty Start Date End Date Pcp, No [address] [place] [address] PCP - General Family Medicine 10/28/24 Jg Gonzalez MD [address] [place] [address] [id number] Referring Physician Obstetrics and Gynecology 10/28/24 documented as of this encounter
--- OUTSIDE RECORDS SUMMARY | 2024-12-04 13:45 | XMS_ITS | Encounter Summary ---
Author Organization Healthcare Address [address] [place] [address] Care Team Providers Care Assemblyman Or Woman Name Role Phone Pcp, No Primary Care Provider Jg Richmond MD Unavailable [phone] Encounter Details Date Type Department Care Team (Late st Contact Info) Description 12/04/2024 1:45 PM EDT Office Visit [facility] Cardiology [address], [address] [place] [address] Dalila Acosta D, BLOW MOLDING MACHINE TENDER [address] [place] [address] Social History Tobacco Use Types [...] How often do you attend chur or adventism services? Never 11/25/2024 Do you [...] care, and heating? Not very hard 11/25/2024 [facility] of Occupat ional Health - Occupational [...] a group home (including now)? No 11/25/2024 [place] Depression Scale Answer Date Recorded [place] Depression Scale Total 8 11/25/2024 The thought [...] Notes * Clinician Note - Dalila Acosta, BLOW MOLDING MACHINE TENDER - 12/04/2024 1:45 PM EDT Cardiology Psychosocial Assessment Date of Encounter:12/04/24 Location: [facility] exam room Present with patient at visit: FOB History: Papa Oviedo Israel Estimated Date of Delivery: 01/15/25 Assessment: Expecting a: Boy Baby's Name: Jayce Cardiac Concern: TOF Visit with pt and FOB in [facility] exam room after pt's follow up with pastry supervisor. Pt planning to deliver at and has established care with [facility]. Had hospital tour today. Provided information about [facility] and supports offered through the organization. Assessed for new questions/concerns since time of last contact and reinforced availability of BLOW MOLDING MACHINE TENDER to provide support/intervention by phone between appts based on pt and family needs. Plan: -Assist with care coordination and applicable resources -Continue to monitor pt and family adjustment to diagnosis and impact on psychosocial functioning and possible barriers posed by pre-existing psychosocial stressors. Follow up with pt during hospital stay after delivery to provide additional services. ALLYSON Dickey, BLOW MOLDING MACHINE TENDER Licensed Clinical Naphthalene Still Operator Pediatric Cardiology documented in this encounter Plan of Treatment Upcoming Encounters Date Type Department Care Team (Late st Contact Info) Description 01/08/2025 8:00 AM EDT Hospital Encounter 02/26/2025 1:00 PM EDT Visit Medical Office Building Obstetrics and Gynecology [address] [facility], [address] [place] [address] Leora Bob, VAMP MAKER [address] [facility] [address] [place] [address] documented as of this encounter Visit Diagnoses Not on filedocumented in this encounter Additional Health Concerns Assessment Noted Time PHQ-9 Depression Total Score: 5 11/26/19 25 11:39 AM EDT A Body Mass Index follow-up plan has been documented for the patient 12/04/2024 3:27 PM EDT documented as of this encounter Care Teams Assemblyman Or Woman Relationship Specialty Start Date End Date Pcp, No [address] [place] [address] PCP - General Family Medicine 10/28/24 Jg Gonzalez MD [address] [facility] [address] [place] [address] Referring Physician Obstetrics and Gynecology 10/28/24 documented as of this encounter
--- OUTSIDE RECORDS SUMMARY | 2024-12-04 14:26 | XMS_ITS | Encounter Summary ---
Author Organization Healthcare Address [address] [place] [address] Care Team Providers Care Biofuels Plant Operations Engineer Name Role Phone Pcp, No Primary Care Provider Jg Richmond MD Unavailable [phone] Reason for Referral * Imaging (Routine) - Closed Specialty Diagnoses / Procedures Referred By Niharika t Referred To Contact Cardiology Diagnoses Maternal care for other (suspected) abnormality and damage, not applicable or unspecified Procedures [facility] Paul Collazo MD [address] [address] Phone: tel: fax: Referral ID Status Reason Start Date Expiration Date V isits Requested Visits Authorized [id number] Closed Perform Procedure 11/06/2024 05/08/2026 1 1 Reason for Visit * Imaging (Routine) - Closed Specialty Diagnoses / Procedures Referred By Contac t Referred To Contact Cardiology Diagnoses Maternal care for other (suspected) abnormality and damage, not applicable or unspecified Procedures [facility] [employer] Paul Collazo MD [address] [address] Phone: tel: fax: Referral ID Status Reason Start Date Expiration Date V isits Requested Visits Authorized [id number] Closed Perform Procedure 11/06/2024 05/08/2026 1 1 Encounter Details Date Type Department Care Team (Latest Contact Info) Description 12/04/2024 2:26 PM EDT - 12/04/2024 11:59 PM EDT Hospital Encounter [facility] Pediatric Cardiac Diagnostic Testing [address], [place] [address] Maternal care for other (suspected) abnormality and [...] 11/25/2024 How often do you attend chur ch or zoroastrianism services? Never 11/25/2024 Do you belong to any clubs o r organizations such as religious groups, unions, fraternal or athletic groups, or [...] [facility] of Occupat ional Health - Occupational [...] any time in the past 12 m [facility], were you homeless or living in a alf (including now)? No 11/25/2024 [place] Depression Scale Answer Date Recorded [place] Depression Scale Total 8 11/25/2024 The thought [...] Office Building Obstetrics and Gynecology [address] [facility], [address] [place] [address] Leora Bob, MARK [address] [facility] [address] [place] [address] documented as of this encounter Procedures Procedure Name Priority Date/Time Associated Diagnosis Comments ECHO, FOLLOW-UP Routine 12/04/2024 3:07 PM EDT Maternal care for other (suspected) abnormality and damage, not applicable or unspecified documented in this encounter Results * [facility] (12/04/2024 [...] documented as of this encounter Care Teams Biofuels Plant Operations Engineer Relationship Specialty Start Date End Date Pcp, No [address] [place] [address] PCP - General Family Medicine 10/28/24 Jg Gonzalez MD [address] [place], [place] [address] Referring Physician Obstetrics and Gynecology 10/28/24 documented as of this encounter
--- OUTSIDE RECORDS SUMMARY | 2024-12-04 15:15 | XMS_ITS | Encounter Summary ---
Author Organization Healthcare Address [address] [place] [address] Care Team Providers Care School Of Nursing Director Name Role Phone Pcp, No Primary Care Provider Jg Richmond MD Unavailable Encounter Details Date Type Department Care Team (Late st Contact Info) Description 12/04/2024 3:15 PM EDT [facility] Visit [facility] [address] [place] [address] Paul Collazo MD [address] [place] [address] Maternal care for other (suspected) [...] How often do you attend chur or presybeterian services? Never 11/25/2024 Do you belong to any clubs o r organizations such as buddhism groups, unions, fraternal or athletic groups, or [...] care, and heating? Not very hard 11/25/2024 [facility]ational Stress Questionnaire Answer Date [...] were you homeless or living in a fpc (including now)? No 11/25/2024 [place] Depression Scale Answer Date Recorded [place] Depression Scale Total 8 11/25/2024 The thought [...] encounter Miscellaneous Notes * Progress Notes - Paul Collazo MD - 12/04/2024 3:15 PM EDT Images from the original note were not included. Referring Obstetrical Specialist: Lars Coffey MD, Leora Bob APRN Indication for Echocardiogram: Follow-up for TOF HPI Ms. Papa Wood is a 24 y.o. yr old female currently at 34WGA (Estimated Date of Delivery: 01/15/25) who is being seen for follow-up cardiac evaluation today. She was initially evaluated at ~29 WGA due to suspected TOF. . 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 There was mild tricuspid regurgitation. Arch situs appears to be normal (left arch). Since her last visit no new related concerns expressed. No other concerns raised today. Prior history: No other complications noted this No family history of congenital heart disease or cardiomyopathy. Genetic testing has been performed by NIPT, the results of which are: low risk. She reports no teratogen exposures. Her primary OB is Jg Koch. Delivery [facility] at [facility]. No other concerns raised today. ROS 14 point review of systems was negative other than reported above in HPI plus trouble sleeping, fatigue and anxiety. Patient Active Problem List Diagnosis Maternal care for other (suspected) abnormality and damage, not applicable or unspecified Active Ambulatory Problems Diagnosis Date Noted Maternal care for other (suspected) abnormality and damage, not applicable or unspecified 10/29/2024 Resolved Ambulatory Problems Diagnosis Date Noted No Resolved Ambulatory Problems Past Medical History: Diagnosis Date Anxiety Chalazion right eye, unspecified eyelid Depression Past Surgical History: Procedure Laterality Date EYE SURGERY N/A Excision Of Chalazion from [employer] GALLBLADDER SURGERY N/A Gallbladder Surgery from [employer] Family History Problem Relation Name Age of Onset Diabetes Maternal Grandfather Congenital heart disease Neg Hx Social History: Reviewed and unchanged. Current Outpatient Medications on File Prior to Visit Medication Sig Dispense Refill FeroSul 325 (65 Fe) MG tablet Take 1 tablet by mouth daily. Vit-Fe Fumarate-FA (GNP ) 28-0.8 MG tablet Take 1 tablet by mouth daily. No current facility-administered medications on file prior to visit. No Known Allergies Physical Exam Patient was in no acute distress and alert and oriented X 3 Echocardiogram: Assessment 24 y.o. yr old female currently with fetus at approximately 34 WGA. 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 There are confluent, good size branch PAs. No significant tricuspid regurgitation noted today. Left aortic arch. No evidence of distress. Discussion A follow-up echocardiogram was performed today and results reviewed with the family. Today's study largely confirms the previously noted findings. Of note there was no significant TR seen today. The basic features of TOF were reviewed. 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 It is possible there could be worsening of the pulmonary outflow stenosis over time, but it is not expected to be severe. I do not expect significant clinical illness in utero or in the period. Postnatally, depending on any progression of pulmonary stenosis, this baby may be more at risk of developing symptoms of pulmonary overcirculation, rather than cyanosis. Delivery is planned at ; this baby should likely be able to go to the NICU after for evaluation. We discussed this evaluation could include HUS, AMEE and Genetictesting as TOF may be associated with chromosomal anomalies. We briefly discussed tet spells and general management strategies it they occur. I would expect surgical repair will be needed for this form of CHD, typically in the first 6-9 months of life. Typical limitations of echocardiography in detecting minor cardiac defects (small muscular VSDs, secundum ASDs, partial anomalous pulmonary venous return, mild semilunar valve abnormalities andmild coarctation of the aorta) were previously reviewed. The family's questions were answered and they expressed understanding and agreement with the plan. Plan 1. Follow-up echocardiogram not needed. 2. Delivery plans: . Baby likely can be admitted to NICU, PCICU if clinically indicated. Not feltto be ductal dependent. evaluation with echocardiogram, ECG, cardiology consultation and additional testing as above. 3. Please contact me if I can be of further assistance. Additional Services Offered Meeting with clinic older adult social work specialist The total time of encounter was 45 minutes, including record review, imaging review, prognosis, [...] [address] [facility], [address] [place] [address] Leora Bob, GEAR NICKER [address] [facility] [address] [place] [address] documented as of this encounter Visit Diagnoses Diagnosis Maternal care for other (suspected) abnormality and damage, not applicable or unspecified- Primary documented in this encounter Additional Health Concerns Assessment Noted Time PHQ-9 Depression Total Score: 5 11/26/19 25 11:39 AM EDT A Body Mass Index follow-up plan has been documented for the patient 12/04/2024 3:27 PM EDT documented as of this encounter Care Teams School Of Nursing Director Relationship Specialty Start Date End Date Pcp, Sherron [address] [place] [address] PCP - General Family Medicine 10/28/24 Jg Gonzalez MD [address] [facility] [address] [place] [address] Referring Physician Obstetrics and Gynecology 10/28/24 documented as of this encounter
--- OUTSIDE RECORDS SUMMARY | 2024-12-23 10:00 | XMS_ITS | Encounter Summary ---
Author Organization Healthcare Address [address] 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, single or unspecified fetus Procedures OB US Follow Up Transabdominal Approach Vikas Haile MD [address] [address] Phone: tel: fax: Referral ID Status Reason Start Date Expiration Date Visits Re quested Visits Authorized [id number] Closed 11/25/2024 05/27/2026 1 1 Reason for Visit * Imaging (Routine) - Closed Specialty Diagnoses / Procedures Referred By Contac t Referred To Contact Obstetrics and Gynecology Diagnoses Supervision of high risk , antepartum 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, single or unspecified fetus Procedures OB US Follow Up Transabdominal Approach Vikas Haile MD [address] [address] Phone: tel: fax: Referral ID Status Reason Start Date Expiration Date Visits Re quested Visits Authorized [id number] Closed 11/25/2024 05/27/2026 1 1 Encounter Details Date Type Department Care Team (Latest Contact Info) Description 12/23/2024 10:00 AM EDT - 12/23/2024 11:59 PM EDT Hospital Encounter Medical Office Building Obstetrics and Gynecology [address] [facility], [address] [place] [address] Supervision of high risk , antepartum; 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 Never 11/25/2024 Do you belong to any clubs o r organizations such as yarsanism groups, unions, fraternal or athletic groups, or [...] care, and heating? Not very hard 11/25/2024 [facility] - Occupational Stress Questionnaire Answer Date [...] in a penitentiary (including now)? No 11/25/2024 [place] Depression Scale Answer Date Recorded [place] Depression Scale Total 8 11/25/2024 The thought [...] Upcoming Encounters Date Type Department Care Team ([facility] st Contact Info) Description 01/08/2025 8:00 AM EDT Hospital Encounter 02/26/2025 1:00 PM EDT Visit Medical Office Building Obstetrics and Gynecology [address] [facility], [address] [place] [address] Leora Bob, WOOL HAT SANDING MACHINE OPERATOR [address] [facility] [address] [place] [address] documented as of this encounter Procedures Procedure Name Priority Date/Time Associated Diagnosis Comments OB US FOLLOW UP TRANSABDOMINAL APPROACH Routine 12/23/2024 10:48 AM EDT Supervision of high risk , antepartum 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 Please navigate to the Imaging tab in [employer] for review. This message has been generated by the interface. Narrative Procedure Note Meeta Mercedes MD - 12/23/2024 IMPRESSION: The OB Ultrasound you requested has been resulted. Please navigate to theImaging tab in [employer] for review. This message has been generated by theinterface. 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
--- OUTSIDE RECORDS SUMMARY | 2024-12-23 10:30 | XMS_ITS | Encounter Summary ---
Author Organization Healthcare Address [address] [place] [address] Care Team Providers Care Multifocal Lens Assembler Name Role Phone Pcp, No Primary Care Provider Unavailabl e Jg Gonzalez MD Unavailable [phone] Encounter Details Date Type Department Care Team (Latest Contact Info) Description 12/23/2024 10:30 AM EDT Routine Medical Office Building Obstetrics and Gynecology [address] [facility], [address] [place] [address] Vikas Haile MD [address] [place] [address] Supervision of high risk , [...] How often do you attend chur or lutheran services? Never 11/25/2024 Do you belong to any clubs o r organizations such as advent groups, unions, fraternal or athletic groups, or [...] care, and heating? Not very hard 11/25/2024 [facility] - Occupational [...] were you homeless or living in a retirement (including now)? No 11/25/2024 [place] Depression Scale Answer Date Recorded [place] Depression Scale Total 8 11/25/2024 The thought [...] BPP 8/8 Reports negative GBS done in [place] Growth US today 12/23-EFW 3299gm 72%, AC [...] PCICU tour Continues twice weekly NST's in [place] Plan for IOL on 01/08 @ 39w0d. Message sent to Erna Ugalde RN Anxiety/Depression Stable, no meds Previously took Lexapro Return for IOL documented in this encounter Plan of Treatment Upcoming Encounters Date Type Department Care Team ([facility] Contact Info) Description 01/08/2025 8:00 AM EDT Hospital Encounter 02/26/2025 1:00 PM EDT Visit Medical Office Building Obstetrics and Gynecology [address] [facility], [address] [place] [address] Leora Bob APRN [address] [place] [address] documented as of this encounter [...] Ketones, Urine Negative Negative mg/dL POCT Specific [place], Urine 1.020 POCT Blood, Urine Negative Negative POCT pH, Urine 7.0 5.0 to 8.0 POCT Protein, Urine Negative Negative mg/dL POCT Urobilinogen, Urine 0.2 0.2, 1 E.U./dL POCT Nitrite, Urine Negative Negative POCT Leukocyte Esterase, Urine Small(A) Negative Test Strip Lot Number [id number] Test Strip Lot Expiration 10/2025 Urine Urine [...] documented as of this encounter Care Teams Multifocal Lens Assembler Relationship Specialty Start Date End Date Pcp, Sherron [address] [place] [address] PCP - General Family Medicine 10/28/24 Jg Gonzalez MD [address] [place] [address] [place] [address] Referring Physician Obstetrics and Gynecology 10/28/24 documented as of this encounter
--- OUTSIDE RECORDS SUMMARY | 2025-01-06 12:13 | XMS_ITS | Encounter Summary ---
Author Organization [employer] ([place], [place], [place], [place]) Address [address] [place] [address] Care Team Providers Care Cart Driver Name Role Phone Unavailable Primary Care Provider Unavailabl e Encounter Details Date Type Department Care Team (Late st Contact Info) Description 10/19/2020 Transcribed Document [facility] [place] [address] [place] [address] ProviderLo MD [address] [place] [address] Social History Tobacco Use Types [...] Historical ProviderMD - 10/19/2020 12:22 PM CDT [place] Suicide Severity Rating Scale (C-SSRS) Entered On: 10/19/2020 17:22 EDT Performed On: 10/19/2020 14:06 EDT by Jay Luu Rn [place] Suicide Severity Rating Scale (C-SSRS) CSSRS Past [...]
--- OUTSIDE RECORDS SUMMARY | 2025-01-06 12:13 | XMS_ITS | Encounter Summary ---
Author Organization [employer] ([place], [place], [place], [place]) Address [address] [place] [address] Care Team Providers Care Field Professional Name Role Phone Unavailable Primary Care Provider Unavailabl e Encounter Details Date Type Department Care Team (Late st Contact Info) Description 10/19/2020 Transcribed Document [facility] [place] [facility] [place] [address] ProviderLo MD [address] [place] [address] Social History Tobacco Use Types [...] : 3 - Urgent Tracking Group : [facility] ED East ALEJANDRA ALONSO RN - [...] PNED ; Probability: 0 ; Diagnosis Code: [id number] ED Height and Weight Height Source : Stated Height Entry Format : [place] Height, Feet : 5 ft(Converted to: 152 cm, 60 Inch) Height, Inches : 3 Inch(Converted to: 0 ft 3 Inch, 7.62 cm) Clinical Height : 160.02 cm Weight Source, ED : Critical estimated dosing weight Weight Entry Format : [place] Weight, Pounds : 110 lb Clinical Dosing Weight : 50 kg Body Surface Area (BSA) : 1.5 m2 Body Mass Index : 19.5 kg/m2 [place] Body Weight (IBW) : 52.02 kg ALEJANDRA ALONSO RN - 10/19/2020 12:35 EDT Electronically signed by Porsche [facility] Conversion Painter Ski Edge Cerner at 09/16/2022 7:59 PM CDT documented in this encounter Plan of Treatment Not on file documented as of this encounter Visit Diagnoses Not on filedocumented in this encounter
--- OUTSIDE RECORDS SUMMARY | 2025-01-06 12:13 | XMS_ITS | Encounter Summary ---
Author Organization [employer] ([place], [place], [place], [place]) Address [address] [place] [address] Care Team Providers Care Industrial Commercial Groundskeeper Name Role Phone Unavailable Primary Care Provider Unavailabl e Encounter Details Date Type Department Care Team (Late st Contact Info) Description 10/19/2020 Transcribed Document [facility] [place] [address] [place] [address] ProviderLo MD [address] [place] [address] Social History Tobacco Use Types [...] On: 10/19/2020 17:28 EDT by Jay Luu Fitting Room Attendant Process Patient Disposition : Discharge Personal Belongings [...] EDT Electronically signed by Mino Morrell Conversion Commercial Green Building Architect Patrizia at 09/16/2022 7:48 PM CDT documented in this encounter Plan of Treatment Not on file documented as of this encounter Visit Diagnoses Not on filedocumented in this encounter
--- OUTSIDE RECORDS SUMMARY | 2025-01-06 12:13 | XMS_ITS | Encounter Summary ---
Author Organization [employer] ([place], [place], [place], [place]) Address [address] [place] [address] Care Team Providers Care Rand Cementer Name Role Phone Unavailable Primary Care Provider Unavailabl e Encounter Details Date Type Department Care Team (Late st Contact Info) Description 10/19/2020 Transcribed Document [facility] [place] [address] [place] [address] ProviderLo MD [address] [place] [address] Social History Tobacco Use Types [...] Historical ProviderMD - 10/19/2020 5:24 PM CDT [address] [address] Visit Date/Time: 10/19/2020 17:24:01 [place] The above patient was seen in the hospital today and needs to be excused from work/school until Return to Work/School Date: 10/20/2020 Electronically signed by Porsche [facility] Conversion Director Of Business Services Patrizia at 09/16/2022 7:48 PM CDT documented in this encounter Plan of Treatment Not on file documented as of this encounter Visit Diagnoses Not on filedocumented in this encounter
--- OUTSIDE RECORDS SUMMARY | 2025-01-06 12:13 | XMS_ITS | Referral Summary ---
Author Organization [employer] ([place], [place], [place], [place]) Address [address] [place] [address] Care Team Providers Care Cyanide Pot Hardener Name Role Phone Unavailable Primary Care Provider [...]
--- OUTSIDE RECORDS SUMMARY | 2025-01-06 12:13 | XMS_ITS | Clinical Summary ---
Author Organization [employer] ([place], [place], [place], [place]) Address [address] [place] [address] Care Team Providers Care Curve Cleaner Name Role Phone Unavailable Primary Care Provider [...]
--- OUTSIDE RECORDS SUMMARY | 2025-01-06 12:14 | XMS_ITS | Encounter Summary ---
Author Organization [employer] ([place], [place], [place], [place]) Address [address] [place] [address] Care Team Providers Care Piece Meat Trimmer Name Role Phone Unavailable Primary Care Provider Unavailabl e Encounter Details Date Type Department Care Team (Late st Contact Info) Description 10/19/2020 Transcribed Document [facility] [address] [place] [address] ProviderLo MD [address] [place] [address] Social History Tobacco Use Types [...] 10/19/2020 5:08 PM CDT Electronically signed by [facility] Conversion Dehydrating Press Operator Cerner at 09/16/2022 7:44 PM CDT documented in this encounter Plan of Treatment Not on file documented as of this encounter Visit Diagnoses Not on filedocumented in this encounter
--- OUTSIDE RECORDS SUMMARY | 2025-01-06 12:14 | XMS_ITS | Encounter Summary ---
Author Organization Healthcare Address [address] [place] [address] Care Team Providers Care Slip Operator Name Role Phone Pcp, No Primary Care Provider Unavailara e Jg Gonzalez MD Unavailable [phone] Reason for Visit * Reason Onset Date Comments [facility] Care coordination 11/25/2024 Encounter Details Date Type Department Care Team ([facility] st Contact Info) Description 11/25/2024 Telephone Medical Office Building Obstetrics and Gynecology [address] [facility], [address] [place] [address] Charlette Ugalde, RN AMB-GS [facility] 1st FLR [facility] Care coordination Social History Tobacco Use Types [...] How often do you attend chur or catholic services? Never 11/25/2024 Do you belong to any clubs o r organizations such as nondenominational groups, unions, fraternal or athletic groups, or [...] care, and heating? Not very hard 11/25/2024 [facility] - Occupational Stress Questionnaire Answer Date Recorded [...] any time in the past 12 m [facility], were you homeless or living in a chcf (including now)? No 11/25/2024 [place] Depression Scale Answer Date Recorded [place] Depression Scale Total 8 11/25/2024 The thought [...] Upcoming Encounters Date Type Department Care Team ([facility] st Contact Info) Description 01/08/2025 8:00 AM EDT Hospital Encounter 02/26/2025 1:00 PM EDT Visit Medical Office Building Obstetrics and Gynecology [address] [facility], [address] [place] [address] Leora Bob, BRUSH CLEARER SURVEYING [address] [facility] [address] [place] [address] documented as of this encounter Visit Diagnoses Not on filedocumented in this encounter Additional Health Concerns Assessment Noted Time PHQ-9 Depression Total Score: 5 11/26/19 11:39 AM EDT A Body Mass Index follow-up plan has been documented for the patient 10/29/2024 4:48 PM EDT documented as of this encounter Care Teams Slip Operator Relationship Specialty Start Date End Date Pcp, No [address] [place] [address] PCP - General Family Medicine 10/28/24 Jg Gonzalez MD [address] [address] Referring Physician Obstetrics and Gynecology 10/28/24 documented as of this encounter
--- OUTSIDE RECORDS SUMMARY | 2025-01-06 12:14 | XMS_ITS | Encounter Summary ---
Author Organization Healthcare Address [address] 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, single or unspecified fetus Procedures OB US Follow Up Transabdominal Approach Vikas Haile MD [address] [facility] [address] [place] [address] Phone: tel: fax: Referral ID Status Reason Start Date Expiration Date Visits Re quested Visits Authorized [id number] Closed 11/25/2024 05/27/2026 1 1 Encounter Details Date Type Department Care Team (Late st Contact Info) Description 11/25/2024 Orders Only Medical Office Building Obstetrics and Gynecology [address] , [address] [place] [address] Vikas Haile MD [address] [place] [address] Supervision of high risk , [...] week 11/25/2024 How often do you attend [facility] or judaism services? Never 11/25/2024 Do you belong to [...] care, and heating? Not very hard 11/25/2024 [facility] - Occupational Stress Questionnaire Answer [...] in a detention (including now)? No 11/25/2024 [place] Depression Scale Answer Date Recorded [place] Depression Scale Total 8 11/25/2024 The thought [...] Obstetrics and Gynecology [address] [facility], [address] [place] [address] Leora Bob, ROLLER MILL OPERATOR [address] [facility] [address] [place] [address] documented as of this encounter Results * OB US Follow Up Transabdominal Approach (12/23/2024 10:48 AM EDT) Anatomical Region Laterality Modality Body Ultrasound 12/23/2024 10:3 2 AM EDT Impressions 12/23/2024 11:02 AM EDT The OB Ultrasound you requested has been resulted. Please navigate to the Imaging tab in [employer] for review. This message has been generated by the interface. Narrative Procedure Note Meeta Mercedes MD - 12/23/2024 IMPRESSION: The OB Ultrasound you requested has been resulted. Please navigate to theImaging tab in [employer] for review. This message has been generated by [facility] Vikas Haile MD IMG OB US [...] documented as of this encounter Care Teams Lacquer Mixer Relationship Specialty Start Date End Date Pcp, [place] [address] PCP - General Family Medicine 10/28/24 Jg Gonzalez MD [facility] [place] [address] [id number] Referring Physician Obstetrics and Gynecology 10/28/24 documented as of this encounter
--- OUTSIDE RECORDS SUMMARY | 2025-01-06 12:14 | XMS_ITS | Encounter Summary ---
Author Organization Healthcare Address [address] [place] [address] Care Team Providers Care Clinical Social Work Aide Name Role Phone Pcp, No Primary Care Provider Jg Richmond MD Unavailable [phone] Encounter Details Date Type Department Care Team (Late st Contact Info) Description 11/26/2024 Telephone PAV [facility] Pediatric Cardiac Diagnostic Testing [address], [place] [address] Hubert Villegas MD [address] [place] [address] Social History Tobacco Use Types Packs/Day Years [...] How often do you attend chur or yazdanism services? Never 11/25/2024 Do you belong to [...] care, and heating? Not very hard 11/25/2024 [facility] of Occupat ional Health - [...] in a penitentiary (including now)? No 11/25/2024 [place] Depression Scale Answer Date Recorded [place] Depression Scale Total 8 11/25/2024 The thought [...] Office Building Obstetrics and Gynecology [address] [facility], [address] [place] [address] Leora Bob, MARK [address] [facility] [address] [place] [address] documented as of this encounter Visit Diagnoses Not on filedocumented in this encounter Additional Health Concerns Assessment Noted Time PHQ-9 Depression Total Score: 5 11/26/19 25 11:39 AM EDT A Body Mass Index follow-up plan has been documented for the patient 10/29/2024 4:48 PM EDT documented as of this encounter Care Teams Clinical Social Work Aide Relationship Specialty Start Date End Date Pcp, [place] [address] PCP - General Family Medicine 10/28/24 Jg Gonzalez MD 12[address] [facility] [address] [place] [address] Referring Physician Obstetrics and Gynecology 10/28/24 documented as of this encounter
--- OUTSIDE RECORDS SUMMARY | 2025-01-06 12:14 | XMS_ITS | Encounter Summary ---
Author Organization Healthcare Address [address] [place] [address] Care Team Providers Care Manager Specialty Name Role Phone Pcp, No Primary Care Provider Unavailabl e Jg Gonzalez MD Unavailable [phone] Encounter Details Date Type Department Care Team (Late Contact Info) Description 11/12/2024 Orders Only Medical Office Building Obstetrics and Gynecology [address] [facility], [address] [place] [address] Mariah Sahu MD [address] [facility] [address] [place], [place] [id number] Maternal care for other (suspected) abnormality and [...] Obstetrics and Gynecology [address] [facility], [address] [place] [address] Leora Bob, MARK [address] [facility] [address] [place] [address] documented as of this encounter Visit Diagnoses Diagnosis Maternal care for other (suspected) abnormality and damage, not applicable or unspecified- Primary documented in this encounter Additional Health Concerns Assessment Noted Time A Body Mass Index follow-up plan has been documented for the patient 10/29/2024 4:48 PM EDT documented as of this encounter Care Teams Manager Specialty Relationship Specialty Start Date End Date Pcp, Sherron [address] [place] [address] PCP - General Family Medicine 10/28/24 Jg Gonzalez MD [address] [place] [address] Referring Physician Obstetrics and Gynecology 10/28/24 documented as of this encounter
--- OUTSIDE RECORDS SUMMARY | 2025-01-06 12:14 | XMS_ITS | Encounter Summary ---
Author Organization Healthcare Address [address] [place] [address] Care Team Providers Care Dog Warden Name Role Phone Pcp, No Primary Care Provider Jg Richmond MD Unavailable [phone] Encounter Details Date Type Department Care Team (Late Contact Info) Description 11/07/2024 Telephone PAV [facility] Pediatric Cardiac Diagnostic Testing [address], [place] [address] Paul Collazo MD [address] [facility] [address] [place] [address] Social History Tobacco Use Types Packs/Day Years [...] [facility], [address] [place] [address] Leora Bob, YARD RIGGER [address] [facility] [address] [place] [address] documented as of this encounter Visit Diagnoses Not on filedocumented in this encounter Additional Health Concerns Assessment Noted Time A Body Mass Index follow-up plan has been documented for the patient 10/29/2024 4:48 PM EDT documented as of this encounter Care Teams Dog Warden Relationship Specialty Start Date End Date Pcp, Sherron [address] [place] [address] PCP - General Family Medicine 10/28/24 Jg Gonzalez MD 1210 [facility] [address] [place] [id number] Referring Physician Obstetrics and Gynecology 10/28/24 documented as of this encounter
--- OUTSIDE RECORDS SUMMARY | 2025-01-06 12:14 | XMS_ITS | Encounter Summary ---
Author Organization Healthcare Address [address] [place] [address] Care Team Providers Care Refractory Products Supervisor Name Role Phone Pcp, No Primary Care Provider Jg Richmond MD Unavailable Encounter Details Date Type Department Care Team (Late st Contact Info) Description 11/26/2024 Telephone PAV [facility] Pediatric Cardiac Diagnostic Testing [address], [place] [address] Hubert Villegas MD [address] [place] [address] Social History Tobacco Use Types Packs/Day Years [...] How often do you attend chur or restoration services? Never 11/25/2024 Do you belong to any clubs o r organizations such as muslim groups, unions, fraternal or athletic groups, or [...] care, and heating? Not very hard 11/25/2024 [facility] of Occupat ional Health [...] in a residential (including now)? No 11/25/2024 [place] Depression Scale Answer Date Recorded [place] Depression Scale Total 8 11/25/2024 The thought [...] Obstetrics and Gynecology [address] [facility], [address] [place] [address] Leora Bob, MARK [address] [facility] [address] [place] [address] documented as of this encounter Visit Diagnoses Not on filedocumented in this encounter Additional Health Concerns Assessment Noted Time PHQ-9 Depression Total Score: 5 11/26/19 25 11:39 AM EDT A Body Mass Index follow-up plan has been documented for the patient 10/29/2024 4:48 PM EDT documented as of this encounter Care Teams Refractory Products Supervisor Relationship Specialty Start Date End Date Pcp, [place] [address] PCP - General Family Medicine 10/28/24 Jg Gonzalez MD 1210 [facility] [address] [place] [address] Referring Physician Obstetrics and Gynecology 10/28/24 documented as of this encounter
--- OUTSIDE RECORDS SUMMARY | 2025-01-06 12:14 | XMS_ITS | Encounter Summary ---
Author Organization Healthcare Address [address] [place] [address] Care Team Providers Care Demand Generator Manager Name Role Phone Pcp, No Primary Care Provider Medardo e Jg Gonzalez MD Unavailable [phone] Reason for Visit * Reason Onset Date Comments MFM: Delivery Planning 12/23/2024 IOL Sched uled - See Note Encounter Details Date Type Department Care Team ([facility] Contact Info) Description 12/23/2024 Telephone Medical Office Building Obstetrics and Gynecology [address] [facility], [address] [place] [address] Gissell Monroe, RN AMB-GS [facility] MFM: Delivery Planning (IOL Scheduled [...] How often do you attend chur or restorationism services? Never 11/25/2024 Do you belong to [...] care, and heating? Not very hard 11/25/2024 [facility] Occupat ional Health - Occupational [...] were you homeless or living in a assisted (including now)? No 11/25/2024 [place] Depression Scale Answer Date Recorded [place] Depression Scale Total 8 11/25/2024 The thought [...] 2:48 PM EDT Message received from Lukasz Bob APRN, to coordinate care for the patient's upcoming delivery. Planof care includes IOL after 39 weeks secondary to a complicated by CHD; Tetrology ofFallot . AUGUSTINE: 01/15/25; requested date 01/08/2025. Attempt to call the patient to confirm was unsuccessful. No Answer. Voicemail left requesting the patient call back @ her convenience. Will follow-up with a [employer] message as an alternative form of communication. documented in this encounter Plan of Treatment Upcoming Encounters Date Type Department Care Team ([facility] st Contact Info) Description 01/08/2025 8:00 AM EDT Hospital Encounter 02/26/2025 1:00 PM EDT Visit Medical Office Building Obstetrics and Gynecology [address] [facility], [address] [place] [address] Leora Bob, ROLL CUTTING OPERATOR [address] [facility] [address] [place] [address] documented as of this encounter Visit Diagnoses Not on filedocumented in this encounter Additional Health Concerns Assessment Noted Time PHQ-9 Depression Total Score: 5 11/26/19 25 11:39 AM EDT A Body Mass Index follow-up plan has been documented for the patient 12/04/2024 3:27 PM EDT documented as of this encounter Care Teams Demand Generator Manager Relationship Specialty Start Date End Date Pcp, Sherron [address] [place] [address] PCP - General Family Medicine 10/28/24 Jg Gonzalez MD 1210 [facility] [address] [place] [address] Referring Physician Obstetrics and Gynecology 10/28/24 documented as of this encounter
--- OUTSIDE RECORDS SUMMARY | 2025-01-06 12:14 | XMS_ITS | Encounter Summary ---
Author Organization [employer] ([place], [place], [place], [place]) Address [address] [place] [address] Care Team Providers Care District Sales Coordinator Name Role Phone Unavailable Primary Care Provider Unavailabl e Encounter Details Date Type Department Care Team (Late st Contact Info) Description 10/19/2020 Transcribed Document [facility] Family [facility] [address] [place] [address] ProviderLo MD [address] [place] [address] Social History Tobacco Use Types [...] Lo ProviderMD - 10/19/2020 5:12 PM CDT [place] [id number] [place] :2000 Visit Time:10/19/2020 Your [...] Appointments Follow Up with Follow-up with your RN HEDIS as discussed When Within 2 to 3 days Follow Up with Follow up with primary care provider When Within 2 to 3 days Comments Call for follow up appointment. Please follow-up with your primary care provider in 2 to 3 days. Return to ED if you experience new or worsening symptoms. If you do not have a primary care provider the patient resource batch freezer operator can assist you with establishing care and scheduling follow-up. The Patient Resource Retort Condenser Attendant can be contacted at . Follow Up [...] range between ( 1.0 and 7.0 ) [place] #: 0.42 K/uL -- Normal range between ( 0.24 and 0.82 ) [place] #: 0.00 K/uL -- Normal range between ( 0.04 and 0.54 ) [place] %: 4.8 % -- Normal range between [...] ) Urine Bilirubin Dipstick: Negative Urine Specific [place]: 1.011 -- Normal range between ( 1.005 [...] these instructions at home: Medicines ??? Take prfz-kee-oneasbi and prescription medicines only as told by [...] your condition for any changes. ??? Take rphm-qku-bpzkrul and prescription medicines only as told by [...] provider. Document Revised: 09/23/2019 Document Reviewed: 09/23/2019 [employer] Patient Education ?? 2020 [employer]. Emergency Awareness and Preventative Care STROKE is [...] Assistance with quitting is available by contacting 5-402-MXJR-NOW. This is a free resource providing counseling, [...] was given the opportunity to ask questions. Patient/Motor Coach Chauffeur Name: Patient/Motor Coach Chauffeur Signature: Relationship to Patient: Clinician/Hospital Motor Coach Chauffeur Signature: Please Provide a Telephone Number Where You Can Be Reached: Is it Permissible To Leave a Message? Date: documented in this encounter Plan of Treatment Not on file documented as of this encounter Visit Diagnoses Not on filedocumented in this encounter
--- OUTSIDE RECORDS SUMMARY | 2025-01-06 12:14 | XMS_ITS | Encounter Summary ---
Author Organization Healthcare Address [address] [place] [address] Care Team Providers Care Screw Machine Hand Name Role Phone Pcp, No Primary Care Provider Jg Richmond MD Unavailable [phone] Encounter Details Date Type Department Care [...] often do you attend chur ch or taoism services? Never 11/25/2024 Do you belong to any clubs o r organizations such as episcopal groups, unions, fraternal or athletic groups, or [...] any time in the past 12 m [facility], were you homeless or living in a jail (including now)? No 11/25/2024 [place] Depression Scale Answer Date Recorded [place] Depression Scale Total 8 11/25/2024 The thought [...] Obstetrics and Gynecology [address] [facility], [address] [place] [address] Leora Bob, CLASSROOM MONITOR [address] [facility] [address] [place] [address] documented as of this encounter Visit Diagnoses Not on filedocumented in this encounter Additional Health Concerns Assessment Noted Time PHQ-9 Depression Total Score: 5 11/26/19 25 11:39 AM EDT A Body Mass Index follow-up plan has been documented for the patient 12/04/2024 3:27 PM EDT documented as of this encounter Care Teams Screw Machine Hand Relationship Specialty Start Date End Date Pcp, No [address] [place] [address] PCP - General Family Medicine 10/28/24 Jg Gonzalez MD [address] [address] Referring Physician Obstetrics and Gynecology 10/28/24 documented as of this encounter
--- OUTSIDE RECORDS SUMMARY | 2025-01-06 12:14 | XMS_ITS | Clinical Summary ---
Author Organization Healthcare Address [address] [place] [address] Care Team Providers Care Condenser Winder Name Role Phone Pcp, No Primary Care Provider Unavailabl Jg Perez MD Unavailable [phone] Allergies No known active allergies Medications [...] Obstetrics and Gynecology [address] [facility], [address] [place] [address] Vikas Haile MD Supervision of high risk , antepartum (Primary Dx) 12/23/2024 10:00 AM EDT - 12/23/2024 11:59 PM EDT Hospital Encounter Medical Office Building Obstetrics and Gynecology [address] , [address] [place] [address] Supervision of high risk , antepartum; 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, single or unspecified fetus Discharge Disposition: Home or Self Care 12/23/2024 Telephone Medical Office Building Obstetrics and Gynecology [address] , [address] [place] [address] Gissell Monroe, RN MFM: Delivery Planning (IOL Scheduled - See Note) 12/23/2024 Orders Only Medical Office Building Obstetrics and Gynecology [address] [facility], [address] [place] [address] Lisbeth Leora L, MARK Encounter for induction of labor (Primary Dx); Supervision of high risk , antepartum; complicated by congenital heart disease, single or unspecified fetus 12/23/2024 Travel 12/04/2024 3:15 PM EDT Office Visit [facility] Pediatric Cardiology [address], [address] [place] [address] Paul Collazo MD Maternal care for other (suspected) abnormality and damage, not applicable or unspecified (Primary Dx) 12/04/2024 2:26 PM EDT - 12/04/2024 11:59 PM EDT Hospital Encounter [facility] Pediatric Cardiac Diagnostic Testing [address] [facility] [address] Floor, [place] [address] Maternal care for other (suspected) abnormality and damage, not applicable or unspecified Discharge Disposition: Home or Self Care 12/04/2024 1:45 PM EDT Office Visit [facility] Pediatric Cardiology [address], [address] [place] [address] Dalila Acosta, EDITORIAL WRITER 12/04/2024 Travel 11/26/2024 Telephone [facility] Pediatric Cardiac Diagnostic Testing [address] [facility] [address] Floor, [place] [address] Hubert Villegas MD 11/26/2024 Telephone [facility] Pediatric Cardiac Diagnostic Testing [address] [facility] [address] Floor, [place] [address] Hubert Villegas MD 11/25/2024 10:45 AM EDT Initial Medical Office Building Obstetrics and Gynecology [address] [facility], [address] [place] [address] Vikas Haile MD GA: [id number] 11/25/2024 10:00 AM EDT - 11/25/2024 11:59 PM EDT Hospital Encounter Medical Office Building Obstetrics and Gynecology [address] [facility], [address] [place] [address] Maternal care for other (suspected) abnormality and damage, not applicable or unspecified Discharge Disposition: Home or Self Care 11/25/2024 Telephone Medical Office Building Obstetrics and Gynecology [address] [facility], [address] [place] [address] Charlette Ugalde RN [facility] Care coordination 11/25/2024 Orders Only Medical Office Building Obstetrics and Gynecology [address] [facility], [address] [place] [address] Vikas Haile MD Supervision of high risk , antepartum (Primary Dx); 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, single or unspecified fetus 11/25/2024 Travel 11/12/2024 Orders Only Medical Office Building Obstetrics and Gynecology [address] [facility], [address] [place] [address] Mariah Sahu MD Maternal care for other (suspected) abnormality and damage, not applicable or unspecified (Primary Dx) 11/07/2024 Telephone [facility] Pediatric Cardiac Diagnostic Testing [address], [place] [address] Paul Collazo MD 11/06/2024 Telephone [facility] Pediatric Cardiology [address], [address] [place] [address] Dalila Acosta EDITORIAL WRITER 10/28/2024 10:30 AM EDT Office Visit [facility] Pediatric Cardiology [address], [address] [place] [address] Paul Collazo MD Maternal care for other (suspected) abnormality and damage, not applicable or unspecified (Primary Dx) 10/28/2024 10:21 AM EDT - 10/28/2024 11:59 PM EDT Hospital Encounter [facility] Pediatric Cardiac Diagnostic Testing [address], [place] [address] Abnormal obstetric ultrasound scan Discharge Disposition: Home or Self Care 10/28/2024 Travel 10/22/2024 Telephone [facility] Pediatric Cardiac Diagnostic Testing [address] [facility], [place] [address] Hubert Villegas MD 10/14/2024 Telephone [facility] Pediatric Cardiac Diagnostic Testing [address] [facility], [place] [address] Hubert Villegas MD from Last 3 Months [...] do you attend [facility] or anglican services? Never 11/25/2024 Do you belong to any clubs o r organizations such as bahai groups, unions, fraternal or athletic groups, or [...] and heating? Not very hard 11/25/2024 [facility] - Occupational Stress Questionnaire Answer Date [...] any time in the past 12 m [facility], were you homeless or living in a [facility] (including now)? No 11/25/2024 [place] Depression Scale Answer Date Recorded [place] Depression Scale Total 8 11/25/2024 The thought [...] Upcoming Encounters Date Type Department Care Team ([facility] st Contact Info) Description 01/08/2025 8:00 AM EDT Hospital Encounter 02/26/2025 1:00 PM EDT Visit Medical Office Building Obstetrics and Gynecology [address] [facility], [address] [place] [address] Leora Bob, MANAGER PACKAGING [address] [address] Health Maintenance Due Date Last Done Comments [facility]-Hepatitis C Screening 1998 [facility]-Infant/Child/Adol SDOH Screenings 1998 [facility]-Hepatitis A Vaccines (2 of 2 - 2-dose series) 08/26/2015 02/25/2015 HPV Vaccines (3 - 3-dose series) 08/28/2015 06/05/2015, 02/25/2015 [facility]-Pap Smear 2019 DEX-[id number] Vaccine ( season) 2024 07/24/2020, 06/13/2020 [facility]-DTaP,Tdap,and [...] Ketones, Urine Negative Negative mg/dL POCT Specific [place], Urine 1.020 POCT Blood, Urine Negative Negative POCT pH, Urine 7.0 5.0 to 8.0 POCT Protein, Urine Negative Negative mg/dL POCT Urobilinogen, Urine 0.2 0.2, 1 E.U./dL POCT Nitrite, Urine Negative Negative POCT Leukocyte Esterase, Urine Small(A) Negative Test Strip Lot Number [id number] Test Strip Lot Expiration 10/2025 Urine Urine [...] Please navigate to the Imaging tab in [employer] for review. This message has been generated by the interface. Narrative Procedure Note Meeta Mercedes MD - 12/23/2024 IMPRESSION: The OB Ultrasound you requested has been resulted. Please navigate to theImaging tab in [employer] for review. This message has been generated [...] Please navigate to the Imaging tab in [employer] for review. This message has been generated by the interface. Narrative Procedure Note Rosmery, Jeni ADO - 11/25/2024 IMPRESSION: The OB Ultrasound you requested has been resulted. Please navigate to theImaging tab in [employer] for review. This message has been generated by [employer]. us Mariah Sahu MD IMG OB US [...] Most Recently Relevant to Health Maintenance Insurance [facility] MEDICAID Care Teams Condenser Winder Relationship Specialty Start Date End Date Pcp, No [address] [place] [address] PCP - General Family Medicine 10/28/24 Jg Gonzalez MD [address] [address] [place] [address] Referring Physician Obstetrics and Gynecology 10/28/24
--- OUTSIDE RECORDS SUMMARY | 2025-01-06 12:14 | XMS_ITS | Encounter Summary ---
[facility] Address [address] [place] [address] Care Team Providers Care Planning Analyst Name Role Phone Provider, No Known Primary [...] on filedocumented in this encounter Care Teams Planning Analyst Relationship Specialty Start Date End Date Provider, No Known [facility] [place] [address] PCP - General 09/26/24 documented as of this encounter
--- OUTSIDE RECORDS SUMMARY | 2025-01-06 12:14 | XMS_ITS | Encounter Summary ---
Author Organization Healthcare Address [address] [place] [address] Care Team Providers Care Purchase Analyst Name Role Phone Pcp, No Primary Care Provider Jg Richmond MD Unavailable [phone] Encounter Details Date Type Department Care [...] time in the past 12 m [facility], were you homeless or living in a penitentiary (including now)? No 11/25/2024 [place] Depression Scale Answer Date Recorded [place] Depression Scale Total 8 11/25/2024 The thought [...] Obstetrics and Gynecology [address] [facility], [address] [place] [address] Leora Bob, CREW MEMBER [address] [facility] [address] [place] [address] documented as of this encounter Visit Diagnoses Not on filedocumented in this encounter Additional Health Concerns Assessment Noted Time PHQ-9 Depression Total Score: 5 11/26/19 25 11:39 AM EDT A Body Mass Index follow-up plan has been documented for the patient 12/04/2024 3:27 PM EDT documented as of this encounter Care Teams Purchase Analyst Relationship Specialty Start Date End Date Pcp, No [address] [place] [address] PCP - General Family Medicine 10/28/24 Jg Gonzalez MD [address] [address] Referring Physician Obstetrics and Gynecology 10/28/24 documented as of this encounter
--- OUTSIDE RECORDS SUMMARY | 2025-01-06 12:14 | XMS_ITS | Encounter Summary ---
Author Organization [employer] ([place], [place], [place], [place]) Address [address] [place] [address] Care Team Providers Care Cosmetician Name Role Phone Unavailable Primary Care Provider Unavailabl e Encounter Details Date Type Department Care Team (Late st Contact Info) Description 10/19/2020 Transcribed Document [facility] Family Medicine [address] [place] [address] ProviderLo MD [address] [place] [address] Social History Tobacco Use Types [...] Communication Barrier : None Primary Language : Scottish Any Spiritual/Cultural Needs or Requests : No [...]
--- OUTSIDE RECORDS SUMMARY | 2025-01-06 12:14 | XMS_ITS | Encounter Summary ---
Author Organization [employer] ([place], [place], [place], [place]) Address [address] [place] [address] Care Team Providers Care Heavy Truck Mechanic Name Role Phone Unavailable Primary Care Provider Unavailabl e Encounter Details Date Type Department Care Team (Late st Contact Info) Description 10/19/2020 Transcribed Document [facility] [place] [address] [place] [address] ProviderLo MD [address] [place] [address] Social History Tobacco Use Types [...]
--- OUTSIDE RECORDS SUMMARY | 2025-01-06 12:14 | XMS_ITS | Encounter Summary ---
Author Organization [employer] ([place], [place], [place], [place]) Address [address] [place] [address] Care Team Providers Care City Councilman Name Role Phone Unavailable Primary Care Provider Unavailabl e Encounter Details Date Type Department Care Team (Late st Contact Info) Description 10/19/2020 Transcribed Document [facility] Radiology [address] [place] [address] Boby Mccracken MD [address] [place] [address] Dept[place] [address] Social History Tobacco Use Types [...] severe, 3 days, left-sided. Was seen at [facility] and had labs but no formal [...]
--- OUTSIDE RECORDS SUMMARY | 2025-01-06 12:14 | XMS_ITS | Encounter Summary ---
Author Organization Healthcare Address [address] [place] [address] Care Team Providers Care Mill Crane Operator Name Role Phone Pcp, No Primary Care Provider Jg Richmond MD Unavailable [phone] Encounter Details Date Type Department Care [...] often do you attend chur ch or synagogue services? Never 11/25/2024 Do you belong to any clubs o r organizations such as cheondoism groups, unions, fraternal or athletic groups, or [...] care, and heating? Not very hard 11/25/2024 [facility] [place] [facility] Occupat ional Health - Occupational Stress [...] any time in the past 12 m [facility], were you homeless or living in a senior care (including now)? No 11/25/2024 [place] Depression Scale Answer Date Recorded [place] Depression Scale Total 8 11/25/2024 The thought [...] [address] [facility], [address] [place] [address] Leora Bob, INSTRUCTIONAL INTERVENTIONIST [address] [facility] [address] [place] [address] documented as of this encounter Visit Diagnoses Not on filedocumented in this encounter Additional Health Concerns Assessment Noted Time PHQ-9 Depression Total Score: 5 11/26/19 25 11:39 AM EDT A Body Mass Index follow-up plan has been documented for the patient 10/29/2024 4:48 PM EDT documented as of this encounter Care Teams Mill Crane Operator Relationship Specialty Start Date End Date Pcp, [place] [address] PCP - General Family Medicine 10/28/24 Jg Gonzalez MD [address] [facility] [address] [place] [address] Referring Physician Obstetrics and Gynecology 10/28/24 documented as of this encounter
--- OUTSIDE RECORDS SUMMARY | 2025-01-06 12:14 | XMS_ITS | Encounter Summary ---
Author Organization Healthcare Address [address] [place] [address] Care Team Providers Care Dye Weigher Helper Name Role Phone Pcp, No Primary Care Provider Unavailabl e Jg Gonzalez MD Unavailable [phone] Encounter Details Date Type Department Care Team ([facility] Contact Info) Description 12/23/2024 Orders Only Medical Office Building Obstetrics and Gynecology [address] [facility], [address] [place] [address] Leora Bob, NURSING EDUCATION CONSULTANT [address] [facility] [address] [place] [address] Encounter for induction of labor [...] care, and heating? Not very hard 11/25/2024 [facility] of Occupat ional Health - Occupational Stress [...] in a half-way (including now)? No 11/25/2024 [place] Depression Scale Answer Date Recorded [place] Depression Scale Total 8 11/25/2024 The thought [...] Office Building Obstetrics and Gynecology [address] [facility], [address] [place] [address] Leora Bob, NURSING EDUCATION CONSULTANT [address] [facility] [address] [place] [address] Scheduled Orders Name Type Priority Associated Diagnoses [...] documented as of this encounter Care Teams Dye Weigher Helper Relationship Specialty Start Date End Date Pcp, Sherron [address] [place] [address] PCP - General Family Medicine 10/28/24 Jg Gonzalez MD [address] [place] [address] [place] [address] Referring Physician Obstetrics and Gynecology 10/28/24 documented as of this encounter
--- OUTSIDE RECORDS SUMMARY | 2025-01-06 12:15 | XMS_ITS | Encounter Summary ---
Author Organization [employer] ([place], [place], [place], [place]) Address [address] [place] [address] Care Team Providers Care Supervisor Corduroy Cutting Name Role Phone Unavailable Primary Care Provider Unavailabl e Encounter Details Date Type Department Care Team (Late st Contact Info) Description 10/19/2020 Transcribed Document [facility] [place] Family Medicine [facility] [place] [address] ProviderLo MD [address] [place] [address] Social History Tobacco Use Types [...] severe, 3 days, left-sided. Was seen at [facility] and had labs but no [...] EDT Height Source Stated Height Entry Format Lucas Height/Length, URUGUAYAN (ft) 5 ft Height/Length URUGUAYAN 3 Inch CLINICALHEIGHT 160.02 cm [place] Body Weight 52.02 kg Weight Source, ED Critical estimated dosing weight Weight Entry Format Lucas Weight Portuguese lb 110 lb CLINICALWEIGHT 50 kg Body [...] % LOW Lymph # 0.97 K/uL LOW [place] % 4.8 % [place] # 0.42 K/uL Eos % 0.0 % LOW Eos # 0.00 K/uL LOW Baso % 0.5 % Baso # 0.04 K/uL Slide Review No IG# 0 x10(3)/uL IG% 0 % Urine Type. U CleanCatch Urine Color Yellow Urine Appearance Cloudy Urine Specific [place] 1.011 Urine pH Dipstick 6.5 Urine Leukocyte [...] Radiology results: Radiology Results (Last 48 hours) [id number] -- 10/19/2020 12:22 CT Abdomen Pelvis W [...] a primary care provider the patient resource energy scheduler can assist you with establishing care and scheduling follow-up. The Patient Resource Mechanic Senior can be contacted at ., Follow up with primary care provider Within 2 to 3 days Call for follow up appointment. Please follow-up with your primary care provider in 2 to 3 days. Return to ED if you experience new or worsening symptoms. If you do not have a primary care provider the patient resource energy scheduler can assist you with establishing care and scheduling follow-up. The Patient Resource Mechanic Senior can be contacted at .; NO PRIM DR SHERMAN Within 2 to 3 days; Follow-up with your CLAY WORKER as discussed Within 2 to 3 days. Counseled: Patient, Family, Regarding diagnosis, Regarding diagnostic results, Regarding treatment plan, Regarding prescription, Patient indicated understanding of instructions. documented in this encounter Plan of Treatment Not on file documented as of this encounter Visit Diagnoses Not on filedocumented in this encounter
--- OUTSIDE RECORDS SUMMARY | 2025-01-06 12:15 | XMS_ITS | Clinical Summary ---
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 We have scheduled an appointment for the patient with pediatric cardiology for evaluation. The patient most likely will not be able to deliver in [place]. 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 Anatomical Region Laterality Modality Ultrasound 11/07/2024 1:34 PM EDT Narrative 11/12/2024 7:26 PM EDT PAT NAME: [place] MED REC#: [id number] DA: [id number] PAT GEND: F PAT TYPE: O EXAM LYNN: [id number] REF PHYS WEST, GREGG Comparison Studies The [...] EFW (oz) 8 oz EFW by: Hadlock ([id number]) Extended Cav. septi pel. tr 5.1 mm Brand Ambassador Promotional Model 8.0 mm CM 7.3 mm 58% Nicolaides [...] The MAYELA is normal. Recommendation Transfer to [facility] Coding ======= Description: 29936-64 Follow Up Ultrasound Description: [address]-23 BPP without NST Merchandise Coordinator: Becca Perez RDMS Physician: Mariah Sahu MD, FACOG Electronically signed by: Mariah Sahu MD, FACOG at: 19:26 Procedure Note Mariah Sahu MD - 11/12/2024 PAT NAME: [place] MED REC#: [id number] DA: 2000 PAT GEND: F PAT TYPE: O EXAM LYNN: [id number] REF PHYS GREGG WEST Comparison Studies The findings of this study are compared to the prior ultrasound studydated 10/10/24. 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 Number of fetuses: 1 Dating ====== GA by prior [id number] w + 1 d AUGUSTINE by prior [...] GA30 w + 1 d Assigned AUGUSTINE:01/15/2025 mxdtos083 d Biometry Standard BPD80.5 mm 32w 2d 93% Hadlock GIO914.2 mm 35w 0d >99% Jamie HC298.8 mm 33w 1d 91% Hadlock Cerebellum tr37.5 mm 30w 5d 54% Hill AC262.0 mm 30w 2d 51% Hadlock Femur56.4 mm 29w 4d 22% Hadlock Pkumcjs41.2 mm 29w 3d 33% Jamie HC / AC1.14 EFW1,590 g 30w 1d 51% Hadlock EFW (lb)3 lb EFW (oz)8 oz EFW by:Hadlock ([id number]-FL) Extended Cav. septi pel. tr5.1 mm Vp8.0 mm CM7.3 mm 58% Nicolaides Head / Face / Neck Cephalic index0.76 16% Nicolaides Extremities / Bony Struc FL / BPD0.70 FL / HC0.19 FL / AC0.22 Other Structures SEI376 bpm General Evaluation Cardiac activity present. FHR [...] The MAYELA is normal. Recommendation Transfer to [facility] Coding ======= Description: Follow Up Ultrasound Description: BPP without NST Merchandise Coordinator: Becca Perez RDRI Physician: Mariah Sahu MD, FACOG Electronically signed by: Mariah Sahu MD, FACOG at: 9:26 us Lars Coffey MD IMG US ORDERABLES Final Re sult from Last 3 Months Insurance [facility] Care Teams Hogshead Packer Relationship Specialty Start Date End Date Provider, No Known [facility] [place] [address] PCP - General 09/26/24
--- OUTSIDE RECORDS SUMMARY | 2025-01-06 12:15 | XMS_ITS | Encounter Summary ---
Author Organization [employer] ([place], [place], [place], [place]) Address [address] [place] [address] Care Team Providers Care Oracle Technical Architect Name Role Phone Unavailable Primary Care Provider Unavailabl e Encounter Details Date Type Department Care Team (Late st Contact Info) Description 10/19/2020 Transcribed Document [facility] [place] [address] [place] [address] ProviderLo MD [address] [place] [address] Social History Tobacco Use Types [...] Jay Luu Rn - 10/19/2020 17:22 EDT Electronically signed by Wanda Morrell Conversion Supervisor Drying And Winding Cerner at 09/16/2022 7:45 PM CDT documented in this encounter Plan of Treatment Not on file documented as of this encounter Visit Diagnoses Not on filedocumented in this encounter
== END 2025-01-03 23:59 | disposition home or self-care (01) ==
LOC: LAB.DROPOF 01-06 12:08
PROVIDERS: PCP Obstetrics & Gynecology; Visit Provider Obstetrics & Gynecology
DX: N39.0 Urinary tract infection, site not specified (principal)
CPT/HCPCS: 87086